=== PATIENT | male | born 1965 | race Caucasian/White ===

== ENCOUNTER 2017-06-28 16:24 | Inpatient (IN) | payer SELFPAY ==
[~2017-06-28] VITALS: Ht 170.2 cm; Wt 63.5 kg
[~2017-06-28 16:24] MED LIST: IOHEXOL 350 MG/ML 50 ML BTL (for Cath Lab) OTHER ONE
[2017-06-28 16:29] VITALS: BP 127/88; PULSE 113; RESP 16; TEMP 97.6; O2SAT 96
[2017-06-28 16:44] VITALS: BP 127/88; PULSE 113; RESP 16; TEMP 97.6; O2SAT 96
--- NOTE | 2017-06-28 16:58 | PD ---
HPI Chief Complaint: Edema Time Seen by Provider: 16:47 Travel History International Travel<30 days: No Contact w/Intl Traveler<30days: No Traveled to known affect area: No History of Present Illness HPI This 52-year-old male says he has had swelling of his feet and scrotum. He has felt short of breath. The symptoms am going on for about 4 weeks. He has not had trouble like this before. He says that 4 weeks ago he thought he got dehydrated his urine was dark for a bit. He has no history of chest pain. He has been having a headache. He does drink occasionally. He smokes but he has not smoked for the past 3 weeks. He is on no medications. PENDING SALE TO [facility] Past Medical History Medical History: Denies Significant Hx Diminished Hearing: No Tetanus Vaccination: Never Vaccinated Past Surgical History Surgical History: No Previous Surgery Social History Alcohol Use: No Tobacco Use: No Substance Use: No Allergies-Medications (Allergen,Severity, Reaction): Coded Allergies: No Known Allergies (Unverified , 06/28/17) Reported Meds & Prescriptions Reported Meds & Active Scripts Active No Active Prescriptions or Reported Medications Review of Systems General / Constitutional: No: Fever, Chills Eyes: No: Diploplia, Blurred Vision HENT: No: Headaches Cardiovascular: Positive: Edema, No: Chest Pain or Discomfort, Palpitations Respiratory: Positive: Shortness of Breath, No: Cough Gastrointestinal: No: Vomiting, Diarrhea Genitourinary: No: Frequency Musculoskeletal: No: Myalgias Skin: No Rash Neurologic: No: Weakness Psychiatric: No: Anxiety, Depression Hematologic/Lymphatic: No: Easy Bruising Physical Exam Narrative GENERAL: Well-developed male SKIN: Focused skin assessment warm/dry. HEAD: Atraumatic. Normocephalic. EYES: Pupils equal and round. No scleral icterus. No injection or drainage. ENT: No nasal bleeding or discharge. Mucous membranes pink and moist. NECK: Trachea midline. No JVD. CARDIOVASCULAR: Regular rate and rhythm. No murmur appreciated. RESPIRATORY: No accessory muscle use. Bibasilar rales Breath sounds equal bilaterally. GASTROINTESTINAL: Abdomen soft, non-tender, nondistended. Hepatic and splenic margins not palpable. MUSCULOSKELETAL: No obvious deformities. No clubbing. No cyanosis. Bilateral pedal edema. NEUROLOGICAL: Awake and alert. No obvious cranial nerve deficits. Motor grossly within normal limits. Normal speech. PSYCHIATRIC: Appropriate mood and affect; insight and judgment normal. Data Data Last Documented VS Vital Signs Date Time Temp Pulse Resp B/P (MAP) Pulse Ox O2 Delivery O2 Flow Rate FiO2 06/28/17 16:46 16 96 Room Air 06/28/17 16:44 97.6 113 127/88 (101) Orders Orders Electrocardiogram (06/28/17 16:55) Complete Blood Count With Diff (06/28/17 16:55) Comprehensive Metabolic Panel (06/28/17 16:55) Troponin I (06/28/17 16:55) B-Type Natriuretic Peptide (06/28/17 16:55) Prothrombin Time / Inr (Pt) (06/28/17 16:55) Act Partial Throm Time (Ptt) (06/28/17 16:55) Urinalysis - C+S If Indicated (06/28/17 16:55) Magnesium (Mg) (06/28/17 16:55) Thyroid Stimulating Hormone (06/28/17 16:55) Chest, Single Ap (06/28/17 16:55) Furosemide Inj (Lasix Inj) (06/28/17 18:15) Labs Laboratory Tests Test 06/28/17 17:13 Prothrombin Time 16.8 SEC Prothromb Time International Ratio 1.5 RATIO Activated Partial Thromboplast Time 30.6 SEC Blood Urea Nitrogen 20 MG/DL Creatinine 1.20 MG/DL Random Glucose 103 MG/DL Total Protein 6.0 GM/DL Albumin 3.4 GM/DL Calcium Level 8.8 MG/DL Magnesium Level 1.9 MG/DL Alkaline Phosphatase 82 U/L Aspartate Amino Transf (AST/SGOT) 85 U/L Alanine Aminotransferase (ALT/SGPT) 75 U/L Total Bilirubin 1.8 MG/DL Sodium Level 133 MEQ/L Potassium Level 5.0 MEQ/L Chloride Level 100 MEQ/L Carbon Dioxide Level 21.2 MEQ/L Anion Gap 12 MEQ/L Estimat Glomerular Filtration Rate 63 ML/MIN Troponin I 0.06 NG/ML B-Type Natriuretic Peptide 3113 PG/ML Thyroid Stimulating Hormone 3rd Gen 2.860 uIU/ML MDM Medical Decision Making Medical Screen Exam Complete: Yes Emergency Medical Condition: Yes Medical Record Reviewed: Yes Differential Diagnosis Differential includes ascites, cirrhosis, CHF Narrative Course EKG shows sinus tachycardia at a rate of 1:15. There is a QS complex in V1 through V4. Anterior fascicular block. BNP is 3000. His troponin is 0.06. Patient denies any chest pain. Impression is new onset congestive heart failure Diagnosis Primary Impression: Congestive heart failure (CHF) Qualified Codes: I50.9 - Heart failure, unspecified Admitting Information Admitting Physician Requests: Admit Scripts No Active Prescriptions or Reported Meds Bright Pressley MD Jun 28, 2017 16:58
[2017-06-28 17:31] LABS: CHLORIDE 100 MEQ/L (98-107); SODIUM (NA) 133 MEQ/L (136-145)
[2017-06-28 17:32] LABS: AUTOMATED NEUTROPHIL # 9.2 TH/MM3 (1.8-7.7); BASOPHIL # 0.1 TH/MM3 (0-0.2); BASOPHIL % 1.1 % (0.0-2.0); EOSINOPHIL # 0.2 TH/MM3 (0-0.4); EOSINOPHIL % 1.8 % (0.0-4.0); HEMATOCRIT 50.2 % (39.0-51.0); LYMPH % 15.9 % (9.0-44.0); LYMPHOCYTE # 1.9 TH/MM3 (1.0-4.8); MEAN CELL VOLUME 95.5 FL (80.0-100.0); MEAN CORPUSCULAR HEMOGLOBIN 31.1 PG (27.0-34.0); MEAN CORPUSCULAR HGB CONC 32.5 % (32.0-36.0); MONO % 5.4 % (0.0-8.0); NEUT % 75.8 % (16.0-70.0); PLATELET COUNT 291 TH/MM3 (150-450); RED BLOOD COUNT 5.25 MIL/MM3 (4.50-5.90); RED CELL DISTRIBUTION WIDTH 14.1 % (11.6-17.2)
[2017-06-28 17:35] LABS: ANION GAP 12 MEQ/L (5-15); APTT (PATIENT) 30.6 SEC (24.3-30.1); BICARBONATE 21.2 MEQ/L (21.0-32.0); BLOOD UREA NITROGEN 20 MG/DL (7-18); INTERNATIONAL NORMALIZED RATIO 1.5 RATIO; MAGNESIUM 1.9 MG/DL (1.5-2.5); PROTHROMBIN TIME - PATIENT 16.8 SEC (9.8-11.6)
--- NOTE | 2017-06-28 17:37 | RADRPT ---
EXAM DATE/TIME: 06/28/2017 17:02 [facility] COMPARISON: No previous studies available for comparison. INDICATIONS : Shortness of breath. MEDICAL HISTORY : None. SURGICAL HISTORY : None. ENCOUNTER: Initial ACUITY: 1 month PAIN SCORE: 0/10 LOCATION: Bilateral chest FINDINGS: Cardiac silhouette is mildly enlarged. There is mild vascular congestion and central and basilar pare nchymal opacities suggestive of edema. CONCLUSION: Probable CHF Zheng Damian MD on June 28, 2017 at 17:35 Board Certified Radiologist. This report was verified electronically.
[2017-06-28 17:38] LABS: ALT (GPT) 75 U/L (12-78); AST (GOT) 85 U/L (15-37); GLOMERULAR FILTRATION RATE 63 ML/MIN (>89)
[2017-06-28 17:40] LABS: TOTAL BILIRUBIN ADULT 1.8 MG/DL (0.2-1.0)
[2017-06-28 17:41] LABS: ALKALINE PHOSPHATASE 82 U/L (45-117)
[2017-06-28] MEDS ORDERED: FUROSEMIDE 40 MG/4 ML VIAL IV PUSH ONE (18:15)
[2017-06-28 18:20] LABS: HEMO FLAGS AUTO DIFF
[2017-06-28] MEDS ORDERED: SODIUM CHLORIDE 0.9% FLUSH 10 ML FLUSH IV FLUSH PRN (18:30)
[2017-06-28 18:47] LABS: PLATELET ESTIMATE SMEAR NORMAL (NORMAL); PLATELET MORPHOLOGY GIANT (NORMAL); SCAN/DIFF AUTO DIFF CONFIRMED
[2017-06-28 18:55] LABS: BLOOD, URINE SMALL (NEG); GLUCOSE,URINE NEG (NEG); KETONE, URINE NEG (NEG); NITRITE,URINE NEG (NEG)
[2017-06-28 19:02] LABS: URINE COLOR YELLOW (YELLW/STRAW)
[2017-06-28 19:03] LABS: MUCUS URINE FEW /lpf (OCC); WBC, URINE 100-200 /hpf (0-5)
[2017-06-28 19:04] LABS: BACTERIA, URINE MOD /hpf; COMMENT (UR) CULTURE INDICATED; CULTURE IF INDICATED CULTURE INDICATED; SQUAMOUS EPITHELIAL CELL URINE 0-5 /hpf (0-5)
[2017-06-28] MEDS ORDERED: IOHEXOL 350 MG/ML 10 ML VIAL (for RAD DIAG) IVCONTRAST ONE (19:26)
--- NOTE | 2017-06-28 20:08 | RADRPT ---
EXAM DATE/TIME: 06/28/2017 19:14 [facility] COMPARISON: No previous studies available for comparison. INDICATIONS : Abdominal distention with lower extremity swelling. IV CONTRAST: 85 cc Omnipaque 350 (iohexol) IV ORAL CONTRAST: No oral contrast ingested. RADIATION DOSE: 8.67 CTDIvol (mGy) MEDICAL HISTORY : None SURGICAL HISTORY : None. ENCOUNTER: Initial ACUITY: 3 weeks PAIN SCALE: 0/10 LOCATION: Abdomen TECHNIQUE: Volumetric scanning of the abdomen and pelvis was performed. Using automated exposure control and adjustment of the mA and/or kV according to patient size, radiation dose was kept as low as reasonably achievable to obtain optimal diagnostic quality images. DICOM format image data is av ailable electronically for review and comparison. FINDINGS: There is a large cystic area seen in the lower abdomen and pelvis thought to be related to a very distended bladder. There is a 0.8 cm calcification seen in the dependent portion of the b ladder thought to be a bladder stone. Renal stones are not seen. There is some mild fullness of the renal collecting system on the left. The right renal collecting system is within normal limits. The heart size appears enlarged. There is dilatation of the ventricles especially at the left. Ther e are mild bilateral pleural effusions being worse on the right. There are accompanying areas of ate lectasis or consolidation at the posterior lung bases. There is a mild amount of ascites seen around the liver and spleen. There is hazy density seen throughout the subcutaneous tissues concerning for anasarca. The liver, spleen, pancreas and adrenal glands are unremarkable. Atherosclerotic calcifications are seen throughout the arterial system. An aneurysm is not present. There are some scattered colonic d iverticula in the sigmoid region. Significant inflammatory change is not seen. There is some degener ative change in the lower lumbar spine. CONCLUSION: 1. Very distended urinary bladder. There is an 8 mm stone seen in the dependent portion of the urina ry bladder. 2. Cardiomegaly with dilatation of the ventricles especially on the left. 3. Bilateral mild pleural effusions being worse on the right. 4. Mild ascites and suspected anasarca seen in the subcutaneous tissues. Zheng George MD on June 28, 2017 at 19:54 Board Certified Radiologist. This report was verified electronically.
[2017-06-28 20:27] VITALS: BP 104/83; PULSE 109; RESP 18; O2SAT 94
[2017-06-28] MEDS: ENOXAPARIN SODIUM 40 MG/0.4 ML SYRINGE SQ SCH (20:41)
[2017-06-28 21:29] VITALS: BP 112/71; PULSE 119; RESP 18; O2SAT 98
[2017-06-28] MEDS: SODIUM CHLORIDE 0.9% FLUSH 10 ML FLUSH IV FLUSH SCH (21:29)
[2017-06-28 22:32] VITALS: O2SAT 96
[2017-06-29] VITALS (9 sets, daily range): BP systolic 86–111; BP diastolic 72–95; PULSE 88–120; RESP 16–24; TEMP 96.3–98.3; O2SAT 91–98
[2017-06-29] MEDS ORDERED: FUROSEMIDE 40 MG/4 ML VIAL IV PUSH ONE (04:00)
[2017-06-29 04:12] LABS: POTASSIUM 4.3 MEQ/L (3.5-5.1)
[2017-06-29 04:15] LABS: BICARBONATE 19.4 MEQ/L (21.0-32.0); MAGNESIUM 1.8 MG/DL (1.5-2.5)
[2017-06-29] MEDS: BUMETANIDE INJ 1 MG/4 ML VIAL IVP SCH ×2 (09:00→18:12)
[2017-06-29] MEDS: SODIUM CHLORIDE 0.9% FLUSH 10 ML FLUSH IV FLUSH SCH ×2 (09:17→21:33)
--- NOTE | 2017-06-29 11:15 | HHI.HP ---
[facility] No Primary Care Physician Admission Diagnosis NEW ONSET CHF Diagnoses: Chief Complaint: Shortness of breath and edema Travel History International Travel<30 Days: No Contact w/Intl Traveler <30 Da: No Traveled to Known Affected Are: No History of Present Illness Patient is a pleasant 52-year-old gentleman with minimal past medical history who comes in because of 4 weeks of increased dyspnea on exertion, orthopnea and lower show any edema. He felt dehydrated so he drank lots and lots of fluid and with edema got worse. There was initially some improvement with elevation but even that did not work after a while so he came to the emergency room for further evaluation. Patient was found to be quite edematous with elevated BNP and an x-ray which showed basilar congestion pattern. Patient was admitted to the hospital for further evaluation of likely new onset congestive heart failure. He denies any chest pain or tightness, no syncopal changes or symptoms. Patient has felt better after aggressive diuresis Review of Systems Constitutional: COMPLAINS OF: Fatigue, DENIES: Diaphoretic episodes, Fever, Weight gain, Weight loss, Chills, Dizziness, Change in appetite, Night Sweats Endocrine: DENIES: Heat/cold intolerance, Polydipsia, Polyuria, Polyphagia Eyes: DENIES: Blurred vision, Diplopia, Eye inflammation, Eye pain, Vision loss , Photosensitivity, Double Vision Ears, nose, mouth, throat: DENIES: Tinnitus, Hearing loss, Vertigo, Nasal discharge, Oral lesions, Throat pain, Hoarseness, Ear Pain, Running Nose, Epistaxis, Sinus Pain, Toothache, Odynophagia Respiratory: DENIES: Apneas, Cough, Snoring, Wheezing, Hemoptysis, Sputum production, Shortness of breath Cardiovascular: COMPLAINS OF: Dyspnea on Exertion, Lower Extremity Edema, Orthopnea, DENIES: Chest pain, Palpitations, Syncope, PND, Claudication Gastrointestinal: DENIES: Abdominal pain, Black stools, Bloody stools, Constipation, Diarrhea, Nausea, Vomiting, Difficulty Swallowing, Anorexia Genitourinary: DENIES: Sexual dysfunction, Urinary frequency, Urinary incontinence, Urgency, Hematuria, Dysuria, Nocturia, Penile Discharge, Testicular Pain, Testicular Swelling Musculoskeletal: DENIES: Joint pain, Muscle aches, Stiffness, Joint Swelling, Back pain, Neck pain Integumentary: DENIES: Abnormal pigmentation, Nail changes, Pruritus, Rash Hematologic/lymphatic: DENIES: Bruising, Lymphadenopathy Immunologic/allergic: DENIES: Eczema, Urticaria Neurologic: DENIES: Abnormal gait, Headache, Localized weakness, Paresthesias, Seizures, Speech Problems, Tremor, Poor Balance Psychiatric: DENIES: Anxiety, Confusion, Mood changes, Depression, Hallucinations, Agitation, Suicidal Ideation, Homicidal Ideation, Delusions Except as stated in HPI: all other systems reviewed are Neg Past Family Social History Past Medical History None Past Surgical History None Reported Medications None Allergies: Coded Allergies: No Known Allergies (Unverified , 06/28/17) Active Ordered Medications Reviewed in the EMR Family History father from a AAA rupture at 45, mother in her 80s after motor vehicle accident Social History Tobacco pack per day for 30 years, 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, 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, 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 Vital Signs Vital Signs Date Time Temp Pulse Resp B/P (MAP) Pulse Ox O2 Delivery O2 Flow Rate FiO2 06/29/17 08:00 97.4 106 20 100/86 (91) 91 06/29/17 04:00 96.6 105 24 86/72 (77) 95 06/29/17 01:40 96.3 112 20 108/90 (96) 98 06/29/17 00:26 107 18 105/84 (91) 95 Room Air 06/29/17 00:26 109 18 105/84 (91) 95 06/28/17 22:32 96 21 06/28/17 21:29 119 18 112/71 (85) 98 Room Air 06/28/17 20:27 109 18 104/83 (90) 94 Room Air 06/28/17 19:00 114 18 96 Room Air 06/28/17 16:46 16 96 Room Air 06/28/17 16:44 97.6 113 16 127/88 (101) 96 06/28/17 16:29 97.6 113 16 127/88 (101) 96 Room Air Physical Exam GENERAL: This is a well-nourished, well-developed patient, mildly dyspneic with conversation SKIN: No rashes, ecchymoses or lesions. Cool and dry. HEAD: Atraumatic. Normocephalic. No temporal or scalp tenderness. EYES: Pupils equal round and reactive. Extraocular motions intact. No scleral icterus. No injection or drainage. ENT: Nose without bleeding, purulent drainage or septal hematoma. Throat without erythema, tonsillar hypertrophy or exudate. Uvula midline. Airway patent. NECK: Trachea midline. No JVD or lymphadenopathy. Supple, nontender, no meningeal signs. CARDIOVASCULAR: Regular rate and rhythm without murmurs, gallops, or rubs. RESPIRATORY: Clear to auscultation. Breath sounds equal bilaterally. No wheezes , rales, or rhonchi. GASTROINTESTINAL: Abdomen soft, non-tender, nondistended. No hepato-splenomegaly , or palpable masses. No guarding. MUSCULOSKELETAL: Extremities without clubbing, cyanosis, but there is +3 bilateral edema. No joint tenderness, effusion, or edema noted. No calf tenderness. Negative Homans sign bilaterally. NEUROLOGICAL: Awake and alert. Cranial nerves II through XII intact. Motor and sensory grossly within normal limits. Five out of 5 muscle strength in all muscle groups. Normal speech. Laboratory Laboratory Tests Test 06/28/17 17:13 06/28/17 18:43 06/29/17 03:55 White Blood Count 12.0 Red Blood Count 5.25 Hemoglobin 16.3 Hematocrit 50.2 Mean Corpuscular Volume 95.5 Mean Corpuscular Hemoglobin 31.1 Mean Corpuscular Hemoglobin Concent 32.5 Red Cell Distribution Width 14.1 Platelet Count 291 Mean Platelet Volume 9.9 Neutrophils (%) (Auto) 75.8 Lymphocytes (%) (Auto) 15.9 Monocytes (%) (Auto) 5.4 Eosinophils (%) (Auto) 1.8 Basophils (%) (Auto) 1.1 Neutrophils # (Auto) 9.2 Lymphocytes # (Auto) 1.9 Monocytes # (Auto) 0.6 Eosinophils # (Auto) 0.2 Basophils # (Auto) 0.1 CBC Comment AUTO DIFF Differential Comment AUTO DIFF CONFIRMED Platelet Estimate NORMAL Platelet Morphology Comment GIANT Prothrombin Time 16.8 Prothromb Time International Ratio 1.5 Activated Partial Thromboplast Time 30.6 Blood Urea Nitrogen 20 21 Creatinine 1.20 1.10 Random Glucose 103 72 Total Protein 6.0 Albumin 3.4 Calcium Level 8.8 8.8 Magnesium Level 1.9 1.8 Alkaline Phosphatase 82 Aspartate Amino Transf (AST/SGOT) 85 Alanine Aminotransferase (ALT/SGPT) 75 Total Bilirubin 1.8 Sodium Level 133 134 Potassium Level 5.0 4.3 Chloride Level 100 100 Carbon Dioxide Level 21.2 19.4 Anion Gap 12 15 Estimat Glomerular Filtration Rate 63 70 Troponin I 0.06 B-Type Natriuretic Peptide 3113 Thyroid Stimulating Hormone 3rd Gen 2.860 Urine Color YELLOW Urine Turbidity CLOUDY Urine pH 6.0 Urine Specific [place] 1.018 Urine Protein 100 Urine Glucose (UA) NEG Urine Ketones NEG Urine Occult Blood SMALL Urine Nitrite NEG Urine Bilirubin NEG Urine Leukocyte Esterase LARGE Urine RBC 4-9 Urine WBC 100-200 Urine Squamous Epithelial Cells 0-5 Urine Bacteria MOD Urine Mucus FEW Microscopic Urinalysis Comment CULTURE INDICATED Date/Time Source Procedure Growth Status 06/28/17 18:43 Urine Clean Catch Urine Culture Pending Received Result Diagram: 06/28/17 1713 06/29/17 0355 Imaging Last Impressions Abdomen/Pelvis CT 06/28/17 1818 Signed Impressions: Service Date/Time: Wednesday, June 28, 2017 19:14 - CONCLUSION: 1. Very distended urinary bladder. There is an 8 mm stone seen in the dependent portion of the urinary bladder. 2. Cardiomegaly with dilatation of the ventricles especially on the left. 3. Bilateral mild pleural effusions being worse on the right. 4. Mild ascites and suspected anasarca seen in the subcutaneous tissues. Zheng George MD Chest X-Ray 06/28/17 1655 Signed Impressions: Service Date/Time: Wednesday, June 28, 2017 17:02 - CONCLUSION: Probable CHF MD Augustina Gormani VTE Risk Assessment [place] VTE Risk Assessment: Mod/High Risk (score >= 2) VTE [facility] Contraindication: Severe LE edema Caprini Risk Assessment Model Point Value = 1 Point Value = 2 Point Value = 3 Point Value = 5 Age 41-60 Minor surgery BMI > 25 kg/m2 Swollen legs Varicose veins or History of unexplained or recurrent spontaneous Oral contraceptives or hormone replacement Sepsis (< 1 month) Serious lung disease, including pneumonia (< 1 month) Abnormal pulmonary function Acute myocardial infarction Congestive heart failure (< 1 month) History of inflammatory bowel disease Medical patient at bed rest Age 61-74 Arthroscopic surgery Major open surgery (> 45 min) Laparoscopic surgery (> 45 min) Malignancy Confined to bed (> 72 hours) Immobilizing plaster cast Central venous access Age >= 75 History of VTE Family history of VTE Factor V Leiden Prothrombin 30040S Lupus anticoagulant Anticardiolipin antibodies Elevated serum homocysteine Heparin-induced thrombocytopenia Other congenital or acquired thrombophilia Stroke (< 1 month) Elective arthroplasty Hip, pelvis, or leg fracture Acute spinal cord injury (< 1 month) Prophylaxis Regimen Total Risk Factor Score Risk Level Prophylaxis Regimen 0-1 Low Early ambulation 2 Moderate Order ONE of the following: *Sequential Compression Device (SCD) *Heparin 5000 units SQ BID 3-4 Higher Order ONE of the following medications: *Heparin 5000 units SQ TID *Enoxaparin/Lovenox 40 mg SQ daily (WT < 150 kg, CrCl > 30 mL/min) *Enoxaparin/Lovenox 30 mg SQ daily (WT < 150 kg, CrCl > 10-29 mL/min) *Enoxaparin/Lovenox 30 mg SQ BID (WT < 150 kg, CrCl > 30 mL/min) AND/OR *Sequential Compression Device (SCD) 5 or more Highest Order ONE of the following medications: *Heparin 5000 units SQ TID (Preferred with Epidurals) *Enoxaparin/Lovenox 40 mg SQ daily (WT < 150 kg, CrCl > 30 mL/min) *Enoxaparin/Lovenox 30 mg SQ daily (WT < 150 kg, CrCl > 10-29 mL/min) *Enoxaparin/Lovenox 30 mg SQ BID (WT < 150 kg, CrCl > 30 mL/min) AND *Sequential Compression Device (SCD) Assessment and Plan Problem List: (1) Congestive heart failure (CHF) ICD Code: I50.9 - Heart failure, unspecified Status: Acute Plan: Workup in progress, echo pending Improved after diuresis Blood pressure and heart rate stable. No events on telemetry Follow-up troponin Problem Qualifiers (1) Congestive heart failure (CHF): Qualified Codes: I50.9 - Heart failure, unspecified Elenita Renee MD Jun 29, 2017 11:14
--- NOTE | 2017-06-29 16:20 | ECHRPT ---
Indication: Heart failure, unspecified CONCLUSIONS The left ventricular systolic function is severely reduced with an estimated ejection fraction less than 20%. Wall thickness is normal. Severely dilated left ventricle. The right ventricle is mildly dilated. The right ventricular systoilc function is mildly decreased. The left atrial size is mildly dilated. The right atrial size is mildly dilated. Mild mitral valve regurgitation. No aortic valve regurgitation. No aortic valve stenosis. There is mild tricuspid valve regurgitation. There is estimated mild pulmonary hypertension present (range 40-50 mmHg). There is a small pericardial effusion present. BP: / HR: Rhythm: MEASUREMENTS (Male / Female) Normal Values Technical Quality:Good 2D ECHO LV Diastolic Diameter PLAX 6.8 cm 4.2 - 5.9 / 3.9 - 5.3 cm LV Systolic Diameter PLAX 6.3 cm IVS Diastolic Thickness 1.2 cm 0.6 - 1.0 / 0.6 - 0.9 cm LVPW Diastolic Thickness 1.4 cm 0.6 - 1.0 / 0.6 - 0.9 cm LV Relative Wall Thickness 0.4 RV Internal Dim ED PLAX 3.3 cm M-MODE Aortic Root Diameter MM 3.7 cm LA Systolic Diameter MM 5.3 cm LA Ao Ratio MM 1.4 AV Cusp Separation MM 1.6 cm DOPPLER LV E' Lateral Velocity 9.0 cm/s LV E' Septal Velocity 4.7 cm/s TR Peak Velocity 286.0 cm/s TR Peak Gradient 32.7 mmHg FINDINGS LEFT VENTRICLE The left ventricular systolic function is severely reduced with an estimated ejection fraction less than 20%. Wall thickness is normal. Severely dilated left ventricle. RIGHT VENTRICLE The right ventricle is mildly dilated. The right ventricular systoilc function is mildly decreased. LEFT ATRIUM The left atrial size is mildly dilated. RIGHT ATRIUM The right atrial size is mildly dilated. AORTA The aortic root and proximal ascending aorta are normal in size on limited imaging. MITRAL VALVE Structurally normal mitral valve. Mild mitral valve regurgitation. AORTIC VALVE Trileaflet aortic valve. No aortic valve regurgitation. No aortic valve stenosis. TRICUSPID VALVE Structurally normal tricuspid valve. There is mild tricuspid valve regurgitation. There is estimated mild pulmonary hypertension present (range 40-50 mmHg). PULMONARY VALVE No pulmonary valve regurgitation or stenosis. VESSELS The inferior vena cava is normal in size. PERICARDIUM There is a small pericardial effusion present. Pedro Sims MD, FACC (Electronically Signed) Final Date:29 June 2017 16:18
[2017-06-29] MEDS ORDERED: PILL SPLITTER OTHER PRN (17:00)
--- NOTE | 2017-06-29 17:37 | EKG ---
Date Performed: 06/28/2017 Time Performed: 17:06:06 PTAGE: 52 years EKG: SINUS TACHYCARDIA LEFT ATRIAL ENLARGEMENT LEFT ANTERIOR FASCICULAR BLOCK ANTEROSEPTAL MYOCA RDIAL INFARCTION ABNORMAL ECG NO PREVIOUS TRACING DOCTOR: Cole Morillo Interpretating Date/Time 06/29/2017 17:35:06
[2017-06-29] MEDS: ENOXAPARIN SODIUM 40 MG/0.4 ML SYRINGE SQ SCH (21:33)
[2017-06-30] VITALS (25 sets, daily range): BP systolic 92–108; BP diastolic 65–85; PULSE 90–118; RESP 16–20; TEMP 97.5–97.9; O2SAT 92–95
[2017-06-30] MEDS: SODIUM CHLORIDE 0.9% FLUSH 10 ML FLUSH IV FLUSH SCH ×2 (07:33→21:27)
[2017-06-30] MEDS: BUMETANIDE INJ 1 MG/4 ML VIAL IVP SCH (07:33)
[2017-06-30] MEDS: LISINOPRIL 5 MG TAB PO SCH (07:33)
--- NOTE | 2017-06-30 10:52 | HHI.PR ---
Subjective Remarks Follow up CHF, edema. Patient states that his edema is improving. Denies chest pain, dyspnea. Objective Vitals Vital Signs Date Time Temp Pulse Resp B/P (MAP) Pulse Ox O2 Delivery O2 Flow Rate FiO2 06/30/17 10:00 101 06/30/17 09:00 92 06/30/17 08:00 96 06/30/17 07:00 97.5 95 20 107/83 (91) 95 06/30/17 07:00 99 06/30/17 06:00 110 06/30/17 05:00 96 06/30/17 04:00 90 06/30/17 03:00 92 06/30/17 03:00 97.5 94 18 103/79 (87) 95 06/30/17 02:00 96 06/30/17 01:00 102 06/30/17 00:00 104 06/29/17 23:00 98.3 105 16 104/81 (89) 95 06/29/17 23:00 108 06/29/17 22:00 120 06/29/17 20:00 97.0 88 20 111/95 (100) 96 06/29/17 16:00 97.6 96 18 110/87 (95) 92 06/29/17 12:00 97.5 98 20 110/86 (94) 93 I/O 06/29/17 06/29/17 06/29/17 06/30/17 06/30/17 06/30/17 06:59 14:59 22:59 06:59 14:59 22:59 Intake Total 240 ml 575 ml 360 ml Output Total 1000 ml 550 ml Balance -760 ml 575 ml -190 ml Intake Oral 240 ml 575 ml 360 ml Output Urine Total 1000 ml 550 ml # Voids 0 3 # Bowel Movements 0 Result Diagram: 06/28/17 1713 06/29/17 0355 Imaging Last Impressions Abdomen/Pelvis CT 06/28/178 Signed Impressions: Service Date/Time: Wednesday, June 28, 2017 19:14 - CONCLUSION: 1. Very distended urinary bladder. There is an 8 mm stone seen in the dependent portion of the urinary bladder. 2. Cardiomegaly with dilatation of the ventricles especially on the left. 3. Bilateral mild pleural effusions being worse on the right. 4. Mild ascites and suspected anasarca seen in the subcutaneous tissues. Zheng George MD Chest X-Ray 06/28/17 5957 Signed Impressions: Service Date/Time: Wednesday, June 28, 2017 17:02 - CONCLUSION: Probable CHF Zheng Damian MD Objective Remarks General: No acute distress. Heart: Regular rate and rhythm. No murmur. Lungs: Clear to auscultation bilaterally. No wheezes, rales, or rhonchi. Breathing is nonlabored. Abdomen: Soft, nontender, nondistended. Extremities: 1+ bilateral lower extremity edema. Psych: Alert and oriented. : Mild scrotal and penile edema. Procedures None Urinary Catheter: No Vascular Central Line Catheter: No A/P Problem List: (1) Congestive heart failure (CHF) ICD Code: I50.9 - Heart failure, unspecified Status: Acute (2) Cardiomyopathy ICD Code: I42.9 - Cardiomyopathy, unspecified Assessment and Plan 1. Acute systolic congestive heart failure, cardiomyopathy: Echocardiogram shows EF 20%. Edema is improving. Continue diuresis. Appreciate cardiology recommendations. Scheduled for catheterization today. 2. DVT prophylaxis: Lovenox. Discharge Planning When cleared by cardiology. Problem Qualifiers (1) Congestive heart failure (CHF): Qualified Codes: I50.21 - Acute systolic (congestive) heart failure Chandler Miner MD Jun 30, 2017 10:52
[2017-06-30] MEDS ORDERED: HEPARIN-NS/PF INJ 1,000 ML ONE (11:25)
[2017-06-30] MEDS ORDERED: MIDAZOLAM HCL 2 MG/2 ML VIAL ONE (11:33)
--- NOTE | 2017-06-30 12:25 | CATHPROC ---
GLOG HIS Report Study Information Study Number Admission Scheduled Start Study Start [id number] Jun 28 2017 6:19PM 06/30/2017 Jun 30 2017 11:17AM [place] Service Cardiac Catheterization Admit Source Facility Department Other [facility] - Regional Project Manager Physician and Clinical Staff Initial Pedro Wren Lacquer Pin Press Operator Shadi Wyatt,TRACY Recorder Kapil Silver RCIS(BS) Scrub Curly Cook RCIS(BS) Procedures Performed Procedure Location (Site) Vessel Name Coronary Angiograms LCA Left Coronary Coronary Angiograms RCA Right Coronary LV Gram-hand inj. 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 WEDGE PRESSURE *[id number] TRANSDUCER, TRNautilus NeurosciencesAVE [id number] 11:32 BURGOS ALICEA * Used W/STOCKCOCK *[id number] 12:06 CARDIVA MEDICAL VASCADE, FR6 CLOSURE SYSTEM FR 6\7 Used *[id number] [id number] *[id number] [id number] *[id number] *[id number] 11:32 Exerscrip INDUSTRIES PACK, CCL CUSTOM * Used *[id number] 11:32 Exerscrip PACER PEN, SKIN DUAL W/ RULER * Used *[id number] 11:32 Xoft WIRE, 3MMJ .035 180CM 180CM Used *[id number] 11:32 NAMIC MANIFOLD, 2 PORT * Used *[id number] 11:32 NAMIC MANIFOLD, 4 PORT * Used *[id number] 11:32 NYCOMED OMNIPAQUE, 350 MG, 150ML 150ML [id number] Used [id number] 11:32 BANG MEDICAL BLANKET,WARM AIR CCL * Used *[id number] 11:33 TERUMO MEDICAL SHEATH, FR4 TERUMO (10CM) FR 4 Used *[id number] 11:32 TERUMO MEDICAL SHEATH, FR7 TERUMO (10CM) FR 7 Used *[id number] History: Allergies Allergy Reaction No Known Allergies History: Risk Factors Family History of Hypertension Dyslipidemia Previous DC Previous Heart Failure Premature CAD Yes No Yes No Yes Prior Valve Prior PCI Prior CABG Surgery No No No Cerebrovascular Peripheral Artery Chronic Lung On Dialysis Diabetes Disease Disease Disease No No No No No History: Symptoms/Diagnosis Selection Items SOB History: Stress Tests Stress or Imaging Studies Performed No History: Other Current Smoker Method Packs a Day Years Used Pack Years Yes Cigarettes 1 30 30 Labs Hgb (g/dl) Hct (%) WBC (l/cumm) Platelets (thousands) 11.60-17.00 35.00-51.00 4.00-11.00 150.00-450.00 16.3 50.2 12 291 Glucose (mg/dl) BUN (mg/dl) Creatinine (mg/dl) BUN:Creatinine (1:x) 74.00-106.00 7.00-18.00 0.50-1.30 10.00-20.00 72 21 1.1 19.1 Na (meq/l) K (meq/l) 136.00-145.00 3.50-5.10 134 4.3 INR (PTT:PT) 0.90-1.10 1.5 Troponin I (ng/ml) CPK-MB (ng/ML) 0.02-0.05 0.50-3.60 0.05 Not Drawn Medication Medication Total Dose (Bolus/Oral) Medication Total Dosage/Unit 1% XYLOCAINE 20 mL FENTANYL 25 mcg VERSED 1 mg Medications (Bolus/Oral) Medication Time Given Dosage/Unit Administered By Reason VERSED 06/30/2017 11:42:03 AM 1 mg Patient arrived on 1 mg VERSED via Peripheral IV. Ordered by Pedro Sims. FENTANYL 06/30/2017 11:42:05 AM 25 mcg Pedro Sims Patient arrived on 25 mcg FENTANYL given by Pedro Sims in Right Antecubital via Peripheral IV. Or dered by Pedro Sims. 1% XYLOCAINE 06/30/2017 11:43:15 AM 20 mL Pedro Sims 20 mL 1% XYLOCAINE given in lab by Pedro Sims in Right Groin via Subcutaneous. Ordered by Pedro Sims. Medication (Drip) Medication Time Given Dosage/Unit Concentration/Unit Diluent (ml) Solution IV Solutions 06/30/2017 11:18:20 AM 0 mL (IV) 500 NaCl .9 Patient arrived on IV Solutions in Right Antecubital via Peripheral IV. Pump/Drip Flow = 20 ml/hr usi ng NaCl .9. Ordered by Pedro Sims. Initial Case Assessment Cardiovascular HR Rhythm NIBP Chest Pain 93 SR 108/82 0 Edema Present Skin color Skin Moderate Normal Warm Dry Circulatory - Right Pulses Dorsalis Pedis Femoral 2 2 Scale (0,1,2,3,4,d) Circulatory - Left Pulses Dorsalis Pedis Femoral 2 2 Scale (0,1,2,3,4,d) Circulatory - Lower Extremities Color Lower Right Color Lower Left Normal Normal Neurological State Oriented to time-place- Alert Moves all extremities person Respiration - General Respiration Rate SpO2 (%) (B/min) 15 89 Final Case Assessment Cardiovascular HR Rhythm NIBP Chest Pain 93 SR 108/82 0 Edema Present Skin color Skin Moderate Normal Warm Dry Circulatory - Right Pulses Dorsalis Pedis Femoral 2 2 Scale (0,1,2,3,4,d) Circulatory - Left Pulses Dorsalis Pedis Femoral 2 2 Scale (0,1,2,3,4,d) Circulatory - Lower Extremities Color Lower Right Color Lower Left Normal Normal Neurological State Oriented to time-place- Alert Moves all extremities person Respiration - General Respiration Rate SpO2 (%) (B/min) 15 89 Chronological Log Time Study Chronological Log 11:17:12 Patient arrived via Bed. 11:17:13 Patient Name, D.O.B, / Armband Verified By R.N. 11:17:14 Consent signed by the physician and the patient and verified by the Regional Project Manager staff. 11:17:14 Pre-op and post- op instructions given; patient acknowledges understanding of instructions. 11:17:15 Verbal Stimulation=2 Physical Stimulation=2 Airway=2 Respiration=2 TOTAL=8. (0=absent, 1=li mited, 2=present) 11:17:17 Allens test performed on the right radial and ulnar artery. 11:17:22 Patient has been NPO for More than 6Hrs. 11:18:04 Skin Breakdown- 11:18:05 Patient Warmer Placed on the Table. 11:18:19 A # 20 IV was noted in the Antecubital (right). Grade = 0 Patient arrived on IV Solutions in Right Antecubital via Peripheral IV. Pump/Drip Flow = 20 ml/ hr using NaCl .9. Ordered 11:18:20 by Pedro Sims. 11:18:20 History and physical on the chart or being dictated. Assessment: Initial Case, HR=93 BPM, Rhythm=SR, EKXQ=159/82 mmhg, Chest Pain=0, Edema=Mod, [place] r=Normal, Skin = Warm, Dry Right Pulses: Arnoldo Ped=2, Femoral=2 Left Pulses: Arnoldo Ped=2, Femoral=2 11:18:21 Lower Right Extremities: Color=Normal Lower Left Extremities: Color=Normal Neurological: State=Alert, Ox3, BAJWA Respiration: Resp=15 B/min, SpO2=89 % Vitals capture started with the following parameters, Patient=Adult, Interval=5 min, Initial Pr pooadt=094 mmHg, 11:26:33 Deflation Rate=5 mmHg, Cuff placed on Right Arm 11:27:09 HR=91 bpm, PTZE=330/84 mmhg, SpO2=92.0 %, Resp=10 B/min, Pain=0, Wolf=10, Pozo=2 11:32:02 HR=94 bpm, FLXI=840/82 mmhg, SpO2=90.0 %, Resp=15 B/min, Pain=0, Wolf=10, Pozo=2 11:36:00 MD paged 11:37:00 MD arrived. 11:37:05 HR=92 bpm, LEPL=276/75 mmhg, SpO2=88.0 %, Resp=15 B/min, Pain=0, Wolf=10, Pozo=2 11:37:19 Reference ECG taken 11:38:07 Pressure channel 1 zeroed. 11:38:23 Right groin prepped with 2% chlorhexidine, and with a 3 min. waiting time. 11:42:03 Patient arrived on 1 mg VERSED via Peripheral IV. Ordered by Pedro Sims. 11:42:04 HR=90 bpm, WCPI=092/78 mmhg, SpO2=90.0 %, Resp=16 B/min, Pain=0, Wolf=10, Pozo=2 Patient arrived on 25 mcg FENTANYL given by Pedro Sims in Right Antecubital via Peripheral IV. Ordered by Levi, 11:42:05 Pedro. Time Out. Correct patient, correct procedure,correct physician, ,power injector loaded or not l oaded with contrast with 11:43:06 surgical team present. Time Out Concurred by MD, individual staff and STATOR WINDER in procedure 11:43:10 Case Start 11:43:15 20 mL 1% XYLOCAINE given in lab by Pedro Sims in Right Groin via Subcutaneous. Ordered by Pedro Sims. 11:45:08 Access site was Right Femoral Artery. 11:47:03 HR=89 bpm, TXMI=929/81 mmhg, SpO2=86.0 %, Resp=17 B/min, Pain=0, Wolf=10, Pozo=2 11:48:32 A SHEATH, FR4 TERUMO (10CM) FR 4 was advanced into the Fem Art (right) using the Percutaneo us technique. 11:48:50 Access site was Right Femoral Vein. 11:48:57 A SHEATH, FR7 TERUMO (10CM) FR 7 was advanced into the Fem Vein (right) using the Percutane ous technique. 11:49:04 A CATHETER, FR.7 BALLOON WEDGE PRESSURE FR 7 was inserted via Fem Vein (right) Recorded Pressure: RA, HR=90, Condition=Condition 1 11:51:50 (Right Atrium) RA 8/6/5 11:52:06 HR=85 bpm, NIBP=98/73 mmhg, SpO2=92.0 %, Resp=13 B/min, Pain=0, Wolf=10, Pozo=2 Recorded Pressure: RV, HR=86, Condition=Condition 1 11:52:16 (Right Ventricle) RV 38/2/5 Recorded Pressure: MPA, HR=87, Condition=Condition 1 11:53:27 (Main Pulmonary Artery) MPA 40/20/29 Recorded Pressure: PCW, HR=90, Condition=Condition 1 11:54:43 (Pulmonary Capillary Wedge) PCW 22/21/19 11:55:08 Saturation: Site=Ao (Aorta) , O2=91 %, Hgb=16.3 gm/dl, Condition=Condition 1. Used in calcu lation. 11:55:52 Saturation: Site=PA (Pulmonary Artery) , O2=73.5 %, Hgb=16.3 gm/dl, Condition=Condition 1. Used in calculation. A PIGTAIL ANG. INFINITI CATHETER FR 4 was advanced over a wire. OMNIPAQUE, 350 MG, 150ML 150ML was used 11:57:00 for injections. 11:57:03 HR=90 bpm, FYXH=745/79 mmhg, SpO2=89.0 %, Resp=72 B/min, Pain=0, Wolf=10, Pozo=2 Recorded Pressure: LV, HR=93, Condition=Condition 1 11:57:29 (Left Ventricle) LV 90/15/22 11:57:30 The LV was manually injected with 8 cc's and visualized. OMNIPAQUE, 350 MG, 150ML 150ML use d. 11:58:03 [place] Catheter Removed Recorded Pressure: LV, Ao, HR=92, Condition=Condition 1 12:00:14 (Left Ventricle) LV 88/18/17, (Aorta) Ao 90/70/80 12:01:12 Catheter was removed 12:02:06 HR=93 bpm, XJMP=261/77 mmhg, SpO2=89.0 %, Resp=16 B/min, Pain=0, Wolf=10, Pozo=2 A JL 4.0 INFINITI CATHETER FR 4 was advanced over a wire. OMNIPAQUE, 350 MG, 150ML 150ML was us ed for 12:02:23 injections. 12:03:09 The LCA was injected and visualized at various angles. OMNIPAQUE, 350 MG, 150ML 150ML used . 12:04:32 Catheter was removed A JR 4.0 INFINITI CATHETER FR 4 was advanced over a wire. OMNIPAQUE, 350 MG, 150ML 150ML was us ed for 12:04:33 injections. 12:04:41 The RCA was injected and visualized at various angles. OMNIPAQUE, 350 MG, 150ML 150ML used . 12:05:57 Catheter was removed 12:07:05 HR=88 bpm, KKJH=553/82 mmhg, SpO2=93.0 %, Resp=18 B/min, Pain=0, Wolf=10, Pozo=2 12:07:52 Case End Assessment: Final Case, HR=93 BPM, Rhythm=SR, LECS=204/82 mmhg, Chest Pain=0, Edema=Mod, Color= Normal, Skin = Warm, Dry Right Pulses: Arnoldo Ped=2, Femoral=2 Left Pulses: Arnoldo Ped=2, Femoral=2 12:08:08 Lower Right Extremities: Color=Normal Lower Left Extremities: Color=Normal Neurological: State=Alert, Ox3, BAJWA Respiration: Resp=15 B/min, SpO2=89 % 12:09:16 VASCADE, FR6 CLOSURE SYSTEM FR 6\7 placement in the Fem Vein (right) 12:09:37 Sheath removed; pressure applied to access site. 12:12:08 HR=89 bpm, LHOC=530/80 mmhg, SpO2=94.0 %, Resp=14 B/min, Pain=0, Wolf=10, Pozo=2 12:17:05 HR=90 bpm, GLDK=368/83 mmhg, SpO2=93.0 %, Resp=18 B/min, Pain=0, Wolf=10, Pozo=2 12:18:33 Sterile dressing applied to site 12:18:34 No case complications noted. 12:18:35 Cine recording checked. 12:18:40 Bedside Report will be given. 12:18:42 Contrast Scanned 12:18:46 A Left and Right Heart Cath was performed. 12:18:49 Patient moved to stretcher 12:22:06 HR=92 bpm, BFHB=136/76 mmhg, SpO2=94.0 %, Resp=15 B/min End Study - Contrast Media Used In Study Contrast Total Opened (mL) Total Used (mL) Total Wasted (mL) Omnipaque 50 50 0 End Study - Maximum Contrast Load Max Contrast Load (mL) 314.5 End Study - Radiation Exposure Fluoro Time (minutes) 4.4 End Study - Patient Disposition Complications Transferred To No Telemetry Bed
[2017-06-30] MEDS ORDERED: METOCLOPRAMIDE HCL 10 MG/2 ML VIAL IV PRN (12:30)
[2017-06-30] MEDS ORDERED: ONDANSETRON HCL 4 MG/2 ML VIAL IV PRN (12:30)
[2017-06-30] MEDS ORDERED: ATROPINE SULFATE 1 MG/ML VIAL IV PRN (12:30)
[2017-06-30] MEDS ORDERED: BACITRACIN OINT 0.9 GM PKT TOP ONE (12:30)
[2017-06-30] MEDS ORDERED: LORazepam 2 MG/ML VIAL IV PRN (12:30)
[2017-06-30] MEDS ORDERED: LIDOCAINE HCL 1% 50 ML VIAL INFIL PRN (12:30)
[2017-06-30] MEDS ORDERED: SODIUM CHLOR 0.9% 250 ML INJ 250 ML IV PRN (12:30)
--- NOTE | 2017-06-30 13:06 | PD.CARD.PN ---
Objective Vital Signs / I&O Vital Signs Date Time Temp Pulse Resp B/P (MAP) Pulse Ox O2 Delivery O2 Flow Rate FiO2 06/30/17 11:09 94 06/30/17 11:00 97.9 90 20 94/74 (81) 94 06/30/17 11:00 93 06/30/17 10:00 101 06/30/17 09:00 92 06/30/17 08:00 96 06/30/17 07:00 97.5 95 20 107/83 (91) 95 06/30/17 07:00 99 06/30/17 06:00 110 06/30/17 05:00 96 06/30/17 04:00 90 06/30/17 03:00 92 06/30/17 03:00 97.5 94 18 103/79 (87) 95 06/30/17 02:00 96 06/30/17 01:00 102 06/30/17 00:00 104 06/29/17 23:00 98.3 105 16 104/81 (89) 95 06/29/17 23:00 108 06/29/17 22:00 120 06/29/17 20:00 97.0 88 20 111/95 (100) 96 06/29/17 16:00 97.6 96 18 110/87 (95) 92 I/O 06/29/17 06/29/17 06/29/17 06/30/17 06/30/17 06/30/17 07:00 15:00 23:00 07:00 15:00 23:00 Intake Total 240 ml 575 ml 360 ml Output Total 1000 ml 550 ml Balance -760 ml 575 ml -190 ml Intake Oral 240 ml 575 ml 360 ml Output Urine Total 1000 ml 550 ml # Voids 0 3 # Bowel Movements 0 Assessment and Plan Assessment and Plan prelim cath dictation pending mild nonobstructive CAD EF 10% LVEDP 17 mmHg convert to PO diuretic LifeVest ACEi DC planning. possible tomorrow. Pedro Sims MD Jun 30, 2017 13:06
--- NOTE | 2017-06-30 13:54 | MB ---
cc: TOSHIA BROWNE DATE OF CONSULTATION: 06/30/2017 REASON FOR CONSULTATION: Cardiomyopathy. HISTORY OF PRESENT ILLNESS This is a 52-year-old gentleman who has not seen a doctor in about 20 years. He does not have any major medical problems and takes no medications. He has noted over the course of the past 40 weeks he has had progressive dyspnea. He is fairly active cruz, plays baseball and up until recently. He has now range increased dyspnea exertion, orthopnea, lower extremity edema. He finally came into the emergency department. There is elevated BNP and chest x-ray showed the vascular congestion pattern. Echocardiogram shows be severely reduced left ventricular systolic function. Intervention early as no history of chest pain, coronary disease or prior cardiac evaluation. PAST MEDICAL HISTORY None PAST SURGICAL HISTORY None MEDICATIONS None ALLERGIES None. FAMILY HISTORY Denies any family history of coronary disease, or sudden cardiac . SOCIAL HISTORY: Social histories smokes a pack a day for 30 years, 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. Denies drug use. REVIEW OF SYSTEMS 12-point review of some was performed a unless otherwise noted is present illness. PHYSICAL EXAMINATION VITAL SIGNS: Temperature 97, pulse 94, blood pressure 103/79 mmHg. IN GENERAL: Alert x3. No acute distress. HEAD, EYES, EARS, NOSE, AND THROAT: Exam shows Pupils equal, round, reactive to light and accommodation, his extraocular muscles intact. NECK: No jugular venous distention, the jugular veins were mildly distended to the level of about 10 cm. LUNGS: Clear auscultation bilaterally. Bibasilar crackles. CARDIOVASCULAR SYSTEM: Examination is regular rhythm without murmurs, rubs, gallops. ABDOMEN: Examination is nontender, nondistended, good bowel sounds, no hepatosplenomegaly. EXTREMITIES: Show no clubbing, cyanosis or edema. Good peripheral pulses. Cranial nerves intact. Motor sensory grossly intact. LABORATORY DATA The EKG sinus tachycardia left atrial enlargement, poor R-wave progression, nonspecific ST-T wave changes. LABORATORY DATA WBC 12th hemoglobin 16.3, platelet count 291, INR is 1.5, sodium 134, potassium 4.3, BUN is 21, creatinine is 1.1, BNP is 3113. ASSESSMENT 1. Cardiomyopathy 2. Acute systolic congestive heart failure. PLAN The appearance of the echocardiogram is more consistent with a nonischemic etiology, possible viral versus alcoholic cardiomyopathy. He is now fairly well-compensated after Bumex. He is currently on lisinopril and Bumex, he is an inpatient. His blood pressure will not tolerate beta gabby right now. We will get a plan for cardiac catheterization to rule out ischemic etiology. Then we will optimize medical management. If there is no obstructive coronary disease he will need a life vest and close outpatient followup with repeat echocardiogram for improvement in ejection fraction in the next 2-3 months. MD ROSEANN Carroll/barry /7:17 AM /1:42 PM
--- NOTE | 2017-06-30 17:42 | MA ---
cc: TOSHIA BRWONE MD DATE 06/30/2017 INDICATION Cardiomyopathy. PROCEDURE PERFORMED 1. Fluoroscopy with interpretation. 2. Left heart catheterization. 3. Left ventriculography. 4. Coronary angiography. 5. Right heart catheterization. METHOD The risks, benefits, alternatives discussed with the patient. The patient understood, consented to the procedure. The patient brought to the catheterization lab and placed on the catheterization table. Right groin prepped and draped in sterile fashion. Right groin was anesthetized with 2% lidocaine. Right common femoral is cannulated. 4-Maltese 11 cm sheath was placed in the right femoral artery. 7-Maltese sheath placed in the right femoral vein. RIGHT HEART CATHETERIZATION 7-M[place]ese [place]Jessica pulmonary II catheter was advanced to the right atrium under fluoroscopic guidance. Hemodynamics were performed in all chambers while advancing to the pulmonary capillary wedge position. HEMODYNAMICS ARE FOLLOWS 1. Right atrial pressure measured at 8 mmHg. 2. Right ventricular pressure measured at 38/5 mmHg. 3. Pulmonary arterial pressure measured at 40/20 mmHg. 4. Pulmonary capillary wedge pressure measured at 19 mmHg. 5. Cardiac output measured at 5.8 liters per minute. 6. Cardiac index measured at 3.2 liters per minute per meter squared. LEFT HEART CATHETERIZATION Intraventricular hemodynamics measured at 80/10 mmHg. LEFT VENTRICULOGRAPHY Left ventriculography was performed right anterior oblique using a 4-Maltese angled pigtail catheter, 30 cc contrast injection good opacification. Left ventricular ejection fraction visually estimated at 10% with a global hypokinesis, 2+ mitral regurgitation. CORONARY ANGIOGRAPHY 1. Left main coronary is angiographically normal. 2. Left anterior descending coronary has minor luminal irregularities, gives rise to a diagonal branch minor luminal irregularities. 3. Left circumflex gives rise to an obtuse marginal branch with minor luminal irregularities. 4. Right coronary is a dominant vessel, giving rise to a posterior descending coronary with minor luminal irregularities. CONCLUSION 1. Nonischemic cardiomyopathy with severely reduced global left ventricular systolic function. Ejection fraction 10%. 2. Mildly elevated left-sided filling pressures. 3. Normal right-sided filling pressures, normal cardiac output and index. Mild pulmonary hypertension. 4. Minimal nonobstructive coronary disease. PLAN The patient's cardiomyopathy is clearly nonischemic. It is either viral etiology versus alcohol-induced. The patient states he only drinks three to four beers a night which is not enough for his severity of cardiomyopathy. He will be optimized on guideline directed medical therapy. Would strongly consider LifeVest. Would have to coordinate that with case management. He will need a follow-up echocardiogram in 3 months to determine if there is any improvement. If no improvement then he would qualify for defibrillator. MD ROSEANN Carroll/JETHRO /12:23 PM /5:19 PM MTDD
[2017-06-30] MEDS: ENOXAPARIN SODIUM 40 MG/0.4 ML SYRINGE SQ SCH (21:27)
[2017-07-01] VITALS (25 sets, daily range): BP systolic 93–106; BP diastolic 70–80; PULSE 90–110; RESP 16–18; TEMP 97.5–98.3; O2SAT 92–95
[2017-07-01] MEDS: LISINOPRIL 5 MG TAB PO SCH (09:51)
[2017-07-01] MEDS: FUROSEMIDE 40 MG TAB PO SCH (09:52)
[2017-07-01] MEDS: SODIUM CHLORIDE 0.9% FLUSH 10 ML FLUSH IV FLUSH SCH ×2 (09:52→20:40)
--- NOTE | 2017-07-01 12:43 | HHI.PR ---
Subjective Remarks Follow up CHF, UTI. Patient feels better today. No chest pain or dyspnea. Swelling is improving. Ankles do swell more when he is ambulating. Objective Vitals Vital Signs Date Time Temp Pulse Resp B/P (MAP) Pulse Ox O2 Delivery O2 Flow Rate FiO2 07/01/17 10:00 92 07/01/17 09:00 104 07/01/17 08:00 96 07/01/17 07:31 97.6 90 16 94/80 (85) 94 07/01/17 07:31 92 07/01/17 06:00 104 07/01/17 05:00 102 07/01/17 04:00 102 07/01/17 03:00 92 07/01/17 03:00 97.8 97 18 93/70 (78) 95 07/01/17 02:00 100 07/01/17 01:00 90 07/01/17 00:00 94 06/30/17 23:00 97.9 93 16 92/65 (74) 93 06/30/17 23:00 90 06/30/17 22:00 98 06/30/17 21:00 104 06/30/17 20:10 95 21 06/30/17 20:00 104 06/30/17 19:00 118 06/30/17 19:00 97.7 100 16 100/80 (87) 94 06/30/17 18:00 99 06/30/17 17:00 105 06/30/17 16:00 98 06/30/17 15:00 97.6 92 17 108/85 (93) 92 06/30/17 15:00 110 06/30/17 14:00 96 06/30/17 13:00 91 I/O 06/30/17 06/30/17 06/30/17 07/01/17 07/01/17 07/01/17 07:00 15:00 23:00 07:00 15:00 23:00 Intake Total 360 ml 960 ml 240 ml Output Total 550 ml 1575 ml 650 ml Balance -190 ml -615 ml -410 ml Intake Oral 360 ml 960 ml 240 ml Output Urine Total 550 ml 1575 ml 650 ml # Bowel Movements 1 Result Diagram: 06/28/17 1713 06/29/17 0355 Imaging Last Impressions Abdomen/Pelvis CT 06/28/17 1818 Signed Impressions: Service Date/Time: Wednesday, June 28, 2017 19:14 - CONCLUSION: 1. Very distended urinary bladder. There is an 8 mm stone seen in the dependent portion of the urinary bladder. 2. Cardiomegaly with dilatation of the ventricles especially on the left. 3. Bilateral mild pleural effusions being worse on the right. 4. Mild ascites and suspected anasarca seen in the subcutaneous tissues. Zheng George MD Chest X-Ray 06/28/17 1655 Signed Impressions: Service Date/Time: Wednesday, June 28, 2017 17:02 - CONCLUSION: Probable CHF Zheng Damian MD Objective Remarks General: No acute distress. Heart: Regular rate and rhythm. No murmur. Lungs: Clear to auscultation bilaterally. No wheezes, rales, or rhonchi. Breathing is nonlabored. Abdomen: Soft, nontender, nondistended. Extremities: 1+ bilateral lower extremity edema. Psych: Alert and oriented. Procedures None Urinary Catheter: No Vascular Central Line Catheter: No A/P Problem List: (1) Congestive heart failure (CHF) ICD Code: I50.9 - Heart failure, unspecified Status: Acute (2) Cardiomyopathy ICD Code: I42.9 - Cardiomyopathy, unspecified Assessment and Plan 1. Acute systolic congestive heart failure, cardiomyopathy: Echocardiogram shows EF 20%. Edema is improving. Continue diuresis. Appreciate cardiology recommendations. Status post cardiac catheterization, which showed ejection fraction 10%. Case management consulted for assistance with obtaining life vest. 2. UTI: Urine culture growing enterococcus. Add ciprofloxacin. Discussed risks and potential side effects of the medication with the patient. 3. DVT prophylaxis: Lovenox. Discharge Planning When cleared by cardiology. Problem Qualifiers (1) Congestive heart failure (CHF): Qualified Codes: I50.21 - Acute systolic (congestive) heart failure Chandler Miner MD Jul 01, 2017 12:43
[2017-07-01] MEDS: CIPROFLOXACIN 500 MG TAB PO SCH ×2 (13:19→20:39)
[2017-07-01] MEDS: ENOXAPARIN SODIUM 40 MG/0.4 ML SYRINGE SQ SCH (20:39)
[2017-07-02] VITALS (27 sets, daily range): BP systolic 96–111; BP diastolic 76–90; PULSE 92–114; RESP 16–19; TEMP 97.7–97.8; O2SAT 94–97
[2017-07-02] MEDS: CIPROFLOXACIN 500 MG TAB PO SCH ×2 (09:01→20:44)
[2017-07-02] MEDS: FUROSEMIDE 40 MG TAB PO SCH (09:01)
[2017-07-02] MEDS: LISINOPRIL 5 MG TAB PO SCH (09:01)
[2017-07-02] MEDS: SODIUM CHLORIDE 0.9% FLUSH 10 ML FLUSH IV FLUSH SCH ×2 (09:01→20:44)
--- NOTE | 2017-07-02 11:02 | HHI.PR ---
Subjective Remarks Follow-up CHF. Patient still with lower extremity edema. Denies chest pain or dyspnea. Objective Vitals Vital Signs Date Time Temp Pulse Resp B/P (MAP) Pulse Ox O2 Delivery O2 Flow Rate FiO2 07/02/17 07:00 100 07/02/17 07:00 97.7 99 19 111/90 (97) 94 07/02/17 06:00 102 07/02/17 05:00 104 07/02/17 04:15 104 18 102/84 (90) 97 07/02/17 04:00 104 07/02/17 03:00 106 07/02/17 02:00 94 07/02/17 01:00 92 07/02/17 00:23 100 16 105/76 (86) 97 07/02/17 00:00 100 07/01/17 23:00 100 07/01/17 22:00 104 07/01/17 21:00 102 07/01/17 20:00 106 07/01/17 19:30 98.3 102 18 106/80 (89) 95 07/01/17 19:00 110 07/01/17 18:00 104 07/01/17 17:00 104 07/01/17 16:00 104 07/01/17 16:00 98.1 96 16 99/77 (84) 95 07/01/17 15:00 99 07/01/17 14:00 102 07/01/17 13:00 98 07/01/17 12:00 96 07/01/17 11:00 92 07/01/17 11:00 97.5 90 16 94/77 (83) 92 I/O 07/01/17 07/01/17 07/01/17 07/02/17 07/02/17 07/02/17 07:00 15:00 23:00 07:00 15:00 23:00 Intake Total 240 ml 420 ml 400 ml Output Total 650 ml 1250 ml 1025 ml Balance -410 ml -830 ml -625 ml Intake Oral 240 ml 420 ml 400 ml Output Urine Total 650 ml 1250 ml 1025 ml # Bowel Movements 2 1 Result Diagram: 06/28/17 1713 06/29/17 0355 Imaging Last Impressions Abdomen/Pelvis CT 06/28/17 1818 Signed Impressions: Service Date/Time: Wednesday, June 28, 2017 19:14 - CONCLUSION: 1. Very distended urinary bladder. There is an 8 mm stone seen in the dependent portion of the urinary bladder. 2. Cardiomegaly with dilatation of the ventricles especially on the left. 3. Bilateral mild pleural effusions being worse on the right. 4. Mild ascites and suspected anasarca seen in the subcutaneous tissues. Zheng George MD Chest X-Ray 06/28/17 9748 Signed Impressions: Service Date/Time: Wednesday, June 28, 2017 17:02 - CONCLUSION: Probable CHF Zheng Damian MD Objective Remarks General: No acute distress. Heart: Regular rate and rhythm. No murmur. Lungs: Clear to auscultation bilaterally. No wheezes, rales, or rhonchi. Breathing is nonlabored. Abdomen: Soft, nontender, nondistended. Extremities: 2+ bilateral lower extremity edema. Psych: Alert and oriented. Procedures None Urinary Catheter: No Vascular Central Line Catheter: No A/P Problem List: (1) Congestive heart failure (CHF) ICD Code: I50.9 - Heart failure, unspecified Status: Acute (2) Cardiomyopathy ICD Code: I42.9 - Cardiomyopathy, unspecified Assessment and Plan 1. Acute systolic congestive heart failure, cardiomyopathy: Echocardiogram shows EF 20%. Edema is improving. Continue Lasix. Appreciate cardiology recommendations. Status post cardiac catheterization, which showed ejection fraction 10%. Case management consulted for assistance with obtaining life vest. 2. UTI: Urine culture growing enterococcus. Continue ciprofloxacin. Discussed risks and potential side effects of the medication with the patient (tendon injury, etc). 3. DVT prophylaxis: Lovenox. Discharge Planning When cleared by cardiology. Problem Qualifiers (1) Congestive heart failure (CHF): Qualified Codes: I50.21 - Acute systolic (congestive) heart failure Chandler Miner MD Jul 02, 2017 11:02
[2017-07-02 14:46] LABS: BICARBONATE 32.4 MEQ/L (21.0-32.0); POTASSIUM 3.5 MEQ/L (3.5-5.1)
[2017-07-02] MEDS: ENOXAPARIN SODIUM 40 MG/0.4 ML SYRINGE SQ SCH (20:44)
[2017-07-03] VITALS (26 sets, daily range): BP systolic 104–114; BP diastolic 77–92; PULSE 89–114; RESP 14–20; TEMP 97–98.6; O2SAT 95–100
[2017-07-03] MEDS: SODIUM CHLORIDE 0.9% FLUSH 10 ML FLUSH IV FLUSH SCH ×2 (09:01→20:22)
[2017-07-03] MEDS: LISINOPRIL 5 MG TAB PO SCH (09:02)
[2017-07-03] MEDS: CIPROFLOXACIN 500 MG TAB PO SCH ×2 (09:02→20:21)
[2017-07-03] MEDS: FUROSEMIDE 40 MG TAB PO SCH ×2 (09:02→20:22)
[2017-07-03 09:36] LABS: BICARBONATE 29.4 MEQ/L (21.0-32.0); POTASSIUM 3.6 MEQ/L (3.5-5.1)
--- NOTE | 2017-07-03 11:15 | HHI.PR ---
Subjective Remarks Follow-up CHF. Patient reports ongoing lower extremity edema. He had an episode of shortness of breath overnight. Denies chest pain. Objective Vitals Vital Signs Date Time Temp Pulse Resp B/P (MAP) Pulse Ox O2 Delivery O2 Flow Rate FiO2 07/03/17 10:00 90 07/03/17 09:00 98 07/03/17 08:00 109 07/03/17 07:00 98.6 90 20 107/84 (92) 95 07/03/17 07:00 105 07/03/17 06:00 105 07/03/17 05:00 110 07/03/17 04:37 109 16 111/81 (91) 97 07/03/17 04:00 108 07/03/17 03:00 108 07/03/17 02:00 108 07/03/17 01:00 110 07/03/17 00:08 103 16 114/85 (95) 95 07/03/17 00:00 108 07/02/17 23:00 112 07/02/17 22:00 108 07/02/17 21:00 114 07/02/17 20:00 114 07/02/17 19:20 97.8 108 16 99/81 (87) 95 07/02/17 19:00 106 07/02/17 18:00 100 07/02/17 17:02 103 07/02/17 16:00 104 07/02/17 15:00 96 19 102/87 (92) 96 07/02/17 15:00 93 07/02/17 14:05 94 07/02/17 13:01 101 07/02/17 12:00 93 I/O 07/02/17 07/02/17 07/02/17 07/03/17 07/03/17 07/03/17 07:00 15:00 23:00 07:00 15:00 23:00 Intake Total 400 ml 480 ml 240 ml Output Total 1025 ml 1300 ml 150 ml Balance -625 ml -820 ml 90 ml Intake Oral 400 ml 480 ml 240 ml Output Urine Total 1025 ml 1300 ml 150 ml # Voids 2 # Bowel Movements 1 1 1 Result Diagram: 07/03/17 0818 Imaging Last Impressions Abdomen/Pelvis CT 06/28/171817 Signed Impressions: Service Date/Time: Wednesday, June 28, 2017 19:14 - CONCLUSION: 1. Very distended urinary bladder. There is an 8 mm stone seen in the dependent portion of the urinary bladder. 2. Cardiomegaly with dilatation of the ventricles especially on the left. 3. Bilateral mild pleural effusions being worse on the right. 4. Mild ascites and suspected anasarca seen in the subcutaneous tissues. Zheng George MD Chest X-Ray 06/28/17 3211 Signed Impressions: Service Date/Time: Wednesday, June 28, 2017 17:02 - CONCLUSION: Probable CHF Zheng Damian MD Objective Remarks General: No acute distress. Heart: Regular rate and rhythm. No murmur. Lungs: Clear to auscultation bilaterally. No wheezes, rales, or rhonchi. Breathing is nonlabored. Abdomen: Soft, nontender, nondistended. Extremities: 2+ bilateral lower extremity edema. There is a blister on the left ankle. Psych: Alert and oriented. Procedures None Urinary Catheter: No Vascular Central Line Catheter: No A/P Problem List: (1) Congestive heart failure (CHF) ICD Code: I50.9 - Heart failure, unspecified Status: Acute (2) Cardiomyopathy ICD Code: I42.9 - Cardiomyopathy, unspecified Assessment and Plan 1. Acute systolic congestive heart failure, cardiomyopathy: Echocardiogram shows EF 20%. Patient continues to have lower extremity edema. Increase Lasix to twice daily. Keep legs elevated. Appreciate cardiology recommendations. Status post cardiac catheterization, which showed ejection fraction 10%. Case management consulted for assistance with obtaining life vest. 2. UTI: Urine culture growing enterococcus. Continue ciprofloxacin. Discussed risks and potential side effects of the medication with the patient (tendon injury, etc). 3. DVT prophylaxis: Lovenox. Discharge Planning When cleared by cardiology. Problem Qualifiers (1) Congestive heart failure (CHF): Qualified Codes: I50.21 - Acute systolic (congestive) heart failure Chandler Miner MD Jul 03, 2017 11:15
[2017-07-03] MEDS: ENOXAPARIN SODIUM 40 MG/0.4 ML SYRINGE SQ SCH (20:22)
[2017-07-04] VITALS (25 sets, daily range): BP systolic 97–115; BP diastolic 79–89; PULSE 92–116; RESP 14–18; TEMP 97.2–98.3; O2SAT 95–97
[2017-07-04 07:00] LABS: AUTOMATED NEUTROPHIL # 8.6 TH/MM3 (1.8-7.7); BASOPHIL # 0.1 TH/MM3 (0-0.2); BASOPHIL % 1.1 % (0.0-2.0); EOSINOPHIL # 0.9 TH/MM3 (0-0.4); EOSINOPHIL % 7.3 % (0.0-4.0); HEMATOCRIT 47.4 % (39.0-51.0); HEMO FLAGS DIFF FINAL; LYMPHOCYTE # 1.8 TH/MM3 (1.0-4.8); MEAN CELL VOLUME 96.3 FL (80.0-100.0); MEAN CORPUSCULAR HEMOGLOBIN 32.3 PG (27.0-34.0); MEAN CORPUSCULAR HGB CONC 33.6 % (32.0-36.0); MONO % 9.3 % (0.0-8.0); NEUT % 68.3 % (16.0-70.0); PLATELET COUNT 244 TH/MM3 (150-450); RED BLOOD COUNT 4.93 MIL/MM3 (4.50-5.90); RED CELL DISTRIBUTION WIDTH 14.8 % (11.6-17.2); WHITE BLOOD COUNT 12.6 TH/MM3 (4.0-11.0)
[2017-07-04 07:14] LABS: BICARBONATE 28.6 MEQ/L (21.0-32.0); POTASSIUM 3.4 MEQ/L (3.5-5.1)
[2017-07-04] MEDS: SODIUM CHLORIDE 0.9% FLUSH 10 ML FLUSH IV FLUSH SCH ×2 (09:00→22:10)
[2017-07-04] MEDS: CIPROFLOXACIN 500 MG TAB PO SCH ×2 (09:00→22:10)
[2017-07-04] MEDS: LISINOPRIL 5 MG TAB PO SCH (09:00)
[2017-07-04] MEDS: FUROSEMIDE 40 MG TAB PO SCH (09:00)
--- NOTE | 2017-07-04 11:55 | HHI.PR ---
Subjective Remarks Patient reports bilateral lower extremity swelling returned again. States he did better with the IV diuretics. No chest pain. Still get short of breath with activities. LifeVest has been applied. Objective Vitals Vital Signs Date Time Temp Pulse Resp B/P (MAP) Pulse Ox O2 Delivery O2 Flow Rate FiO2 07/04/17 08:00 98.1 99 18 115/87 (96) 96 07/04/17 06:00 108 07/04/17 05:00 102 07/04/17 04:00 97.2 106 14 105/89 (94) 97 07/04/17 04:00 104 07/04/17 03:00 110 07/04/17 02:00 102 07/04/17 01:00 108 07/04/17 00:00 111 07/04/17 00:00 97.5 105 14 106/82 (90) 96 07/03/17 23:00 108 07/03/17 22:00 114 07/03/17 21:00 108 07/03/17 20:00 97.0 106 14 104/82 (89) 97 07/03/17 20:00 106 07/03/17 18:00 107 07/03/17 17:00 105 07/03/17 16:00 104 07/03/17 15:00 98.4 90 20 106/92 (97) 100 07/03/17 15:00 109 07/03/17 14:00 104 07/03/17 13:00 101 07/03/17 12:00 89 I/O 07/03/17 07/03/17 07/03/17 07/04/17 07/04/17 07/04/17 06:59 14:59 22:59 06:59 14:59 22:59 Intake Total 240 ml 1320 ml 480 ml Output Total 150 ml 750 ml 1525 ml Balance 90 ml 570 ml -1045 ml Intake Oral 240 ml 1320 ml 480 ml Output Urine Total 150 ml 750 ml 1525 ml # Voids 2 # Bowel Movements 1 2 2 Result Diagram: 07/04/17 0542 07/04/17 0542 Imaging Last Impressions Abdomen/Pelvis CT 06/28/17 5518 Signed Impressions: Service Date/Time: Wednesday, June 28, 2017 19:14 - CONCLUSION: 1. Very distended urinary bladder. There is an 8 mm stone seen in the dependent portion of the urinary bladder. 2. Cardiomegaly with dilatation of the ventricles especially on the left. 3. Bilateral mild pleural effusions being worse on the right. 4. Mild ascites and suspected anasarca seen in the subcutaneous tissues. Zheng George MD Chest X-Ray 06/28/17 [id number] Signed Impressions: Service Date/Time: Wednesday, June 28, 2017 17:02 - CONCLUSION: Probable CHF Zheng Damian MD Objective Remarks GENERAL: This is a well-nourished, well-developed patient, in no apparent distress. CARDIOVASCULAR: Normal rate and regular rhythm without murmurs, gallops, or rubs. RESPIRATORY: Good respiratory efforts. Breath sounds equal and clear to auscultation bilaterally. GASTROINTESTINAL: Abdomen soft, non-tender, non-distended. Normal active bowel sounds MUSCULOSKELETAL: Bilateral lower extremity with 2+ edema. NEURO: Alert & Oriented x4 to person, place, time, situation. Moves all ext x4 PSYCH: Appropriate mood and affect. Procedures None A/P Problem List: (1) Congestive heart failure (CHF) ICD Code: I50.9 - Heart failure, unspecified Status: Acute (2) Cardiomyopathy ICD Code: I42.9 - Cardiomyopathy, unspecified Assessment and Plan 52-year-old male with: 1. Acute systolic congestive heart failure, cardiomyopathy: Echocardiogram shows EF 20%. Appreciate cardiology recommendations. Status post cardiac catheterization, which showed nonischemic cardiomyopathy with ejection fraction 10%. 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 LifeVest applied. - Still with significant swelling. Will give him IV diuretics over the next 24 hours with plan to transition him back to by mouth and discharged home. - Continue lisinopril. BP cannot tolerate beta gabby at this time. 2. UTI: Urine culture growing enterococcus. Continue ciprofloxacin. 3. Hypokalemia: Replace and monitor. 4. DVT prophylaxis: Lovenox. Discharge Planning Probable discharge tomorrow. Problem Qualifiers (1) Congestive heart failure (CHF): Qualified Codes: I50.21 - Acute systolic (congestive) heart failure Lydia Israel MD Jul 04, 2017 11:54
[2017-07-04] MEDS ORDERED: POTASSIUM CHLORIDE 10 MEQ CONTROLLED RELEASE TAB PO ONE (12:00)
[2017-07-04] MEDS: FUROSEMIDE 40 MG/4 ML VIAL IV PUSH SCH (17:56)
[2017-07-04] MEDS: ENOXAPARIN SODIUM 40 MG/0.4 ML SYRINGE SQ SCH (22:10)
[2017-07-05] VITALS (28 sets, daily range): BP systolic 97–106; BP diastolic 78–85; PULSE 94–118; RESP 18; TEMP 97.2–98.4; O2SAT 95–96
[2017-07-05] MEDS: LISINOPRIL 5 MG TAB PO SCH (08:33)
[2017-07-05] MEDS: SODIUM CHLORIDE 0.9% FLUSH 10 ML FLUSH IV FLUSH SCH ×2 (08:34→20:21)
[2017-07-05] MEDS: FUROSEMIDE 40 MG/4 ML VIAL IV PUSH SCH ×2 (08:34→17:46)
[2017-07-05] MEDS: POTASSIUM CHLORIDE 20 MEQ CONTROLLED RELEASE TAB PO SCH (08:34)
[2017-07-05] MEDS: CIPROFLOXACIN 500 MG TAB PO SCH ×2 (09:00→20:21)
--- NOTE | 2017-07-05 11:28 | HHI.PR ---
Subjective Remarks Patient reports he is feeling a little better today. Still having persistent bilateral lower extremity swelling but reports it slightly improved compared to yesterday. Shortness of breath is improved. Objective Vitals Vital Signs Date Time Temp Pulse Resp B/P (MAP) Pulse Ox O2 Delivery O2 Flow Rate FiO2 07/05/17 08:01 97.2 109 18 106/85 (92) 96 07/05/17 07:01 105 07/05/17 06:00 112 07/05/17 05:00 102 07/05/17 04:00 96 07/05/17 03:40 98.0 102 18 98/78 (85) 95 07/05/17 03:30 112 07/05/17 02:00 102 07/05/17 01:15 100 07/05/17 00:30 107 07/04/17 23:40 97.8 107 17 97/79 (85) 95 07/04/17 23:00 110 07/04/17 22:00 108 07/04/17 21:00 112 07/04/17 20:00 116 07/04/17 19:00 97.6 107 18 107/85 (92) 97 07/04/17 19:00 104 07/04/17 18:17 96 21 07/04/17 17:00 108 07/04/17 16:00 98.3 101 18 108/81 (90) 97 07/04/17 16:00 100 07/04/17 15:00 110 07/04/17 14:00 92 07/04/17 13:00 100 07/04/17 12:00 97.8 101 18 106/82 (90) 96 07/04/17 12:00 96 I/O 07/04/17 07/04/17 07/04/17 07/05/17 07/05/17 07/05/17 07:00 15:00 23:00 07:00 15:00 23:00 Intake Total 480 ml 720 ml 480 ml Output Total 1525 ml 1000 ml 1325 ml Balance -1045 ml -280 ml -845 ml Intake Oral 480 ml 720 ml 480 ml Output Urine Total 1525 ml 1000 ml 1325 ml # Bowel Movements 2 1 1 Result Diagram: 07/04/17 0542 07/04/17 0542 Objective Remarks GENERAL: This is a well-nourished, well-developed patient, in no apparent distress. CARDIOVASCULAR: Normal rate and regular rhythm without murmurs, gallops, or rubs. RESPIRATORY: Good respiratory efforts. Breath sounds equal and clear to auscultation bilaterally. GASTROINTESTINAL: Abdomen soft, non-tender, non-distended. Normal active bowel sounds MUSCULOSKELETAL: Bilateral lower extremity with 2+ edema. Slightly less tight compared to yesterday. NEURO: Alert & Oriented x4 to person, place, time, situation. Moves all ext x4 PSYCH: Appropriate mood and affect. Procedures None A/P Problem List: (1) Congestive heart failure (CHF) ICD Code: I50.9 - Heart failure, unspecified Status: Acute (2) Cardiomyopathy ICD Code: I42.9 - Cardiomyopathy, unspecified Assessment and Plan 52-year-old male with: 1. Acute systolic congestive heart failure, cardiomyopathy: Echocardiogram shows EF 20%. Appreciate cardiology recommendations. Status post cardiac catheterization, which showed nonischemic cardiomyopathy with ejection fraction 10%. 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 LifeVest applied. - Still with significant swelling. Continue IV diuretics for another day. - Continue lisinopril. BP cannot tolerate beta gabby at this time. 2. UTI: Urine culture growing enterococcus. Continue ciprofloxacin. 3. Hypokalemia: Replace and monitor. 4. DVT prophylaxis: Lovenox. Discharge Planning Probable discharge tomorrow. Problem Qualifiers (1) Congestive heart failure (CHF): Qualified Codes: I50.21 - Acute systolic (congestive) heart failure Lydia Israel MD Jul 05, 2017 11:28
[2017-07-05 19:48] LABS: POTASSIUM 3.3 MEQ/L (3.5-5.1)
[2017-07-05] MEDS: ENOXAPARIN SODIUM 40 MG/0.4 ML SYRINGE SQ SCH (20:21)
[2017-07-06] VITALS (17 sets, daily range): BP systolic 90–117; BP diastolic 72–81; PULSE 95–118; RESP 18–19; TEMP 97.9–98.7; O2SAT 93–98
[2017-07-06] MEDS: SODIUM CHLORIDE 0.9% FLUSH 10 ML FLUSH IV FLUSH SCH (08:54)
[2017-07-06] MEDS: LISINOPRIL 5 MG TAB PO SCH (08:54)
[2017-07-06] MEDS: CIPROFLOXACIN 500 MG TAB PO SCH (08:55)
[2017-07-06] MEDS: FUROSEMIDE 40 MG/4 ML VIAL IV PUSH SCH (08:55)
[2017-07-06] MEDS: POTASSIUM CHLORIDE 20 MEQ CONTROLLED RELEASE TAB PO SCH (08:55)
[2017-07-06] MEDS ORDERED: FURO1TAB60 PO ×2 (12:25→13:06)
[2017-07-06] MEDS ORDERED: LISI-519 PO ×2 (12:25→13:06)
[2017-07-06] MEDS ORDERED: POTA20TA5 PO ×2 (12:25→13:06)
--- NOTE | 2017-07-06 12:25 | HHI.DCPOC ---
Discharge Care Plan Diagnosis: (1) Cardiomyopathy (2) Congestive heart failure (CHF) Goals to Promote Your Health * To prevent worsening of your condition and complications * To maintain your health at the optimal level Directions to Meet Your Goals Take your medications as prescribed Follow your dietary instruction Follow activity as directed Keep your appointments as scheduled Take your immunizations and boosters as scheduled If your symptoms worsen call your PCP, if no PCP go to Urgent Care Center or Emergency Room Smoking is Dangerous to Your Health. Avoid second hand smoke Call the 24-hour hour crisis hotline for domestic abuse at Lydia Israel MD Jul 06, 2017 12:25
--- NOTE | 2017-07-06 12:26 | HHI.DS ---
Discharge Summary Admission Date Jun 28, 2017 at 18:19 Discharge Date: Jul 06, 2017 Admitting Diagnosis NEW [place] CHF (1) Congestive heart failure (CHF) ICD Code: I50.9 - Heart failure, unspecified Status: Acute (2) Cardiomyopathy ICD Code: I42.9 - Cardiomyopathy, unspecified Procedures Heart catheterization. LifeVest application. Brief History - From Admission History of present illness from the admitting physician Patient is a pleasant 52-year-old gentleman with minimal past medical history who comes in because of 4 weeks of increased dyspnea on exertion, orthopnea and lower show any edema. He felt dehydrated so he drank lots and lots of fluid and with edema got worse. There was initially some improvement with elevation but even that did not work after a while so he came to the emergency room for further evaluation. Patient was found to be quite edematous with elevated BNP and an x-ray which showed basilar congestion pattern. Patient was admitted to the hospital for further evaluation of likely new onset congestive heart failure. He denies any chest pain or tightness, no syncopal changes or symptoms. Patient has felt better after aggressive diuresis CBC/BMP: 07/04/17 0542 07/05/17 1810 Significant Findings Laboratory Tests Test 07/04/17 05:42 07/05/17 18:10 White Blood Count 12.6 TH/MM3 (4.0-11.0) Monocytes (%) (Auto) 9.3 % (0.0-8.0) Eosinophils (%) (Auto) 7.3 % (0.0-4.0) Neutrophils # (Auto) 8.6 TH/MM3 (1.8-7.7) Monocytes # (Auto) 1.2 TH/MM3 (0-0.9) Eosinophils # (Auto) 0.9 TH/MM3 (0-0.4) Potassium Level 3.4 MEQ/L (3.5-5.1) 3.3 MEQ/L (3.5-5.1) Estimat Glomerular Filtration Rate 79 ML/MIN (>89) 79 ML/MIN (>89) Carbon Dioxide Level 34.0 MEQ/L (21.0-32.0) Imaging Last Impressions Abdomen/Pelvis CT 06/28/178 Signed Impressions: Service Date/Time: Wednesday, June 28, 2017 19:14 - CONCLUSION: 1. Very distended urinary bladder. There is an 8 mm stone seen in the dependent portion of the urinary bladder. 2. Cardiomegaly with dilatation of the ventricles especially on the left. 3. Bilateral mild pleural effusions being worse on the right. 4. Mild ascites and suspected anasarca seen in the subcutaneous tissues. Zheng George MD Chest X-Ray 06/28/17 1655 Signed Impressions: Service Date/Time: Wednesday, June 28, 2017 17:02 - CONCLUSION: Probable CHF Zheng Damian MD PE at Discharge GENERAL: This is a well-nourished, well-developed patient, in no apparent distress. CARDIOVASCULAR: Normal rate and regular rhythm without murmurs, gallops, or rubs. RESPIRATORY: Good respiratory efforts. Breath sounds equal and clear to auscultation bilaterally. GASTROINTESTINAL: Abdomen soft, non-tender, non-distended. Normal active bowel sounds MUSCULOSKELETAL: Bilateral lower extremity with 2+ edema. Slightly less tight compared to yesterday. NEURO: Alert & Oriented x4 to person, place, time, situation. Moves all ext x4 PSYCH: Appropriate mood and affect. Pt update on day of discharge Patient reports is feeling much better. Breathing much more comfortable and tolerating increased activity level. Bilateral lower extremity swelling is improving. Hospital Course 52-year-old male admitted with acute systolic congestive heart failure. LVEF 20 %. Patient was followed by cardiology. He underwent heart catheterization which showed nonischemic cardiomyopathy with ejection fraction of 10%. The assessment per cardiology is that this is either viral versus alcohol-induced cardiomyopathy. Patient underwent LifeVest application. He was treated with IV diuretics. He is to continue treatment for heart failure with diuretics and lisinopril. He will follow up outpatient with cardiology. His blood pressure could not tolerate the addition of a beta gabby. This can be considered outpatient. Other conditions treated include UTI. He completed treatment with ciprofloxacin. He had some electrolyte abnormalities including hypokalemia which was corrected with replacement. Patient is discharged in stable condition to follow up outpatient with his PCP and cardiology. Pt Condition on Discharge: Good Discharge Disposition: Discharge Home Discharge Time: > 30 minutes Discharge Instructions DIET: Follow Instructions for: Heart Healthy Diet Activities you can perform: Regular-No Restrictions Follow up Referrals: Cardiology - 2 Weeks with Minor,Pedro Rawls MD New Medications: Furosemide (Lasix) 40 Mg Tab 40 MG PO DAILY, #30 TAB 0 Refills Lisinopril (Lisinopril) 5 Mg Tab 2.5 MG PO DAILY, #30 TAB Potassium Chloride Microencaps (Potassium Chloride Microencaps) 20 Meq Tab 20 MEQ PO DAILY, #30 TAB Lydia Israel MD Jul 06, 2017 12:26
== END 2017-07-06 16:48 | disposition home or self-care (01) | DRG 287 ==
LOC: PHED 16:24 → PHEDA 18:19 → OBSVTOIN 18:19 → INTOOBSV 18:19 → PHEDH 22:19 → PH3A 06-29 00:40 → HCIS 06-29 20:32
PROVIDERS: ADMIT Family Medicine; ATTEND Family Medicine
PROC: B2151ZZ Fluoroscopy of Left Heart using Low Osmolar Contrast (ICD-10-PCS; 2017-06-30)
PROC: B2111ZZ Fluoroscopy of Multiple Coronary Arteries using Low Osmolar Contrast (ICD-10-PCS; 2017-06-30)
PROC: 4A023N8 Measurement of Cardiac Sampling and Pressure, Bilateral, Percutaneous Approach (ICD-10-PCS; principal; 2017-06-30 11:30)
DX: I50.21 Acute systolic (congestive) heart failure (principal); I42.9 Cardiomyopathy, unspecified; I27.2 Other secondary pulmonary hypertension; N39.0 Urinary tract infection, site not specified; I44.4 Left anterior fascicular block; R00.0 Tachycardia, unspecified; I34.0 Nonrheumatic mitral (valve) insufficiency; I25.10 Atherosclerotic heart disease of native coronary artery without angina pectoris; B95.2 Enterococcus as the cause of diseases classified elsewhere; E87.6 Hypokalemia; F17.200 Nicotine dependence, unspecified, uncomplicated; F10.10 Alcohol abuse, uncomplicated; Y90.9 Presence of alcohol in blood, level not specified
CPT/HCPCS: 71010; 74177; 80048; 80053; 81001; 82810; 83735; 83880; 84443; 84484; 85025; 85610; 85730; 87077; 87086; 87186; 93005; 93306; 93460; 96365; 96366; 96372; 96374; 96375; C1760; C1769; C1893; G0269; G0378; J1644; J1650; J1940; J2250; J3010; Q9967

== ENCOUNTER 2018-05-21 08:19 | Inpatient (IN) ==
[2018-05-21 09:01] LABS: Baso # (Auto) 0.1 th/mm3 (0.0-0.2); Baso % (Auto) 0.9 % (0.0-2.0); Eos # (Auto) 0.1 th/mm3 (0.0-0.4); Eos % (Auto) 0.8 % (0.0-4.0); Hematocrit 50.5 % (39.0-51.0); Hemoglobin 16.2 gm/dL (13.0-17.0); Lymph % (Auto) 8.8 % (9.0-44.0); Mean Corpuscular HGB Conc 32.1 % (32.0-36.0); Mean Corpuscular Hemoglobin 29.8 pg (27.0-34.0); Mean Corpuscular Volume 92.8 fL (80.0-100.0); Mean Platelet Volume 9.7 fL (7.0-11.0); Mono # (Auto) 0.5 th/mm3 (0.0-0.9); Mono % (Auto) 4.1 % (0.0-8.0); Neut # (Auto) 9.6 th/mm3 (1.8-7.7); Neut % (Auto) 85.4 % (16.0-70.0); Platelet Count 326 th/mm3 (150-450); Red Blood Count 5.45 mil/mm3 (4.50-5.90); Red Cell Distribution Width 16.8 % (11.6-17.2); White Blood Count 11.3 th/mm3 (4.0-11.0)
--- NOTE | 2018-05-21 09:01 | ED ---
HPI General Chief complaint: Extremity Problem,Nontraumatic Stated complaint: Bilat Leg swelling Time Seen by Provider: 05/21/18 08:29 Source: patient Mode of arrival: ambulatory Limitations: no limitations History of Present Illness HPI Narrative: 52-year-old male complains of bilateral extremity swelling. Patient states that the symptoms started about a week ago. Patient has history of cardiomyopathy, CHF with ejection fraction of 10%. Patient was admitted to [facility] in June 2017. Patient had cardiac cath and echocardiogram done which shows nonischemic cardiomyopathy with severely reduced global left ventricular systolic function. Ejection fraction of 10%. Mild elevated left sided filling pressure. Normal right-sided filling pressure. Mild pulmonary hypertension. Patient was advised to be on LifeVest, follow-up echocardiogram, Lasix, CHELI inhibitor. Patient has been taking Lasix 20 mg daily, lisinopril 2.5 mg daily, potassium 10 mEq twice a day. Patient states that he started increase in alcohol drinking for the past week and had increasing lower extremity swelling. Patient denies any headache. Patient denies any chest pain or shortness of breath. Patient denies abdominal pain. Patient denies any nausea vomiting diarrhea. Complaint: extremity swelling Onset (ago): day(s) Pain Consistency: constant Location: lower extremity Severity scale (1-10): 7 Quality: other Radiation: none Relieving factors: nothing Exacerbating factors: other Associated symptoms: denies other symptoms Related Data Home Medications Medication Instructions Recorded Confirmed furosemide [Lasix] 20 mg PO DAILY 05/21/18 05/21/18 lisinopril 2.5 mg PO DAILY 05/21/18 05/21/18 potassium chloride [Klor-Con 10] 10 meq PO DAILY 05/21/18 05/21/18 Allergies Allergy/AdvReac Type Severity Reaction Status Date / Time No Known Allergies Allergy Unverified 05/21/18 08:20 Review of Systems Except as stated in HPI: all other systems reviewed are negative [facility] Medical History Medical History CHF (congestive heart failure) (Acute) Hypertension (Acute) Surgical History Surgical History Hx of cardiac catheterization (Acute) Social History Social History Substance History: No History of Abuse Smoking Status: Current every day smoker Tobacco Type: Cigarettes How Often Do You Have a Drink Containing Alcohol: 4 or more times a week Recent Travel in [facility] within the Last 8 Weeks: No Recent Out of Country Travel within the Last 8 Weeks: No Immunization History Tetanus Immunization: Unsure Hx Influenza Vaccine This Season: No Exam Narrative Exam Narrative: GENERAL: Well-nourished, well-developed patient. SKIN: Focused skin assessment warm/dry. HEAD: Normocephalic. EYES: No scleral icterus. No injection or drainage. NECK: Supple, trachea midline. No JVD or lymphadenopathy. CARDIOVASCULAR: Regular rate and rhythm without murmurs, gallops, or rubs. RESPIRATORY: Breath sounds equal bilaterally. No accessory muscle use. GASTROINTESTINAL: Abdomen soft, non-tender, nondistended. MUSCULOSKELETAL: +2-+3 pitting edema bilaterally lower extremity. BACK: Nontender without obvious deformity. No CVA tenderness. Neurologic exam normal. Course Initial Documented Vital Signs Temperature 97.4 F L 05/21/18 08:21 Pulse Rate 121 H 05/21/18 08:21 Respiratory Rate 18 05/21/18 08:21 Blood Pressure 92/61 L 05/21/18 08:21 Pulse Oximetry 95 05/21/18 08:21 Last Documented Vital Signs Temperature 97.4 F L 05/21/18 08:21 Pulse Rate 108 H 05/21/18 11:44 Respiratory Rate 18 05/21/18 11:44 Blood Pressure 100/72 05/21/18 11:44 Pulse Oximetry 97 05/21/18 11:44 Medical Decision Making MDM Narrative Medical decision making narrative: 52-year-old male with increasing bilateral extremity. Patient has history of cardiomyopathy, CHF with ejection fraction of 10%. Patient has been drinking alcohol more than usual for the past week. Patient states that he has increasing swelling since he started drinking alcohol. Patient is tachycardic and mild hypotensive. Differential Diagnosis Differential Diagnosis: Differential diagnoses include acute exacerbation CHF, acute renal failure, dependent edema, DVT, cellulitis. Lab Data Lab results reviewed: Yes I reviewed the patient's lab results. Result diagrams: 05/21/18 08:45 05/21/18 08:45 Lab Results 05/21/18 05/21/18 05/21/18 Range/Units 08:45 08:45 08:45 CBC w Diff WBC (4.0-11.0) th/mm3 RBC (4.50-5.90) mil/mm3 Hgb (13.0-17.0) gm/dL Hct (39.0-51.0) % MCV (80.0-100.0) fL MCH (27.0-34.0) pg MCHC (32.0-36.0) % RDW (11.6-17.2) % Plt Count (150-450) th/mm3 MPV (7.0-11.0) fL Neut % (Auto) (16.0-70.0) % Lymph % (Auto) (9.0-44.0) % [place] % (Auto) (0.0-8.0) % Eos % (Auto) (0.0-4.0) % Baso % (Auto) (0.0-2.0) % Neut # (Auto) (1.8-7.7) th/mm3 Lymph # (Auto) (1.0-4.8) th/mm3 [place] # (Auto) (0.0-0.9) th/mm3 Eos # (Auto) (0.0-0.4) th/mm3 Baso # (Auto) (0.0-0.2) th/mm3 WBC Differential Diff Scan Differential Comment PT (9.8-11.6) sec INR Ratio APTT (24.3-30.1) sec D-Dimer Quant (PE/DVT) Cancelled Sodium (136-145) meq/L Potassium (3.5-5.1) meq/L Chloride (98-107) meq/L Carbon Dioxide (21.0-32.0) meq/L Anion Gap (5-15) meq/L BUN (7-18) mg/dL Creatinine (0.60-1.30) mg/dL Estimated GFR (>89) mL/min Random Glucose (74-106) mg/dL Calcium (8.5-10.1) mg/dL Total Bilirubin (0.2-1.0) mg/dL AST (15-37) U/L ALT (12-78) U/L Alkaline Phosphatase (45-117) U/L Total Creatine Kinase (39-308) U/L CK-MB (CK-2) (0.5-3.6) ng/mL CK-MB (CK-2) % (0.0-4.0) % Troponin I (0.02-0.05) ng/mL B-Natriuretic Peptide 2548 H (0-100) pg/mL Total Protein (6.4-8.2) g/dL Albumin (3.4-5.0) g/dL Lipase 73 (73-393) U/L Serum Alcohol Less than 3 (0-5) mg/dL 05/21/18 05/21/18 05/21/18 Range/Units 08:45 08:45 08:45 CBC w Diff Slide review pending WBC 11.3 H (4.0-11.0) th/mm3 RBC 5.45 (4.50-5.90) mil/mm3 Hgb 16.2 (13.0-17.0) gm/dL Hct 50.5 (39.0-51.0) % MCV 92.8 (80.0-100.0) fL MCH 29.8 (27.0-34.0) pg MCHC 32.1 (32.0-36.0) % RDW 16.8 (11.6-17.2) % Plt Count 326 (150-450) th/mm3 MPV 9.7 (7.0-11.0) fL Neut % (Auto) 85.4 H (16.0-70.0) % Lymph % (Auto) 8.8 L (9.0-44.0) % [place] % (Auto) 4.1 (0.0-8.0) % Eos % (Auto) 0.8 (0.0-4.0) % Baso % (Auto) 0.9 (0.0-2.0) % Neut # (Auto) 9.6 H (1.8-7.7) th/mm3 Lymph # (Auto) 1.0 (1.0-4.8) th/mm3 [place] # (Auto) 0.5 (0.0-0.9) th/mm3 Eos # (Auto) 0.1 (0.0-0.4) th/mm3 Baso # (Auto) 0.1 (0.0-0.2) th/mm3 WBC Differential . Diff Scan Auto diff confirmed Differential Comment . PT 14.7 H (9.8-11.6) sec INR 1.5 Ratio APTT 30.8 H (24.3-30.1) sec D-Dimer Quant (PE/DVT) 0.98 H Sodium 130 L (136-145) meq/L Potassium 5.6 H (3.5-5.1) meq/L Chloride 96 L (98-107) meq/L Carbon Dioxide 19.8 L (21.0-32.0) meq/L Anion Gap 14 (5-15) meq/L BUN 25 H (7-18) mg/dL Creatinine 1.40 H (0.60-1.30) mg/dL Estimated GFR 53 L (>89) mL/min Random Glucose 115 H (74-106) mg/dL Calcium 9.1 (8.5-10.1) mg/dL Total Bilirubin 2.5 H (0.2-1.0) mg/dL AST 50 H (15-37) U/L ALT 48 (12-78) U/L Alkaline Phosphatase 106 (45-117) U/L Total Creatine Kinase 315 H (39-308) U/L CK-MB (CK-2) 16.1 H (0.5-3.6) ng/mL CK-MB (CK-2) % 5.1 H* (0.0-4.0) % Troponin I 0.06 H (0.02-0.05) ng/mL B-Natriuretic Peptide (0-100) pg/mL Total Protein 6.8 (6.4-8.2) g/dL Albumin 3.5 (3.4-5.0) g/dL Lipase (73-393) U/L Serum Alcohol (0-5) mg/dL Imaging Data Attestation: I personally reviewed and interpreted this imaging study as follows : Radiologist's impression: Chest X-Ray 05/21/18 08:51 CONCLUSION: 1. Blunting of both costophrenic angles which could indicate small effusions. 2. Cardiomegaly with no evidence of pulmonary edema. 3. Coarse opacity of both lung bases which may represent scarring. Discharge Plan Discharge Disposition Patient Disposition: 30 Still Patient Discharge Details Diagnosis: Acute exacerbation of CHF (congestive heart failure), Acute hyperkalemia Physicians Team ED Provider: Chon Allen Primary Care Provider: Jeronimo Nelson Rxs /Orders / Referrals /Forms Prescriptions: No Action potassium chloride [Klor-Con 10] 10 mEq Tablet Extended Release 10 meq PO DAILY RF: 0 furosemide [Lasix] 20 mg Tablet 20 mg PO DAILY RF: 0 lisinopril 2.5 mg Tablet 2.5 mg PO DAILY RF: 0 Status ED Status: With Doctor
[2018-05-21 09:09] LABS: Chloride 96 meq/L (98-107); Potassium 5.6 meq/L (3.5-5.1); Sodium 130 meq/L (136-145)
--- NOTE | 2018-05-21 09:11 | XR ---
EXAM DATE: 05/21/2018 9:05 AM EDT AGE/SEX: 52 years / Male INDICATIONS: Bilateral lower extremity swelling with some shortness of breath. CLINICAL DATA: This is the patient's initial encounter. Patient reports that signs and symptoms have been present for 1 week and indicates a pain score of 0/10. MEDICAL/SURGICAL HISTORY: Congestive heart failure. Hypertension. Cardiomyopathy. Smoker. . C ardiac cath. COMPARISON: [facility], CHEST SINGLE AP, 06/28/2017. . FINDINGS: A single AP erect portable view the chest was obtained. This demonstrates mild blunting of both costo phrenic angles. The heart size is mildly enlarged with no perihilar edema. There is streaky opacity a t both lung bases. The bony thorax is intact. There are multiple overlying electrocardiogram leads. CONCLUSION: 1. Blunting of both costophrenic angles which could indicate small effusions. 2. Cardiomegaly with no evidence of pulmonary edema. 3. Coarse opacity of both lung bases which may represent scarring. Electronically signed by: Hao Shea MD 05/21/2018 9:09 AM EDT
[2018-05-21 09:12] LABS: Calcium 9.1 mg/dL (8.5-10.1)
[2018-05-21 09:13] LABS: Albumin 3.5 g/dL (3.4-5.0); Anion Gap 14 meq/L (5-15); Blood Urea Nitrogen 25 mg/dL (7-18); Carbon Dioxide 19.8 meq/L (21.0-32.0); Glucose,Random 115 mg/dL (74-106)
[2018-05-21 09:14] LABS: Lipase 73 U/L (73-393)
[2018-05-21 09:16] LABS: Alanine Aminotransferase 48 U/L (12-78); Aspartate Aminotransferase 50 U/L (15-37); Glomerular Filtration Rate 53 mL/min (>89)
[2018-05-21 09:18] LABS: Total Protein 6.8 g/dL (6.4-8.2)
[2018-05-21 09:19] LABS: Alkaline Phosphatase 106 U/L (45-117); Creatine Kinase 315 U/L (39-308)
[2018-05-21 09:21] LABS: Troponin I 0.06 ng/mL (0.02-0.05)
[2018-05-21 09:22] LABS: Activated Partial Thrombo Time 30.8 sec (24.3-30.1); INR 1.5 Ratio; Prothrombin Time 14.7 sec (9.8-11.6)
[2018-05-21 09:23] LABS: D-Dimer 0.98 mg/L FEU (0.00-0.50)
[2018-05-21 10:12] LABS: Creatine Kinase MB 16.1 ng/mL (0.5-3.6)
[2018-05-21 10:22] LABS: CKMB Percent 5.1 % (0.0-4.0)
[2018-05-21] MEDS ORDERED: Bisacodyl 10 MG Supp RECTAL PRN (13:29)
[2018-05-21] MEDS ORDERED: Temazepam 15 MG Capsule PO PRN (13:29)
[2018-05-21 14:02] LABS: Bilirubin,Urine Negative (Negative); Clarity,Urine Cloudy (Clear); Color,Urine Yellow (Yellw/Straw); Glucose,Urine (UA) Negative (Negative); Leukocyte Esterase,Urine Large (Negative); Nitrite,Urine Negative (Negative); PH,Urine 6.5 (5.0-8.5); Urobilinogen,Urine 0.2 mg/dL (Less than 2)
[2018-05-21 14:06] LABS: Collection Time,Urine 1340 hours; WBC,Urine Innumerable /hpf (0-5)
[2018-05-21 14:07] LABS: Amorphous Sediment,Urine Moderate /hpf; Bacteria,Urine Few /hpf; Squamous Epithelial Cell,Urine 0-5 /hpf (0-5)
--- NOTE | 2018-05-21 16:55 | P.HP ---
History of Present Illness Primary Care Physician: Jeronimo Nelson MD History of Present Illness: 52-year-old male with history of CHF and alcoholism presents to the ER after experiencing increased and uncontrolled fluid in his lower extremities over the past 3 days. He was first diagnosed with CHF 1 year ago following what seems to be an acute viral infection that left him with an ejection fraction of 10%. Following his hospitalization he wore a LifeVest for 3 months, then managed his fluid balance with Lasix. He has been well managed for the last 6 months without any significant edema per his history. He states he suffered from alcoholism prior to 1 year ago but has remained off of alcohol since then. He used to drink a 6 pack per day. Starting 2 weeks ago he developed into his alcoholic habits again drinking regular margaritas and adding salt to his drinks. It is questionable whether the alcohol or the salt have more impact on his CHF exacerbation. Inpatient Certification: I certify that the inpatient services were ordered in accordance with Medicare regulations governing the order. This includes certification that hospital inpatient services are reasonable and necessary and in the case of services not specified as inpatient-only under 42 CFR 419.22(n), that they are appropriately provided as inpatient services in accordance to with the 2-midnight benchmark under 43 CFR 412.3(e) Estimated Total Length of Stay (Days): 3 Plans for Post Hospital Care: Home Review of Systems Constitutional: Reports lack of energy, Reports weakness, Reports weight gain, Denies body ache(s), Denies chills, Denies night sweats Eyes: Denies blind spots, Denies blurry vision, Denies bulging eyes, Denies change in vision, Denies double vision, Denies discharge, Denies dry eyes, Denies floaters, Denies irritation, Denies itchy eyes, Denies loss of vision, Denies pain, Denies requires corrective lenses, Denies sensitivity to light, Denies other Ears, Nose, Mouth, and Throat: Denies abnormal hearing, Denies bleeding gums, Denies bad breath, Denies change in voice, Denies dental pain, Denies difficulty swallowing, Denies dizziness, Denies dry mouth, Denies ear discharge , Denies ear pain, Denies facial pain, Denies headache(s), Denies hearing loss, Denies hoarseness, Denies lip swelling, Denies nosebleed, Denies mouth lesions, Denies mouth pain, Denies nasal congestion, Denies nasal discharge, Denies nasal obstruction, Denies nasal trauma, Denies neck lump, Denies neck pain, Denies nose pain, Denies pain with swallowing, Denies poor balance, Denies post nasal drip, Denies ringing in the ears, Denies sinus pain, Denies sinus pressure , Denies sore throat, Denies throat swelling, Denies tongue swelling, Denies other Cardiovascular: Reports foot swelling, Reports generalized swelling, Reports leg swelling, Reports shortness of breath, Reports shortness of breath with activity, Reports shortness of breath when lying down, Denies chest pain, Denies chest pain at rest, Denies chest pain with activity, Denies irregular heart rhythm, Denies leg sores, Denies radiating jaw, neck or arm pain, Denies rapid, pounding, or irregular heartbeat Respiratory: Reports shortness of breath Gastrointestinal: Denies abdominal pain, Denies belching, Denies black, tarry stools, Denies bloating, Denies bright, red blood in stools, Denies change in bowel habits, Denies constant urge to pass stool, Denies change in stools, Denies coffee ground vomit, Denies constipation, Denies cramping, Denies difficulty swallowing, Denies excessive passing of gas, Denies feeling full early, Denies heartburn, Denies incontinent of stools, Denies loose stools, Denies nausea, Denies pain with swallowing, Denies vomiting, Denies vomiting blood, Denies other Genitourinary: Denies blood in semen, Denies blood in urine, Denies decreased urination, Denies difficulty urinating, Denies difficulty with ejaculations, Denies erectile dysfunction, Denies genital lesions, Denies genital pain, Denies painful urination, Denies side pain, Denies frequent nighttime urination , Denies painful ejaculations, Denies penile discharge, Denies scrotal swelling , Denies testicle lump, Denies testicle pain, Denies urinary frequency, Denies urinary hesitancy, Denies urinary incontinence, Denies urinary urgency, Denies other Musculoskeletal: Denies abnormal walking, Denies back pain, Denies body aches, Denies decreased muscle mass, Denies deformity, Denies joint pain, Denies joint swelling, Denies limited joint movement, Denies loss of height, Denies muscle cramps, Denies muscle weakness, Denies neck pain, Denies numbness, Denies radiating pain into limb, Denies stiffness, Denies tingling, Denies other Neurologic: Denies abnormal hearing, Denies abnormal movements, Denies abnormal speech, Denies abnormal walking, Denies behavioral changes, Denies burning sensations, Denies confusion, Denies dizziness, Denies fainting, Denies frequent falls, Denies headache(s), Denies lack of coordination, Denies localized weakness, Denies loss of vision, Denies memory loss, Denies numbness, Denies other visual disturbances, Denies radiating pain, Denies restless legs, Denies convulsions, Denies seizure-like activity, Denies sensory deficit, Denies tingling, Denies tingling/numbness/burning sensations, Denies tremor(s), Denies unsteadiness, Denies weakness, Denies other Psychiatric: Denies abnormal sleep pattern, Denies anxiety, Denies behavioral changes, Denies change in appetite, Denies change in sex drive, Denies confusion , Denies depression, Denies difficulty concentrating, Denies hearing things others do not hear, Denies hopelessness, Denies irritability, Denies lack of enjoyment, Denies memory loss, Denies mood swings, Denies panic attacks, Denies paranoia, Denies seeing things others do not see, Denies sensing things others do not sense, Denies tactile hallucinations, Denies thoughts of hurting/killing others, Denies thoughts of hurting/killing yourself, Denies other Endocrine: Denies cold intolerance, Denies excessive sweating, Denies flushing, Denies heat intolerance, Denies increased hunger, Denies increased thirst, Denies increased urination, Denies rapid, pounding, or irregular heartbeat, Denies other PMFSH - History History Provided By: Patient - Medical History Medical History: Medical History (Last Updated 05/21/18 @ 08:37 by Rafaela Hardy RN) CHF (congestive heart failure) Hypertension - Surgical History Surgical History: Surgical History (Last Updated 05/21/18 @ 08:37 by Rafaela Hardy RN) Hx of cardiac catheterization - Tobacco History Second Hand Smoke Exposure: No Tobacco Use In Past 30 Days: Yes Smoking Status: Current every day smoker Tobacco Type: Cigarettes - Alcohol History How Often Do You Have a Drink Containing Alcohol: 2 to 3 times a week - Substance Use History Substance History: No History of Abuse - Substance Use Type Alcohol Status: Early Remission Route Used: By Mouth Frequency: 2-3 drinks three times a week - Travel History Recent Travel in the [place] Within the Last 8 Weeks: No Recent Travel Out of the Country Within the Last 8 Weeks: No - Immunization History Tetanus Immunization: Unsure Hx Influenza Vaccine This Season: No Medications and Allergies Active Medications: Active Medications Al Hydroxide/Mg Hydroxide (Milk Of Magnesia Liq) 30 ml PO Q12H PRN PRN Reason: Mild Constipation Bisacodyl (Dulcolax Supp) 10 mg RECTAL DAILY PRN PRN Reason: SEVERE CONSITIPATION Enoxaparin Sodium (Lovenox Inj) 40 mg SQ Q24H MORENITA Furosemide (Lasix Inj) 40 mg IV.PUSH BID@0900,1800 MORENITA Lactulose (Lactulose Liq) 30 ml PO DAILY PRN PRN Reason: SEVERE CONSITIPATION Senna/Docusate Sodium (Josette-Colace) 1 tab PO BID MORENITA Sennosides (Senokot) 17.2 mg PO Q12H PRN PRN Reason: Moderate Constipation Sodium Chloride (Ns Flush) 2 ml IV.FLUSH UNSCH PRN PRN Reason: FLUSH AFTER USING IV ACCESS Temazepam (Restoril) 15 mg PO HS PRN PRN Reason: INSOMNIA Allergies Allergy/AdvReac Type Severity Reaction Status Date / Time No Known Allergies Allergy Unverified 05/21/18 08:20 Home Medications Medication Instructions Recorded Confirmed Type furosemide [Lasix] 20 mg PO DAILY 05/21/18 05/21/18 History lisinopril 2.5 mg PO DAILY 05/21/18 05/21/18 History potassium chloride [Klor-Con 10] 10 meq PO DAILY 05/21/18 05/21/18 History Exam Vital signs: Vital Signs 05/21/18 08:21 05/21/18 08:48 05/21/18 08:49 Temperature 97.4 F L Pulse Rate 121 H 114 H Respiratory Rate 18 18 Blood Pressure 92/61 L 104/69 93/59 L Pulse Oximetry 95 100 05/21/18 08:57 05/21/18 09:24 05/21/18 11:06 Temperature Pulse Rate 109 H Respiratory Rate 18 Blood Pressure 104/69 97/65 L Pulse Oximetry 97 98 98 05/21/18 11:44 05/21/18 13:26 05/21/18 14:24 Temperature 97.7 F Pulse Rate 108 H 112 H 112 H Respiratory Rate 18 18 30 H Blood Pressure 100/72 99/55 L 96/71 L Pulse Oximetry 97 98 95 05/21/18 14:29 05/21/18 15:02 Temperature Pulse Rate 126 H Respiratory Rate 50 H Blood Pressure 83/68 L Pulse Oximetry 100 95 Intake & Output 05/20/18 05/21/18 05/21/18 18:59 06:59 18:59 Output Total 100 / 100 Balance -100 / -100 Weight 67.8 kg Output: Urine 100 / 100 Other: Date of Last Bowel Movement 05/21/18 Weight On Admission 68 kg Narrative: GENERAL: Alert and oriented 3, pleasant, no acute distress SKIN: Warm and dry. HEAD: Atraumatic. Normocephalic. EYES: Pupils equal and round. No scleral icterus. No injection or drainage. ENT: No nasal bleeding or discharge. Mucous membranes pink and moist. NECK: Trachea midline. Prominent JVD CARDIOVASCULAR: Sinus tachycardia, 1/6 systolic ejection murmur RESPIRATORY: Mostly clear with scattered congestive sounds, bases atelectatic. GASTROINTESTINAL: Abdomen soft, non-tender, nondistended. Hepatic and splenic margins not palpable. MUSCULOSKELETAL: Extremities without clubbing, cyanosis, or edema. No obvious deformities. NEUROLOGICAL: Awake and alert. No obvious cranial nerve deficits. Motor grossly within normal limits. Five out of 5 muscle strength in the arms and legs. Normal speech. Extremities: 2+ pitting edema to mid mota and 1+ pitting edema to mid thigh then trace edema to pelvic rim, abdomen fluid-filled but not tight Results - Labs CBC & Chem 7: 05/21/18 08:45 05/21/18 08:45 Labs: Laboratory Results - last 24 hr 05/21/18 05/21/18 05/21/18 08:45 08:45 08:45 CBC w Diff WBC RBC Hgb Hct MCV MCH MCHC RDW Plt Count MPV Neut % (Auto) Lymph % (Auto) [place] % (Auto) Eos % (Auto) Baso % (Auto) Neut # (Auto) Lymph # (Auto) [place] # (Auto) Eos # (Auto) Baso # (Auto) WBC Differential Diff Scan Differential Comment PT INR APTT D-Dimer Quant (PE/DVT) Cancelled Sodium Potassium Chloride Carbon Dioxide Anion Gap BUN Creatinine Estimated GFR Random Glucose Calcium Total Bilirubin AST ALT Alkaline Phosphatase Total Creatine Kinase CK-MB (CK-2) CK-MB (CK-2) % Troponin I B-Natriuretic Peptide 2548 H Total Protein Albumin Lipase 73 Ur Collection Type Urine Color Urine Clarity Urine pH Ur Specific [place] Urine Protein Urine Glucose (UA) Urine Ketones Urine Occult Blood Urine Nitrate Urine Bilirubin Urine Urobilinogen Ur Leukocyte Esterase Urine RBC Urine WBC Urine WBC Clumps Ur Squamous Epith Cells Amorphous Sediment Urine Bacteria Micro UA Comment Urine Culture Comments Urine Collection Time Serum Alcohol Less than 3 05/21/18 05/21/18 05/21/18 08:45 08:45 08:45 CBC w Diff Slide review pending WBC 11.3 H RBC 5.45 Hgb 16.2 Hct 50.5 MCV 92.8 MCH 29.8 MCHC 32.1 RDW 16.8 Plt Count 326 MPV 9.7 Neut % (Auto) 85.4 H Lymph % (Auto) 8.8 L [place] % (Auto) 4.1 Eos % (Auto) 0.8 Baso % (Auto) 0.9 Neut # (Auto) 9.6 H Lymph # (Auto) 1.0 [place] # (Auto) 0.5 Eos # (Auto) 0.1 Baso # (Auto) 0.1 WBC Differential . Diff Scan Auto diff confirmed Differential Comment . PT 14.7 H INR 1.5 APTT 30.8 H D-Dimer Quant (PE/DVT) 0.98 H Sodium 130 L Potassium 5.6 H Chloride 96 L Carbon Dioxide 19.8 L Anion Gap 14 BUN 25 H Creatinine 1.40 H Estimated GFR 53 L Random Glucose 115 H Calcium 9.1 Total Bilirubin 2.5 H AST 50 H ALT 48 Alkaline Phosphatase 106 Total Creatine Kinase 315 H CK-MB (CK-2) 16.1 H CK-MB (CK-2) % 5.1 H* Troponin I 0.06 H B-Natriuretic Peptide Total Protein 6.8 Albumin 3.5 Lipase Ur Collection Type Urine Color Urine Clarity Urine pH Ur Specific [place] Urine Protein Urine Glucose (UA) Urine Ketones Urine Occult Blood Urine Nitrate Urine Bilirubin Urine Urobilinogen Ur Leukocyte Esterase Urine RBC Urine WBC Urine WBC Clumps Ur Squamous Epith Cells Amorphous Sediment Urine Bacteria Micro UA Comment Urine Culture Comments Urine Collection Time Serum Alcohol 05/21/18 13:40 CBC w Diff WBC RBC Hgb Hct MCV MCH MCHC RDW Plt Count MPV Neut % (Auto) Lymph % (Auto) [place] % (Auto) Eos % (Auto) Baso % (Auto) Neut # (Auto) Lymph # (Auto) [place] # (Auto) Eos # (Auto) Baso # (Auto) WBC Differential Diff Scan Differential Comment PT INR APTT D-Dimer Quant (PE/DVT) Sodium Potassium Chloride Carbon Dioxide Anion Gap BUN Creatinine Estimated GFR Random Glucose Calcium Total Bilirubin AST ALT Alkaline Phosphatase Total Creatine Kinase CK-MB (CK-2) CK-MB (CK-2) % Troponin I B-Natriuretic Peptide Total Protein Albumin Lipase Ur Collection Type Clean catch Urine Color Yellow Urine Clarity Cloudy H Urine pH 6.5 Ur Specific [place] 1.010 Urine Protein Trace Urine Glucose (UA) Negative Urine Ketones Negative Urine Occult Blood Trace Urine Nitrate Negative Urine Bilirubin Negative Urine Urobilinogen 0.2 Ur Leukocyte Esterase Large H Urine RBC 4-15 H Urine WBC Innumerable H Urine WBC Clumps Moderate H Ur Squamous Epith Cells 0-5 Amorphous Sediment Moderate H Urine Bacteria Few H Micro UA Comment Culture indicated Urine Culture Comments Culture indicated Urine Collection Time 1340 Serum Alcohol - Imaging Impressions Chest X-Ray 05/21/18 08:51 CONCLUSION: 1. Blunting of both costophrenic angles which could indicate small effusions. 2. Cardiomegaly with no evidence of pulmonary edema. 3. Coarse opacity of both lung bases which may represent scarring. Caprini VTE Risk Assessment Caprini VTE Risk Assessment: Moderate/High Risk (score >= 2) Caprini Risk Assessment Model: Point Value = 1 Point Value = 2 Point Value = 3 Point Value = 5 Age 41-60 Minor surgery BMI > 25 kg/m2 Swollen legs Varicose veins or History of unexplained or recurrent spontaneous Oral contraceptives or hormone replacement Sepsis (< 1 month) Serious lung disease, including pneumonia (< 1 month) Abnormal pulmonary function Acute myocardial infarction Congestive heart failure (< 1 month) History of inflammatory bowel disease Medical patient at bed rest Age 61-74 Arthroscopic surgery Major open surgery (> 45 min) Laparoscopic surgery (> 45 min) Malignancy Confined to bed (> 72 hours) Immobilizing plaster cast Central venous access Age >= 75 History of VTE Family history of VTE Factor V Leiden Prothrombin [id number] Lupus anticoagulant Anticardiolipin antibodies Elevated serum homocysteine Heparin-induced thrombocytopenia Other congenital or acquired thrombophilia Stroke (< 1 month) Elective arthroplasty Hip, pelvis, or leg fracture Acute spinal cord injury (< 1 month) Prophylaxis Regimen: Total Risk Factor Score Risk Level Prophylaxis Regimen 0-1 Low Early ambulation 2 Moderate Order ONE of the following: *Sequential Compression Device (SCD) *Heparin 5000 units SQ BID 3-4 Higher Order ONE of the following medications: *Heparin 5000 units SQ TID *Enoxaparin/Lovenox 40 mg SQ daily (WT < 150 kg, CrCl > 30 mL/min) *Enoxaparin/Lovenox 30 mg SQ daily (WT < 150 kg, CrCl > 10-29 mL/min) *Enoxaparin/Lovenox 30 mg SQ BID (WT < 150 kg, CrCl > 30 mL/min) AND/OR *Sequential Compression Device (SCD) 5 or more Highest Order ONE of the following medications: *Heparin 5000 units SQ TID (Preferred with Epidurals) *Enoxaparin/Lovenox 40 mg SQ daily (WT < 150 kg, CrCl > 30 mL/min) *Enoxaparin/Lovenox 30 mg SQ daily (WT < 150 kg, CrCl > 10-29 mL/min) *Enoxaparin/Lovenox 30 mg SQ BID (WT < 150 kg, CrCl > 30 mL/min) AND *Sequential Compression Device (SCD) Assessment and Plan - Plan Acute on chronic CHF exacerbation Onset of CHF was 1 year ago following likely viral episode Patient has been well managed by his history over the last 6 months Onset of this particular episode was following recurrence of alcoholism and salt use Patient is at risk for flash pulmonary edema Begin moderately aggressive diuresis and follow on stepdown unit Follow on telemetry Consult cardiology Hypertension Baseline BP is systolic of 90, as high as 102 today Follow blood pressures q. 30 minutes during diuresis Hold diuretics if blood pressure is below 90 systolic DVT prophylaxis Lovenox
[2018-05-21] MEDS: Enoxaparin Inj 40 MG/0.4 ML Syringe SQ SCH (20:34)
[2018-05-21] MEDS: Senna/Docusate Sodium 8.6/50 MG Tablet PO SCH (20:35)
--- NOTE | 2018-05-21 23:33 | ECG ---
Date Performed: 05/21/2018 Time Performed: 09:04:33 PTAGE: 52 years EKG: SINUS TACHYCARDIA LEFT ATRIAL ENLARGEMENT POSSIBLE RIGHT VENTRICULAR CONDUCTION DELAY INFER IOR MYOCARDIAL INFARCTION ANTEROSEPTAL MYOCARDIAL INFARCTION ABNORMAL ECG PREVIOUS TRACING : 06/28/2017 17.06 Compared to previous tracing, now with RBBB DOCTOR: Salvador Lee Interpretating Date/Time 05/21/2018 23:33:39
[2018-05-22 04:42] LABS: Hematocrit 49.3 % (39.0-51.0); Hemoglobin 16.1 gm/dL (13.0-17.0); Mean Corpuscular HGB Conc 32.7 % (32.0-36.0); Mean Corpuscular Hemoglobin 30.3 pg (27.0-34.0); Mean Corpuscular Volume 92.6 fL (80.0-100.0); Mean Platelet Volume 9.1 fL (7.0-11.0); Platelet Count 314 th/mm3 (150-450); Red Blood Count 5.32 mil/mm3 (4.50-5.90); Red Cell Distribution Width 16.4 % (11.6-17.2); White Blood Count 12.9 th/mm3 (4.0-11.0)
[2018-05-22 04:47] LABS: Potassium 5.1 meq/L (3.5-5.1)
[2018-05-22 04:50] LABS: Calcium 9.4 mg/dL (8.5-10.1); Carbon Dioxide 22.8 meq/L (21.0-32.0)
--- NOTE | 2018-05-22 07:44 | MB ---
cc: Aguila Bates MD,Jeronimo Salas MD, MD DATE: 05/22/2018 HISTORY OF PRESENT ILLNESS: I reviewed present and prior hospital records. The patient is a 52-year-old white male who I am seeing for congestive heart failure. The patient was a moderate to heavy drinker in the past. He was diagnosed with congestive heart failure approximately a year ago. Catheterization 07/16 showed about a 10% ejection fraction with mild coronary artery disease. He had a LifeVest for a few months, but none since then. He had stopped drinking and cut back on smoking and had no symptoms until approximately a week ago when he has had [id number] dyspnea on exertion and increased pedal edema, but no other cardiac symptomatology. He has gone back to drinking some, although it is not as heavy as previously. He smokes 1 pack per day. PAST MEDICAL HISTORY: Cardiac as above. ALLERGIES: NONE. SOCIAL HISTORY: He is single and smokes a pack per day and is drinking again. REVIEW OF SYSTEMS: Only remarkable for the above. DIAGNOSTIC STUDIES: EKG shows sinus tachycardia with right bundle branch block and inferior and anteroseptal NC. He is in sinus tachycardia with occasional PVCs. LABORATORY DATA: White count mildly elevated initially at 12.9 with normal hematocrit and platelet count. INR 1.5. Potassium was 5.6 and is 5.1. Sodium 130 and 128. Creatinine 1.4 and 1.3. Troponin 0.06 and minimally elevated, most likely from CHF. BNP elevated at 2548. Urinalysis positive with culture indicated. Alcohol negative. PHYSICAL EXAMINATION: GENERAL: On exam, he is thin and somewhat cachectic. He is alert and oriented x 3. VITAL SIGNS: Blood pressure borderline to mildly depressed. Afebrile. He is in sinus tachycardia. LUNGS: Chest is clear. NECK: JVD elevated. HEART: S3, S1, S2. No murmurs. ABDOMEN: Benign. EXTREMITIES: Show 1-2 plus edema. Pulses: Carotids without bruits. Radials 1+. Femorals 1+ without bruits. Pedal pulses not felt through the edema. He has not ambulated. IMAGING STUDIES: Chest x-ray shows cardiomegaly with blunting of the costophrenic angles. PROBLEM LIST: 1. Acute on chronic systolic congestive heart failure. 2. Tobacco and alcohol abuse with chronic noncompliance. 3. Probable urinary tract infection. 4. Low blood pressure. RECOMMENDATIONS: 1. Medications prior to admission were reviewed and included potassium, lisinopril and furosemide. 2. We will have to hold beta blockers and lisinopril because of low blood pressure. 3. Continue diuresis following inputs, outputs and electrolytes and renal function closely. 4. Tobacco and alcohol abstinence. 5. Prognosis is guarded. 6. Ideally, the patient probably needs antibiotics. We will have the floor contact the PCP regarding this for his abnormal urinalysis. We will follow in the hospital. Given his noncompliance, we will not follow as an outpatient. I have answered all questions. MD MARLENA Flores/RUIZ , 07:23 AM , 07:42 AM
[2018-05-22] MEDS: Senna/Docusate Sodium 8.6/50 MG Tablet PO SCH ×2 (09:20→20:34)
[2018-05-22] MEDS: Enoxaparin Inj 40 MG/0.4 ML Syringe SQ SCH (15:07)
--- NOTE | 2018-05-22 16:14 | P.PN ---
Subjective Interval history: Patient had an occurrence of dyspnea overnight but overall has done well with diuresis. His output however has been less than anticipated with total output for the last 12 hours approximately 1.5 L. Physical Exam Vital signs: Vital Signs 05/21/18 17:03 05/21/18 18:00 05/21/18 20:00 Temperature 97.2 F L Pulse Rate 114 H 114 H 116 H Respiratory Rate 23 22 Blood Pressure 87/74 L 95/75 L 96/80 L Pulse Oximetry 95 05/21/18 22:00 05/21/18 23:00 05/22/18 00:00 Temperature 97.4 F L Pulse Rate 114 H 120 H 112 H Respiratory Rate 24 24 19 Blood Pressure 84/73 L Pulse Oximetry 05/22/18 04:00 05/22/18 08:00 05/22/18 12:00 Temperature 97.5 F L Pulse Rate 116 H 118 H 110 H Respiratory Rate 23 15 25 H Blood Pressure 87/77 L 91/77 L 95/79 L Pulse Oximetry 98 95 05/22/18 12:01 Temperature Pulse Rate 110 H Respiratory Rate 19 Blood Pressure Pulse Oximetry 97 Intake & Output 05/21/18 05/22/18 05/22/18 18:59 06:59 18:59 Intake Total 720 / 720 320 / 320 Output Total 100 / 100 524 / 524 Balance 620 / 620 -204 / -204 Weight 67.8 kg 69.9 kg Intake: Oral 720 / 720 320 / 320 Output: Urine 100 / 100 524 / 524 Other: Date of Last Bowel Movement 05/21/18 05/21/18 05/22/18 # Bowel Movements 1 Weight On Admission 68 kg Narrative: GENERAL: Alert and oriented 3, no acute distress, sitting up in bed SKIN: Warm and dry. HEAD: Normocephalic. EYES: No scleral icterus. No injection or drainage. NECK: Supple, trachea midline. No JVD or lymphadenopathy. CARDIOVASCULAR: Regular rate and rhythm without murmurs, gallops, or rubs. RESPIRATORY: Breath sounds equal bilaterally. Atelectatic sounds at bases. No accessory muscle use. GASTROINTESTINAL: Abdomen soft, non-tender, nondistended. MUSCULOSKELETAL: No cyanosis. 2+ edema in ankles 1+ to hip, abdominal edema BACK: Nontender without obvious deformity. No CVA tenderness. Results - Labs CBC & Chem 7: 05/22/18 04:25 05/22/18 04:25 Laboratory Results - last 24 hr 05/21/18 05/22/18 05/22/18 13:40 04:25 04:25 WBC 12.9 H RBC 5.32 Hgb 16.1 Hct 49.3 MCV 92.6 MCH 30.3 MCHC 32.7 RDW 16.4 Plt Count 314 MPV 9.1 Sodium 128 L Potassium 5.1 Chloride 92 L Carbon Dioxide 22.8 Anion Gap 13 BUN 31 H Creatinine 1.30 Estimated GFR 58 L Random Glucose 101 Calcium 9.4 Ur Collection Type Clean catch Urine Color Yellow Urine Clarity Cloudy H Urine pH 6.5 Ur Specific [place] 1.010 Urine Protein Trace Urine Glucose (UA) Negative Urine Ketones Negative Urine Occult Blood Trace Urine Nitrate Negative Urine Bilirubin Negative Urine Urobilinogen 0.2 Ur Leukocyte Esterase Large H Urine RBC 4-15 H Urine WBC Innumerable H Urine WBC Clumps Moderate H Ur Squamous Epith Cells 0-5 Amorphous Sediment Moderate H Urine Bacteria Few H Micro UA Comment Culture indicated Urine Culture Comments Culture indicated Urine Collection Time 1340 Microbiology 05/21/18 13:40 Clean Catch Urine Urine Culture - Preliminary Group D Enterococcus Assessment and Plan - Plan Acute on chronic CHF exacerbation Onset of CHF was 1 year ago following likely viral episode Patient has been well managed by his history over the last 6 months Onset of this particular episode was following recurrence of alcoholism and salt use Lasix had unimpressive effect on diuresis, changed to Bumex Continue telemetry Appreciate cardiology consult Urinary tract infection Incidental finding but may have to do with unimpressive urine output Begin Rocephin IV Hypertension Baseline BP is systolic of 90 Hold diuretics if blood pressure is below 90 systolic DVT prophylaxis Lovenox
--- NOTE | 2018-05-22 23:19 | ECHRPT ---
Indication: CARDIOMYOPATHY CONCLUSIONS Severely dilated left ventricle. Wall thickness is normal. The left ventricular systolic function is severely reduced with an estimated ejection fraction less than 20%. There are findings consistent with dilated cardiomyopathy. The right ventricle is moderately dilated. The right ventricular systoilc function is severely decreased. The left atrial size is mildly dilated. The right atrial size is mildly dilated. moderate mitral valve regurgitation. There is mild to moderate tricuspid valve regurgitation. The estimated pulmonary arterial pressure is 44.8 mmHg. A right sided pleural effusion is present. BP: / HR: Rhythm: Sinus MEASUREMENTS (Male / Female) Normal Values Technical Quality:Fair 2D ECHO LV Diastolic Diameter PLAX 8.1 cm 4.2 - 5.9 / 3.9 - 5.3 cm LV Systolic Diameter PLAX 7.7 cm IVS Diastolic Thickness 0.9 cm 0.6 - 1.0 / 0.6 - 0.9 cm LVPW Diastolic Thickness 0.7 cm 0.6 - 1.0 / 0.6 - 0.9 cm LV Relative Wall Thickness 0.2 RV Internal Dim ED PLAX 3.8 cm LVOT Diameter 2.0 cm Aortic Root Diameter 3.5 cm LA Systolic Diameter LX 4.2 cm 3.0 - 4.0 / 2.7 - 3.8 cm M-MODE AV Cusp Separation MM 1.6 cm DOPPLER TR Peak Velocity 295.0 cm/s TR Peak Gradient 34.8 mmHg Right Atrial Pressure 10.0 mmHg Pulmonary Artery Systolic Pressu 44.8 mmHg Right Ventricular Systolic Press 44.8 mmHg PV Peak Velocity 47.4 cm/s PV Peak Gradient 0.9 mmHg FINDINGS LEFT VENTRICLE Severely dilated left ventricle. Wall thickness is normal. The left ventricular systolic function is severely reduced with an estimated ejection fraction less than 20%. There are findings consistent with dilated cardiomyopathy. RIGHT VENTRICLE The right ventricle is moderately dilated. The right ventricular systoilc function is severely decreased. LEFT ATRIUM The left atrial size is mildly dilated. RIGHT ATRIUM The right atrial size is mildly dilated. ATRIAL SEPTUM No atrial level shunt is demonstrated by color flow Doppler interrogation. AORTA The aortic root and proximal ascending aorta are not well visualized. MITRAL VALVE [id number] mitral valve regurgitation. AORTIC VALVE Trileaflet aortic valve. No aortic valve stenosis or regurgitation. TRICUSPID VALVE There is mild to moderate tricuspid valve regurgitation. The estimated pulmonary arterial pressure is 44.8 mmHg. PULMONARY VALVE No pulmonary valve regurgitation or stenosis. VESSELS The inferior vena cava is normal in size. PERICARDIUM No pericardial effusion. A right sided pleural effusion is present. Tony Tyler MD, FACC, FSCAI (Electronically Signed) Final Date:22 May 2018 23:18
[2018-05-23 05:01] LABS: Hematocrit 46.9 % (39.0-51.0); Hemoglobin 15.4 gm/dL (13.0-17.0); Mean Corpuscular HGB Conc 32.8 % (32.0-36.0); Mean Corpuscular Hemoglobin 30.3 pg (27.0-34.0); Mean Corpuscular Volume 92.2 fL (80.0-100.0); Mean Platelet Volume 9.2 fL (7.0-11.0); Platelet Count 318 th/mm3 (150-450); Red Blood Count 5.08 mil/mm3 (4.50-5.90); Red Cell Distribution Width 16.1 % (11.6-17.2); White Blood Count 15.1 th/mm3 (4.0-11.0)
[2018-05-23 05:18] LABS: Calcium 9.2 mg/dL (8.5-10.1); Carbon Dioxide 26.9 meq/L (21.0-32.0); Potassium 4.1 meq/L (3.5-5.1)
--- NOTE | 2018-05-23 11:54 | P.PNCA ---
Subjective Interval history: Pt diuresing well, feels better, no complaints. Physical Exam Vital signs: Vital Signs 05/22/18 12:00 05/22/18 12:01 05/22/18 16:00 Temperature Pulse Rate 110 H 110 H 112 H Respiratory Rate 25 H 19 27 H Blood Pressure 95/79 L 102/76 Pulse Oximetry 95 97 97 05/22/18 17:00 05/22/18 19:00 05/22/18 20:00 Temperature 99 F Pulse Rate 112 H 118 H 117 H Respiratory Rate 25 H 22 14 Blood Pressure 109/81 91/64 L 97/47 L Pulse Oximetry 95 96 95 05/23/18 00:00 05/23/18 04:00 05/23/18 08:00 Temperature 98 F 98.6 F Pulse Rate 114 H 110 H 110 H Respiratory Rate 23 10 L Blood Pressure 90/66 L 93/80 L Pulse Oximetry 95 96 05/23/18 08:06 05/23/18 09:00 05/23/18 09:59 Temperature 97.8 F Pulse Rate 122 H 112 H 110 H Respiratory Rate 26 H 13 17 Blood Pressure 95/87 L 84/73 L Pulse Oximetry 92 L 98 98 Intake & Output 05/22/18 05/23/18 05/23/18 18:59 06:59 18:59 Intake Total 700 / 700 Output Total 250 / 250 1600 / 1600 Balance -250 / -250 -900 / -900 Weight 68.8 kg Intake: IV 100 / 100 Rocephin Inj 1,000 MG In NS Inj 100 / 100 100 ML @ 200 mls/hr IV.SIG Q24H MORENITA Rx#:[id number] Oral 600 / 600 Output: Urine 250 / 250 1600 / 1600 Other: Date of Last Bowel Movement 05/22/18 05/23/18 # Bowel Movements 1 - Constitutional no acute distress - Routine HEENT Exam Head: Present: normocephalic Eye: Present: EOMI ENT: Present: mucous membranes moist - Routine Neck Exam Present: supple - Routine Respiratory Exam Present: rales - Routine Cardiovascular Exam Present: RRR. Absent: murmur - Routine Abdominal Exam Present: soft - Routine Extremities Exam Present: edema Assessment and Plan - Assessment (1) Acute exacerbation of CHF (congestive heart failure) Code(s): I50.9 - Heart failure, unspecified Status: Acute Plan: Improving, continue diuretics. (2) NICM (nonischemic cardiomyopathy) Code(s): I42.8 - Other cardiomyopathies Status: Acute Plan: At this point holding off on bal/bb due to bp; he declines referral for AICD (1) Acute exacerbation of CHF (congestive heart failure) Qualifiers: Heart failure type: unspecified Qualified Code(s): I50.9 - Heart failure, unspecified
[2018-05-23] MEDS: Senna/Docusate Sodium 8.6/50 MG Tablet PO SCH ×2 (12:56→21:36)
--- NOTE | 2018-05-23 14:00 | P.PN ---
Subjective Interval history: Patient reports that the Bumex has been successful. He urinated over 1.5 L in the last 24 hours. 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 Physical Exam Vital signs: Vital Signs 05/22/18 16:00 05/22/18 17:00 05/22/18 19:00 Temperature Pulse Rate 112 H 112 H 118 H Respiratory Rate 27 H 25 H 22 Blood Pressure 102/76 109/81 91/64 L Pulse Oximetry 97 95 96 05/22/18 20:00 05/23/18 00:00 05/23/18 04:00 Temperature 99 F 98 F 98.6 F Pulse Rate 117 H 114 H 110 H Respiratory Rate 14 23 10 L Blood Pressure 97/47 L 90/66 L 93/80 L Pulse Oximetry 95 95 96 05/23/18 08:00 05/23/18 08:06 05/23/18 09:00 Temperature 97.8 F Pulse Rate 110 H 122 H 112 H Respiratory Rate 26 H 13 Blood Pressure 95/87 L Pulse Oximetry 92 L 98 05/23/18 09:59 Temperature Pulse Rate 110 H Respiratory Rate 17 Blood Pressure 84/73 L Pulse Oximetry 98 Intake & Output 05/22/18 05/23/18 05/23/18 18:59 06:59 18:59 Intake Total 700 / 700 Output Total 250 / 250 1600 / 1600 Balance -250 / -250 -900 / -900 Weight 68.8 kg Intake: IV 100 / 100 Rocephin Inj 1,000 MG In NS Inj 100 / 100 100 ML @ 200 mls/hr IV.SIG Q24H MORENITA Rx#:[id number] Oral 600 / 600 Output: Urine 250 / 250 1600 / 1600 Other: Date of Last Bowel Movement 05/22/18 05/23/18 # Bowel Movements 1 Narrative: GENERAL: Alert and oriented 3, no acute distress, sitting up in bed SKIN: Warm and dry. HEAD: Normocephalic. EYES: No scleral icterus. No injection or drainage. NECK: Supple, trachea midline. No JVD or lymphadenopathy. CARDIOVASCULAR: Regular rate and rhythm without murmurs, gallops, or rubs. RESPIRATORY: Breath sounds equal bilaterally. Improving atelectatic sounds at bases. No accessory muscle use. GASTROINTESTINAL: Abdomen soft, non-tender, nondistended. MUSCULOSKELETAL: No cyanosis. 1+ edema in ankles trace edema to hip, abdominal edema greatly softened BACK: Nontender without obvious deformity. No CVA tenderness. Results - Labs CBC & Chem 7: 05/23/18 04:12 05/23/18 04:12 Laboratory Results - last 24 hr 05/22/18 05/23/18 05/23/18 21:00 04:12 04:12 WBC 15.1 H RBC 5.08 Hgb 15.4 Hct 46.9 MCV 92.2 MCH 30.3 MCHC 32.8 RDW 16.1 Plt Count 318 MPV 9.2 Sodium 130 L Potassium 4.1 D Chloride 92 L Carbon Dioxide 26.9 Anion Gap 11 BUN 30 H Creatinine 1.10 Estimated GFR 70 L Random Glucose 97 Calcium 9.2 Magnesium 1.9 B-Natriuretic Peptide 05/23/18 04:12 WBC RBC Hgb Hct MCV MCH MCHC RDW Plt Count MPV Sodium Potassium Chloride Carbon Dioxide Anion Gap BUN Creatinine Estimated GFR Random Glucose Calcium Magnesium B-Natriuretic Peptide Greater than 5000 H Microbiology 05/21/18 13:40 Clean Catch Urine Urine Culture - Final Enterococcus faecalis Assessment and Plan - Plan Acute on chronic CHF exacerbation Onset of CHF was 1 year ago following likely viral episode Patient has been well managed by his history over the last 6 months Onset of this particular episode was following recurrence of alcoholism and salt use Remarkable improvement after patient was given Bumex instead of Lasix IV Continue another day in the ICU to monitor for blood pressure changes related to aggressive diuresis Consider discharging patient home on p.o. Bumex rather than p.o. Lasix Appreciate cardiology consult Urinary tract infection Incidental finding, asymptomatic Continue Rocephin IV Hypertension Baseline BP is systolic of 90 Hold diuretics if blood pressure is below 90 systolic DVT prophylaxis Lovenox
[2018-05-23] MEDS: Enoxaparin Inj 40 MG/0.4 ML Syringe SQ SCH (14:05)
[2018-05-24 05:51] LABS: Hematocrit 45.9 % (39.0-51.0); Mean Corpuscular HGB Conc 32.7 % (32.0-36.0); Mean Corpuscular Hemoglobin 30.1 pg (27.0-34.0); Mean Platelet Volume 9.3 fL (7.0-11.0); Platelet Count 320 th/mm3 (150-450); Red Blood Count 4.99 mil/mm3 (4.50-5.90); Red Cell Distribution Width 15.6 % (11.6-17.2); White Blood Count 13.5 th/mm3 (4.0-11.0)
[2018-05-24 06:08] LABS: Carbon Dioxide 28.1 meq/L (21.0-32.0)
--- NOTE | 2018-05-24 07:58 | P.PNCA ---
Subjective Interval history: Pt had some VT o/n, no symptoms Physical Exam Vital signs: Vital Signs 05/23/18 08:00 05/23/18 08:06 05/23/18 09:00 Temperature 97.8 F Pulse Rate 110 H 122 H 112 H Respiratory Rate 26 H 13 Blood Pressure 94/86 L Pulse Oximetry 92 L 98 05/23/18 09:59 05/23/18 11:22 05/23/18 11:59 Temperature Pulse Rate 110 H 114 H 120 H Respiratory Rate 17 18 28 H Blood Pressure 84/73 L 125/70 93/75 L Pulse Oximetry 98 96 88 L 05/23/18 12:59 05/23/18 13:59 05/23/18 14:59 Temperature 97.8 F Pulse Rate 110 H 106 H 108 H Respiratory Rate 18 16 18 Blood Pressure 95/84 L 85/76 L 86/78 L Pulse Oximetry 95 96 95 05/23/18 15:59 05/23/18 16:59 05/23/18 18:15 Temperature 97.6 F Pulse Rate 108 H 116 H 120 H Respiratory Rate 22 23 22 Blood Pressure 93/84 L 91/81 L Pulse Oximetry 92 L 95 05/23/18 19:00 05/23/18 19:25 05/23/18 20:00 Temperature Pulse Rate 110 H 106 H 108 H Respiratory Rate 19 17 15 Blood Pressure 98/80 L 101/80 Pulse Oximetry 05/23/18 21:00 05/23/18 22:00 05/24/18 00:00 Temperature 98 F Pulse Rate 108 H 118 H 101 H Respiratory Rate 15 18 18 Blood Pressure 94/72 L 97/72 L 94/76 L Pulse Oximetry 05/24/18 00:29 05/24/18 02:00 05/24/18 04:00 Temperature Pulse Rate 102 H 114 H 110 H Respiratory Rate 9 L 21 21 Blood Pressure 94/76 L 99/81 L 94/77 L Pulse Oximetry 05/24/18 06:00 Temperature Pulse Rate 100 H Respiratory Rate 11 L Blood Pressure 96/75 L Pulse Oximetry Intake & Output 05/23/18 05/24/18 05/24/18 18:59 06:59 18:59 Intake Total 300 / 300 440 / 440 Output Total 1075 / 1075 650 / 650 Balance -775 / -775 -210 / -210 Weight 66.2 kg Intake: Oral 300 / 300 440 / 440 Output: Urine 1075 / 1075 650 / 650 Other: Date of Last Bowel Movement 05/23/18 # Bowel Movements 1 1 - Constitutional no acute distress - Routine HEENT Exam Head: Present: normocephalic Eye: Present: EOMI ENT: Present: mucous membranes moist - Routine Neck Exam Present: supple - Routine Respiratory Exam Present: rales - Routine Cardiovascular Exam Present: RRR - Routine Extremities Exam Present: edema (1-2 + bilat LE edema) Assessment and Plan - Assessment (1) Acute exacerbation of CHF (congestive heart failure) Code(s): I50.9 - Heart failure, unspecified Status: Acute Plan: Improving, continue diuretics. (2) NICM (nonischemic cardiomyopathy) Code(s): I42.8 - Other cardiomyopathies Status: Acute Plan: At this point holding off on bal/bb due to bp; he (again) declines referral for AICD (3) NSVT (nonsustained ventricular tachycardia) Code(s): I47.2 - Ventricular tachycardia Status: Acute Plan: will recheck lytes; he declines AICD, ideally would start a BB prior to d/c but currently BP low. 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
--- NOTE | 2018-05-24 10:28 | P.PNIM ---
Subjective Interval history: Patient seen in follow-up for CHF exacerbation. Patient known to have nonischemic cardiomyopathy with EF of 20%, patient with acute exacerbation of systolic heart failure. He is hypotensive. He had episodes of ventricular tachycardia overnight. Cardiology aware and has recommended a implanted defibrillator which the patient has declined. He states he was just diagnosed in June 2017 and had been doing fine the last week. He would like to have a second opinion. I did discuss with this patient regarding his low cardiac function, hypotension and potential fatal arrhythmia. He is agreeable for palliative consult to address his concerns. Care plan also discussed with [employer] SINGER Physical Exam Vital signs: Vital Signs 05/23/18 11:22 05/23/18 11:59 05/23/18 12:59 Temperature 97.8 F Pulse Rate 114 H 120 H 110 H Respiratory Rate 18 28 H 18 Blood Pressure 125/70 93/75 L 95/84 L Pulse Oximetry 96 88 L 95 05/23/18 13:59 05/23/18 14:59 05/23/18 15:59 Temperature Pulse Rate 106 H 108 H 108 H Respiratory Rate 16 18 22 Blood Pressure 85/76 L 86/78 L 93/84 L Pulse Oximetry 96 95 92 L 05/23/18 16:59 05/23/18 18:15 05/23/18 19:00 Temperature 97.6 F Pulse Rate 116 H 120 H 110 H Respiratory Rate 23 22 19 Blood Pressure 91/81 L Pulse Oximetry 95 05/23/18 19:25 05/23/18 20:00 05/23/18 21:00 Temperature Pulse Rate 106 H 108 H 108 H Respiratory Rate 17 15 15 Blood Pressure 98/80 L 101/80 94/72 L Pulse Oximetry 05/23/18 22:00 05/24/18 00:00 05/24/18 00:29 Temperature 98 F Pulse Rate 118 H 101 H 102 H Respiratory Rate 18 18 9 L Blood Pressure 97/72 L 94/76 L 94/76 L Pulse Oximetry 05/24/18 02:00 05/24/18 04:00 05/24/18 06:00 Temperature Pulse Rate 114 H 110 H 100 H Respiratory Rate 21 21 11 L Blood Pressure 99/81 L 94/77 L 96/75 L Pulse Oximetry Intake & Output 05/23/18 05/24/18 05/24/18 18:59 06:59 18:59 Intake Total 300 / 300 440 / 440 Output Total 1075 / 1075 650 / 650 Balance -775 / -775 -210 / -210 Weight 66.2 kg Intake: Oral 300 / 300 440 / 440 Output: Urine 1075 / 1075 650 / 650 Other: Date of Last Bowel Movement 05/23/18 # Bowel Movements 1 1 Narrative: GENERAL: Patient calm resting and without complaints SKIN: Warm and dry. No rashes or ecchymotic injuries EYES: Pupils equal and round. No scleral icterus. No injection or drainage. ENT: External ear exam normal. No acute nasal bleeding or discharge. Mucous membranes pink and moist. CARDIOVASCULAR: Regular rate and rhythm. No murmurs gallops or rubs appreciated RESPIRATORY: Good air flow and effort without accessory muscle use. Clear to auscultation. Breath sounds equal bilaterally. GASTROINTESTINAL: Abdomen soft, non-tender, nondistended. Hepatic and splenic margins not palpable. MUSCULOSKELETAL: Extremities without clubbing, cyanosis, or edema. No obvious deformities. NEUROLOGICAL: Awake and alert. No obvious cranial nerve deficits. Motor grossly within normal limits. Five out of 5 muscle strength in the arms and legs. Normal speech. Results - Labs CBC & Chem 7: 05/24/18 05:07 05/24/18 05:20 Laboratory Results - last 24 hr 05/24/18 05/24/18 05:07 05:20 WBC 13.5 H RBC 4.99 Hgb 15.0 Hct 45.9 MCV 92.0 MCH 30.1 MCHC 32.7 RDW 15.6 Plt Count 320 MPV 9.3 Sodium 132 L Potassium 4.0 Chloride 93 L Carbon Dioxide 28.1 Anion Gap 11 BUN 31 H Creatinine 1.10 Estimated GFR 70 L Random Glucose 101 Calcium 9.0 Microbiology 05/21/18 13:40 Clean Catch Urine Urine Culture - Final Enterococcus faecalis Assessment and Plan - Assessment (1) Acute exacerbation of CHF (congestive heart failure) Code(s): I50.9 - Heart failure, unspecified Status: Acute Plan: Patient with acute exacerbation of systolic heart failure. Patient will continue with Bumex as he appears to have minimal improvement on his home Lasix. Cardiology consult appreciated. Echocardiogram at this time shows EF of 20%. He is unable to tolerate CHELI inhibitor or beta-gabby due to persistent hypotension. Status post aggressive diuresis and we will continue with Bumex p.o. (2) NICM (nonischemic cardiomyopathy) Code(s): I42.8 - Other cardiomyopathies Status: Acute Plan: Patient has use a LifeVest in the past without any incident, a AICD is recommended by cardiology but the patient has declined this. Given this patient 's poor prognosis and overall inability to treat a palliative care consult has been requested. At this time the patient remains full code (3) NSVT (nonsustained ventricular tachycardia) Code(s): I47.2 - Ventricular tachycardia Status: Acute Plan: Potentially fatal arrhythmia Follow-up electrolytes Continue on telemetry (1) Acute exacerbation of CHF (congestive heart failure) Qualifiers: Heart failure type: unspecified Qualified Code(s): I50.9 - Heart failure, unspecified
[2018-05-24] MEDS: Senna/Docusate Sodium 8.6/50 MG Tablet PO SCH ×2 (10:39→21:34)
[2018-05-24] MEDS: Ciprofloxacin 500 MG Tablet PO SCH ×2 (10:41→21:34)
[2018-05-24] MEDS: ALPRAZolam 0.25 MG Tablet PO PRN ×2 (12:38→21:36)
[2018-05-24] MEDS: Enoxaparin Inj 40 MG/0.4 ML Syringe SQ SCH ×2 (12:39→15:24)
--- NOTE | 2018-05-24 12:48 | P.CONPAL ---
Consult Service: Palliative Care Requesting Physician: Elenita Renee Reason for Consult: a. To assist with evaluation and management of symptoms including:anxiety, dyspnea, edema b. To assist medical decision maker(s) with: better understanding of current medical conditions; weighing benefits/burdens of medical treatment options; making medical treatment decisions. Primary Care Provider: Jeronimo Nelson MD History of Present Illness History of Present Illness: 52-year-old male who has a history significant for but not limited to cardiomyopathy, CHF with ejection fraction of less than 20% echocardiogram done in May 2017. Catheterization done on 06/30/2017 shows an estimated EF of 10%. Cardiology at the time feel that cardiomyopathy is likely due to nonischemic causes such as alcohol induced or viral. Cardiology at the time felt that patient if he was really drinking only 3-4 beers a night it would not cause this severe of a cardiomyopathy. Patient was placed on a LifeVest and was instructed to follow up. Cardiology noted if there is no improvement, he would qualify for a defibrillator. Pt went to [place] [facility] on 05/21/2018 with complaints of bilateral extremity swelling. Initially: vitals; temperature 97.4, pulse is 121, respirations 18, blood pressure is 92/61, pulse ox is 95% * WBC is 11.3, hemoglobin 16.2, hematocrit 50.5, platelets 326 * Sodium is 130, potassium 5.6, chloride 96, bicarb 19.8, BUNs 25, creatinine is 1.4 * AST is 50, ALT is 48, alk phos is 106 * Total creatinine kinase 315, CK-MB 16.1, troponin I 0.06, BNP is 2548 * PT is 14.7, INR is 1.5, PTT is 30.8 * Chest x-ray shows blunting of both costophrenic angle which could indicate small effusion. Cardiomegaly with no evidence of pulmonary edema. Coarse opacity of both lung bases which may represent scarring. * Urine culture shows Enterococcus faecalis Patient has CHF exacerbation and care was transferred to hospitalist services. Subsequent workup includes echocardiogram which we confirmed an EF of less than 20%. There is dilated cardiomyopathy. Moderate mitral valve regurgitation. Cardiology was consulted. He had endorsed to the enrollment services vice president's that in the beginning he has stopped drinking and cut back on smoking and no symptoms until approximately week ago when he has started to have dyspnea on exertion and pedal edema. He has gone back to drinking some although not as heavy as before. He continues to smoke a pack per day. Cardiology is also noted that given his noncompliance cardiology will not follow as outpatient, but in the hospital. Patient eva Martinez was diuresed and feels better. He had some VT while in the hospital but otherwise asymptomatic. He has declines referral for AICD placement. BP remains low and limited enrollment services vice president ability to start beta- gabby. Cardiology noted that long-term prognosis is poor due to very low ejection fraction and the lack of AICD. Hospitalists noted that patient had wanted a second opinion. Further discussion regarding his low cardiac function hypotension and arrhythmias prompting patient's agreement to a palliative care consult. I spoke with patient. Pt is alert and oriented. On my initial discussion with patient patient was very frustrated. Patient also seen very distrustful of the medical information that was conveyed to him. I started off by inquiring about patient's place of , family situation, and learn more about patient. Gradually we started talking about his symptoms of edema, he denies anxiety, or pain at this point. Reviewed patient's cardiac condition, echocardiogram results, his last hospitalization, and current hospitalization. Was able to convey to him that his cardiac condition with an EF of 10% prognosis is poor, and despite his age with the EF he would even qualify for hospice. We discussed about goals of care. He is not ready for transition to comfort measures or hospice at this point. However he still needs time and when I talked to assume more of his family, friends before he can make a decision on the AICD. He endorses a full code. He did convey to me he would not want take her trach if he is not able to wean off the ventilator. We completed a healthcare surrogate form designating his brother Charles Hager as primary surrogate. And Harshal Hager other brother as alternate surrogate. Function/Cognitive Trajectory: He state the past few months, he started to drink more. He start to have more edema and swelling. He states he feels better and has had less swelling. Review of Systems Constitutional: Reports fatigue Eyes: Denies blurry vision, Denies bulging eyes, Denies change in vision Ears, Nose, Mouth, and Throat: Denies abnormal hearing, Denies bleeding gums, Denies bad breath, Denies change in voice Cardiovascular: Reports foot swelling, Reports shortness of breath with activity , Denies chest pain at rest Respiratory: Denies chest congestion, Denies cough Gastrointestinal: Denies abdominal pain, Denies belching, Denies black, tarry stools Genitourinary: Denies blood in urine, Denies decreased urination Musculoskeletal: Denies abnormal walking, Denies back pain, Denies body aches Skin/Breast: Denies bleeding lesions, Denies boil, Denies breast swelling Neurologic: Denies abnormal hearing, Denies abnormal movements, Denies abnormal speech Psychiatric: Denies abnormal sleep pattern, Denies anxiety Endocrine: Denies cold intolerance, Denies excessive sweating, Denies flushing Hematologic/Lymphatic: Denies easy bleeding Allergic/Immunologic: Denies GI upset with certain foods, Denies itchy eyes, Denies lip swelling PMFSH - History History Provided By: Patient - Medical History Medical History: Medical History (Last Reviewed 05/24/18 @ 12:47 by Chon Moss MD) CHF (congestive heart failure) Hypertension - Surgical History Surgical History: Surgical History (Last Reviewed 05/24/18 @ 12:47 by Chon Moss MD) Hx of cardiac catheterization - Family History Family History: Family History (Last Updated 05/24/18 @ 16:37 by Chon Moss MD) Other Family history of hypertension - Tobacco History Second Hand Smoke Exposure: No Tobacco Use In Past 30 Days: Yes Smoking Status: Current every day smoker Tobacco Type: Cigarettes - Alcohol History How Often Do You Have a Drink Containing Alcohol: 2 to 3 times a week - Substance Use History Substance History: No History of Abuse - Substance Use Type Alcohol Status: Early Remission Route Used: By Mouth Frequency: 2-3 drinks three times a week - Travel History Recent Travel in the [facility] Within the Last 8 Weeks: No Recent Travel Out of the Country Within the Last 8 Weeks: No - Immunization History Tetanus Immunization: Unsure Hx Influenza Vaccine This Season: No Medications and Allergies Active Medications: Active Medications Al Hydroxide/Mg Hydroxide (Milk Of Magnfab Liq) 30 ml PO Q12H PRN PRN Reason: Mild Constipation Alprazolam (Xanax) 0.25 mg PO Q8H PRN PRN Reason: ANXIETY Bisacodyl (Dulcolax Supp) 10 mg RECTAL DAILY PRN PRN Reason: SEVERE CONSITIPATION Bumetanide (Bumex) 1 mg PO DAILY [facility] Ciprofloxacin HCl (Cipro) 500 mg PO Q12HR [facility] Last Admin: 05/24/18 10:41 Dose: 500 mg Enoxaparin Sodium (Lovenox Inj) 40 mg SQ Q24H [facility] Last Admin: 05/23/18 14:05 Dose: 40 mg Lactulose (Lactulose Liq) 30 ml PO DAILY PRN PRN Reason: SEVERE CONSITIPATION Lisinopril (Prinivil) 2.5 mg PO DAILY [facility] Miscellaneous (Pill Splitter) 1 each OTHER UNSCH PRN PRN Reason: SEE LABEL COMMENTS Potassium Chloride (Klor-Con 10) 10 meq PO DAILY [facility] Senna/Docusate Sodium (Josette-Colace) 1 tab PO BID [facility] Last Admin: 05/24/18 10:39 Dose: Not Given Sennosides (Senokot) 17.2 mg PO Q12H PRN PRN Reason: Moderate Constipation Sodium Chloride (Ns Flush) 2 ml IV.FLUSH UNSCH PRN PRN Reason: FLUSH AFTER USING IV ACCESS Temazepam (Restoril) 15 mg PO HS PRN PRN Reason: INSOMNIA Allergies Allergy/AdvReac Type Severity Reaction Status Date / Time No Known Allergies Allergy Unverified 05/21/18 08:20 Home Medications Medication Instructions Recorded Confirmed Type furosemide [Lasix] 20 mg PO DAILY 05/21/18 05/21/18 History lisinopril 2.5 mg PO DAILY 05/21/18 05/21/18 History potassium chloride [Klor-Con 10] 10 meq PO DAILY 05/21/18 05/21/18 History Advance Directives Healthcare Surrogate: Yes Physical Exam Vital Signs: Vital Signs - 24 hr 05/23/18 12:59 05/23/18 13:59 05/23/18 14:59 Temperature 97.8 F Pulse Rate 110 H 106 H 108 H Respiratory Rate 18 16 18 Blood Pressure 95/84 L 85/76 L 86/78 L Pulse Oximetry 95 96 95 05/23/18 15:59 05/23/18 16:59 05/23/18 18:15 Temperature 97.6 F Pulse Rate 108 H 116 H 120 H Respiratory Rate 22 23 22 Blood Pressure 93/84 L 91/81 L Pulse Oximetry 92 L 95 05/23/18 19:00 05/23/18 19:25 05/23/18 20:00 Temperature Pulse Rate 110 H 106 H 108 H Respiratory Rate 19 17 15 Blood Pressure 98/80 L 101/80 Pulse Oximetry 05/23/18 21:00 05/23/18 22:00 05/24/18 00:00 Temperature 98 F Pulse Rate 108 H 118 H 101 H Respiratory Rate 15 18 18 Blood Pressure 94/72 L 97/72 L 94/76 L Pulse Oximetry 05/24/18 00:29 05/24/18 02:00 05/24/18 04:00 Temperature Pulse Rate 102 H 114 H 110 H Respiratory Rate 9 L 21 21 Blood Pressure 94/76 L 99/81 L 94/77 L Pulse Oximetry 05/24/18 06:00 Temperature Pulse Rate 100 H Respiratory Rate 11 L Blood Pressure 96/75 L Pulse Oximetry I&O: Intake & Output 05/22/18 05/23/18 05/24/18 05/25/18 06:59 06:59 06:59 06:59 Intake Total 1040 / 1040 700 / 700 740 / 740 100 / 100 Output Total 624 / 624 1850 / 1850 1725 / 1725 Balance 416 / 416 -1150 / -1150 -985 / -985 100 / 100 Weight 69.9 kg 68.8 kg 66.2 kg Physical Exam: CONSTITUTIONAL/GENERAL: This is an adequately nourished patient, in no apparent distress. TUBES/LINES/DRAINS: piv. He is able to use comode SKIN: No jaundice, rashes, or lesions. Ecchymoses on upper extremities. No wounds seen anteriorly. Skin temperature appropriate. Not diaphoretic. HEAD: Atraumatic. Normocephalic. EYES: Pupils equal and round and reactive. Extraocular motions intact. No scleral icterus. No injection or drainage. Fundi not examined. ENT: Hearing grossly normal. Nose without bleeding or purulent drainage. Throat without visible erythema, exudates, masses, or lesions. NECK: Trachea midline. Supple, nontender. No palpable thyroid enlargement or nodularity. CARDIOVASCULAR: Regular rate and rhythm without murmurs, gallops, or rubs. No JVD. Peripheral pulses symmetric. RESPIRATORY/CHEST: Symmetric, unlabored respirations. Clear to auscultation. Breath sounds equal bilaterally. No wheezes, rales, or rhonchi. GASTROINTESTINAL: Abdomen soft, non-tender, nondistended. No hepato-splenomegaly , or palpable masses. No guarding. Bowel sounds present. GENITOURINARY: Without palpable bladder distension. Tavarez catheter in place. MUSCULOSKELETAL: Extremities without clubbing, cyanosis, or edema. No joint tenderness or effusion noted. No calf tenderness. No mottling or clubbing. LYMPHATICS: No palpable cervical or supraclavicular adenopathy. NEUROLOGICAL: Awake and alert. Motor and sensory grossly within normal limits. Follows commands. Cognitively sharp. Moves all extremities. PSYCHIATRIC: No obvious anxiety/depression. no apparent hallucinations or other psychotic thought process. Diagnostic Tests Laboratory: Laboratory Results - last 72 hr 05/21/18 05/22/18 05/22/18 13:40 04:25 04:25 WBC 12.9 H RBC 5.32 Hgb 16.1 Hct 49.3 MCV 92.6 MCH 30.3 MCHC 32.7 RDW 16.4 Plt Count 314 MPV 9.1 Sodium 128 L Potassium 5.1 Chloride 92 L Carbon Dioxide 22.8 Anion Gap 13 BUN 31 H Creatinine 1.30 Estimated GFR 58 L Random Glucose 101 Calcium 9.4 Magnesium B-Natriuretic Peptide Ur Collection Type Clean catch Urine Color Yellow Urine Clarity Cloudy H Urine pH 6.5 Ur Specific [place] 1.010 Urine Protein Trace Urine Glucose (UA) Negative Urine Ketones Negative Urine Occult Blood Trace Urine Nitrate Negative Urine Bilirubin Negative Urine Urobilinogen 0.2 Ur Leukocyte Esterase Large H Urine RBC 4-15 H Urine WBC Innumerable H Urine WBC Clumps Moderate H Ur Squamous Epith Cells 0-5 Amorphous Sediment Moderate H Urine Bacteria Few H Micro UA Comment Culture indicated Urine Culture Comments Culture indicated Urine Collection Time 1340 05/22/18 05/23/18 05/23/18 21:00 04:12 04:12 WBC 15.1 H RBC 5.08 Hgb 15.4 Hct 46.9 MCV 92.2 MCH 30.3 MCHC 32.8 RDW 16.1 Plt Count 318 MPV 9.2 Sodium 130 L Potassium 4.1 D Chloride 92 L Carbon Dioxide 26.9 Anion Gap 11 BUN 30 H Creatinine 1.10 Estimated GFR 70 L Random Glucose 97 Calcium 9.2 Magnesium 1.9 B-Natriuretic Peptide Ur Collection Type Urine Color Urine Clarity Urine pH Ur Specific [place] Urine Protein Urine Glucose (UA) Urine Ketones Urine Occult Blood Urine Nitrate Urine Bilirubin Urine Urobilinogen Ur Leukocyte Esterase Urine RBC Urine WBC Urine WBC Clumps Ur Squamous Epith Cells Amorphous Sediment Urine Bacteria Micro UA Comment Urine Culture Comments Urine Collection Time 05/23/18 05/24/18 05/24/18 04:12 05:07 05:20 WBC 13.5 H RBC 4.99 Hgb 15.0 Hct 45.9 MCV 92.0 MCH 30.1 MCHC 32.7 RDW 15.6 Plt Count 320 MPV 9.3 Sodium 132 L Potassium 4.0 Chloride 93 L Carbon Dioxide 28.1 Anion Gap 11 BUN 31 H Creatinine 1.10 Estimated GFR 70 L Random Glucose 101 Calcium 9.0 Magnesium B-Natriuretic Peptide Greater than 5000 H Ur Collection Type Urine Color Urine Clarity Urine pH Ur Specific [place] Urine Protein Urine Glucose (UA) Urine Ketones Urine Occult Blood Urine Nitrate Urine Bilirubin Urine Urobilinogen Ur Leukocyte Esterase Urine RBC Urine WBC Urine WBC Clumps Ur Squamous Epith Cells Amorphous Sediment Urine Bacteria Micro UA Comment Urine Culture Comments Urine Collection Time 05/24/18 05:20 WBC RBC Hgb Hct MCV MCH MCHC RDW Plt Count MPV Sodium Potassium Chloride Carbon Dioxide Anion Gap BUN Creatinine Estimated GFR Random Glucose Calcium Magnesium 2.1 B-Natriuretic Peptide Ur Collection Type Urine Color Urine Clarity Urine pH Ur Specific [place] Urine Protein Urine Glucose (UA) Urine Ketones Urine Occult Blood Urine Nitrate Urine Bilirubin Urine Urobilinogen Ur Leukocyte Esterase Urine RBC Urine WBC Urine WBC Clumps Ur Squamous Epith Cells Amorphous Sediment Urine Bacteria Micro UA Comment Urine Culture Comments Urine Collection Time Result Diagrams: 05/24/18 05:07 05/24/18 05:20 Microbiology: Microbiology 05/21/18 13:40 Urine Culture - Final Clean Catch Urine Enterococcus faecalis Imaging: Chest X-Ray 05/21/18 08:51 CONCLUSION: 1. Blunting of both costophrenic angles which could indicate small effusions. 2. Cardiomegaly with no evidence of pulmonary edema. 3. Coarse opacity of both lung bases which may represent scarring. Patient/Family Conference Issues Discussed: * Palliative care role, purpose, approach * Additional medical, psychosocial, and spiritual history * Patients general health, functional status, and cognitive changes in the months leading up to the current hospitalization * Patient/family understanding of the current medical problems * Patient/family understanding of prognosis * Patients goals of care as best understood from advance directives and/or conversations and/or values * Current medical treatment options and benefits/burdens of those options * Likely scenarios comparing ongoing aggressive care with a transition to comfort measures only * Questions answered to the best of my ability * Palliative care contact information provided Assessment and Plan - Disease Oriented Problem List (1) NICM (nonischemic cardiomyopathy) Comment: EF 10% (2) Acute exacerbation of CHF (congestive heart failure) (3) NSVT (nonsustained ventricular tachycardia) - Symptom Scale (1) Dyspnea 0-10 Scale: 1 (2) Anxiety 0-10 Scale: 1 (3) Edema 0-10 Scale: 1 Pertinent Non-Medical Issues: Psychosocial:Originally from [place]. never . No children. Only family are 2 brothers. Charles Hager in [facility], and Harshal Hager [place] Spiritual:none Legal:health care surrogate completed today Ethical issues impacting care:no Important Contacts: [facility] (no phone number as of yet). Bright Hager: borhter in [place], althernate surrogate( no phone number avialable today). Prognosis: Advance cardiomyopathy. EF is 10% Prognosis is poor. Code Status: Full Code Plan: == capacity- he has capacity to make medical decisons. == health care surrogate= form was filled out. == Code: Full == goals of care: On my initial discussion with patient patient was very frustrated. Patient also seen very distrustful of the medical information that was conveyed to him. I started off by inquiring about patient's place of , family situation, and learn more about patient. Gradually we started talking about his symptoms of edema, he denies anxiety, or pain at this point. Reviewed patient's cardiac condition, echocardiogram results, his last hospitalization, and current hospitalization. Was able to convey to him that his cardiac condition with an EF of 10% prognosis is poor, and despite his age with the EF he would even qualify for hospice. We discussed about goals of care. He is not ready for transition to comfort measures or hospice at this point. However he still needs time and when I talked to assume more of his family, friends before he can make a decision on the AICD. He endorses a full code. He did convey to me he would not want take her trach if he is not able to wean off the ventilator. We completed a healthcare surrogate form designating his brother Charles Hager as primary surrogate. And Harshal Hager other brother as alternate surrogate. == symptom: dyspnea- per pt it has improved. anxieyt- denies anxiety. edema- that also has improved. == palliative care will follow up tomorrow on pt's decision on AICD. and review goals of care as clinical condition evolves. Appreciation Thank you for the opportunity to participate in the care of Bruce Hager. Attestation Attestation: To help prompt me to consider important information that might be impacting today's encounter and assessment, information from prior notes written by myself or my colleagues may have been "brought forward" into today's note. My signature on this note, however, is an attestation that I personally performed the exam, history, and/or decision-making noted today, and, unless otherwise indicated, the interactions with patient, family, and staff as well as the review of records all occurred today. I also attest that the listed assessment and stated plan reflect my best clinical judgment today based on the combination of historical information, prior notes, and today's exam/ interactions. When time spent is documented, it refers only to time spent today by the signer, or if indicated, combined time spent today by collaborating physician/nurse practitioner.
[2018-05-25] MEDS: ALPRAZolam 0.25 MG Tablet PO PRN ×3 (03:42→22:49)
--- NOTE | 2018-05-25 06:18 | P.PNCA ---
Subjective Interval history: The patient denies shortness of breath, chest pain, palpitations, GI symptoms or bleeding. Telemetry shows sinus tachycardia with occasional PVCs chart reviewed. Physical Exam Vital signs: Vital Signs 05/24/18 08:00 05/24/18 12:38 05/24/18 14:00 Temperature 97.8 F Pulse Rate 118 H 114 H 102 H Respiratory Rate 21 17 20 Blood Pressure 90/77 L 106/62 86/77 L Pulse Oximetry 05/24/18 15:00 05/24/18 16:00 05/24/18 20:00 Temperature 97.5 F L 98.3 F Pulse Rate 110 H 104 H 110 H Respiratory Rate 16 24 19 Blood Pressure 91/74 L Pulse Oximetry 95 05/24/18 21:00 05/24/18 22:00 05/25/18 00:00 Temperature 98.2 F Pulse Rate 104 H 116 H 112 H Respiratory Rate 19 17 Blood Pressure 98/76 L 105/65 105/75 Pulse Oximetry 95 95 95 05/25/18 04:00 Temperature 98.1 F Pulse Rate 98 H Respiratory Rate 20 Blood Pressure 97/63 L Pulse Oximetry 95 Intake & Output 05/24/18 05/24/18 05/25/18 06:59 18:59 06:59 Intake Total 440 / 440 580 / 580 Output Total 650 / 650 570 / 570 Balance -210 / -210 10 / 10 Weight 66.2 kg Intake: IV 100 / 100 Rocephin Inj 1,000 MG In NS Inj 100 / 100 100 ML @ 200 mls/hr IV.SIG Q24H MORENITA Rx#:[id number] Oral 440 / 440 480 / 480 Output: Urine 650 / 650 570 / 570 Other: Date of Last Bowel Movement 05/23/18 05/23/18 # Bowel Movements 1 1 Narrative: GENERAL: Frail, well-nourished, well-developed patient in no apparent distress. SKIN: Warm and dry. NECK: JVD normal - less than or equal to 5 cm H20. CARDIOVASCULAR: Regular rate and rhythm without murmurs, or rubs. S3 present. RESPIRATORY: Normal breath sounds - equal bilaterally. No accessory muscle use. No wheezes, rales or rubs. PERIPHERY: No cyanosis. 1+ edema. Assessment and Plan - Assessment (1) Acute exacerbation of CHF (congestive heart failure) Code(s): I50.9 - Heart failure, unspecified Status: Acute Plan: Improving, continue diuretics. (2) NICM (nonischemic cardiomyopathy) Code(s): I42.8 - Other cardiomyopathies Status: Acute Plan: At this point holding off on bal/bb due to bp; he (again) declines referral for AICD (3) NSVT (nonsustained ventricular tachycardia) Code(s): I47.2 - Ventricular tachycardia Status: Acute Plan: will recheck lytes; he declines AICD, ideally would start a BB prior to d/c but currently BP low. - Plan Problems: Acute on chronic systolic congestive heart failure with dilated cardiomyopathy. Alcohol abuse Nonsustained ventricular tachycardia Noncompliance Recommendations: Continue present medical regimen. The patient is intermittently hypotensive and there is no way to go on medication. He has specifically not followed up in the past and refused referral to Medicaid for appropriate physician follow-up. He also has refused defibrillator. His prognosis is guarded. I have nothing more to add. I would strongly consider hospice for this gentleman. We will be available this hospital stay if needed. (1) Acute exacerbation of CHF (congestive heart failure) Qualifiers: Heart failure type: unspecified Qualified Code(s): I50.9 - Heart failure, unspecified
[2018-05-25] MEDS: Ciprofloxacin 500 MG Tablet PO SCH ×2 (09:40→22:48)
--- NOTE | 2018-05-25 10:08 | P.PNIM ---
Subjective Interval history: Patient seen and evaluated today in follow-up for congestive heart failure evaluation. Urine output has decreased with oral Bumex Patient still undecided regarding defibrillator. Palliative care consult appreciated. Physical Exam Vital signs: Vital Signs 05/24/18 12:38 05/24/18 14:00 05/24/18 15:00 Temperature Pulse Rate 114 H 102 H 110 H Respiratory Rate 17 20 16 Blood Pressure 106/62 86/77 L Pulse Oximetry 05/24/18 16:00 05/24/18 20:00 05/24/18 21:00 Temperature 97.5 F L 98.3 F Pulse Rate 104 H 110 H 104 H Respiratory Rate 24 19 19 Blood Pressure 91/74 L 98/76 L Pulse Oximetry 95 95 05/24/18 22:00 05/25/18 00:00 05/25/18 04:00 Temperature 98.2 F 98.1 F Pulse Rate 116 H 112 H 98 H Respiratory Rate 17 20 Blood Pressure 105/65 105/75 97/63 L Pulse Oximetry 95 95 95 05/25/18 07:15 Temperature 97.3 F L Pulse Rate Respiratory Rate Blood Pressure Pulse Oximetry Intake & Output 05/24/18 05/25/18 05/25/18 18:59 06:59 18:59 Intake Total 580 / 580 Output Total 570 / 570 800 / 800 Balance -800 / -800 Weight 69.4 kg Intake: IV 100 / 100 Rocephin Inj 1,000 MG In NS Inj 100 / 100 100 ML @ 200 mls/hr IV.SIG Q24H MORENITA Rx#:[id number] Oral 480 / 480 Output: Urine 570 / 570 800 / 800 Other: # Voids 4 Date of Last Bowel Movement 05/23/18 05/23/18 05/23/18 # Bowel Movements 1 Narrative: GENERAL: Patient ambulatory SKIN: Warm and dry. No rashes or ecchymotic injuries EYES: Pupils equal and round. No scleral icterus. No injection or drainage. ENT: External ear exam normal. No acute nasal bleeding or discharge. Mucous membranes pink and moist. CARDIOVASCULAR: Regular rate and rhythm. S1, 2 and 3 RESPIRATORY: Good air flow and effort without accessory muscle use. Clear to auscultation. Breath sounds equal bilaterally. GASTROINTESTINAL: Abdomen soft, non-tender, nondistended. Hepatic and splenic margins not palpable. MUSCULOSKELETAL: Extremities without clubbing, cyanosis, but there is +2-3 bilateral lower extremity edema. No obvious deformities. NEUROLOGICAL: Awake and alert. No obvious cranial nerve deficits. Motor grossly within normal limits. Five out of 5 muscle strength in the arms and legs. Normal speech. Results - Labs CBC & Chem 7: 05/24/18 05:07 05/24/18 05:20 Laboratory Results - last 24 hr 05/24/18 05:20 Magnesium 2.1 Assessment and Plan - Assessment (1) Acute exacerbation of CHF (congestive heart failure) Code(s): I50.9 - Heart failure, unspecified Status: Acute Plan: Patient with acute exacerbation of systolic heart failure. Patient will continue with Bumex as he appears to have minimal improvement on his home Lasix. Cardiology consult appreciated. Echocardiogram at this time shows EF of 20%. He is unable to tolerate CHELI inhibitor or beta-gabby due to persistent hypotension. Status post aggressive diuresis and we will continue with Bumex p.o. (2) NICM (nonischemic cardiomyopathy) Code(s): I42.8 - Other cardiomyopathies Status: Acute Plan: Patient has use a LifeVest in the past without any incident, a AICD is recommended by cardiology but the patient has declined this. Given this patient 's poor prognosis and overall inability to treat a palliative care consult has been requested and completed. At this time the patient remains full code (3) NSVT (nonsustained ventricular tachycardia) Code(s): I47.2 - Ventricular tachycardia Status: Acute Plan: Potentially fatal arrhythmia Follow-up electrolytes Continue on telemetry (4) UTI (urinary tract infection) Code(s): N39.0 - Urinary tract infection, site not specified Status: Acute Plan: Ciprofloxacin twice daily 3 days Due to Enterococcus faecalis (5) Hypotension Code(s): I95.9 - Hypotension, unspecified Status: Acute Plan: Patient on lisinopril 2.5 mg however his blood pressure remains marginal at systolic blood pressure of 90s. Patient says this has been normal over the last several months. He is not dizzy and is asymptomatic. (1) Acute exacerbation of CHF (congestive heart failure) Qualifiers: Heart failure type: unspecified Qualified Code(s): I50.9 - Heart failure, unspecified
--- NOTE | 2018-05-25 10:19 | P.PNPAL ---
Reason for Visit Reason for visit: a. To assist with evaluation and management of symptoms including:anxiety, dyspnea, edema b. To assist medical decision maker(s) with: better understanding of current medical conditions; weighing benefits/burdens of medical treatment options; making medical treatment decisions. Subjective Subjective/Interval History: Spoke with patient this morning. He is alert and oriented. He endorse he has more edema this morning. Cardiology came by, but he did not recall, he stated he likely was sleeping. I again spoke with him about his ES cardiac disease and convey to him that cardiology recommends hospice. Reviewed that current management is only a temporary "bandage" and that he will/ likely decompensate. Reviewed life support/ intubation..etc. Patient appears to be overwhelmed, he decline hospice "I am too young for it." He remains a full code. He still has not decided on AICD. He state he had follow up with cardiology but had insurance issue. He maintain he is working on his insurance. Overall pt is frustrated, anxious. He has declined hospice. Declined to complete living will. He has not been able to reach brother yet for which he made health care surrogate. Patient needs time. Family/Friend Interactions: He has not been able to reach brother in [place] yet. He wants to try via [employer]. Advance Directives Health Care Surrogate: Copy in medical record Objective Vital Signs: Vital Signs 05/24/18 12:38 05/24/18 14:00 05/24/18 15:00 Temperature Pulse Rate 114 H 102 H 110 H Respiratory Rate 17 20 16 Blood Pressure 106/62 86/77 L Pulse Oximetry 05/24/18 16:00 05/24/18 20:00 05/24/18 21:00 Temperature 97.5 F L 98.3 F Pulse Rate 104 H 110 H 104 H Respiratory Rate 24 19 19 Blood Pressure 91/74 L 98/76 L Pulse Oximetry 95 95 05/24/18 22:00 05/25/18 00:00 05/25/18 04:00 Temperature 98.2 F 98.1 F Pulse Rate 116 H 112 H 98 H Respiratory Rate 17 20 Blood Pressure 105/65 105/75 97/63 L Pulse Oximetry 95 95 95 05/25/18 07:15 Temperature 97.3 F L Pulse Rate Respiratory Rate Blood Pressure Pulse Oximetry Intake & Output 05/24/18 05/25/18 05/25/18 18:59 06:59 18:59 Intake Total 580 / 580 Output Total 570 / 570 800 / 800 Balance -800 / -800 Weight 69.4 kg Intake: IV 100 / 100 Rocephin Inj 1,000 MG In NS Inj 100 / 100 100 ML @ 200 mls/hr IV.SIG Q24H MORENITA Rx#:[id number] Oral 480 / 480 Output: Urine 570 / 570 800 / 800 Other: # Voids 4 Date of Last Bowel Movement 05/23/18 05/23/18 05/23/18 # Bowel Movements 1 Physical Exam: CONSTITUTIONAL/GENERAL: This is an adequately nourished patient, in no apparent distress. TUBES/LINES/DRAINS: piv. He is able to use comode SKIN: No jaundice, rashes, or lesions. Ecchymoses on upper extremities. No wounds seen anteriorly. Skin temperature appropriate. Not diaphoretic. HEAD: Atraumatic. Normocephalic. EYES: Pupils equal and round and reactive. Extraocular motions intact. No scleral icterus. No injection or drainage. Fundi not examined. ENT: Hearing grossly normal. Nose without bleeding or purulent drainage. Throat without visible erythema, exudates, masses, or lesions. NECK: Trachea midline. Supple, nontender. No palpable thyroid enlargement or nodularity. CARDIOVASCULAR: Regular rate and rhythm without murmurs, gallops, or rubs. No JVD. Peripheral pulses symmetric. RESPIRATORY/CHEST: Symmetric, unlabored respirations. Clear to auscultation. Breath sounds equal bilaterally. No wheezes, rales, or rhonchi. GASTROINTESTINAL: Abdomen soft, non-tender, nondistended. No hepato-splenomegaly , or palpable masses. No guarding. Bowel sounds present. GENITOURINARY: Without palpable bladder distension. Tavarez catheter in place. MUSCULOSKELETAL: Extremities without clubbing, cyanosis. 2+ edema of the lower ext. LYMPHATICS: No palpable cervical or supraclavicular adenopathy. NEUROLOGICAL: Awake and alert. Motor and sensory grossly within normal limits. Follows commands. Cognitively sharp. Moves all extremities. PSYCHIATRIC: No obvious anxiety/depression. no apparent hallucinations or other psychotic thought process. Diagnostic Tests Laboratory: Laboratory Results - last 72 hr 05/21/18 05/22/18 05/23/18 13:40 21:00 04:12 WBC 15.1 H RBC 5.08 Hgb 15.4 Hct 46.9 MCV 92.2 MCH 30.3 MCHC 32.8 RDW 16.1 Plt Count 318 MPV 9.2 Sodium Potassium Chloride Carbon Dioxide Anion Gap BUN Creatinine Estimated GFR Random Glucose Calcium Magnesium 1.9 B-Natriuretic Peptide Ur Collection Type Clean catch Urine Color Yellow Urine Clarity Cloudy H Urine pH 6.5 Ur Specific [place] 1.010 Urine Protein Trace Urine Glucose (UA) Negative Urine Ketones Negative Urine Occult Blood Trace Urine Nitrate Negative Urine Bilirubin Negative Urine Urobilinogen 0.2 Ur Leukocyte Esterase Large H Urine RBC 4-15 H Urine WBC Innumerable H Urine WBC Clumps Moderate H Ur Squamous Epith Cells 0-5 Amorphous Sediment Moderate H Urine Bacteria Few H Micro UA Comment Culture indicated Urine Culture Comments Culture indicated Urine Collection Time 1340 05/23/18 05/23/18 05/24/18 04:12 04:12 05:07 WBC 13.5 H RBC 4.99 Hgb 15.0 Hct 45.9 MCV 92.0 MCH 30.1 MCHC 32.7 RDW 15.6 Plt Count 320 MPV 9.3 Sodium 130 L Potassium 4.1 D Chloride 92 L Carbon Dioxide 26.9 Anion Gap 11 BUN 30 H Creatinine 1.10 Estimated GFR 70 L Random Glucose 97 Calcium 9.2 Magnesium B-Natriuretic Peptide Greater than 5000 H Ur Collection Type Urine Color Urine Clarity Urine pH Ur Specific [place] Urine Protein Urine Glucose (UA) Urine Ketones Urine Occult Blood Urine Nitrate Urine Bilirubin Urine Urobilinogen Ur Leukocyte Esterase Urine RBC Urine WBC Urine WBC Clumps Ur Squamous Epith Cells Amorphous Sediment Urine Bacteria Micro UA Comment Urine Culture Comments Urine Collection Time 05/24/18 05/24/18 05:20 05:20 WBC RBC Hgb Hct MCV MCH MCHC RDW Plt Count MPV Sodium 132 L Potassium 4.0 Chloride 93 L Carbon Dioxide 28.1 Anion Gap 11 BUN 31 H Creatinine 1.10 Estimated GFR 70 L Random Glucose 101 Calcium 9.0 Magnesium 2.1 B-Natriuretic Peptide Ur Collection Type Urine Color Urine Clarity Urine pH Ur Specific [place] Urine Protein Urine Glucose (UA) Urine Ketones Urine Occult Blood Urine Nitrate Urine Bilirubin Urine Urobilinogen Ur Leukocyte Esterase Urine RBC Urine WBC Urine WBC Clumps Ur Squamous Epith Cells Amorphous Sediment Urine Bacteria Micro UA Comment Urine Culture Comments Urine Collection Time Result Diagrams: 05/24/18 05:07 05/24/18 05:20 Microbiology: Microbiology 05/21/18 13:40 Urine Culture - Final Clean Catch Urine Enterococcus faecalis Imaging: ITS Impressions Chest X-Ray 05/21/18 08:51 CONCLUSION: 1. Blunting of both costophrenic angles which could indicate small effusions. 2. Cardiomegaly with no evidence of pulmonary edema. 3. Coarse opacity of both lung bases which may represent scarring. Assessment and Plan - Disease Oriented Problem List (1) NICM (nonischemic cardiomyopathy) Comment: EF 10% (2) Acute exacerbation of CHF (congestive heart failure) (3) NSVT (nonsustained ventricular tachycardia) Pertinent Non-Medical Issues: Psychosocial:Originally from [place]. never . No children. Only family are 2 brothers. Charles Hager in [facility], and Harshal Hager [place] Spiritual:none Legal:health care surrogate completed today. He is waiting to reach brother via [employer]. Ethical issues impacting care:no Important Contacts: [place] [facility] (no phone number as of yet). Bright Hager: borhter in [place], althernate surrogate( no phone number avialable today). Prognosis: Advance cardiomyopathy. EF is 10% Prognosis is poor. Code Status: Full Code Plan: == capacity- he has capacity to make medical decisions. == health care surrogate= form was filled out. == Code: Full == goals of care:Spoke with patient this morning. He is alert and oriented. He endorse he has more edema this morning. Cardiology came by, but he did not recall, he stated he likely was sleeping. I again spoke with him about his ES cardiac disease and convey to him that cardiology recommends hospice. Reviewed that current management is only a temporary "bandage" and that he will/ likely decompensate. Reviewed life support/ intubation..etc. Patient appears to be overwhelmed, he decline hospice "I am too young for it." He remains a full code. He still has not decided on AICD. He state he had follow up with cardiology but had insurance issue. He maintain he is working on his insurance. Overall pt is frustrated, anxious. He has declined hospice. Declined to complete living will. He has not been able to reach brother yet for which he made health care surrogate. Patient needs time. == symptom: dyspnea- per pt it has improved. anxieyt- more anxious today: xanax available. edema- that also has improved. diuretics == palliative care will follow up . and review goals of care as clinical condition evolves. Attestation Attestation: To help prompt me to consider important information that might be impacting today's encounter and assessment, information from prior notes written by myself or my colleagues may have been "brought forward" into today's note. My signature on this note, however, is an attestation that I personally performed the exam, history, and/or decision-making noted today, and, unless otherwise indicated, the interactions with patient, family, and staff as well as the review of records all occurred today. I also attest that the listed assessment and stated plan reflect my best clinical judgment today based on the combination of historical information, prior notes, and today's exam/ interactions. When time spent is documented, it refers only to time spent today by the signer, or if indicated, combined time spent today by collaborating physician/nurse practitioner.
[2018-05-25] MEDS: Lisinopril 5 MG Tablet PO SCH (11:48)
[2018-05-25] MEDS: Senna/Docusate Sodium 8.6/50 MG Tablet PO SCH ×2 (11:48→22:48)
[2018-05-25] MEDS: Enoxaparin Inj 40 MG/0.4 ML Syringe SQ SCH (15:29)
[2018-05-26 08:06] LABS: Potassium 3.9 meq/L (3.5-5.1)
[2018-05-26 08:10] LABS: Calcium 8.9 mg/dL (8.5-10.1)
[2018-05-26 08:11] LABS: Carbon Dioxide 26.2 meq/L (21.0-32.0)
[2018-05-26] MEDS: Ciprofloxacin 500 MG Tablet PO SCH (08:48)
[2018-05-26] MEDS: Lisinopril 5 MG Tablet PO SCH (08:49)
[2018-05-26] MEDS: Senna/Docusate Sodium 8.6/50 MG Tablet PO SCH (08:51)
--- NOTE | 2018-05-26 11:48 | P.DS ---
Date of admission: 05/21/18 14:36 Primary care physician: Jeronimo Nelson MD Brief History from admission: This patient is a 52-year-old male with history of CHF and alcoholism presents to the ER after experiencing increased and uncontrolled fluid in his lower extremities over the past 3 days. He was first diagnosed with CHF 1 year ago following what seems to be an acute viral infection that left him with an ejection fraction of 10%. Following his hospitalization he wore a LifeVest for 3 months, then managed his fluid balance with Lasix. He has been well managed for the last 6 months without any significant edema per his history. He states he suffered from alcoholism prior to 1 year ago but has remained off of alcohol since then. He used to drink a 6 pack per day. Starting 2 weeks ago he developed into his alcoholic habits again drinking regular margaritas and adding salt to his drinks. It is questionable whether the alcohol or the salt have more impact on his CHF exacerbation. DS: Diagnosis - Discharge Diagnosis (1) Acute exacerbation of CHF (congestive heart failure) Status: Acute (2) NICM (nonischemic cardiomyopathy) Status: Acute (3) NSVT (nonsustained ventricular tachycardia) Status: Acute (4) UTI (urinary tract infection) Status: Acute (5) Hypotension Status: Acute DS: Medications - Discharge Medications Prescriptions: ciprofloxacin HCl 500 mg PO Q12HR #7 tab DS: Summary Hospital Course: Patient was seen and treated for c acute exacerbation of diastolic and systolic congestive heart failure secondary to nonischemic cardiomyopathy. He required aggressive diuresis but improved. Patient did have a consultation with cardiology who recommended an implantable defibrillator which the patient declined. He did wear a LifeVest for a while and had no incidences. Patient has continued to drink alcohol and will need to be abstinent prior to pursuing further aggressive measures such as a cardiac transplant and will need to follow -up with a tertiary center for evaluation and or second opinion. He was seen by the palliative care team as well. He has several episodes of ventricular tachycardia and PVCs but this seemed to resolve. He is quite hypotensive but asymptomatic. Therefore his CHELI inhibitor was continued however a beta-gabby was unable to be prescribed due to his persistent hypotension. Multiple conversations were held with myself, the equipment worker and palliative care team regarding end-of-life discussions. Patient remains a full code at this time and would like to continue to consider his options. - Time Spent with Patient Total time spent providing and/or coordinating discharge services: Less than 30 minutes - Quality: VTE Deep Vein Thrombosis/Pulmonary Embolism Present on Admission: No Exam Vital signs: Vital Signs 05/25/18 12:00 05/25/18 12:08 05/25/18 14:00 Temperature 97.6 F 98.4 F Pulse Rate 106 H Respiratory Rate 9 L Blood Pressure Pulse Oximetry 05/25/18 15:00 05/25/18 16:17 05/25/18 20:00 Temperature 97.3 F L 96 F L Pulse Rate 104 H 104 H 118 H Respiratory Rate 22 22 20 Blood Pressure 102/81 108/90 Pulse Oximetry 96 05/26/18 00:00 05/26/18 04:00 05/26/18 08:00 Temperature 96 F L 96 F L 97.6 F Pulse Rate 105 H 104 H 104 H Respiratory Rate 20 20 20 Blood Pressure 94/82 L 90/74 L 102/64 Pulse Oximetry 96 96 Intake & Output 05/25/18 05/26/18 05/26/18 18:59 06:59 18:59 Intake Total 842 / 842 60 / 60 Output Total 1300 / 1300 475 / 475 Balance -458 / -458 -415 / -415 Weight 69.5 kg Intake: Oral 842 / 842 60 / 60 Output: Urine 1300 / 1300 475 / 475 Other: Date of Last Bowel Movement 05/23/18 Narrative: GENERAL: Patient calm resting and without complaints SKIN: Warm and dry. No rashes or ecchymotic injuries EYES: Pupils equal and round. No scleral icterus. No injection or drainage. ENT: External ear exam normal. No acute nasal bleeding or discharge. Mucous membranes pink and moist. CARDIOVASCULAR: Regular rate and rhythm. No murmurs gallops or rubs appreciated RESPIRATORY: Good air flow and effort without accessory muscle use. Clear to auscultation. Breath sounds equal bilaterally. GASTROINTESTINAL: Abdomen soft, non-tender, nondistended. Hepatic and splenic margins not palpable. MUSCULOSKELETAL: Extremities without clubbing, cyanosis, but there is +2 bilateral extremity edema. No obvious deformities. NEUROLOGICAL: Awake and alert. No obvious cranial nerve deficits. Motor grossly within normal limits. Five out of 5 muscle strength in the arms and legs. Normal speech. Results Procedures completed during hospitalization: None Labs on day of discharge: Labs from last 24 hours 05/26/18 07:40 Sodium 130 L Potassium 3.9 Chloride 91 L Carbon Dioxide 26.2 Anion Gap 13 BUN 28 H Creatinine 1.10 Estimated GFR 70 L Random Glucose 87 Calcium 8.9 - Impressions ITS Impressions Chest X-Ray 05/21/18 08:51 CONCLUSION: 1. Blunting of both costophrenic angles which could indicate small effusions. 2. Cardiomegaly with no evidence of pulmonary edema. 3. Coarse opacity of both lung bases which may represent scarring. Discharge Plan - Discharge Disposition Patient Disposition: 01 Discharge Home - Discharge Condition Condition: Serious - Discharge Order Discharge Orders: Discharge Order (Routine); Ordered 05/26/18 Ordered By: Elenita Renee - Discharge Details Anticipated Discharge Date: 05/26/18 - Physicians Team Primary Care Provider: Jeronimo Nelson Attending Provider: Elenita Renee Other Providers: Salvador Lee DO ; Chon Moss MD
== END 2018-05-26 14:17 | disposition home or self-care (01) ==
LOC: PHED 08:19 → PHEDA 12:46 → INTOOBSV 12:46 → PHEDA 14:18 → PHICU 14:18 → PH3 05-25 19:26
PROVIDERS: ADMIT Hospitalist; ATTEND Hospitalist

== ENCOUNTER 2018-06-26 12:01 | Inpatient (IN) ==
[2018-06-26] MEDS ORDERED: Thiamine Inj 100 MG in Sodium Chlor 0.9% Inj 100 ML IV.SIG ONE (12:14)
--- NOTE | 2018-06-26 12:50 | ED ---
HPI General Chief Complaint: Altered Mental Status Stated Complaint: Altered Mental Time Seen by Provider: 06/26/18 12:05 Source: patient and EMS Mode of arrival: EMS Limitations: altered mental status History of Present Illness HPI narrative: 53-year-old male the presents to the ED for evaluation of altered mental status. Patient came here by EVAC for evaluation of this. Patient apparently was found to be on a rash where he stays. Apparently he had a bucket where he urinates and he was full of feces. Apparently has been living there for almost a week now. Per friends at the scene he was becoming altered. Apparently patient was admitted to hospice recently and left AMA for unknown reasons. Patient was put on hospice from what appears to be a significant cardiomyopathy with an ejection fraction of 10%. Patient was admitted to [facility] secondary to severe CHF exacerbation. Patient also has a history of alcoholism. Originally patient was found to be hypotensive by EVAC and was given fluid with improvement of blood pressure and some mentation. Patient is able to answer some questions but does appear to be altered so his history is somewhat limited. He does smell of feces and is full of feces on his groin area. He does have lower leg edema. No really significant history can be obtained from him. He was noted on his previous hospitalization that the patient had been sober for about a year and then started drinking again 2 weeks before being admitted at that time. Related Data Home Medications Medication Instructions Recorded Confirmed furosemide [Lasix] 20 mg PO DAILY 05/21/18 05/21/18 lisinopril 2.5 mg PO DAILY 05/21/18 05/21/18 potassium chloride [Klor-Con 10] 10 meq PO DAILY 05/21/18 05/21/18 Previous Rx's Medication Instructions Recorded ciprofloxacin HCl 500 mg PO Q12HR #7 tab 05/26/18 Allergies Allergy/AdvReac Type Severity Reaction Status Date / Time No Known Allergies Allergy Unverified 06/26/18 14:17 Review of Systems ROS Unobtainable ROS Unobtainable: unobtainable due to mental status PMFSH History History Provided By: Patient, Medical Record and Sports Development Officer / EMT Medical History Medical History CHF (congestive heart failure) (Acute) Hypertension (Acute) Surgical History Surgical History Hx of cardiac catheterization (Acute) Family History Family History Other Family history of hypertension Social History Social History Substance History: Unable to Obtain Second Hand Smoke Exposure: No Smoking Status: Cognitive impairment Tobacco Type: Cigarettes How Often Do You Have a Drink Containing Alcohol: Unable to Obtain Recent Travel in [facility] within the Last 8 Weeks: No Recent Out of Country Travel within the Last 8 Weeks: No Exam Narrative Exam Narrative: GENERAL: Very disheveled SKIN: Focused skin assessment warm/dry. HEAD: Atraumatic. Normocephalic. EYES: Pupils equal and round 6 mms and reactive to light and accommodation.. No scleral icterus. No injection or drainage. ENT: No nasal bleeding or discharge. Mucous membranes pink and moist. Tongue is midline. No blood deviation. NECK: Trachea midline. No JVD. CARDIOVASCULAR: Regular rate and rhythm. No murmur appreciated. RESPIRATORY: No accessory muscle use. Clear to auscultation. Breath sounds equal bilaterally. GASTROINTESTINAL: Abdomen soft, non-tender, distended in the pelvic area. Hepatic and splenic margins not palpable. MUSCULOSKELETAL: No obvious deformities. No clubbing. No cyanosis. 2+ pitting edema in the lower extremities. Patient does have what appears to be ulcer- like lesions as well as blisters on the right leg appear to be slightly erythematous. Full range of motion of the upper and lower extremities bilaterally. NEUROLOGICAL: Awake and alert. No obvious cranial nerve deficits. Motor grossly within normal limits. Normal speech. PSYCHIATRIC: Appropriate mood and affect; insight and judgment normal. Course Initial Documented Vital Signs Temperature 97.2 F L 06/26/18 12:46 Pulse Rate 105 H 06/26/18 12:46 Respiratory Rate 17 06/26/18 12:46 Blood Pressure 77/58 L 06/26/18 12:46 Last Documented Vital Signs Temperature 97.2 F L 06/26/18 12:46 Pulse Rate 117 H 06/26/18 15:04 Respiratory Rate 19 06/26/18 15:04 Blood Pressure 85/59 L 06/26/18 15:04 Pulse Oximetry 98 06/26/18 15:04 Procedures Hemaprompt Stool Procedural Steps Taken: specimen placed in appropriate test area, developer placed on specimen and control areas and controls appropriately positive and negative Hemaprompt Stool Result: negative Critical Care Time Critical Care Time: Yes Total Critical Care Time: 35 Attestation: Aggregate critical care time was 35 minutes. Time to perform other separately billable procedures was not included in the critical care time. My time did not include minutes spent treating any other patients simultaneously or on activities that did not directly contribute to the patient's treatment. The services I provided to this patient were to treat and/or prevent clinically significant deterioration that could result in: Serious illness or I provided critical care services requiring my management, as noted below: Chart data review, documentation time, medication orders and management, vital sign assessments/reviewing monitor data, ordering and reviewing lab tests, ordering and interpreting/reviewing x-rays and diagnostic studies, care of the patient and discussion of the patient with the admitting physicians. Medical Decision Making JUAN JOSE Attestation JUAN JOSE supervised visit: Yes Attestation: I, Dr. Garcia, have reviewed the advance practice practitioner's documentation and am in agreement, met with the patient face to face, made the diagnosis, and the medical decision making was done by me. *My assessment and Findings: Patient is a 53 year old male who is brought in by EMS due to altered mental status. Patient is altered, saying nonsensical words. He has edema of his legs and scrotum. No crackles in the lungs. Patient found to be hypoglycemic. Given D50. He was hypotensive, however, due to EF of 10%, hydration given cautiously. Started on Levophed. Patient to be admitted. [facility] Narrative Medical decision making narrative: 53-year-old male the presents to the ED via EVAC for violation of altered mental status. Patient was properly examined and was found to have signs and symptoms consistent with altered mental status. Hard to asses history at this time. Patient does have a significant history of significant cardiomyopathy with 10% ejection fracture. He denies any chest pain but it is hard to assess him secondary to his altered mental status. He does appear to have distention of the bladder and pelvic area which could be related to urinary retention. He does take Lasix. He does appear to have lower leg edema. He does not appear to be short of breath. He was found to be hypotensive by EVAC. Labs and imaging order. My attending herself Dr. Garcia evaluated the patient and agrees with plan. Labs and imaging show what appears to be sepsis, acute kidney injury and hypoglycemia, hyperkalemia and possible UTI. patient given fluids and norepinephrine to help with BP as patient has a known less than 20% ejection fracture per our records. Patient started on vancomycin and zosyn. Case discussed with Dr Garcia who agrees to admission plan. Discussed case with Dr Joiner who agrees to admission. Medical Screen Exam Complete: Yes Emergency Medical Condition: Yes Differential Diagnosis Differential Diagnosis: Altered mental status versus CHF exacerbation versus electron normality versus substance abuse versus hypotension versus sepsis Medical Records Medical records reviewed: Yes I reviewed the patient's medical records. Lab Data Lab results reviewed: Yes I reviewed the patient's lab results. Lab results narrative: lactic acid 2.9 drug screen and alcohol negative Result diagrams: 06/26/18 13:13 06/26/18 13:15 Lab Results 06/26/18 06/26/18 06/26/18 Range/Units 13:09 13:09 13:13 WBC 19.8 H (4.0-11.0) th/mm3 RBC 4.78 (4.50-5.90) mil/mm3 Hgb 14.3 (13.0-17.0) gm/dL Hct 43.6 (39.0-51.0) % MCV 91.1 (80.0-100.0) fL MCH 30.0 (27.0-34.0) pg MCHC 32.9 (32.0-36.0) % RDW 20.0 H (11.6-17.2) % Plt Count 133 L (150-450) th/mm3 MPV 9.9 (7.0-11.0) fL Neut % (Auto) 97.7 H (16.0-70.0) % Lymph % (Auto) 0.8 L (9.0-44.0) % [place] % (Auto) 1.1 (0.0-8.0) % Eos % (Auto) 0.2 (0.0-4.0) % Baso % (Auto) 0.2 (0.0-2.0) % Neut # (Auto) 19.3 H (1.8-7.7) th/mm3 Lymph # (Auto) 0.2 L (1.0-4.8) th/mm3 [place] # (Auto) 0.2 (0.0-0.9) th/mm3 Eos # (Auto) 0.0 (0.0-0.4) th/mm3 Baso # (Auto) 0.0 (0.0-0.2) th/mm3 WBC Differential . Differential Comment Auto diff final PT (9.8-11.6) sec INR Ratio APTT (24.3-30.1) sec Puncture Site Patient Temperature O2 Saturation (90-100) % ABG pH (7.380-7.420) ABG pCO2 (38-42) mmHg ABG pO2 (61-120) mmHg ABG HCO3 (22-26) mmol/L ABG O2 Content (12.0-20.0) Vol % ABG Base Excess (-2-2) mmol/L ABG Methemoglobin (0-2) % Rajiv Test VBG pH (7.360-7.400) VBG pCO2 (44-48) mmHG VBG pO2 (35-40) mmHG VBG HCO3 (22-26) mmol/L VBG O2 Saturation (70-76) % VBG O2 Content (9.0-17.0) Vol % VBG Base Excess (-2-2) mmol/L VBG Carboxyhemoglobin (0-4) % VBG Methemoglobin (0-2) % Hemoglobin (12.0-16.0) G/DL Carboxyhemoglobin (0-4) % Inspired O2 % Critical Value Sodium (136-145) meq/L Potassium (3.5-5.1) meq/L Chloride (98-107) meq/L Carbon Dioxide (21.0-32.0) meq/L Anion Gap (5-15) meq/L BUN (7-18) mg/dL Creatinine (0.60-1.30) mg/dL Estimated GFR (>89) mL/min Random Glucose (74-106) mg/dL Lactic Acid (0.4-2.0) mmol/L Calcium (8.5-10.1) mg/dL Total Bilirubin (0.2-1.0) mg/dL AST (15-37) U/L ALT (12-78) U/L Alkaline Phosphatase (45-117) U/L Ammonia (11-32) mcmol/L Troponin I (0.02-0.05) ng/mL B-Natriuretic Peptide (0-100) pg/mL Total Protein (6.4-8.2) g/dL Albumin (3.4-5.0) g/dL TSH (0.358-3.740) uIU/mL Urine Color Yellow (Yellw/Straw) Urine Clarity Hazy H (Clear) Urine pH 5.0 (5.0-8.5) Ur Specific [place] 1.010 (1.002-1.035) Urine Protein Negative (Neg-Trace) mg/dL Urine Glucose (UA) Negative (Negative) mg/dL Urine Ketones Negative (Negative) mg/dL Urine Occult Blood Moderate H (Negative) Urine Nitrate Positive H (Negative) Urine Bilirubin Negative (Negative) Urine Urobilinogen Less than 2 (Less than 2) mg/dL Ur Leukocyte Esterase Small H (Negative) Urine RBC 4 H (0-3) /hpf Urine WBC 20 H (0-5) /hpf Urine Bacteria Occasional H (None) /hpf Hyaline Casts 26 (0-3) /lpf Urine Mucus Few H (Occasional) /lpf Micro UA Comment Culture indicated Ur Microscopic Review Not Reportable Urine Culture Comments Culture indicated Urine Opiates Screen Neg (Neg) Ur Barbiturates Screen Neg (Neg) Ur Amphetamines Screen Neg (Neg) U Benzodiazepines Scrn Neg (Neg) Urine Cocaine Screen Neg (Neg) U Cannabinoids Screen Neg (Neg) Serum Alcohol (0-5) mg/dL 06/26/18 06/26/18 06/26/18 Range/Units 13:13 13:15 13:15 WBC (4.0-11.0) th/mm3 RBC (4.50-5.90) mil/mm3 Hgb (13.0-17.0) gm/dL Hct (39.0-51.0) % MCV (80.0-100.0) fL MCH (27.0-34.0) pg MCHC (32.0-36.0) % RDW (11.6-17.2) % Plt Count (150-450) th/mm3 MPV (7.0-11.0) fL Neut % (Auto) (16.0-70.0) % Lymph % (Auto) (9.0-44.0) % [place] % (Auto) (0.0-8.0) % Eos % (Auto) (0.0-4.0) % Baso % (Auto) (0.0-2.0) % Neut # (Auto) (1.8-7.7) th/mm3 Lymph # (Auto) (1.0-4.8) th/mm3 [place] # (Auto) (0.0-0.9) th/mm3 Eos # (Auto) (0.0-0.4) th/mm3 Baso # (Auto) (0.0-0.2) th/mm3 WBC Differential Differential Comment PT (9.8-11.6) sec INR Ratio APTT (24.3-30.1) sec Puncture Site Patient Temperature O2 Saturation (90-100) % ABG pH (7.380-7.420) ABG pCO2 (38-42) mmHg ABG pO2 (61-120) mmHg ABG HCO3 (22-26) mmol/L ABG O2 Content (12.0-20.0) Vol % ABG Base Excess (-2-2) mmol/L ABG Methemoglobin (0-2) % Rajiv Test VBG pH (7.360-7.400) VBG pCO2 (44-48) mmHG VBG pO2 (35-40) mmHG VBG HCO3 (22-26) mmol/L VBG O2 Saturation (70-76) % VBG O2 Content (9.0-17.0) Vol % VBG Base Excess (-2-2) mmol/L VBG Carboxyhemoglobin (0-4) % VBG Methemoglobin (0-2) % Hemoglobin (12.0-16.0) G/DL Carboxyhemoglobin (0-4) % Inspired O2 % Critical Value Sodium 127 L (136-145) meq/L Potassium 5.6 H (3.5-5.1) meq/L Chloride 94 L (98-107) meq/L Carbon Dioxide 19.3 L (21.0-32.0) meq/L Anion Gap 14 (5-15) meq/L BUN 42 H (7-18) mg/dL Creatinine 1.52 H (0.60-1.30) mg/dL Estimated GFR 48 L (>89) mL/min Random Glucose 24 L* (74-106) mg/dL Lactic Acid 2.9 H (0.4-2.0) mmol/L Calcium 7.9 L (8.5-10.1) mg/dL Total Bilirubin 2.2 H (0.2-1.0) mg/dL AST 82 H (15-37) U/L ALT 39 (12-78) U/L Alkaline Phosphatase 116 (45-117) U/L Ammonia (11-32) mcmol/L Troponin I 0.03 (0.02-0.05) ng/mL B-Natriuretic Peptide Greater than 5000 H (0-100) pg/mL Total Protein 5.1 L (6.4-8.2) g/dL Albumin 2.2 L (3.4-5.0) g/dL TSH 2.040 (0.358-3.740) uIU/mL Urine Color (Yellw/Straw) Urine Clarity (Clear) Urine pH (5.0-8.5) Ur Specific [place] (1.002-1.035) Urine Protein (Neg-Trace) mg/dL Urine Glucose (UA) (Negative) mg/dL Urine Ketones (Negative) mg/dL Urine Occult Blood (Negative) Urine Nitrate (Negative) Urine Bilirubin (Negative) Urine Urobilinogen (Less than 2) mg/dL Ur Leukocyte Esterase (Negative) Urine RBC (0-3) /hpf Urine WBC (0-5) /hpf Urine Bacteria (None) /hpf Hyaline Casts (0-3) /lpf Urine Mucus (Occasional) /lpf Micro UA Comment Ur Microscopic Review Urine Culture Comments Urine Opiates Screen (Neg) Ur Barbiturates Screen (Neg) Ur Amphetamines Screen (Neg) U Benzodiazepines Scrn (Neg) Urine Cocaine Screen (Neg) U Cannabinoids Screen (Neg) Serum Alcohol Less than 3 (0-5) mg/dL 06/26/18 06/26/18 06/26/18 Range/Units 13:15 14:19 14:30 WBC (4.0-11.0) th/mm3 RBC (4.50-5.90) mil/mm3 Hgb (13.0-17.0) gm/dL Hct (39.0-51.0) % MCV (80.0-100.0) fL MCH (27.0-34.0) pg MCHC (32.0-36.0) % RDW (11.6-17.2) % Plt Count (150-450) th/mm3 MPV (7.0-11.0) fL Neut % (Auto) (16.0-70.0) % Lymph % (Auto) (9.0-44.0) % [place] % (Auto) (0.0-8.0) % Eos % (Auto) (0.0-4.0) % Baso % (Auto) (0.0-2.0) % Neut # (Auto) (1.8-7.7) th/mm3 Lymph # (Auto) (1.0-4.8) th/mm3 [place] # (Auto) (0.0-0.9) th/mm3 Eos # (Auto) (0.0-0.4) th/mm3 Baso # (Auto) (0.0-0.2) th/mm3 WBC Differential Differential Comment PT 17.6 H (9.8-11.6) sec INR 1.7 Ratio APTT 45.3 H (24.3-30.1) sec Puncture Site Right radial Patient Temperature 98.6 O2 Saturation 94 (90-100) % ABG pH 7.41 (7.380-7.420) ABG pCO2 26 L (38-42) mmHg ABG pO2 79 (61-120) mmHg ABG HCO3 16 L* (22-26) mmol/L ABG O2 Content 19.6 (12.0-20.0) Vol % ABG Base Excess -7.8 L (-2-2) mmol/L ABG Methemoglobin 0.5 (0-2) % Rajiv Test Present VBG pH (7.360-7.400) VBG pCO2 (44-48) mmHG VBG pO2 (35-40) mmHG VBG HCO3 (22-26) mmol/L VBG O2 Saturation (70-76) % VBG O2 Content (9.0-17.0) Vol % VBG Base Excess (-2-2) mmol/L VBG Carboxyhemoglobin (0-4) % VBG Methemoglobin (0-2) % Hemoglobin 14.8 (12.0-16.0) G/DL Carboxyhemoglobin 1.2 (0-4) % Inspired O2 21 % Critical Value Yes Sodium (136-145) meq/L Potassium (3.5-5.1) meq/L Chloride (98-107) meq/L Carbon Dioxide (21.0-32.0) meq/L Anion Gap (5-15) meq/L BUN (7-18) mg/dL Creatinine (0.60-1.30) mg/dL Estimated GFR (>89) mL/min Random Glucose (74-106) mg/dL Lactic Acid (0.4-2.0) mmol/L Calcium (8.5-10.1) mg/dL Total Bilirubin (0.2-1.0) mg/dL AST (15-37) U/L ALT (12-78) U/L Alkaline Phosphatase (45-117) U/L Ammonia 12 (11-32) mcmol/L Troponin I (0.02-0.05) ng/mL B-Natriuretic Peptide (0-100) pg/mL Total Protein (6.4-8.2) g/dL Albumin (3.4-5.0) g/dL TSH (0.358-3.740) uIU/mL Urine Color (Yellw/Straw) Urine Clarity (Clear) Urine pH (5.0-8.5) Ur Specific [place] (1.002-1.035) Urine Protein (Neg-Trace) mg/dL Urine Glucose (UA) (Negative) mg/dL Urine Ketones (Negative) mg/dL Urine Occult Blood (Negative) Urine Nitrate (Negative) Urine Bilirubin (Negative) Urine Urobilinogen (Less than 2) mg/dL Ur Leukocyte Esterase (Negative) Urine RBC (0-3) /hpf Urine WBC (0-5) /hpf Urine Bacteria (None) /hpf Hyaline Casts (0-3) /lpf Urine Mucus (Occasional) /lpf Micro UA Comment Ur Microscopic Review Urine Culture Comments Urine Opiates Screen (Neg) Ur Barbiturates Screen (Neg) Ur Amphetamines Screen (Neg) U Benzodiazepines Scrn (Neg) Urine Cocaine Screen (Neg) U Cannabinoids Screen (Neg) Serum Alcohol (0-5) mg/dL 06/26/18 Range/Units 15:20 WBC (4.0-11.0) th/mm3 RBC (4.50-5.90) mil/mm3 Hgb (13.0-17.0) gm/dL Hct (39.0-51.0) % MCV (80.0-100.0) fL MCH (27.0-34.0) pg MCHC (32.0-36.0) % RDW (11.6-17.2) % Plt Count (150-450) th/mm3 MPV (7.0-11.0) fL Neut % (Auto) (16.0-70.0) % Lymph % (Auto) (9.0-44.0) % [place] % (Auto) (0.0-8.0) % Eos % (Auto) (0.0-4.0) % Baso % (Auto) (0.0-2.0) % Neut # (Auto) (1.8-7.7) th/mm3 Lymph # (Auto) (1.0-4.8) th/mm3 [place] # (Auto) (0.0-0.9) th/mm3 Eos # (Auto) (0.0-0.4) th/mm3 Baso # (Auto) (0.0-0.2) th/mm3 WBC Differential Differential Comment PT (9.8-11.6) sec INR Ratio APTT (24.3-30.1) sec Puncture Site Peripheral line Patient Temperature 98.6 O2 Saturation (90-100) % ABG pH (7.380-7.420) ABG pCO2 (38-42) mmHg ABG pO2 (61-120) mmHg ABG HCO3 (22-26) mmol/L ABG O2 Content (12.0-20.0) Vol % ABG Base Excess (-2-2) mmol/L ABG Methemoglobin (0-2) % Rajiv Test VBG pH 7.29 L* (7.360-7.400) VBG pCO2 42 L (44-48) mmHG VBG pO2 12 L* (35-40) mmHG VBG HCO3 19 L (22-26) mmol/L VBG O2 Saturation 6 L (70-76) % VBG O2 Content 1.3 L (9.0-17.0) Vol % VBG Base Excess -6.0 L (-2-2) mmol/L VBG Carboxyhemoglobin 0.5 (0-4) % VBG Methemoglobin 0.6 (0-2) % Hemoglobin 14.8 (12.0-16.0) G/DL Carboxyhemoglobin (0-4) % Inspired O2 21 % Critical Value Yes Sodium (136-145) meq/L Potassium (3.5-5.1) meq/L Chloride (98-107) meq/L Carbon Dioxide (21.0-32.0) meq/L Anion Gap (5-15) meq/L BUN (7-18) mg/dL Creatinine (0.60-1.30) mg/dL Estimated GFR (>89) mL/min Random Glucose (74-106) mg/dL Lactic Acid (0.4-2.0) mmol/L Calcium (8.5-10.1) mg/dL Total Bilirubin (0.2-1.0) mg/dL AST (15-37) U/L ALT (12-78) U/L Alkaline Phosphatase (45-117) U/L Ammonia (11-32) mcmol/L Troponin I (0.02-0.05) ng/mL B-Natriuretic Peptide (0-100) pg/mL Total Protein (6.4-8.2) g/dL Albumin (3.4-5.0) g/dL TSH (0.358-3.740) uIU/mL Urine Color (Yellw/Straw) Urine Clarity (Clear) Urine pH (5.0-8.5) Ur Specific [place] (1.002-1.035) Urine Protein (Neg-Trace) mg/dL Urine Glucose (UA) (Negative) mg/dL Urine Ketones (Negative) mg/dL Urine Occult Blood (Negative) Urine Nitrate (Negative) Urine Bilirubin (Negative) Urine Urobilinogen (Less than 2) mg/dL Ur Leukocyte Esterase (Negative) Urine RBC (0-3) /hpf Urine WBC (0-5) /hpf Urine Bacteria (None) /hpf Hyaline Casts (0-3) /lpf Urine Mucus (Occasional) /lpf Micro UA Comment Ur Microscopic Review Urine Culture Comments Urine Opiates Screen (Neg) Ur Barbiturates Screen (Neg) Ur Amphetamines Screen (Neg) U Benzodiazepines Scrn (Neg) Urine Cocaine Screen (Neg) U Cannabinoids Screen (Neg) Serum Alcohol (0-5) mg/dL Imaging Data Attestation: I personally reviewed and interpreted this imaging study as follows : Radiologist's impression: Chest X-Ray 06/26/18 12:14 CONCLUSION: 1. Cardiomegaly with mild pulmonary vascular congestion. 2. Bilateral lower lobe airspace consolidation and likely small right-sided pleural effusion. ECG Data EKG Prior to Arrival: No Interpretation: EKG shows sinus rhythm with with no sign of ischemia. MT [address] elevation. Read by me and attending. Discharge Plan Discharge Disposition Patient Disposition: 30 Still Patient Discharge Details Diagnosis: Altered mental status, Edema, UTI (urinary tract infection), Hypotension, Acute exacerbation of CHF (congestive heart failure), Acute hyperkalemia, Hypoglycemia, Sepsis Physicians Team ED Provider: Jennifer Garcia ED Midlevel Provider: Clarke Coronel Primary Care Provider: Jeronimo Nelson Attending Provider: Katrin Antoine Other Providers: Iris Alexander Status ED Status: Admitted Patient
[2018-06-26] MEDS ORDERED: Piperacil/Tazo 4.5 GM Premix 4.5 GM/100 ML BAG IV.SIG ONE (12:56)
[2018-06-26] MEDS ORDERED: Sodium Chloride 0.9% Irr Bot 1,000 ML, Vancomycin Inj 1,000 MG IRRIGATION ONE ×2 (12:56)
[2018-06-26] MEDS ORDERED: Sodium Chlor 0.9% Inj 500 ML IV.SIG SCH (13:00)
[2018-06-26] MEDS ORDERED: Dextrose 50% in Water 50 ML Vial IV.PUSH ONE ×2 (13:02→13:06)
[2018-06-26] MEDS ORDERED: Dextrose 50% in Water Syringe 50 ML ONE (13:03)
[2018-06-26] MEDS ORDERED: Norepinephrine Inj 4 MG/4 ML Ampul ONE (13:30)
[2018-06-26 13:32] LABS: Baso % (Auto) 0.2 % (0.0-2.0); Eos % (Auto) 0.2 % (0.0-4.0); Hematocrit 43.6 % (39.0-51.0); Hemoglobin 14.3 gm/dL (13.0-17.0); Lymph # (Auto) 0.2 th/mm3 (1.0-4.8); Lymph % (Auto) 0.8 % (9.0-44.0); Mean Corpuscular HGB Conc 32.9 % (32.0-36.0); Mean Corpuscular Volume 91.1 fL (80.0-100.0); Mean Platelet Volume 9.9 fL (7.0-11.0); Mono # (Auto) 0.2 th/mm3 (0.0-0.9); Mono % (Auto) 1.1 % (0.0-8.0); Neut # (Auto) 19.3 th/mm3 (1.8-7.7); Neut % (Auto) 97.7 % (16.0-70.0); Platelet Count 133 th/mm3 (150-450); Red Blood Count 4.78 mil/mm3 (4.50-5.90); White Blood Count 19.8 th/mm3 (4.0-11.0)
[2018-06-26] MEDS ORDERED: Vancomycin Inj 1 GM/200 ML PIGGYBACK IV.SIG ONE (13:36)
[2018-06-26] MEDS ORDERED: VANCOMYCIN IV.SIG ONE (14:00)
[2018-06-26] MEDS ORDERED: SODIUM CHLOR 0.9% IV.SIG ONE (14:00)
--- NOTE | 2018-06-26 14:32 | XR ---
EXAM DATE: 06/26/2018 1:48 PM EDT AGE/SEX: 53 years / Male INDICATIONS: Shortness of breath. CLINICAL DATA: This is the patient's initial encounter. Patient reports that signs and symptoms have been present for 1 day and indicates a pain score of Nonresponsive. MEDICAL/SURGICAL HISTORY: Congestive heart failure. Hypertension. Cardiomyopathy . Cardiac ca th COMPARISON: [facility], CHEST 1V SINGLE AP, 05/21/2018. . FINDINGS: Cardiac silhouette is enlarged and central pulmonary vascularity is indistinct. Hazy opacity overlyin g the right lower lung zone with retrocardiac opacity. Bony thorax is intact. CONCLUSION: 1. Cardiomegaly with mild pulmonary vascular congestion. 2. Bilateral lower lobe airspace consolidation and likely small right-sided pleural effusion. Electronically signed by: Robin Langley MD 06/26/2018 2:31 PM EDT
[2018-06-26 14:34] LABS: Bacteria,Urine Occasional /hpf; Bilirubin,Urine Negative (Negative); Clarity,Urine Hazy (Clear); Color,Urine Yellow (Yellw/Straw); Glucose,Urine (UA) Negative (Negative); Hyaline Casts,Urine 26 /lpf (0-3); Leukocyte Esterase,Urine Small (Negative); Mucus,Urine Few /lpf (Occasional); Nitrite,Urine Positive (Negative)
[2018-06-26 14:37] LABS: Amphetamine Screen,Urine Neg (Neg); Barbiturate Screen,Urine Neg (Neg); Cannabinoid Screen,Urine Neg (Neg); Cocaine Screen,Urine Neg (Neg)
[2018-06-26 14:44] LABS: Albumin 2.2 g/dL (3.4-5.0); Anion Gap 14 meq/L (5-15); Aspartate Aminotransferase 82 U/L (15-37); Blood Urea Nitrogen 42 mg/dL (7-18); Calcium 7.9 mg/dL (8.5-10.1); Carbon Dioxide 19.3 meq/L (21.0-32.0); Chloride 94 meq/L (98-107); Glomerular Filtration Rate 48 mL/min (>89); Potassium 5.6 meq/L (3.5-5.1); Sodium 127 meq/L (136-145)
[2018-06-26 14:44] LABS: ABG Base Excess -7.8 mmol/L (-2-2); ABG PCO2 26 mmHg (38-42); ABG PO2 79 mmHg (61-120)
[2018-06-26 14:45] LABS: Opiate Screen,Urine Neg (Neg)
[2018-06-26 14:46] LABS: Glucose,Random 24 mg/dL (74-106)
[2018-06-26 14:59] LABS: Activated Partial Thrombo Time 45.3 sec (24.3-30.1); INR 1.7 Ratio
[2018-06-26 15:05] LABS: Alanine Aminotransferase 39 U/L (12-78); Alkaline Phosphatase 116 U/L (45-117); Total Protein 5.1 g/dL (6.4-8.2); Troponin I 0.03 ng/mL (0.02-0.05)
[2018-06-26] MEDS ORDERED: Bisacodyl 10 MG Supp RECTAL PRN (15:14)
[2018-06-26] MEDS ORDERED: Vancomycin Consult Pharmacy OTHER PRN (15:18)
[2018-06-26] MEDS ORDERED: Piperacil/Tazo 4.5 GM Premix 4.5 GM/100 ML BAG IV.SIG SCH (15:30)
[2018-06-26 15:33] LABS: VBG Blood Gas Oxygen Content 1.3 Vol % (9.0-17.0); VBG PCO2 42 mmHG (44-48); VBG PH 7.29 (7.360-7.400); VBG PO2 12 mmHG (35-40)
[2018-06-26 15:36] LABS: Prothrombin Time 17.6 sec (9.8-11.6)
[2018-06-26] MEDS: Dextrose 50% in Water 50 ML Vial IV.PUSH PRN ×2 (15:48→19:44)
[2018-06-26] MEDS: Dextrose 5%/NaCl 0.9% Inj 1,000 ML IV.CONT SCH (16:10)
[2018-06-26] MEDS ORDERED: Sodium Bicarbonate 8.4% Inj 50 MEQ/50 ML Syringe IV.PUSH ONE (17:00)
[2018-06-26] MEDS ORDERED: Sodium Polystyrene Sulfonate/Sorbitol Liq 15 GM/60 ML UDC PO ONE (17:00)
[2018-06-26] MEDS: Pantoprazole Inj 40 MG Vial IV.PUSH SCH (17:02)
[2018-06-26] MEDS: Hydrocortisone Sod Succinate 100 MG Vial IV.PUSH SCH ×2 (17:02→22:00)
[2018-06-26] MEDS ORDERED: Morphine Sulfate Inj 2 MG/ML Vial ONE (17:04)
[2018-06-26 18:26] LABS: ABG Base Excess -7.2 mmol/L (-2-2); ABG PCO2 25 mmHg (38-42); ABG PO2 87 mmHG (61-120)
[2018-06-26] MEDS ORDERED: Midazolam Inj 5 MG/ML 1 ML Vial ONE (18:30)
--- NOTE | 2018-06-26 18:56 | P.PCN ---
Date of procedure: 06/26/18 Pre-op diagnosis: Shock Post-op diagnosis: same Procedure: Right subclavian central line placement Central line checklist completed, timeout completed. I wore a surgical cap, mask with protective eyewear, full gown and sterile gloves throughout the procedure. Right shoulder region was prepped using chlorhexidine scrub and draped in sterile fashion. Anesthesia was achieved over the vein using 1% lidocaine. The introducer needle was inserted into the right subclavian vein. Venous blood was withdrawn. The syringe was removed and a guidewire was advanced into the introducer needle. A small incision was made at the skin surface with a scalpel and the introducer needle was exchanged for dilator over the guidewire. After appropriate dilation was obtained, the dilator was exchanged over the wire for a double lumen, 7F, 20 cm triple lumen catheter. The wire was removed and the catheter was sutured in place at 17 cm. A sterile central line dressing was placed over the catheter at the insertion site. The patient tolerated the procedure without any hemodynamic compromise. At time of procedure completion, all ports aspirated and flushed properly. Post-procedure chest x-ray is pending at this time. Anesthesia: local Surgeon: Lucie Calzada Estimated blood loss (mL): 1 Pathology: none sent Condition: critical Disposition: ICU
--- NOTE | 2018-06-26 19:32 | XR ---
EXAM DATE: 06/26/2018 7:18 PM EDT AGE/SEX: 53 years / Male INDICATIONS: Post central line placement. CLINICAL DATA: This is the patient's subsequent encounter. Patient reports that signs and symptoms h ave been present for 1 day and indicates a pain score of Nonresponsive. MEDICAL/SURGICAL HISTORY: . Congestive heart failure. Hypertension. Cardiomyopathy. . Cardiac cath. COMPARISON: . FINDINGS: A right subclavian central line has its tip in the superior vena cava. There is no pneumothorax. The heart is enlarged. Moderate pulmonary edema is noted bilaterally. CONCLUSION: 1. No pneumothorax status post placement of right subclavian central line which has its tip in super ior vena cava. 2. Moderate pulmonary edema. 3. Cardiomegaly. Electronically signed by: Nikita Arguelles MD 06/26/2018 7:31 PM EDT
[2018-06-26] MEDS: Insulin NovoLIN Regular Correctional Sugar Inj SQ SCH (19:36)
[2018-06-26] MEDS: Heparin - SQ 10,000 UNITS/ML Vial SQ SCH (19:40)
[2018-06-26 19:43] LABS: Calcium 7.3 mg/dL (8.5-10.1); Carbon Dioxide 20.3 meq/L (21.0-32.0); Potassium 3.9 meq/L (3.5-5.1)
[2018-06-26 19:56] LABS: Total Protein 4.6 g/dL (6.4-8.2)
[2018-06-26] MEDS: Piperacil/Tazo 4.5 GM Premix 4.5 GM/100 ML BAG IV.SIG SCH (20:00)
[2018-06-26] MEDS: Senna/Docusate Sodium 8.6/50 MG Tablet PO SCH (21:00)
[2018-06-27] MEDS: Piperacil/Tazo 4.5 GM Premix 4.5 GM/100 ML BAG IV.SIG SCH ×3 (01:32→14:33)
--- NOTE | 2018-06-27 02:29 | CT ---
EXAM DATE: 06/27/2018 2:10 AM EDT AGE/SEX: 53 years / Male INDICATIONS: Altered mental status. CLINICAL DATA: This is the patient's initial encounter. Patient reports that signs and symptoms have been present for 1 day and indicates a pain score of Nonresponsive. MEDICAL/SURGICAL HISTORY: Congestive heart failure. Hypertension. None. RADIATION DOSE: 66.37 CTDI (mGy) COMPARISON: No prior exams available for comparison. TECHNIQUE: CT of the head without contrast. Using automated exposure control and adjustment of the mA and/or kV according to patient size, radiation dose was kept as low as reasonably achievable to ob tain optimal diagnostic quality images. DICOM format image data is available electronically for revi ew and comparison. FINDINGS: I don't have any pertinent priors. 3.5 cm cortical and subcortical hypodensity seen in the right kristal etal lobe. There is faintly increased attenuation in the surrounding brain, especially anterior to th e hypodensity, suggesting small parenchymal hemorrhage. The rest of the brain parenchyma appears normal. No midline shift present. Bone window images show an intact skull. Visualized paranasal sinuses and mastoid air cells are clear . CONCLUSION: Focal heterogeneity of the right parietal lobe as described of concern for a possible int ra-axial mass and adjacent hemorrhage. A focal subacute infarct with mild jhon-infarct hemorrhage wou ld also be in the differential. There is no midline shift. MRI of the brain with and without contrast is recommended. . Electronically signed by: Zheng Russell MD 06/27/2018 2:28 AM EDT
[2018-06-27] MEDS ORDERED: Chlorhexidine Gluconate 2% 1 Pack (2 Cloths) TOPICAL PRN (04:00)
[2018-06-27] MEDS: Chlorhexidine Gluconate 2% 1 Pack (2 Cloths) TOPICAL SCH (06:34)
[2018-06-27] MEDS: Hydrocortisone Sod Succinate 100 MG Vial IV.PUSH SCH ×2 (06:35→14:33)
[2018-06-27] MEDS: Insulin NovoLIN Regular Correctional Sugar Inj SQ SCH ×6 (08:37→21:16)
[2018-06-27] MEDS: Heparin - SQ 10,000 UNITS/ML Vial SQ SCH (08:45)
[2018-06-27] MEDS: Senna/Docusate Sodium 8.6/50 MG Tablet PO SCH (08:48)
--- NOTE | 2018-06-27 09:02 | P.CONNEU ---
History of Present Illness Service: Neurology Primary Care Provider: Jeronimo Nelson MD Family Provider: No Primary Care Physician Chief Complaint: Abnormal CT scan History of Present Illness: 53-year-old male with a history of cardiomyopathy ejection fraction 10% was seen by palliative care a few weeks ago and declined hospice which was recommended by cardiology admitted for hypotension and altered mental status. History of ethanolism. Patient unable to give any reliable history of present chart reviewed. He had a CT brain scan which demonstrated a right posterior parietal region lesion. 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 - Medical History Medical History: Medical History (Last Reviewed 06/26/18 @ 12:46 by PALMA Walden) CHF (congestive heart failure) Hypertension - Surgical History Surgical History: Surgical History (Last Reviewed 06/26/18 @ 12:46 by PALMA Walden) Hx of cardiac catheterization - Family History Family History: Family History (Last Reviewed 06/26/18 @ 12:46 by PALMA Walden) Other Family history of hypertension - Tobacco History Second Hand Smoke Exposure: No Smoking Status: Unknown if ever smoked Tobacco Type: Cigarettes - Alcohol History How Often Do You Have a Drink Containing Alcohol: Unable to Obtain - Substance Use History Substance History: Unable to Obtain - Travel History Recent Travel in the [place] Within the Last 8 Weeks: No Recent Travel Out of the Country Within the Last 8 Weeks: No - Immunization History Tetanus Immunization: Unable to Assess Hx Influenza Vaccine This Season: Unable to Assess Medications and Allergies Active Medications: Active Medications Al Hydroxide/Mg Hydroxide (Milk Of Samuel Liq) 30 ml PO Q12H PRN PRN Reason: Mild Constipation Albuterol (Duoneb Neb (Emi)) 1 ampul NEB Q4HR NEB EMI Last Admin: 06/27/18 07:33 Dose: 1 ampul Albuterol (Duoneb Neb (Prn)) 1 ampul NEB Q2HR NEB PRN PRN Reason: WHEEZING Bisacodyl (Dulcolax Supp) 10 mg RECTAL DAILY PRN PRN Reason: SEVERE CONSITIPATION Chlorhexidine Gluconate (Chlorhexidine 2% Cloth) 3 pack TOPICAL DAILY@0400 [facility] Stop: 07/02/18 03:59 Last Admin: 06/27/18 06:34 Dose: 3 pack Chlorhexidine Gluconate (Chlorhexidine 2% Cloth) 3 pack TOPICAL DAILY@0400 PRN PRN Reason: Extra cloth needed Stop: 07/02/18 03:59 Dextrose (D50w Vial) 50 ml IV.PUSH UNSCH PRN PRN Reason: PER HYPOGLYCEMIA PROTOCOL Last Admin: 06/26/18 19:44 Dose: 50 ml Glucagon (Glucagon Inj) 1 mg OTHER PRN PRN PRN Reason: for Hypoglycemia Protocol Hydrocortisone Sodium Succinate (Solucortef Inj) 100 mg IV.PUSH Q8HR EMI Last Admin: 06/27/18 06:35 Dose: 100 mg Sodium Chloride (Ns Inj) 500 mls @ 0 mls/hr IV.SIG BOLUS [facility] Last Infusion: 06/26/18 14:07 Dose: Infused Dextrose/Sodium Chloride (D5w/Normal Saline Inj) 1,000 mls @ 50 mls/hr IV.CONT .Q20H [facility] Last Admin: 06/26/18 16:10 Dose: 50 mls/hr Piperacillin/Tazobactam/Dextrose (Zosyn 4.5 Gm Premix) 4.5 gm in 100 mls @ 200 mls/hr IV.SIG Q6H [facility] Last Admin: 06/27/18 08:47 Dose: 200 mls/hr Vancomycin HCl 1,100 mg/ (Sodium Chloride) 261 mls @ 250 mls/hr IV.SIG Q18H EMI Norepinephrine Bitartrate (Levophed-Dextrose 4 Mg/250 Ml Drip) 4 mg in 250 mls @ 7.5 mls/hr IV.SIG TITRATE PRN; Protocol PRN Reason: Per Protocol Insulin Human Regular (Novolin R Correctional Sugar Inj) 0 units SQ Q4HR EMI; Protocol Last Admin: 06/27/18 08:47 Dose: Not Given Lactulose (Lactulose Liq) 30 ml PO DAILY PRN PRN Reason: SEVERE CONSITIPATION Miscellaneous Information ([facility] [place] [facility] Ordered Lab Info) 0 each OTHER ONCE ONE Stop: 06/28/18 20:46 Pantoprazole Sodium (Protonix Inj) 40 mg IV.PUSH Q24H [facility] Last Admin: 06/26/18 17:02 Dose: 40 mg Pharmacy Profile Note (Vancomycin Consult Pharmacy) 1 each OTHER UNSCH PRN PRN Reason: Pharmacy to dose Senna/Docusate Sodium (Josette-Colace) 1 tab PO BID EMI Last Admin: 06/27/18 08:48 Dose: Not Given Sennosides (Senokot) 17.2 mg PO Q12H PRN PRN Reason: Moderate Constipation Terbutaline Sulfate (Brethine Inj) 1 mg SQ UNSCH PRN PRN Reason: For Extravasation Allergies Allergy/AdvReac Type Severity Reaction Status Date / Time No Known Allergies Allergy Unverified 06/26/18 14:17 Home Medications Medication Instructions Recorded Confirmed Type furosemide [Lasix] 20 mg PO DAILY 05/21/18 05/21/18 History lisinopril 2.5 mg PO DAILY 05/21/18 05/21/18 History potassium chloride [Klor-Con 10] 10 meq PO DAILY 05/21/18 05/21/18 History Exam Vital signs: Vital Signs 06/26/18 12:46 06/26/18 13:01 06/26/18 13:43 Temperature 97.2 F L Pulse Rate 105 H 97 H 116 H Respiratory Rate 17 25 H Blood Pressure 77/58 L 105/61 Pulse Oximetry 06/26/18 14:34 06/26/18 15:04 06/26/18 16:15 Temperature Pulse Rate 114 H 117 H 115 H Respiratory Rate 17 19 15 Blood Pressure 87/63 L 85/59 L 88/65 L Pulse Oximetry 99 98 100 06/26/18 17:00 06/26/18 18:00 06/26/18 19:00 Temperature 97.7 F Pulse Rate 119 H 119 H 104 H Respiratory Rate 20 21 13 Blood Pressure 83/61 L 110/74 74/57 L Pulse Oximetry 99 95 06/26/18 20:00 06/26/18 20:42 06/26/18 22:00 Temperature 97.8 F 97.7 F Pulse Rate 109 H 105 H 106 H Respiratory Rate 18 20 15 Blood Pressure 83/60 L 82/64 L Pulse Oximetry 96 93 L 96 06/26/18 22:30 06/26/18 23:00 06/26/18 23:04 Temperature 97.9 F 98.1 F 98.1 F Pulse Rate 108 H 108 H 108 H Respiratory Rate 13 15 16 Blood Pressure 87/63 L 89/64 L Pulse Oximetry 94 L 93 L 97 06/26/18 23:19 06/26/18 23:30 08/29/18 00:00 Temperature 98.1 F 98.1 F Pulse Rate 106 H 106 H 104 H Respiratory Rate 18 17 17 Blood Pressure 89/62 L 87/65 L Pulse Oximetry 96 95 06/27/18 00:38 06/27/18 01:00 06/27/18 01:01 Temperature 98.1 F 98.2 F 98.2 F Pulse Rate 106 H 110 H 110 H Respiratory Rate 23 16 23 Blood Pressure 104/64 93/57 L Pulse Oximetry 95 94 L 94 L 06/27/18 01:31 06/27/18 01:51 06/27/18 02:00 Temperature 98.6 F 98.6 F Pulse Rate 114 H 114 H 113 H Respiratory Rate 19 12 16 Blood Pressure 96/59 L 104/66 98/66 L Pulse Oximetry 93 L 95 06/27/18 02:30 06/27/18 03:00 06/27/18 03:30 Temperature 99.5 F 99.7 F H 99.9 F H Pulse Rate 109 H 109 H 109 H Respiratory Rate 22 12 12 Blood Pressure 90/63 L 88/61 L 98/64 L Pulse Oximetry 77 L 95 95 06/27/18 03:35 06/27/18 04:00 06/27/18 04:30 Temperature 99.7 F H 99.7 F H Pulse Rate 109 H 114 H 116 H Respiratory Rate 22 14 11 L Blood Pressure 98/62 L 87/59 L Pulse Oximetry 94 L 92 L 06/27/18 05:00 06/27/18 05:35 06/27/18 06:00 Temperature 99.5 F 99.5 F 99.5 F Pulse Rate 114 H 114 H 111 H Respiratory Rate 13 14 10 L Blood Pressure 90/61 L 92/59 L 84/63 L Pulse Oximetry 93 L 91 L 92 L 06/27/18 06:30 06/27/18 07:00 06/27/18 07:17 Temperature 99.5 F 99.5 F 99.5 F Pulse Rate 110 H 108 H 109 H Respiratory Rate 11 L 18 16 Blood Pressure 86/60 L 91/64 L 86/59 L Pulse Oximetry 94 L 94 L 94 L 06/27/18 07:30 06/27/18 07:35 06/27/18 07:45 Temperature 99.5 F 99.5 F Pulse Rate 108 H 109 H 110 H Respiratory Rate 16 12 13 Blood Pressure 88/61 L 101/71 Pulse Oximetry 93 L 95 92 L 06/27/18 08:00 Temperature 99.5 F Pulse Rate 115 H Respiratory Rate 18 Blood Pressure 97/69 L Pulse Oximetry 84 L Intake & Output 06/26/18 06/27/18 06/27/18 18:59 06:59 18:59 Intake Total 851 / 851 450 / 450 Balance 851 / 851 450 / 450 Weight 65.8 kg Intake: IV 851 / 851 450 / 450 D50W Syringe 50 ML @ 0 mls/hr . 50 / 50 ROUTE .STK-MED ONE Rx#:[id number] Levophed-Dextrose 4 mg/250 ml 250 / 250 Drip 4 mg In 250 ml @ 2 MCG/MIN 7.5 mls/hr IV.SIG TITRATE PRN Rx#:[id number] Zosyn 4.5 GM Premix 4.5 gm In 200 / 200 100 ml @ 200 mls/hr IV.SIG Q6H EMI Rx#:[id number] NS Inj 500 ML @ Wide Open IV. 500 / 500 SIG BOLUS [facility] Rx#:[id number] Other: Weight On Admission 65.8 kg Narrative: Thin somewhat cachectic looking disheveled male laying in bed mildly tachypneic confused nonverbal not following my left gaze preference, mild localization right greater than left left extensor plantar, sensory cerebellar gait testing not reliable unable to be performed due to current mental status, skin abrasions noted on his legs with lower extremity edema Results - Labs CBC & Chem 7: 06/26/18 13:13 06/26/18 19:03 Labs: Laboratory Results - last 24 hr 06/26/18 06/26/18 06/26/18 13:09 13:09 13:13 WBC 19.8 H RBC 4.78 Hgb 14.3 Hct 43.6 MCV 91.1 MCH 30.0 MCHC 32.9 RDW 20.0 H Plt Count 133 L MPV 9.9 Neut % (Auto) 97.7 H Lymph % (Auto) 0.8 L Nance % (Auto) 1.1 Eos % (Auto) 0.2 Baso % (Auto) 0.2 Neut # (Auto) 19.3 H Lymph # (Auto) 0.2 L Nance # (Auto) 0.2 Eos # (Auto) 0.0 Baso # (Auto) 0.0 WBC Differential . Differential Comment Auto diff final PT INR APTT Puncture Site Patient Temperature O2 Saturation ABG pH ABG pCO2 ABG pO2 ABG HCO3 ABG O2 Content ABG Base Excess ABG Methemoglobin Rajiv Test VBG pH VBG pCO2 VBG pO2 VBG HCO3 VBG O2 Saturation VBG O2 Content VBG Base Excess VBG Carboxyhemoglobin VBG Methemoglobin Hemoglobin Carboxyhemoglobin O2 Delivery Device Liter Flow Inspired O2 Critical Value Sodium Potassium Chloride Carbon Dioxide Anion Gap BUN Creatinine Estimated GFR POC Glucose Random Glucose Lactic Acid Calcium Prot Corrected Calcium Total Bilirubin AST ALT Alkaline Phosphatase Ammonia Troponin I B-Natriuretic Peptide Total Protein Albumin TSH Urine Color Yellow Urine Clarity Hazy H Urine pH 5.0 Ur Specific Fults 1.010 Urine Protein Negative Urine Glucose (UA) Negative Urine Ketones Negative Urine Occult Blood Moderate H Urine Nitrate Positive H Urine Bilirubin Negative Urine Urobilinogen Less than 2 Ur Leukocyte Esterase Small H Urine RBC 4 H Urine WBC 20 H Urine Bacteria Occasional H Hyaline Casts 26 Urine Mucus Few H Micro UA Comment Culture indicated Ur Microscopic Review Not Reportable Urine Culture Comments Culture indicated Nasal Screen MRSA (PCR) Urine Opiates Screen Neg Ur Barbiturates Screen Neg Ur Amphetamines Screen Neg U Benzodiazepines Scrn Neg Urine Cocaine Screen Neg U Cannabinoids Screen Neg Serum Alcohol 06/26/18 06/26/18 06/26/18 13:13 13:15 13:15 WBC RBC Hgb Hct MCV MCH MCHC RDW Plt Count MPV Neut % (Auto) Lymph % (Auto) Nance % (Auto) Eos % (Auto) Baso % (Auto) Neut # (Auto) Lymph # (Auto) Nance # (Auto) Eos # (Auto) Baso # (Auto) WBC Differential Differential Comment PT INR APTT Puncture Site Patient Temperature O2 Saturation ABG pH ABG pCO2 ABG pO2 ABG HCO3 ABG O2 Content ABG Base Excess ABG Methemoglobin Rajiv Test VBG pH VBG pCO2 VBG pO2 VBG HCO3 VBG O2 Saturation VBG O2 Content VBG Base Excess VBG Carboxyhemoglobin VBG Methemoglobin Hemoglobin Carboxyhemoglobin O2 Delivery Device Liter Flow Inspired O2 Critical Value Sodium 127 L Potassium 5.6 H Chloride 94 L Carbon Dioxide 19.3 L Anion Gap 14 BUN 42 H Creatinine 1.52 H Estimated GFR 48 L POC Glucose Random Glucose 24 L* Lactic Acid 2.9 H Calcium 7.9 L Prot Corrected Calcium Total Bilirubin 2.2 H AST 82 H ALT 39 Alkaline Phosphatase 116 Ammonia Troponin I 0.03 B-Natriuretic Peptide Greater than 5000 H Total Protein 5.1 L Albumin 2.2 L TSH 2.040 Urine Color Urine Clarity Urine pH Ur Specific Fults Urine Protein Urine Glucose (UA) Urine Ketones Urine Occult Blood Urine Nitrate Urine Bilirubin Urine Urobilinogen Ur Leukocyte Esterase Urine RBC Urine WBC Urine Bacteria Hyaline Casts Urine Mucus Micro UA Comment Ur Microscopic Review Urine Culture Comments Nasal Screen MRSA (PCR) Urine Opiates Screen Ur Barbiturates Screen Ur Amphetamines Screen U Benzodiazepines Scrn Urine Cocaine Screen U Cannabinoids Screen Serum Alcohol Less than 3 06/26/18 06/26/18 06/26/18 13:15 14:19 14:30 WBC RBC Hgb Hct MCV MCH MCHC RDW Plt Count MPV Neut % (Auto) Lymph % (Auto) Nance % (Auto) Eos % (Auto) Baso % (Auto) Neut # (Auto) Lymph # (Auto) Nance # (Auto) Eos # (Auto) Baso # (Auto) WBC Differential Differential Comment PT 17.6 H INR 1.7 APTT 45.3 H Puncture Site Right radial Patient Temperature 98.6 O2 Saturation 94 ABG pH 7.41 ABG pCO2 26 L ABG pO2 79 ABG HCO3 16 L* ABG O2 Content 19.6 ABG Base Excess -7.8 L ABG Methemoglobin 0.5 Rajiv Test Present VBG pH VBG pCO2 VBG pO2 VBG HCO3 VBG O2 Saturation VBG O2 Content VBG Base Excess VBG Carboxyhemoglobin VBG Methemoglobin Hemoglobin 14.8 Carboxyhemoglobin 1.2 O2 Delivery Device Liter Flow Inspired O2 21 Critical Value Yes Sodium Potassium Chloride Carbon Dioxide Anion Gap BUN Creatinine Estimated GFR POC Glucose Random Glucose Lactic Acid Calcium Prot Corrected Calcium Total Bilirubin AST ALT Alkaline Phosphatase Ammonia 12 Troponin I B-Natriuretic Peptide Total Protein Albumin TSH Urine Color Urine Clarity Urine pH Ur Specific Fults Urine Protein Urine Glucose (UA) Urine Ketones Urine Occult Blood Urine Nitrate Urine Bilirubin Urine Urobilinogen Ur Leukocyte Esterase Urine RBC Urine WBC Urine Bacteria Hyaline Casts Urine Mucus Micro UA Comment Ur Microscopic Review Urine Culture Comments Nasal Screen MRSA (PCR) Urine Opiates Screen Ur Barbiturates Screen Ur Amphetamines Screen U Benzodiazepines Scrn Urine Cocaine Screen U Cannabinoids Screen Serum Alcohol 06/26/18 06/26/18 06/26/18 15:20 16:36 17:30 WBC RBC Hgb Hct MCV MCH MCHC RDW Plt Count MPV Neut % (Auto) Lymph % (Auto) Nance % (Auto) Eos % (Auto) Baso % (Auto) Neut # (Auto) Lymph # (Auto) Nance # (Auto) Eos # (Auto) Baso # (Auto) WBC Differential Differential Comment PT INR APTT Puncture Site Peripheral line Patient Temperature 98.6 O2 Saturation ABG pH ABG pCO2 ABG pO2 ABG HCO3 ABG O2 Content ABG Base Excess ABG Methemoglobin Rajiv Test VBG pH 7.29 L* VBG pCO2 42 L VBG pO2 12 L* VBG HCO3 19 L VBG O2 Saturation 6 L VBG O2 Content 1.3 L VBG Base Excess -6.0 L VBG Carboxyhemoglobin 0.5 VBG Methemoglobin 0.6 Hemoglobin 14.8 Carboxyhemoglobin O2 Delivery Device Liter Flow Inspired O2 21 Critical Value Yes Sodium Potassium Chloride Carbon Dioxide Anion Gap BUN Creatinine Estimated GFR POC Glucose 83 Random Glucose Lactic Acid Calcium Prot Corrected Calcium Total Bilirubin AST ALT Alkaline Phosphatase Ammonia Troponin I B-Natriuretic Peptide Total Protein Albumin TSH Urine Color Urine Clarity Urine pH Ur Specific Fults Urine Protein Urine Glucose (UA) Urine Ketones Urine Occult Blood Urine Nitrate Urine Bilirubin Urine Urobilinogen Ur Leukocyte Esterase Urine RBC Urine WBC Urine Bacteria Hyaline Casts Urine Mucus Micro UA Comment Ur Microscopic Review Urine Culture Comments Nasal Screen MRSA (PCR) Not detected Urine Opiates Screen Ur Barbiturates Screen Ur Amphetamines Screen U Benzodiazepines Scrn Urine Cocaine Screen U Cannabinoids Screen Serum Alcohol 06/26/18 06/26/18 06/26/18 18:20 19:03 19:03 WBC RBC Hgb Hct MCV MCH MCHC RDW Plt Count MPV Neut % (Auto) Lymph % (Auto) Nance % (Auto) Eos % (Auto) Baso % (Auto) Neut # (Auto) Lymph # (Auto) Nance # (Auto) Eos # (Auto) Baso # (Auto) WBC Differential Differential Comment PT INR APTT Puncture Site Left radial Patient Temperature 98.6 O2 Saturation 94 ABG pH 7.43 H ABG pCO2 25 L ABG pO2 87 ABG HCO3 16 L* ABG O2 Content 20.6 H ABG Base Excess -7.2 L ABG Methemoglobin 1.3 Rajiv Test Present VBG pH VBG pCO2 VBG pO2 VBG HCO3 VBG O2 Saturation VBG O2 Content VBG Base Excess VBG Carboxyhemoglobin VBG Methemoglobin Hemoglobin 15.6 Carboxyhemoglobin 1.2 O2 Delivery Device Nasal cannula Liter Flow 2.00 Inspired O2 Critical Value Yes Sodium 133 L Potassium 3.9 D Chloride 98 Carbon Dioxide 20.3 L Anion Gap 15 BUN 38 H Creatinine 1.32 H Estimated GFR 57 L POC Glucose Random Glucose 68 L Lactic Acid 3.2 H Calcium 7.3 L* Prot Corrected Calcium 8.7 Total Bilirubin AST ALT Alkaline Phosphatase Ammonia Troponin I B-Natriuretic Peptide Total Protein 4.6 L Albumin TSH Urine Color Urine Clarity Urine pH Ur Specific Fults Urine Protein Urine Glucose (UA) Urine Ketones Urine Occult Blood Urine Nitrate Urine Bilirubin Urine Urobilinogen Ur Leukocyte Esterase Urine RBC Urine WBC Urine Bacteria Hyaline Casts Urine Mucus Micro UA Comment Ur Microscopic Review Urine Culture Comments Nasal Screen MRSA (PCR) Urine Opiates Screen Ur Barbiturates Screen Ur Amphetamines Screen U Benzodiazepines Scrn Urine Cocaine Screen U Cannabinoids Screen Serum Alcohol 06/26/18 06/26/18 06/27/18 19:10 19:49 01:37 WBC RBC Hgb Hct MCV MCH MCHC RDW Plt Count MPV Neut % (Auto) Lymph % (Auto) Nance % (Auto) Eos % (Auto) Baso % (Auto) Neut # (Auto) Lymph # (Auto) Nance # (Auto) Eos # (Auto) Baso # (Auto) WBC Differential Differential Comment PT INR APTT Puncture Site Patient Temperature O2 Saturation ABG pH ABG pCO2 ABG pO2 ABG HCO3 ABG O2 Content ABG Base Excess ABG Methemoglobin Raijv Test VBG pH VBG pCO2 VBG pO2 VBG HCO3 VBG O2 Saturation VBG O2 Content VBG Base Excess VBG Carboxyhemoglobin VBG Methemoglobin Hemoglobin Carboxyhemoglobin O2 Delivery Device Liter Flow Inspired O2 Critical Value Sodium Potassium Chloride Carbon Dioxide Anion Gap BUN Creatinine Estimated GFR POC Glucose 38 L* 108 107 Random Glucose Lactic Acid Calcium Prot Corrected Calcium Total Bilirubin AST ALT Alkaline Phosphatase Ammonia Troponin I B-Natriuretic Peptide Total Protein Albumin TSH Urine Color Urine Clarity Urine pH Ur Specific Fults Urine Protein Urine Glucose (UA) Urine Ketones Urine Occult Blood Urine Nitrate Urine Bilirubin Urine Urobilinogen Ur Leukocyte Esterase Urine RBC Urine WBC Urine Bacteria Hyaline Casts Urine Mucus Micro UA Comment Ur Microscopic Review Urine Culture Comments Nasal Screen MRSA (PCR) Urine Opiates Screen Ur Barbiturates Screen Ur Amphetamines Screen U Benzodiazepines Scrn Urine Cocaine Screen U Cannabinoids Screen Serum Alcohol 06/27/18 06/27/18 04:04 08:14 WBC RBC Hgb Hct MCV MCH MCHC RDW Plt Count MPV Neut % (Auto) Lymph % (Auto) Nance % (Auto) Eos % (Auto) Baso % (Auto) Neut # (Auto) Lymph # (Auto) Nance # (Auto) Eos # (Auto) Baso # (Auto) WBC Differential Differential Comment PT INR APTT Puncture Site Patient Temperature O2 Saturation ABG pH ABG pCO2 ABG pO2 ABG HCO3 ABG O2 Content ABG Base Excess ABG Methemoglobin Rajiv Test VBG pH VBG pCO2 VBG pO2 VBG HCO3 VBG O2 Saturation VBG O2 Content VBG Base Excess VBG Carboxyhemoglobin VBG Methemoglobin Hemoglobin Carboxyhemoglobin O2 Delivery Device Liter Flow Inspired O2 Critical Value Sodium Potassium Chloride Carbon Dioxide Anion Gap BUN Creatinine Estimated GFR POC Glucose 115 H 132 H Random Glucose Lactic Acid Calcium Prot Corrected Calcium Total Bilirubin AST ALT Alkaline Phosphatase Ammonia Troponin I B-Natriuretic Peptide Total Protein Albumin TSH Urine Color Urine Clarity Urine pH Ur Specific Fults Urine Protein Urine Glucose (UA) Urine Ketones Urine Occult Blood Urine Nitrate Urine Bilirubin Urine Urobilinogen Ur Leukocyte Esterase Urine RBC Urine WBC Urine Bacteria Hyaline Casts Urine Mucus Micro UA Comment Ur Microscopic Review Urine Culture Comments Nasal Screen MRSA (PCR) Urine Opiates Screen Ur Barbiturates Screen Ur Amphetamines Screen U Benzodiazepines Scrn Urine Cocaine Screen U Cannabinoids Screen Serum Alcohol - Imaging Impressions Chest X-Ray 06/26/18 12:14 CONCLUSION: 1. Cardiomegaly with mild pulmonary vascular congestion. 2. Bilateral lower lobe airspace consolidation and likely small right-sided pleural effusion. Chest X-Ray 06/26/18 18:39 CONCLUSION: 1. No pneumothorax status post placement of right subclavian central line which has its tip in superior vena cava. 2. Moderate pulmonary edema. 3. Cardiomegaly. Head CT 06/27/18 00:00 CONCLUSION: Focal heterogeneity of the right parietal lobe as described of concern for a possible intra-axial mass and adjacent hemorrhage. A focal subacute infarct with mild josette-infarct hemorrhage would also be in the differential. There is no midline shift. MRI of the brain with and without contrast is recommended. . Review/Management - Diagnosis (1) Brain lesion Code(s): G93.9 - Disorder of brain, unspecified Status: Acute Current Visit : Yes (2) Ethanolism Code(s): F10.20 - Alcohol dependence, uncomplicated Status: Acute Current Visit: Yes (3) Acute exacerbation of CHF (congestive heart failure) Code(s): I50.9 - Heart failure, unspecified Status: Acute Current Visit: Yes (4) NICM (nonischemic cardiomyopathy) Code(s): I42.8 - Other cardiomyopathies Status: Acute Current Visit: No (5) Cardiogenic shock Code(s): R57.0 - Cardiogenic shock Status: Acute Current Visit: Yes - Review/Management Plan: Severely ill patient, probable cardiogenic/septic shock, no new brain lesions which may be septic emboli versus ischemic infarction cardiac emboli versus mass lesion Recommendations MRI MRA brain EEG Follow exam Palliative care may need to be reconsulted
--- NOTE | 2018-06-27 09:22 | MH ---
cc: Katrin Antoine MD DATE OF ADMISSION: 06/26/2018 HISTORY OF PRESENT ILLNESS: The patient is a 53-year-old male with a past medical history of CHF and cardiomyopathy, with EF of less than 20%, who presented to [facility] ED for altered mental status. The patient was found incontinent of urine and feces. Apparently, the patient is homeless and has been living in a friend's garage, and he was last seen one week ago. On his last admission, he was seen by cardiology service and they recommended hospice. He also has history of ETOH abuse. The patient was found hypotensive by EVAC with a systolic blood pressure in the 80s, tachycardic with heart rate of 104. He was given 1 liter bolus of normal saline in the ED and placed on Levophed currently at 15 mcg. In addition, he was found hypoglycemic and had a blood sugar of 24 on a BMP, and was given half amp of D50. LABORATORY AND DIAGNOSTIC DATA: Significant for renal failure with a BUN of 42, creatinine 1.52, hyperkalemic with a potassium level 5.6, and hyponatremic with a sodium level of 127. In addition, the patient had mild lactic acidosis with a lactic acid level of 2.9 and a leukocytosis with a WBC of 19.8. His urinalysis was positive for nitrite, leukocyte esterase, and 20 WBCs. Chest x-ray in the ER showed cardiomegaly with mild pulmonary vascular congestion, bilateral lower lobe airspace consolidations. He received vancomycin and Zosyn. ABG on room air showed a pH of 7.41, CO2 of 26, PaO2 79, bicarbonate of 16, and a saturation of 94%. His urine drug screen was negative and his serum alcohol level was less than 3. Most of the history was obtained from reviewing medical records, as the patient is a poor historian. PAST MEDICAL HISTORY: Significant for CHF, hypertension, severe cardiomyopathy with EF of less than 20%. PAST SURGICAL HISTORY: Previous cardiac catheterization. SOCIAL HISTORY: Active smoker and drinks 2 to 3 times a week. ALLERGIES: NO KNOWN DRUG ALLERGIES. FAMILY HISTORY: Noncontributory to present illness. HOME MEDICATIONS: Include: 1. Lasix. 2. Lisinopril. 3. Ciprofloxacin. REVIEW OF SYSTEMS: As per HPI. Rest of review of systems is limited, as the patient is a poor historian. PHYSICAL EXAMINATION: GENERAL: A 53-year-old male lying in bed, in no acute respiratory distress. VITAL SIGNS: Temperature 97.2, pulse of 120, blood pressure 85/59 with a MAP of 67, saturation 98% on room air. HEENT: Atraumatic, normocephalic. Pupils are equal, round, reactive to light and accommodation. Extraocular muscles intact. Conjunctivae pink. Nonicteric sclerae. Oral mucosa within normal. NECK: Supple. No JVD, adenopathy, or thyromegaly. Trachea in the midline. CARDIOVASCULAR: Tachycardic. Normal S1, S2. No murmurs, rubs, or gallops. PULMONARY: Bilateral equal air entry. No crackles or wheezing. ABDOMEN: Soft, nontender. No distention. Positive bowel sounds. EXTREMITIES: No cyanosis or clubbing, 2+ edema. Ulcer-like lesions, as well as blisters noted on the right leg and appears to be slightly erythematous. NEUROLOGIC: No focal sensory deficits. LABORATORY DATA: WBC 19.8, hemoglobin 14, hematocrit 43, platelet count 133,000. Sodium 127, potassium 5.6, chloride 94, CO2 of 19, BUN 42, creatinine 1.52, glucose 24. Lactic acid 2.9, ammonia level 12. BNP greater than 5000. INR 1.7. PT 17.6, PTT 45.3. Urinalysis positive for leukocyte esterase, nitrite, and 20 WBCs. RADIOGRAPHIC STUDIES: A chest x-ray showed cardiomegaly with mild pulmonary vascular congestion, bilateral lower lobe airspace consolidations. IMPRESSION: 1. Septic shock. 2. Acute kidney injury. 3. Hypoglycemic episodes. 4. Electrolyte imbalance, which include hyponatremia and hyperkalemia. 5. Altered mental status. 6. Mild lactic acidemia. 7. Leukocytosis. 8. Urinary tract infection. 9. Bilateral consolidations. Rule out infectious process. 10. History of congestive heart failure. 11. Cardiomyopathy with ejection fraction of less than 20%. RECOMMENDATIONS: 1. Monitor neuro status closely and avoid any sedatives. Patient scheduled for a CT head without contrast, ordered by ED. 2. Oxygen p.r.n. to maintain sats above 92%. 3. Bronchodilators in the form of DuoNeb q.4 hours plus q.2 hours p.r.n. for shortness of breath. 4. Continue with Levophed, wean as tolerated. Maintain MAP greater than 65 mmHg. 5. Serial lactic acid monitoring was 2.9 in the ED[address] 6. Place on stress dose steroids, hydrocortisone 100 mg IV every 8 hours. 7. Echocardiogram from 04/2018 showed an EF of less than 20%. At that time, cardiology recommended hospice. 8. Monitor renal function, I's and O's, and avoid nephrotoxins. We will give 1 amp of sodium bicarbonate, Kayexalate 30 grams p.o. x1 and repeat BMP. 9. Gentle IV hydration, given severe cardiomyopathy. We will place on D5 NS at 50 mL an hour. 10. Place on Protonix 40 mg daily for gastrointestinal prophylaxis. 11. Continue with broad-spectrum antibiotics in the form of vancomycin and Zosyn. Monitor for signs and monitor for signs of infection, which include fever and WBC. 12. Follow up on blood cultures. In addition, we will obtain blood culture x2 sets, sputum culture with Gram stain, Strep pneumoniae, and legionella urinary antigen. 13. Monitor CBC and coags. 14. Sliding scale insulin with Accu-Cheks q.4 hours and IV steroids as stated above. 15. Gastrointestinal prophylaxis with Protonix 40 mg daily. 16. Deep venous thrombosis prophylaxis with sequential compression devices and heparin subcutaneous. 17. Consult wound care nurse. 18. We will consult palliative care to assist with goals of care, as the patient was recommended hospice on his previous admission. 19. Further recommendations will be based on hospital course. MD MIKE Brandt/aracely , 04:32 PM , 04:48 PM
--- NOTE | 2018-06-27 09:29 | P.PNCC ---
Subjective Subjective Remarks/Hospital Course: The patient is a 53-year-old male with a past medical history of CHF and cardiomyopathy, with EF of less than 20%, who presented to [facility] ED for altered mental status. The patient was found incontinent of urine and feces. Apparently, the patient is homeless and has been living in a friend's garage, and he was last seen one week ago. On his last admission, he was seen by cardiology service and they recommended hospice. He also has history of ETOH abuse. Thepatient was found hypotensive by EVAC with a systolic blood pressure in the 80s, tachycardic with heart rate of 104. He was given 1 liter bolus of normal saline in the ED and placed on Levophed currently at 15 mcg. In addition, he was found hypoglycemic and had a blood sugar of 24 on a BMP, and was given half amp of D50. His labs significant for renal failure with a BUN of 42, creatinine 1.52, hyperkalemic with a potassium level 5.6, and hyponatremic with a sodium level of 127. In addition, the patient had mild lactic acidosis with a lactic acid level of 2.9 and a leukocytosis with a WBC of 19.8. His urinalysis was positive for nitrite, leukocyte esterase, and 20 WBCs. Chest x-ray in the ER showed cardiomegaly with mild pulmonary vascular congestion, bilateral lower lobe airspace consolidations. He received vancomycin and Zosyn. ABG on room air showed a pH of 7.41, CO2 of 26, PaO2 79, bicarbonate of 16, and a saturation of 94%. His urine drug screen was negative and his serum alcohol level was less than 3. Most of the history was obtained from reviewing medical records, as the patient is a poor historian. 06/27 Patient remains on Levophed 15 mics, lethargic , CT brain last night showed focal heterogeneity of the right parietal lobe possible intra-axial mass and adjacent hemorrhage. A focal subacute infarct with mild john-infarct hemorrhage would also be in the differential. No midline shift. BC from yesterday gram negative rods. Objective Vital Signs / I&O: Vital Signs 06/26/18 12:46 06/26/18 13:01 06/26/18 13:43 Temperature 97.2 F L Pulse Rate 105 H 97 H 116 H Respiratory Rate 17 25 H Blood Pressure 77/58 L 105/61 Pulse Oximetry 06/26/18 14:34 06/26/18 15:04 06/26/18 16:15 Temperature Pulse Rate 114 H 117 H 115 H Respiratory Rate 17 19 15 Blood Pressure 87/63 L 85/59 L 88/65 L Pulse Oximetry 99 98 100 06/26/18 17:00 06/26/18 18:00 06/26/18 19:00 Temperature 97.7 F Pulse Rate 119 H 119 H 104 H Respiratory Rate 20 21 13 Blood Pressure 83/61 L 110/74 74/57 L Pulse Oximetry 99 95 06/26/18 20:00 06/26/18 20:42 06/26/18 22:00 Temperature 97.8 F 97.7 F Pulse Rate 109 H 105 H 106 H Respiratory Rate 18 20 15 Blood Pressure 83/60 L 82/64 L Pulse Oximetry 96 93 L 96 06/26/18 22:30 06/26/18 23:00 06/26/18 23:04 Temperature 97.9 F 98.1 F 98.1 F Pulse Rate 108 H 108 H 108 H Respiratory Rate 13 15 16 Blood Pressure 87/63 L 89/64 L Pulse Oximetry 94 L 93 L 97 06/26/18 23:19 06/26/18 23:30 06/27/18 00:00 Temperature 98.1 F 98.1 F Pulse Rate 106 H 106 H 104 H Respiratory Rate 18 17 17 Blood Pressure 89/62 L 87/65 L Pulse Oximetry 96 95 06/27/18 00:38 06/27/18 01:00 06/27/18 01:01 Temperature 98.1 F 98.2 F 98.2 F Pulse Rate 106 H 110 H 110 H Respiratory Rate 23 16 23 Blood Pressure 104/64 93/57 L Pulse Oximetry 95 94 L 94 L 06/27/18 01:31 06/27/18 01:51 06/27/18 02:00 Temperature 98.6 F 98.6 F Pulse Rate 114 H 114 H 113 H Respiratory Rate 19 12 16 Blood Pressure 96/59 L 104/66 98/66 L Pulse Oximetry 93 L 95 06/27/18 02:30 06/27/18 03:00 06/27/18 03:30 Temperature 99.5 F 99.7 F H 99.9 F H Pulse Rate 109 H 109 H 109 H Respiratory Rate 22 12 12 Blood Pressure 90/63 L 88/61 L 98/64 L Pulse Oximetry 77 L 95 95 06/27/18 03:35 06/27/18 04:00 06/27/18 04:30 Temperature 99.7 F H 99.7 F H Pulse Rate 109 H 114 H 116 H Respiratory Rate 22 14 11 L Blood Pressure 98/62 L 87/59 L Pulse Oximetry 94 L 92 L 06/27/18 05:00 06/27/18 05:35 06/27/18 06:00 Temperature 99.5 F 99.5 F 99.5 F Pulse Rate 114 H 114 H 111 H Respiratory Rate 13 14 10 L Blood Pressure 90/61 L 92/59 L 84/63 L Pulse Oximetry 93 L 91 L 92 L 06/27/18 06:30 06/27/18 07:00 06/27/18 07:17 Temperature 99.5 F 99.5 F 99.5 F Pulse Rate 110 H 108 H 109 H Respiratory Rate 11 L 18 16 Blood Pressure 86/60 L 91/64 L 86/59 L Pulse Oximetry 94 L 94 L 94 L 06/27/18 07:30 06/27/18 07:35 06/27/18 07:45 Temperature 99.5 F 99.5 F Pulse Rate 108 H 109 H 110 H Respiratory Rate 16 12 13 Blood Pressure 88/61 L 101/71 Pulse Oximetry 93 L 95 92 L 06/27/18 08:00 06/27/18 09:00 Temperature 99.5 F 99.5 F Pulse Rate 115 H 114 H Respiratory Rate 18 14 Blood Pressure 97/69 L 97/66 L Pulse Oximetry 84 L 84 L Intake & Output 06/26/18 06/27/18 06/27/18 18:59 06:59 18:59 Intake Total 851 / 851 450 / 450 250 / 250 Balance 851 / 851 450 / 450 250 / 250 Weight 65.8 kg Intake: IV 851 / 851 450 / 450 250 / 250 D50W Syringe 50 ML @ 0 mls/hr . 50 / 50 ROUTE .STK-MED ONE Rx#:[id number] Levophed-Dextrose 4 mg/250 ml 250 / 250 250 / 250 Drip 4 mg In 250 ml @ 2 MCG/MIN 7.5 mls/hr IV.SIG TITRATE PRN Rx#:[id number] Zosyn 4.5 GM Premix 4.5 gm In 200 / 200 100 ml @ 200 mls/hr IV.SIG Q6H MORENITA Rx#:[id number] NS Inj 500 ML @ Wide Open IV. 500 / 500 SIG BOLUS MORENITA Rx#:[id number] Other: Weight On Admission 65.8 kg Result Diagrams: 06/27/18 08:50 06/27/18 08:50 Other Results: Laboratory Results - last 12 hr 06/27/18 06/27/18 06/27/18 01:37 04:04 08:14 POC Glucose 107 115 H 132 H Imaging: Chest X-Ray 06/26/18 18:39 CONCLUSION: 1. No pneumothorax status post placement of right subclavian central line which has its tip in superior vena cava. 2. Moderate pulmonary edema. 3. Cardiomegaly. Head CT 06/27/18 00:00 CONCLUSION: Focal heterogeneity of the right parietal lobe as described of concern for a possible intra-axial mass and adjacent hemorrhage. A focal subacute infarct with mild jhon-infarct hemorrhage would also be in the differential. There is no midline shift. MRI of the brain with and without contrast is recommended. . Head MRI 06/27/18 00:00 CONCLUSION: Findings most characteristic of hemorrhagic infarct in the posterior right temporal lobe. No underlying mass is identified. Neck MRA 06/27/18 00:00 CONCLUSION: Negative MRA Carotids. Percent stenosis is calculated using the diameter of the stenotic region over the diameter of the normal distal internal carotid artery Head MRA 06/27/18 07:45 CONCLUSION: 1. Negative MRA [place] ([place]) non contrast. . Objective Remarks: GENERAL: Patient is 53 yo critically ill lethargic SKIN: Warm and dry. HEAD: Normocephalic. EYES: No scleral icterus. No injection or drainage. NECK: Supple, trachea midline. No JVD or lymphadenopathy. CARDIOVASCULAR: Regular rate and rhythm without murmurs, gallops, or rubs. RESPIRATORY: Breath sounds equal bilaterally. No accessory muscle use. GASTROINTESTINAL: Abdomen soft, non-tender, nondistended. MUSCULOSKELETAL: No cyanosis, or edema. Neuro: Lethargic Assessment and Plan - Assessment and Plan Plan: 1. Septic shock. 2. Acute kidney injury. 3. Hypoglycemic episodes. 4. Electrolyte imbalance, which include hyponatremia and hyperkalemia. 5. Altered mental status. 6. Gram negative bacteremia 7. Leukocytosis. 8. Urinary tract infection. 9. Bilateral consolidations. Rule out infectious process. 10. CHF. 11. Cardiomyopathy EF< 20%. Plan Neuro: Monitor neuro status closely and avoid any sedatives. CT brain: focal heterogeneity of the right parietal lobe possible intra -axial mass and adjacent hemorrhage. A focal subacute infarct with mild jhon-infarct hemorrhage would also be in the differential. No midline shift. Neuro is following- Dr. Casper, MRI brain: hemorrhagic infarct in the posterior right temporal lobe. No underlying mass is identified. NSG eval. Pulm: Continue with Oxygen maintain sats >e 92%. Bronchodilators, aspiration precautions CV: Continue with Levophed maintain MAP > 65 mmHg. Serial lactic acid monitoring till clear On hydrocortisone 100 mg IV every 8 hours. For limited echo today : Monitor renal function, I's and O's, and avoid nephrotoxins. Follow up on BMP today Gentle IV hydration, given severe cardiomyopathy on D5 NS at 50 mL an hour. GI: On Protonix 40 mg daily for GI prophylaxis. Keep NPO for now ID: Continue with abx(vancomycin and Zosyn)Monitor for signs and monitor for signs of infection(fever and WBC). Blood cultures 06/26: GNR Strep pneumonia and Legionella Ag negative. Check BC today, follow up on urine cx Wound care is following, consult ID Heme: Monitor CBC and coags. Check Fibrinogen level. Transfuse 2u FFP correct coagulopathy ( INR 1.8 today) given hemorrhagic infract on MRI brain Endo: SSI with Accu-Cheks q.4 hours GI prophylaxis- Protonix 40 mg daily. DVT prophylaxis with SCD, not on heparin SQ due to CT brain findings Palliative care to assest with goals of care Lines: Right subclavian CVP placed 06/26, peripheral IV's Patient is critically ill with septic shock, gram negative bacteremia, renal failure, UTI , AMS and with severe cardiomyopathy CCT 40 mins
[2018-06-27 09:30] LABS: INR 1.8 Ratio; Prothrombin Time 17.9 sec (9.8-11.6)
[2018-06-27 09:47] LABS: Baso % (Auto) 0.2 % (0.0-2.0); Eos % (Auto) 0.2 % (0.0-4.0); Hematocrit 43.6 % (39.0-51.0); Hemoglobin 14.6 gm/dL (13.0-17.0); Lymph # (Auto) 0.1 th/mm3 (1.0-4.8); Lymph % (Auto) 0.7 % (9.0-44.0); Mean Corpuscular HGB Conc 33.5 % (32.0-36.0); Mean Corpuscular Hemoglobin 29.5 pg (27.0-34.0); Mean Corpuscular Volume 88.3 fL (80.0-100.0); Mean Platelet Volume 10.3 fL (7.0-11.0); Mono # (Auto) 0.1 th/mm3 (0.0-0.9); Mono % (Auto) 0.4 % (0.0-8.0); Neut # (Auto) 17.5 th/mm3 (1.8-7.7); Neut % (Auto) 98.5 % (16.0-70.0); Platelet Count 76 th/mm3 (150-450); Red Blood Count 4.94 mil/mm3 (4.50-5.90); White Blood Count 17.7 th/mm3 (4.0-11.0)
[2018-06-27 10:07] LABS: Calcium 7.4 mg/dL (8.5-10.1); Carbon Dioxide 20.4 meq/L (21.0-32.0); Potassium 3.2 meq/L (3.5-5.1); Total Protein 4.5 g/dL (6.4-8.2)
[2018-06-27 10:19] LABS: Monocytes 1 % (0-8)
[2018-06-27 10:20] LABS: Burr Cells 1+; Platelet Morphology Normal (Normal)
--- NOTE | 2018-06-27 11:10 | P.CONID ---
History of Present Illness Service: Infectious disease Consult date: 06/27/18 Requesting Physician: Katrin Antoine Reason for Consult: Evaluation and Mment of Gram negative bacteremia Primary Care Provider: Jeronimo Nelson MD Family Provider: No Primary Care Physician Chief Complaint: Abnormal CT scan History of Present Illness: Mr. Hager is a 52 y/o CM with past medical history significant for alcoholic cardiomyopathy with ejection fraction of 10-15% as documented in prior records. Patient underwent a cardiac catheterization in the past and has been seen by cardiology services. Patient was on a LifeVest and was instructed to follow-up with cardiology but unfortunately patient has been noncompliant in the past. Patient checked himself out of hospice per records. Patient was seen in the ER at [facility] on May 21, 2018 with bilateral lower extremity swelling and was thought to be having a congestive heart failure exacerbation. His last echo showed EF of 20%, dilated cardiomyopathy and moderate mitral valve regurgitation. Reportedly patient has declined referral for AICD placement. 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 Per reports cardiology noted that long-term prognosis is poor due to very low ejection fraction and the lack of AICD. Patient was evaluated by palliative care services on his last admission. Patient was found hypotensive by EVAC outside his friend's home. Patient reportedly is homeless and lives outside the garage of his friend's home. EVAC evaluated the patient and he was found to have a systolic blood pressure in the 80s, tachycardic with a heart rate of 104. He was given a liter bolus in the ED placed on levo fed. Hypoglycemic with a blood sugar of 24 D50. His BUN was 42 his creatinine was 1.52 and he was hyperkalemic with a potassium of 5.6 and a sodium of 127. Patient was found to have an elevated lactic acid of 2.9 and a WBC of 19 point. His UA was positive. Chest x-ray showed mild pulmonary vascular congestion and bilateral lower lobe airspace consolidation. Patient underwent a sepsis workup and was started on empiric antibiotics. ABG on room air was done which showed pH of 7.41, CO2 of 26 PaO2 of 79, bicarb of 16 and a saturation of 94%. His urine drug screen was negative and serum alcohol was less than 3. 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 Patient has been evaluated by neurology services and has an abnormal CT scan. At the present time patient is in the ICU but is shortly going to be headed to radiology services for an MRI. At the time of my evaluation patient is in the ICU currently intubated sedated on Levophed 15 mics. Patient was undergoing an EEG. A CT of the brain showed focal heterogeneity of the right parietal lobe possible intra-axial mass and adjacent hemorrhage. A focal subacute infarct with mild josette-infarct hemorrhage was also in the differential there is no midline shift. Blood cultures drawn and admission are positive for gram-negative rods. Infectious disease is consulted for evaluation and management of septic shock and gram-negative bacteremia. Medical History: CHF (congestive heart failure) Hypertension Surgical History: Surgical History Hx of cardiac catheterization Review of Systems unobtainable due to endotracheal tube PMFSH - History History Provided By: Patient, Medical Record, Transition Mgr / EMT - Medical History Medical History: Medical History (Last Reviewed 06/26/18 @ 12:46 by PALMA Walden) CHF (congestive heart failure) Hypertension - Surgical History Surgical History: Surgical History (Last Reviewed 06/26/18 @ 12:46 by PALMA Walden) Hx of cardiac catheterization - Family History Family History: Family History (Last Reviewed 06/26/18 @ 12:46 by PALMA Walden) Other Family history of hypertension - Tobacco History Second Hand Smoke Exposure: No Smoking Status: Unknown if ever smoked Tobacco Type: Cigarettes - Alcohol History How Often Do You Have a Drink Containing Alcohol: Unable to Obtain - Substance Use History Substance History: Unable to Obtain - Travel History Recent Travel in the [place] Within the Last 8 Weeks: No Recent Travel Out of the Country Within the Last 8 Weeks: No - Immunization History Tetanus Immunization: Unable to Assess Hx Influenza Vaccine This Season: Unable to Assess Medications and Allergies Active Medications: Active Medications Al Hydroxide/Mg Hydroxide (Milk Of Samuel Liq) 30 ml PO Q12H PRN PRN Reason: Mild Constipation Albuterol (Duoneb Neb (Emi)) 1 ampul NEB Q4HR NEB EMI Last Admin: 06/27/18 07:33 Dose: 1 ampul Albuterol (Duoneb Neb (Prn)) 1 ampul NEB Q2HR NEB PRN PRN Reason: WHEEZING Bisacodyl (Dulcolax Supp) 10 mg RECTAL DAILY PRN PRN Reason: SEVERE CONSITIPATION Chlorhexidine Gluconate (Chlorhexidine 2% Cloth) 3 pack TOPICAL DAILY@0400 EMI Stop: 07/02/18 03:59 Last Admin: 06/27/18 06:34 Dose: 3 pack Chlorhexidine Gluconate (Chlorhexidine 2% Cloth) 3 pack TOPICAL DAILY@0400 PRN PRN Reason: Extra cloth needed Stop: 07/02/18 03:59 Dextrose (D50w Vial) 50 ml IV.PUSH UNSCH PRN PRN Reason: PER HYPOGLYCEMIA PROTOCOL Last Admin: 06/26/18 19:44 Dose: 50 ml Glucagon (Glucagon Inj) 1 mg OTHER PRN PRN PRN Reason: for Hypoglycemia Protocol Hydrocortisone Sodium Succinate (Solucortef Inj) 100 mg IV.PUSH Q8HR [facility] Last Admin: 06/27/18 06:35 Dose: 100 mg Sodium Chloride (Ns Inj) 500 mls @ 0 mls/hr IV.SIG BOLUS [facility] Last Infusion: 06/26/18 14:07 Dose: Infused Dextrose/Sodium Chloride (D5w/Normal Saline Inj) 1,000 mls @ 50 mls/hr IV.CONT .Q20H [facility] Last Admin: 06/26/18 16:10 Dose: 50 mls/hr Piperacillin/Tazobactam/Dextrose (Zosyn 4.5 Gm Premix) 4.5 gm in 100 mls @ 200 mls/hr IV.SIG Q6H [facility] Last Admin: 06/27/18 08:47 Dose: 200 mls/hr Vancomycin HCl 1,100 mg/ (Sodium Chloride) 261 mls @ 250 mls/hr IV.SIG Q18H [facility] Norepinephrine Bitartrate (Levophed-Dextrose 4 Mg/250 Ml Drip) 4 mg in 250 mls @ 7.5 mls/hr IV.SIG TITRATE PRN; Protocol PRN Reason: Per Protocol Insulin Human Regular (Novolin R Correctional Sugar Inj) 0 units SQ Q4HR [facility]; Protocol Last Admin: 06/27/18 08:47 Dose: Not Given Lactulose (Lactulose Liq) 30 ml PO DAILY PRN PRN Reason: SEVERE CONSITIPATION Miscellaneous Information ([facility] Ordered Lab Info) 0 each OTHER ONCE ONE Stop: 06/28/18 20:46 Pantoprazole Sodium (Protonix Inj) 40 mg IV.PUSH Q24H [facility] Last Admin: 06/26/18 17:02 Dose: 40 mg Pharmacy Profile Note (Vancomycin Consult Pharmacy) 1 each OTHER UNSCH PRN PRN Reason: Pharmacy to dose Senna/Docusate Sodium (Josette-Colace) 1 tab PO BID [facility] Last Admin: 06/27/18 08:48 Dose: Not Given Sennosides (Senokot) 17.2 mg PO Q12H PRN PRN Reason: Moderate Constipation Terbutaline Sulfate (Brethine Inj) 1 mg SQ UNSCH PRN PRN Reason: For Extravasation Allergies Allergy/AdvReac Type Severity Reaction Status Date / Time No Known Allergies Allergy Unverified 06/26/18 14:17 Home Medications Medication Instructions Recorded Confirmed Type furosemide [Lasix] 20 mg PO DAILY 05/21/18 05/21/18 History lisinopril 2.5 mg PO DAILY 05/21/18 05/21/18 History potassium chloride [Klor-Con 10] 10 meq PO DAILY 05/21/18 05/21/18 History Exam Vital signs: Vital Signs 06/26/18 12:46 06/26/18 13:01 06/26/18 13:43 Temperature 97.2 F L Pulse Rate 105 H 97 H 116 H Respiratory Rate 17 25 H Blood Pressure 77/58 L 105/61 Pulse Oximetry 06/26/18 14:34 06/26/18 15:04 06/26/18 16:15 Temperature Pulse Rate 114 H 117 H 115 H Respiratory Rate 17 19 15 Blood Pressure 87/63 L 85/59 L 88/65 L Pulse Oximetry 99 98 100 06/26/18 17:00 06/26/18 18:00 06/26/18 19:00 Temperature 97.7 F Pulse Rate 119 H 119 H 104 H Respiratory Rate 20 21 13 Blood Pressure 83/61 L 110/74 74/57 L Pulse Oximetry 99 95 06/26/18 20:00 06/26/18 20:42 06/26/18 22:00 Temperature 97.8 F 97.7 F Pulse Rate 109 H 105 H 106 H Respiratory Rate 18 20 15 Blood Pressure 83/60 L 82/64 L Pulse Oximetry 96 93 L 96 06/26/18 22:30 06/26/18 23:00 06/26/18 23:04 Temperature 97.9 F 98.1 F 98.1 F Pulse Rate 108 H 108 H 108 H Respiratory Rate 13 15 16 Blood Pressure 87/63 L 89/64 L Pulse Oximetry 94 L 93 L 97 06/26/18 23:19 06/26/18 23:30 06/27/18 00:00 Temperature 98.1 F 98.1 F Pulse Rate 106 H 106 H 104 H Respiratory Rate 18 17 17 Blood Pressure 89/62 L 87/65 L Pulse Oximetry 96 95 06/27/18 00:38 06/27/18 01:00 06/27/18 01:01 Temperature 98.1 F 98.2 F 98.2 F Pulse Rate 106 H 110 H 110 H Respiratory Rate 23 16 23 Blood Pressure 104/64 93/57 L Pulse Oximetry 95 94 L 94 L 06/27/18 01:31 06/27/18 01:51 06/27/18 02:00 Temperature 98.6 F 98.6 F Pulse Rate 114 H 114 H 113 H Respiratory Rate 19 12 16 Blood Pressure 96/59 L 104/66 98/66 L Pulse Oximetry 93 L 95 06/27/18 02:30 06/27/18 03:00 06/27/18 03:30 Temperature 99.5 F 99.7 F H 99.9 F H Pulse Rate 109 H 109 H 109 H Respiratory Rate 22 12 12 Blood Pressure 90/63 L 88/61 L 98/64 L Pulse Oximetry 77 L 95 95 06/27/18 03:35 06/27/18 04:00 06/27/18 04:30 Temperature 99.7 F H 99.7 F H Pulse Rate 109 H 114 H 116 H Respiratory Rate 22 14 11 L Blood Pressure 98/62 L 87/59 L Pulse Oximetry 94 L 92 L 06/27/18 05:00 06/27/18 05:35 06/27/18 06:00 Temperature 99.5 F 99.5 F 99.5 F Pulse Rate 114 H 114 H 111 H Respiratory Rate 13 14 10 L Blood Pressure 90/61 L 92/59 L 84/63 L Pulse Oximetry 93 L 91 L 92 L 06/27/18 06:30 06/27/18 07:00 06/27/18 07:17 Temperature 99.5 F 99.5 F 99.5 F Pulse Rate 110 H 108 H 109 H Respiratory Rate 11 L 18 16 Blood Pressure 86/60 L 91/64 L 86/59 L Pulse Oximetry 94 L 94 L 94 L 06/27/18 07:30 06/27/18 07:35 06/27/18 07:45 Temperature 99.5 F 99.5 F Pulse Rate 108 H 109 H 110 H Respiratory Rate 16 12 13 Blood Pressure 88/61 L 101/71 Pulse Oximetry 93 L 95 92 L 06/27/18 08:00 06/27/18 09:00 Temperature 99.5 F 99.5 F Pulse Rate 115 H 114 H Respiratory Rate 18 14 Blood Pressure 97/69 L 97/66 L Pulse Oximetry 84 L 84 L Intake & Output 06/26/18 06/27/18 06/27/18 18:59 06:59 18:59 Intake Total 851 / 851 450 / 450 250 / 250 Balance 851 / 851 450 / 450 250 / 250 Weight 65.8 kg Intake: IV 851 / 851 450 / 450 250 / 250 D50W Syringe 50 ML @ 0 mls/hr . 50 / 50 [address] .[facility] Rx#:[id number] Levophed-Dextrose 4 mg/250 ml 250 / 250 250 / 250 Drip 4 mg In 250 ml @ 2 MCG/MIN 7.5 mls/hr IV.SIG TITRATE PRN Rx#:[id number] Zosyn 4.5 GM Premix 4.5 gm In 200 / 200 100 ml @ 200 mls/hr IV.SIG Q6H [facility] Rx#:[id number] NS Inj 500 ML @ Wide Open IV. 500 / 500 SIG BOLUS [facility] Rx#:[id number] Other: Weight On Admission 65.8 kg Narrative: GENERAL: Sedated, on the vent, NAD SKIN: Cool and dry, no generalized rash HEAD: Atraumatic. Normocephalic. No temporal or scalp tenderness. EYES: Pupils equal round and reactive. Scleral icterus. No injection or drainage. No petechia ENT: NAD NECK: Trachea midline. Supple, nontender, no meningeal signs. CARDIOVASCULAR: HS audible. RESPIRATORY: Air entry equal bilaterally. Clear to auscultation bilaterally. GASTROINTESTINAL: Abdomen soft,NT MUSCULOSKELETAL: Extremities without clubbing, cyanosis. Genitourinary examination: Swollen penile shaft with edema and on especially with some purulent discharge noted. No other lesions on the penile shaft or any other genital organs. NEUROLOGICAL: Sedated Psych could not be assessed IV line sites ok. Results - Labs CBC & Chem 7: 06/28/18 04:53 06/28/18 04:53 Labs: Laboratory Results - last 24 hr 06/26/18 06/26/18 06/26/18 13:09 13:09 13:13 WBC 19.8 H RBC 4.78 Hgb 14.3 Hct 43.6 MCV 91.1 MCH 30.0 MCHC 32.9 RDW 20.0 H Plt Count 133 L MPV 9.9 Prelim Diff (Auto) Neut % (Auto) 97.7 H Lymph % (Auto) 0.8 L [place] % (Auto) 1.1 Eos % (Auto) 0.2 Baso % (Auto) 0.2 Neut # (Auto) 19.3 H Lymph # (Auto) 0.2 L [place] # (Auto) 0.2 Eos # (Auto) 0.0 Baso # (Auto) 0.0 WBC Differential . Seg Neuts % (Manual) Band Neuts % (Manual) Monocytes % (Manual) Abs Neuts (Manual) Differential Comment Auto diff final Platelet Estimate Platelet Morphology [place] Cells Keratocytes PT INR APTT Puncture Site Patient Temperature O2 Saturation ABG pH ABG pCO2 ABG pO2 ABG HCO3 ABG O2 Content ABG Base Excess ABG Methemoglobin Rajiv Test VBG pH VBG pCO2 VBG pO2 VBG HCO3 VBG O2 Saturation VBG O2 Content VBG Base Excess VBG Carboxyhemoglobin VBG Methemoglobin Hemoglobin Carboxyhemoglobin O2 Delivery Device Liter Flow Inspired O2 Critical Value Sodium Potassium Chloride Carbon Dioxide Anion Gap BUN Creatinine Estimated GFR POC Glucose Random Glucose Lactic Acid Calcium Prot Corrected Calcium Total Bilirubin AST ALT Alkaline Phosphatase Ammonia Troponin I B-Natriuretic Peptide Total Protein Albumin TSH Urine Color Yellow Urine Clarity Hazy H Urine pH 5.0 Ur Specific [place] 1.010 Urine Protein Negative Urine Glucose (UA) Negative Urine Ketones Negative Urine Occult Blood Moderate H Urine Nitrate Positive H Urine Bilirubin Negative Urine Urobilinogen Less than 2 Ur Leukocyte Esterase Small H Urine RBC 4 H Urine WBC 20 H Urine Bacteria Occasional H Hyaline Casts 26 Urine Mucus Few H Micro UA Comment Culture indicated Ur Microscopic Review Not Reportable Urine Culture Comments Culture indicated Nasal Screen MRSA (PCR) Urine Opiates Screen Neg Ur Barbiturates Screen Neg Ur Amphetamines Screen Neg U Benzodiazepines Scrn Neg Urine Cocaine Screen Neg U Cannabinoids Screen Neg Serum Alcohol 06/26/18 06/26/18 06/26/18 13:13 13:15 13:15 WBC RBC Hgb Hct MCV MCH MCHC RDW Plt Count MPV Prelim Diff (Auto) Neut % (Auto) Lymph % (Auto) [place] % (Auto) Eos % (Auto) Baso % (Auto) Neut # (Auto) Lymph # (Auto) [place] # (Auto) Eos # (Auto) Baso # (Auto) WBC Differential Seg Neuts % (Manual) Band Neuts % (Manual) Monocytes % (Manual) Abs Neuts (Manual) Differential Comment Platelet Estimate Platelet Morphology [place] Cells Keratocytes PT INR APTT Puncture Site Patient Temperature O2 Saturation ABG pH ABG pCO2 ABG pO2 ABG HCO3 ABG O2 Content ABG Base Excess ABG Methemoglobin Rajiv Test VBG pH VBG pCO2 VBG pO2 VBG HCO3 VBG O2 Saturation VBG O2 Content VBG Base Excess VBG Carboxyhemoglobin VBG Methemoglobin Hemoglobin Carboxyhemoglobin O2 Delivery Device Liter Flow Inspired O2 Critical Value Sodium 127 L Potassium 5.6 H Chloride 94 L Carbon Dioxide 19.3 L Anion Gap 14 BUN 42 H Creatinine 1.52 H Estimated GFR 48 L POC Glucose Random Glucose 24 L* Lactic Acid 2.9 H Calcium 7.9 L Prot Corrected Calcium Total Bilirubin 2.2 H AST 82 H ALT 39 Alkaline Phosphatase 116 Ammonia Troponin I 0.03 B-Natriuretic Peptide Greater than 5000 H Total Protein 5.1 L Albumin 2.2 L TSH 2.040 Urine Color Urine Clarity Urine pH Ur Specific [place] Urine Protein Urine Glucose (UA) Urine Ketones Urine Occult Blood Urine Nitrate Urine Bilirubin Urine Urobilinogen Ur Leukocyte Esterase Urine RBC Urine WBC Urine Bacteria Hyaline Casts Urine Mucus Micro UA Comment Ur Microscopic Review Urine Culture Comments Nasal Screen MRSA (PCR) Urine Opiates Screen Ur Barbiturates Screen Ur Amphetamines Screen U Benzodiazepines Scrn Urine Cocaine Screen U Cannabinoids Screen Serum Alcohol Less than 3 06/26/18 06/26/18 06/26/18 13:15 14:19 14:30 WBC RBC Hgb Hct MCV MCH MCHC RDW Plt Count MPV Prelim Diff (Auto) Neut % (Auto) Lymph % (Auto) [place] % (Auto) Eos % (Auto) Baso % (Auto) Neut # (Auto) Lymph # (Auto) [place] # (Auto) Eos # (Auto) Baso # (Auto) WBC Differential Seg Neuts % (Manual) Band Neuts % (Manual) Monocytes % (Manual) Abs Neuts (Manual) Differential Comment Platelet Estimate Platelet Morphology [place] Cells Keratocytes PT 17.6 H INR 1.7 APTT 45.3 H Puncture Site Right radial Patient Temperature 98.6 O2 Saturation 94 ABG pH 7.41 ABG pCO2 26 L ABG pO2 79 ABG HCO3 16 L* ABG O2 Content 19.6 ABG Base Excess -7.8 L ABG Methemoglobin 0.5 Rajiv Test Present VBG pH VBG pCO2 VBG pO2 VBG HCO3 VBG O2 Saturation VBG O2 Content VBG Base Excess VBG Carboxyhemoglobin VBG Methemoglobin Hemoglobin 14.8 Carboxyhemoglobin 1.2 O2 Delivery Device Liter Flow Inspired O2 21 Critical Value Yes Sodium Potassium Chloride Carbon Dioxide Anion Gap BUN Creatinine Estimated GFR POC Glucose Random Glucose Lactic Acid Calcium Prot Corrected Calcium Total Bilirubin AST ALT Alkaline Phosphatase Ammonia 12 Troponin I B-Natriuretic Peptide Total Protein Albumin TSH Urine Color Urine Clarity Urine pH Ur Specific [place] Urine Protein Urine Glucose (UA) Urine Ketones Urine Occult Blood Urine Nitrate Urine Bilirubin Urine Urobilinogen Ur Leukocyte Esterase Urine RBC Urine WBC Urine Bacteria Hyaline Casts Urine Mucus Micro UA Comment Ur Microscopic Review Urine Culture Comments Nasal Screen MRSA (PCR) Urine Opiates Screen Ur Barbiturates Screen Ur Amphetamines Screen U Benzodiazepines Scrn Urine Cocaine Screen U Cannabinoids Screen Serum Alcohol 06/26/18 06/26/18 06/26/18 15:20 16:36 17:30 WBC RBC Hgb Hct MCV MCH MCHC RDW Plt Count MPV Prelim Diff (Auto) Neut % (Auto) Lymph % (Auto) [place] % (Auto) Eos % (Auto) Baso % (Auto) Neut # (Auto) Lymph # (Auto) [place] # (Auto) Eos # (Auto) Baso # (Auto) WBC Differential Seg Neuts % (Manual) Band Neuts % (Manual) Monocytes % (Manual) Abs Neuts (Manual) Differential Comment Platelet Estimate Platelet Morphology [place] Cells Keratocytes PT INR APTT Puncture Site Peripheral line Patient Temperature 98.6 O2 Saturation ABG pH ABG pCO2 ABG pO2 ABG HCO3 ABG O2 Content ABG Base Excess ABG Methemoglobin Rajiv Test VBG pH 7.29 L* VBG pCO2 42 L VBG pO2 12 L* VBG HCO3 19 L VBG O2 Saturation 6 L VBG O2 Content 1.3 L VBG Base Excess -6.0 L VBG Carboxyhemoglobin 0.5 VBG Methemoglobin 0.6 Hemoglobin 14.8 Carboxyhemoglobin O2 Delivery Device Liter Flow Inspired O2 21 Critical Value Yes Sodium Potassium Chloride Carbon Dioxide Anion Gap BUN Creatinine Estimated GFR POC Glucose 83 Random Glucose Lactic Acid Calcium Prot Corrected Calcium Total Bilirubin AST ALT Alkaline Phosphatase Ammonia Troponin I B-Natriuretic Peptide Total Protein Albumin TSH Urine Color Urine Clarity Urine pH Ur Specific [place] Urine Protein Urine Glucose (UA) Urine Ketones Urine Occult Blood Urine Nitrate Urine Bilirubin Urine Urobilinogen Ur Leukocyte Esterase Urine RBC Urine WBC Urine Bacteria Hyaline Casts Urine Mucus Micro UA Comment Ur Microscopic Review Urine Culture Comments Nasal Screen MRSA (PCR) Not detected Urine Opiates Screen Ur Barbiturates Screen Ur Amphetamines Screen U Benzodiazepines Scrn Urine Cocaine Screen U Cannabinoids Screen Serum Alcohol 06/26/18 06/26/18 06/26/18 18:20 19:03 19:03 WBC RBC Hgb Hct MCV MCH MCHC RDW Plt Count MPV Prelim Diff (Auto) Neut % (Auto) Lymph % (Auto) [place] % (Auto) Eos % (Auto) Baso % (Auto) Neut # (Auto) Lymph # (Auto) [place] # (Auto) Eos # (Auto) Baso # (Auto) WBC Differential Seg Neuts % (Manual) Band Neuts % (Manual) Monocytes % (Manual) Abs Neuts (Manual) Differential Comment Platelet Estimate Platelet Morphology [place] Cells Keratocytes PT INR APTT Puncture Site Left radial Patient Temperature 98.6 O2 Saturation 94 ABG pH 7.43 H ABG pCO2 25 L ABG pO2 87 ABG HCO3 16 L* ABG O2 Content 20.6 H ABG Base Excess -7.2 L ABG Methemoglobin 1.3 Rajiv Test Present VBG pH VBG pCO2 VBG pO2 VBG HCO3 VBG O2 Saturation VBG O2 Content VBG Base Excess VBG Carboxyhemoglobin VBG Methemoglobin Hemoglobin 15.6 Carboxyhemoglobin 1.2 O2 Delivery Device Nasal cannula Liter Flow 2.00 Inspired O2 Critical Value Yes Sodium 133 L Potassium 3.9 D Chloride 98 Carbon Dioxide 20.3 L Anion Gap 15 BUN 38 H Creatinine 1.32 H Estimated GFR 57 L POC Glucose Random Glucose 68 L Lactic Acid 3.2 H Calcium 7.3 L* Prot Corrected Calcium 8.7 Total Bilirubin AST ALT Alkaline Phosphatase Ammonia Troponin I B-Natriuretic Peptide Total Protein 4.6 L Albumin TSH Urine Color Urine Clarity Urine pH Ur Specific [place] Urine Protein Urine Glucose (UA) Urine Ketones Urine Occult Blood Urine Nitrate Urine Bilirubin Urine Urobilinogen Ur Leukocyte Esterase Urine RBC Urine WBC Urine Bacteria Hyaline Casts Urine Mucus Micro UA Comment Ur Microscopic Review Urine Culture Comments Nasal Screen MRSA (PCR) Urine Opiates Screen Ur Barbiturates Screen Ur Amphetamines Screen U Benzodiazepines Scrn Urine Cocaine Screen U Cannabinoids Screen Serum Alcohol 06/26/18 06/26/18 06/27/18 19:10 19:49 01:37 WBC RBC Hgb Hct MCV MCH MCHC RDW Plt Count MPV Prelim Diff (Auto) Neut % (Auto) Lymph % (Auto) [place] % (Auto) Eos % (Auto) Baso % (Auto) Neut # (Auto) Lymph # (Auto) [place] # (Auto) Eos # (Auto) Baso # (Auto) WBC Differential Seg Neuts % (Manual) Band Neuts % (Manual) Monocytes % (Manual) Abs Neuts (Manual) Differential Comment Platelet Estimate Platelet Morphology [place] Cells Keratocytes PT INR APTT Puncture Site Patient Temperature O2 Saturation ABG pH ABG pCO2 ABG pO2 ABG HCO3 ABG O2 Content ABG Base Excess ABG Methemoglobin Rajiv Test VBG pH VBG pCO2 VBG pO2 VBG HCO3 VBG O2 Saturation VBG O2 Content VBG Base Excess VBG Carboxyhemoglobin VBG Methemoglobin Hemoglobin Carboxyhemoglobin O2 Delivery Device Liter Flow Inspired O2 Critical Value Sodium Potassium Chloride Carbon Dioxide Anion Gap BUN Creatinine Estimated GFR POC Glucose 38 L* 108 107 Random Glucose Lactic Acid Calcium Prot Corrected Calcium Total Bilirubin AST ALT Alkaline Phosphatase Ammonia Troponin I B-Natriuretic Peptide Total Protein Albumin TSH Urine Color Urine Clarity Urine pH Ur Specific [place] Urine Protein Urine Glucose (UA) Urine Ketones Urine Occult Blood Urine Nitrate Urine Bilirubin Urine Urobilinogen Ur Leukocyte Esterase Urine RBC Urine WBC Urine Bacteria Hyaline Casts Urine Mucus Micro UA Comment Ur Microscopic Review Urine Culture Comments Nasal Screen MRSA (PCR) Urine Opiates Screen Ur Barbiturates Screen Ur Amphetamines Screen U Benzodiazepines Scrn Urine Cocaine Screen U Cannabinoids Screen Serum Alcohol 06/27/18 06/27/18 06/27/18 04:04 08:14 08:50 WBC RBC Hgb Hct MCV MCH MCHC RDW Plt Count MPV Prelim Diff (Auto) Neut % (Auto) Lymph % (Auto) [place] % (Auto) Eos % (Auto) Baso % (Auto) Neut # (Auto) Lymph # (Auto) [place] # (Auto) Eos # (Auto) Baso # (Auto) WBC Differential Seg Neuts % (Manual) Band Neuts % (Manual) Monocytes % (Manual) Abs Neuts (Manual) Differential Comment Platelet Estimate Platelet Morphology [place] Cells Keratocytes PT 17.9 H INR 1.8 APTT Puncture Site Patient Temperature O2 Saturation ABG pH ABG pCO2 ABG pO2 ABG HCO3 ABG O2 Content ABG Base Excess ABG Methemoglobin Rajiv Test VBG pH VBG pCO2 VBG pO2 VBG HCO3 VBG O2 Saturation VBG O2 Content VBG Base Excess VBG Carboxyhemoglobin VBG Methemoglobin Hemoglobin Carboxyhemoglobin O2 Delivery Device Liter Flow Inspired O2 Critical Value Sodium Potassium Chloride Carbon Dioxide Anion Gap BUN Creatinine Estimated GFR POC Glucose 115 H 132 H Random Glucose Lactic Acid Calcium Prot Corrected Calcium Total Bilirubin AST ALT Alkaline Phosphatase Ammonia Troponin I B-Natriuretic Peptide Total Protein Albumin TSH Urine Color Urine Clarity Urine pH Ur Specific [place] Urine Protein Urine Glucose (UA) Urine Ketones Urine Occult Blood Urine Nitrate Urine Bilirubin Urine Urobilinogen Ur Leukocyte Esterase Urine RBC Urine WBC Urine Bacteria Hyaline Casts Urine Mucus Micro UA Comment Ur Microscopic Review Urine Culture Comments Nasal Screen MRSA (PCR) Urine Opiates Screen Ur Barbiturates Screen Ur Amphetamines Screen U Benzodiazepines Scrn Urine Cocaine Screen U Cannabinoids Screen Serum Alcohol 06/27/18 06/27/18 08:50 08:50 WBC 17.7 H RBC 4.94 Hgb 14.6 Hct 43.6 MCV 88.3 MCH 29.5 MCHC 33.5 RDW 20.0 H Plt Count 76 L D MPV 10.3 Prelim Diff (Auto) Slide review pending Neut % (Auto) 98.5 H Lymph % (Auto) 0.7 L [place] % (Auto) 0.4 Eos % (Auto) 0.2 Baso % (Auto) 0.2 Neut # (Auto) 17.5 H Lymph # (Auto) 0.1 L [place] # (Auto) 0.1 Eos # (Auto) 0.0 Baso # (Auto) 0.0 WBC Differential Manual diff final Seg Neuts % (Manual) 75 H Band Neuts % (Manual) 24 H Monocytes % (Manual) 1 Abs Neuts (Manual) 17.5 H Differential Comment . Platelet Estimate Low L Platelet Morphology Normal [place] Cells 1+ H Keratocytes Occ H PT INR APTT Puncture Site Patient Temperature O2 Saturation ABG pH ABG pCO2 ABG pO2 ABG HCO3 ABG O2 Content ABG Base Excess ABG Methemoglobin Rajiv Test VBG pH VBG pCO2 VBG pO2 VBG HCO3 VBG O2 Saturation VBG O2 Content VBG Base Excess VBG Carboxyhemoglobin VBG Methemoglobin Hemoglobin Carboxyhemoglobin O2 Delivery Device Liter Flow Inspired O2 Critical Value Sodium 134 L Potassium 3.2 L Chloride 101 Carbon Dioxide 20.4 L Anion Gap 13 BUN 37 H Creatinine 1.26 Estimated GFR 60 L POC Glucose Random Glucose 152 H Lactic Acid Calcium 7.4 L* Prot Corrected Calcium 8.9 Total Bilirubin 2.5 H AST 28 ALT 34 Alkaline Phosphatase 134 H Ammonia Troponin I B-Natriuretic Peptide Total Protein 4.5 L Albumin 2.0 L TSH Urine Color Urine Clarity Urine pH Ur Specific [place] Urine Protein Urine Glucose (UA) Urine Ketones Urine Occult Blood Urine Nitrate Urine Bilirubin Urine Urobilinogen Ur Leukocyte Esterase Urine RBC Urine WBC Urine Bacteria Hyaline Casts Urine Mucus Micro UA Comment Ur Microscopic Review Urine Culture Comments Nasal Screen MRSA (PCR) Urine Opiates Screen Ur Barbiturates Screen Ur Amphetamines Screen U Benzodiazepines Scrn Urine Cocaine Screen U Cannabinoids Screen Serum Alcohol - Imaging Impressions Chest X-Ray 06/26/18 12:14 CONCLUSION: 1. Cardiomegaly with mild pulmonary vascular congestion. 2. Bilateral lower lobe airspace consolidation and likely small right-sided pleural effusion. Chest X-Ray 06/26/18 18:39 CONCLUSION: 1. No pneumothorax status post placement of right subclavian central line which has its tip in superior vena cava. 2. Moderate pulmonary edema. 3. Cardiomegaly. Head CT 06/27/18 00:00 CONCLUSION: Focal heterogeneity of the right parietal lobe as described of concern for a possible intra-axial mass and adjacent hemorrhage. A focal subacute infarct with mild josette-infarct hemorrhage would also be in the differential. There is no midline shift. MRI of the brain with and without contrast is recommended. . Assessment and Plan - Plan Septic shock with multiorgan dysfunction syndrome the on pressors Gram-negative bacteremia likely source of rule out endocarditis Acute respiratory failure on ventilator Acute metabolic encephalopathy likely secondary to hepatic encephalopathy possible meningitis or encephalitis(infectious cerebritis), seizures. Rule out mycotic aneurysm Recommendations Continue Zosyn IV Continue vancomycin IV Follow MRI if concerning for mycotic aneurysm or infectious cerebritis would consider getting an lumbar puncture especially the goals of care remain aggressive. Upon discussion with Dr. Joinre it appears the patient was in hospice more recently and withdrew himself from the care of hospice facilities. Patient is also been noncompliant with cardiology services and has refused AICD considering all this it would be appropriate to consider palliative care to address goals of therapy. Patient reportedly has 2 brothers who he have his power of real estate associate attorney on prior visits in April when Dr. Moss of palliative care services has seen this patient. Repeat blood cultures 2 Follow cultures Check hepatitis profile check HIV screen ? cause for CMyopathy as it was non ischemic and one of the differentials was viral. Check CRP Check lactic acid Follow clinically
[2018-06-27] MEDS: Vancomycin Inj 1,100 MG in Sodium Chlor 0.9% Inj 250 ML IV.SIG SCH (11:28)
[2018-06-27 12:41] LABS: Hepatitits B Surface Antigen Nonreactive (Nonreactive)
[2018-06-27 13:01] LABS: Hepatitis A IgM Antibody Nonreactive (Nonreactive)
--- NOTE | 2018-06-27 14:01 | MR ---
EXAM DATE: 06/27/2018 1:57 PM EDT AGE/SEX: 53 years / Male INDICATIONS: Altered mental status. CLINICAL DATA: This is the patient's subsequent encounter. Patient reports that signs and symptoms h ave been present for 1 day and indicates a pain score of 0/10. MEDICAL/SURGICAL HISTORY: Hypertension. CHF None. COMPARISON: [facility] [place], CT HEAD W/O CONTRAST, 06/27/2018. [facility] [place], MR HEAD W & W/O CONTRAST, 06/27/2018. . TECHNIQUE: 3D [id number] MRA was performed. Source images, multiplanar STS MIP, and 3D volum e MIP reconstructions were reviewed. FINDINGS: There is excellent visualization of the major intracranial arteries out to the second-order branch ve ssels. There is no evidence for aneurysm, vessel truncation or stenosis, and no evidence for vascula r malformation. CONCLUSION: 1. Negative MRA [place] ([place]) non contrast. Electronically signed by: Kehinde Feliciano MD 06/27/2018 2:00 PM EDT
[2018-06-27] MEDS ORDERED: Potassium Chlor 40 mEq Premix 40 MEQ/100 ML PIGGYBACK IV.SIG PRN (14:13)
[2018-06-27] MEDS ORDERED: Potassium Phosphate 500 MG Soluble Tablet PO PRN ×2 (14:13)
[2018-06-27] MEDS ORDERED: Magnesium Oxide 400 MG Tablet PO PRN (14:13)
[2018-06-27] MEDS ORDERED: Magnesium Sulfate Inj 2 GM in Sodium Chlor 0.9% Inj 96 ML IV.SIG PRN (14:13)
[2018-06-27] MEDS ORDERED: Potassium Chlor 20 mEq Premix 20 MEQ/100 ML PIGGYBACK IV.SIG PRN ×2 (14:13)
[2018-06-27] MEDS ORDERED: Potassium Chloride 25 MEQ Effervescent Tablet PO PRN (14:13)
[2018-06-27] MEDS ORDERED: Potassium Phosphate Inj 30 MMOL in Sodium Chlor 0.9% Inj 250 ML IV.SIG PRN (14:13)
[2018-06-27] MEDS ORDERED: Magnesium Sulfate Inj 4 GM in Sodium Chlor 0.9% Inj 92 ML IV.SIG PRN (14:13)
[2018-06-27] MEDS ORDERED: Sodium Phosphate Inj 30 MMOL in Sodium Chlor 0.9% Inj 250 ML IV.SIG PRN (14:13)
--- NOTE | 2018-06-27 14:31 | P.PNPAL ---
Patient currently getting imaging. Pt is reported lethargic and with documented altered mental status. Pt is known to palliative care and has completed health care surrogate, designating his brothers: Charles Hager : [facility] as primary health care surrogate. Harshal Hager: [place] as alternate health care surrogate. He never was able to provide any contact phone numbers. I have called his friends listed in the computer and they do not have any of pt' s brother's phone number. I will consult case managment for assitance to search for pt's brothers. I will be back in the afternoon to see if pt return.
--- NOTE | 2018-06-27 14:38 | P.PNWCN ---
Wound Care Nurse Consult Description: Wound consult ordered by for wound management. Communicated with: Asuncion RN, Birdie RN Recommendation: 1. Cleanse bilateral lower extremities with warm soap and water rinse pat dry 2. Apply thin layer of Calazime cream to wound bases BID and leave open to air , If weeping occurs place lower extremities on UltraSorb moisture wicking underpad. 3. please ensure to reposition patient every 2 hours for off loading and comfort. 4. Contact wound nurse if treatment fails or wounds worsen. Additional information: Patient was seen today by insurance underwriter ,Asuncion RN, Birdie RN for wound management.Patient currently sedated .L[place] Blindstitch was able to visualize lower extremities.Patient has diffuse dry unroofed bulla to lower extremities with areas of abrasions.Bilateral knees healing bruises noted.Scant serous exudate noted from unroofed bulla located on right lateral gaiter area without odor.Wounds cleansed with normals susana pat dry Calazime applied in thin layer. Wound/Pressure Injury - Wound Left Foot Wound Type: Abrasion Is This a Chronic Wound: No Requested from Provider a Wound Care Consult: No (Nicol MOLINA,[facility] seen 06/27) Wound Bed Appearance: Red Topical: calazime Right Foot Wound Type: Abrasion Left Leg Wound Type: Blister Right Leg Wound Type: Blister
[2018-06-27] MEDS: Potassium Chlor 40 mEq Premix 40 MEQ/100 ML PIGGYBACK IV.SIG PRN ×2 (14:52→18:37)
[2018-06-27] MEDS: Dextrose 5%/NaCl 0.9% Inj 1,000 ML IV.CONT SCH (14:52)
[2018-06-27] MEDS ORDERED: Gadobutrol PF 10 MMOL/10 ML Vial (for RAD) IV.SIG ONE (14:54)
--- NOTE | 2018-06-27 15:51 | P.CONPAL ---
Consult Service: Palliative Care Requesting Physician: Katrin Antoine Reason for Consult: a. To assist with evaluation and management of symptoms including:confusion b. To assist medical decision maker(s) with: better understanding of current medical conditions; weighing benefits/burdens of medical treatment options; making medical treatment decisions. Primary Care Provider: Jeronimo Nelson MD History of Present Illness History of Present Illness: Patient is a 53-year-old with a past medical history significant for end-stage cardiomyopathy, CHF(ejection fraction of less than 20% echocardiogram done in May 2017. Catheterization done on 06/30/2017 shows an estimated EF of 10%), that I have seen in April 2018, approximately a month ago. He was able to designate a healthcare surrogate, however he was unable to provide any phone numbers. Clinical condition and goals of care were reviewed and at the time. I told him that his heart condition is end-stage. His goals have been aggressive and pt was discharge. Patient return to the ER on 06/26/2018. * Temperature is 97.2, pulse is 105, respirations 17, blood pressure 77/58 on room air * WBCs 19.8, hemoglobin is 14.3, hematocrit is 43.6, platelet 133 * Sodium is 127, potassium is 5.6, chloride 94, bicarb is 19.3, BUNs 42, creatinine is 1.52 * Glucose is 24. Lactic acid is 2.9 * AST is 82, ALT is 39 * BNP is 5000, albumin is 2.2 * Serum alcohol is less than 3 and all other urine tox screen were negative * UA shows small amount of leukocyte esterase positive for nitrate * Blood cultures are positive for gram-negative rods * Chest x-ray shows moderate amount of pulmonary edema, cardiomegaly * Head CT shows a 3.5 cm cortical and subcortical hypodensity seen in the right parietal lobe, suggesting a small parenchymal hemorrhage. * Head MRA, negative in the [place]. * MRI of the head is pending. . Patient admitted to the ICU and care was transferred to critical medicine. Was consulted, infectious disease was consulted. Patient was placed on pressors. Palliative care was consulted to review goals of care. Patient had gone back into the room from imaging studies. MRI is still pending. Patient is lethargic and obtunded. There is no grimacing. Unable to review goals of care patient. I have called patient's friends, Javier Olguin - who does not have any contact info for pt's brother/health care surrogate. I left a voicemail for Jluito Stacey. I will consult case managment for assistance to locate patient's brothers. Function/Cognitive Trajectory: Worsening of edema and swelling, with dyspnea and fatigue the past few months. Review of Systems unobtainable due to mental condition Constitutional: Reports fatigue Cardiovascular: Reports shortness of breath, Reports other (edema) PMFSH - History History Provided By: Patient, Medical Record, Telecommunicator Supervisor / EMT - Medical History Medical History: Medical History (Last Reviewed 06/26/18 @ 12:46 by PALMA Walden) CHF (congestive heart failure) Hypertension - Surgical History Surgical History: Surgical History (Last Reviewed 06/26/18 @ 12:46 by PALMA Walden) Hx of cardiac catheterization - Family History Family History: Family History (Last Reviewed 06/26/18 @ 12:46 by PALMA Walden) Other Family history of hypertension - Tobacco History Second Hand Smoke Exposure: No Smoking Status: Current every day smoker Tobacco Type: Cigarettes - Alcohol History How Often Do You Have a Drink Containing Alcohol: 2 to 3 times a week - Substance Use History Substance History: Active Abuse (hx of etoh abuse, from my past interaction from patient.), Unable to Obtain - Travel History Recent Travel in the [place] Within the Last 8 Weeks: No Recent Travel Out of the Country Within the Last 8 Weeks: No - Immunization History Tetanus Immunization: Unable to Assess Hx Influenza Vaccine This Season: Unable to Assess Medications and Allergies Active Medications: Active Medications Al Hydroxide/Mg Hydroxide (Milk Of Samuel Dubon) 30 ml PO Q12H PRN PRN Reason: Mild Constipation Albuterol (Duoneb Neb (Emi)) 1 ampul NEB Q4HR NEB EMI Last Admin: 06/27/18 12:29 Dose: 1 ampul Albuterol (Duoneb Neb (Prn)) 1 ampul NEB Q2HR NEB PRN PRN Reason: WHEEZING Bisacodyl (Dulcolax Supp) 10 mg RECTAL DAILY PRN PRN Reason: SEVERE CONSITIPATION Chlorhexidine Gluconate (Chlorhexidine 2% Cloth) 3 pack TOPICAL DAILY@0400 [facility] Stop: 07/02/18 03:59 Last Admin: 06/27/18 06:34 Dose: 3 pack Chlorhexidine Gluconate (Chlorhexidine 2% Cloth) 3 pack TOPICAL DAILY@0400 PRN PRN Reason: Extra cloth needed Stop: 07/02/18 03:59 Dextrose (D50w Vial) 50 ml IV.PUSH UNSCH PRN PRN Reason: PER HYPOGLYCEMIA PROTOCOL Last Admin: 06/26/18 19:44 Dose: 50 ml Glucagon (Glucagon Inj) 1 mg OTHER PRN PRN PRN Reason: for Hypoglycemia Protocol Hydrocortisone Sodium Succinate (Solucortef Inj) 100 mg IV.PUSH Q8HR [facility] Last Admin: 06/27/18 14:33 Dose: 100 mg Sodium Chloride (Ns Inj) 500 mls @ 0 mls/hr IV.SIG BOLUS [facility] Last Infusion: 06/26/18 14:07 Dose: Infused Dextrose/Sodium Chloride (D5w/Normal Saline Inj) 1,000 mls @ 50 mls/hr IV.CONT .Q20H [facility] Last Admin: 06/27/18 14:52 Dose: 50 mls/hr Piperacillin/Tazobactam/Dextrose (Zosyn 4.5 Gm Premix) 4.5 gm in 100 mls @ 200 mls/hr IV.SIG Q6H [facility] Last Admin: 06/27/18 14:33 Dose: 200 mls/hr Vancomycin HCl 1,100 mg/ (Sodium Chloride) 261 mls @ 250 mls/hr IV.SIG Q18H [facility] Last Infusion: 06/27/18 14:53 Dose: Infused Norepinephrine Bitartrate (Levophed-Dextrose 4 Mg/250 Ml Drip) 4 mg in 250 mls @ 7.5 mls/hr IV.SIG TITRATE PRN; Protocol PRN Reason: Per Protocol Last Admin: 06/27/18 13:04 Dose: 15 mcg/min, 56.25 mls/hr Magnesium Sulfate Inj 4 gm/ (Sodium Chloride) 100 mls @ 50 mls/hr IV.SIG UNSCH PRN PRN Reason: For Magnesium 0.9 - 1.1 mg/dL Magnesium Sulfate Inj 2 gm/ (Sodium Chloride) 100 mls @ 50 mls/hr IV.SIG UNSCH PRN PRN Reason: For Magnesium 1.2 - 1.6 mg/dL Potassium Chloride (Kcl 40 Meq Premix Inj) 40 meq in 100 mls @ 25 mls/hr IV.SIG Q2H PRN PRN Reason: For Potassium 2.8 - 3.2 mEq/L Last Admin: 06/27/18 14:52 Dose: 25 mls/hr Potassium Chloride (Kcl 20 Meq Premix Inj) 20 meq in 100 mls @ 50 mls/hr IV.SIG Q2H PRN PRN Reason: For Potassium 3.3 - 3.5 mEq/L Potassium Chloride (Kcl 40 Meq Premix Inj) 40 meq in 100 mls @ 25 mls/hr IV.SIG UNSCH PRN PRN Reason: For Potassium 3.3 - 3.5 mEq/L Potassium Phosphate 30 mmol/ (Sodium Chloride) 260 mls @ 42 mls/hr IV.SIG UNSCH PRN PRN Reason: SEE LABEL COMMENTS Sodium Phosphate 30 mmol/ (Sodium Chloride) 260 mls @ 42 mls/hr IV.SIG UNSCH PRN PRN Reason: For Phosphorus < 2.5 mg/dL Potassium Chloride (Kcl 20 Meq Premix Inj) 20 meq in 100 mls @ 50 mls/hr IV.SIG Q2H PRN PRN Reason: For Potassium 2.8 - 3.2 mEq/L Insulin Human Regular (Novolin R Correctional Sugar Inj) 0 units SQ Q4HR EMI; Protocol Last Admin: 06/27/18 13:05 Dose: Not Given Lactulose (Lactulose Liq) 30 ml PO DAILY PRN PRN Reason: SEVERE CONSITIPATION Magnesium Oxide (Mag-Ox) 800 mg PO UNSCH PRN PRN Reason: For Magnesium 1.2 - 1.6 mg/dL Miscellaneous Information ([facility] Ordered Lab Info) 0 each OTHER ONCE ONE Stop: 06/28/18 20:46 Pantoprazole Sodium (Protonix Inj) 40 mg IV.PUSH Q24H EMI Last Admin: 06/26/18 17:02 Dose: 40 mg Pharmacy Profile Note (Vancomycin Consult Pharmacy) 1 each OTHER UNSCH PRN PRN Reason: Pharmacy to dose Potassium Bicarb/Potassium Chloride (K-Lyte Cl Eff) 50 meq PO UNSCH PRN PRN Reason: For Potassium 3.3 - 3.5 mEq/L Potassium Phosphate (K-Phos Original) 2,000 mg PO Q4H PRN PRN Reason: Phosphorus Less Than 2.5 mg/dL Potassium Phosphate (K-Phos Original) 2,000 mg PO UNSCH PRN PRN Reason: SEE LABEL COMMENTS Senna/Docusate Sodium (Josette-Colace) 1 tab PO BID EMI Last Admin: 06/27/18 08:48 Dose: Not Given Sennosides (Senokot) 17.2 mg PO Q12H PRN PRN Reason: Moderate Constipation Terbutaline Sulfate (Brethine Inj) 1 mg SQ UNSCH PRN PRN Reason: For Extravasation Allergies Allergy/AdvReac Type Severity Reaction Status Date / Time No Known Allergies Allergy Unverified 06/26/18 14:17 Home Medications Medication Instructions Recorded Confirmed Type furosemide [Lasix] 20 mg PO DAILY 05/21/18 05/21/18 History lisinopril 2.5 mg PO DAILY 05/21/18 05/21/18 History potassium chloride [Klor-Con 10] 10 meq PO DAILY 05/21/18 05/21/18 History Advance Directives Healthcare Surrogate: Yes (although he has not ever been able contact phone numbers.) Physical Exam Vital Signs: Vital Signs - 24 hr 06/26/18 16:15 06/26/18 17:00 06/26/18 18:00 Temperature Pulse Rate 115 H 119 H 119 H Respiratory Rate 15 20 21 Blood Pressure 88/65 L 83/61 L 110/74 Pulse Oximetry 100 99 06/26/18 19:00 06/26/18 20:00 06/26/18 20:42 Temperature 97.7 F 97.8 F Pulse Rate 104 H 109 H 105 H Respiratory Rate 13 18 20 Blood Pressure 74/57 L 83/60 L Pulse Oximetry 95 96 93 L 06/26/18 22:00 06/26/18 22:30 06/26/18 23:00 Temperature 97.7 F 97.9 F 98.1 F Pulse Rate 106 H 108 H 108 H Respiratory Rate 15 13 15 Blood Pressure 82/64 L 87/63 L Pulse Oximetry 96 94 L 93 L 06/26/18 23:04 06/26/18 23:19 06/26/18 23:30 Temperature 98.1 F 98.1 F Pulse Rate 108 H 106 H 106 H Respiratory Rate 16 18 17 Blood Pressure 89/64 L 89/62 L Pulse Oximetry 97 96 06/27/18 00:00 06/27/18 00:38 06/27/18 01:00 Temperature 98.1 F 98.1 F 98.2 F Pulse Rate 104 H 106 H 110 H Respiratory Rate 17 23 16 Blood Pressure 87/65 L 104/64 Pulse Oximetry 95 95 94 L 06/27/18 01:01 06/27/18 01:31 06/27/18 01:51 Temperature 98.2 F 98.6 F 98.6 F Pulse Rate 110 H 114 H 114 H Respiratory Rate 23 19 12 Blood Pressure 93/57 L 96/59 L 104/66 Pulse Oximetry 94 L 93 L 95 06/27/18 02:00 06/27/18 02:30 06/27/18 03:00 Temperature 99.5 F 99.7 F H Pulse Rate 113 H 109 H 109 H Respiratory Rate 16 22 12 Blood Pressure 98/66 L 90/63 L 88/61 L Pulse Oximetry 77 L 95 06/27/18 03:30 06/27/18 03:35 06/27/18 04:00 Temperature 99.9 F H 99.7 F H Pulse Rate 109 H 109 H 114 H Respiratory Rate 12 22 14 Blood Pressure 98/64 L 98/62 L Pulse Oximetry 95 94 L 06/27/18 04:30 06/27/18 05:00 06/27/18 05:35 Temperature 99.7 F H 99.5 F 99.5 F Pulse Rate 116 H 114 H 114 H Respiratory Rate 11 L 13 14 Blood Pressure 87/59 L 90/61 L 92/59 L Pulse Oximetry 92 L 93 L 91 L 06/27/18 06:00 06/27/18 06:30 06/27/18 07:00 Temperature 99.5 F 99.5 F 99.5 F Pulse Rate 111 H 110 H 108 H Respiratory Rate 10 L 11 L 18 Blood Pressure 84/63 L 86/60 L 91/64 L Pulse Oximetry 92 L 94 L 94 L 06/27/18 07:17 06/27/18 07:30 06/27/18 07:35 Temperature 99.5 F 99.5 F Pulse Rate 109 H 108 H 109 H Respiratory Rate 16 16 12 Blood Pressure 86/59 L 88/61 L Pulse Oximetry 94 L 93 L 95 06/27/18 07:45 06/27/18 08:00 06/27/18 09:00 Temperature 99.5 F 99.5 F 99.5 F Pulse Rate 110 H 115 H 114 H Respiratory Rate 13 18 14 Blood Pressure 101/71 97/69 L 97/66 L Pulse Oximetry 92 L 84 L 84 L 06/27/18 12:31 Temperature Pulse Rate 109 H Respiratory Rate 18 Blood Pressure Pulse Oximetry I&O: Intake & Output 06/25/18 06/26/18 06/27/18 06/28/18 06:59 06:59 06:59 06:59 Intake Total 1301 / 1301 1611 / 1611 Balance 1301 / 1301 1611 / 1611 Weight 65.8 kg Physical Exam: CONSTITUTIONAL/GENERAL: This is a frail middle age man. Lethargic, minimally responsive TUBES/LINES/DRAINS:NC, folwy, piv, RIJ SKIN: No jaundice, rashes, or lesions. HEAD: Atraumatic. Normocephalic. EYES: Pupils equal and round and reactive. . No scleral icterus. No injection or drainage. Fundi not examined. ENT: Hearing grossly normal. Nose without bleeding or purulent drainage. Throat without visible erythema, exudates, masses, or lesions. NECK: Trachea midline. Supple, nontender. No palpable thyroid enlargement or nodularity. CARDIOVASCULAR: Regular rate and rhythm without murmurs, gallops, or rubs. No JVD. Peripheral pulses symmetric. RESPIRATORY/CHEST: Symmetric, unlabored respirations. Clear to auscultation. Breath sounds equal bilaterally. No wheezes, rales, or rhonchi. GASTROINTESTINAL: Abdomen soft, non-tender, nondistended. No hepato-splenomegaly , or palpable masses. No guarding. Bowel sounds present. GENITOURINARY: Without palpable bladder distension. Tavarez catheter in place. MUSCULOSKELETAL: Extremities without clubbing, cyanosis, or edema. No joint tenderness or effusion noted. No calf tenderness. No mottling or clubbing. LYMPHATICS: No palpable cervical or supraclavicular adenopathy. NEUROLOGICAL: lethargic PSYCHIATRIC: could not examine Diagnostic Tests Laboratory: Laboratory Results - last 72 hr 06/26/18 06/26/18 06/26/18 13:09 13:09 13:13 WBC 19.8 H RBC 4.78 Hgb 14.3 Hct 43.6 MCV 91.1 MCH 30.0 MCHC 32.9 RDW 20.0 H Plt Count 133 L MPV 9.9 Prelim Diff (Auto) Neut % (Auto) 97.7 H Lymph % (Auto) 0.8 L Rich % (Auto) 1.1 Eos % (Auto) 0.2 Baso % (Auto) 0.2 Neut # (Auto) 19.3 H Lymph # (Auto) 0.2 L Rich # (Auto) 0.2 Eos # (Auto) 0.0 Baso # (Auto) 0.0 WBC Differential . Seg Neuts % (Manual) Band Neuts % (Manual) Monocytes % (Manual) Abs Neuts (Manual) Differential Comment Auto diff final Platelet Estimate Platelet Morphology Mildred Cells Keratocytes PT INR APTT Fibrinogen Puncture Site Patient Temperature O2 Saturation ABG pH ABG pCO2 ABG pO2 ABG HCO3 ABG O2 Content ABG Base Excess ABG Methemoglobin Rajiv Test VBG pH VBG pCO2 VBG pO2 VBG HCO3 VBG O2 Saturation VBG O2 Content VBG Base Excess VBG Carboxyhemoglobin VBG Methemoglobin Hemoglobin Carboxyhemoglobin O2 Delivery Device Liter Flow Inspired O2 Critical Value Sodium Potassium Chloride Carbon Dioxide Anion Gap BUN Creatinine Estimated GFR POC Glucose Random Glucose Lactic Acid Calcium Prot Corrected Calcium Total Bilirubin AST ALT Alkaline Phosphatase Ammonia Troponin I C-Reactive Protein B-Natriuretic Peptide Total Protein Albumin TSH Urine Color Yellow Urine Clarity Hazy H Urine pH 5.0 Ur Specific [place] 1.010 Urine Protein Negative Urine Glucose (UA) Negative Urine Ketones Negative Urine Occult Blood Moderate H Urine Nitrate Positive H Urine Bilirubin Negative Urine Urobilinogen Less than 2 Ur Leukocyte Esterase Small H Urine RBC 4 H Urine WBC 20 H Urine Bacteria Occasional H Hyaline Casts 26 Urine Mucus Few H Micro UA Comment Culture indicated Ur Microscopic Review Not Reportable Urine Culture Comments Culture indicated Nasal Screen MRSA (PCR) Urine Opiates Screen Neg Ur Barbiturates Screen Neg Ur Amphetamines Screen Neg U Benzodiazepines Scrn Neg Urine Cocaine Screen Neg U Cannabinoids Screen Neg Serum Alcohol Hepatitis A IgM Ab Hep Bs Antigen Hep B Core IgM Ab Hep C IgG Ab HIV 1&2 Ab/P24 Ag 4thGn 06/26/18 06/26/18 06/26/18 13:13 13:15 13:15 WBC RBC Hgb Hct MCV MCH MCHC RDW Plt Count MPV Prelim Diff (Auto) Neut % (Auto) Lymph % (Auto) Rich % (Auto) Eos % (Auto) Baso % (Auto) Neut # (Auto) Lymph # (Auto) Rich # (Auto) Eos # (Auto) Baso # (Auto) WBC Differential Seg Neuts % (Manual) Band Neuts % (Manual) Monocytes % (Manual) Abs Neuts (Manual) Differential Comment Platelet Estimate Platelet Morphology [place] Cells Keratocytes PT INR APTT Fibrinogen Puncture Site Patient Temperature O2 Saturation ABG pH ABG pCO2 ABG pO2 ABG HCO3 ABG O2 Content ABG Base Excess ABG Methemoglobin Rajiv Test VBG pH VBG pCO2 VBG pO2 VBG HCO3 VBG O2 Saturation VBG O2 Content VBG Base Excess VBG Carboxyhemoglobin VBG Methemoglobin Hemoglobin Carboxyhemoglobin O2 Delivery Device Liter Flow Inspired O2 Critical Value Sodium 127 L Potassium 5.6 H Chloride 94 L Carbon Dioxide 19.3 L Anion Gap 14 BUN 42 H Creatinine 1.52 H Estimated GFR 48 L POC Glucose Random Glucose 24 L* Lactic Acid 2.9 H Calcium 7.9 L Prot Corrected Calcium Total Bilirubin 2.2 H AST 82 H ALT 39 Alkaline Phosphatase 116 Ammonia Troponin I 0.03 C-Reactive Protein B-Natriuretic Peptide Greater than 5000 H Total Protein 5.1 L Albumin 2.2 L TSH 2.040 Urine Color Urine Clarity Urine pH Ur Specific [place] Urine Protein Urine Glucose (UA) Urine Ketones Urine Occult Blood Urine Nitrate Urine Bilirubin Urine Urobilinogen Ur Leukocyte Esterase Urine RBC Urine WBC Urine Bacteria Hyaline Casts Urine Mucus Micro UA Comment Ur Microscopic Review Urine Culture Comments Nasal Screen MRSA (PCR) Urine Opiates Screen Ur Barbiturates Screen Ur Amphetamines Screen U Benzodiazepines Scrn Urine Cocaine Screen U Cannabinoids Screen Serum Alcohol Less than 3 Hepatitis A IgM Ab Hep Bs Antigen Hep B Core IgM Ab Hep C IgG Ab HIV 1&2 Ab/P24 Ag 4thGn 06/26/18 06/26/18 06/26/18 13:15 14:19 14:30 WBC RBC Hgb Hct MCV MCH MCHC RDW Plt Count MPV Prelim Diff (Auto) Neut % (Auto) Lymph % (Auto) Rich % (Auto) Eos % (Auto) Baso % (Auto) Neut # (Auto) Lymph # (Auto) Rich # (Auto) Eos # (Auto) Baso # (Auto) WBC Differential Seg Neuts % (Manual) Band Neuts % (Manual) Monocytes % (Manual) Abs Neuts (Manual) Differential Comment Platelet Estimate Platelet Morphology Mildred Cells Keratocytes PT 17.6 H INR 1.7 APTT 45.3 H Fibrinogen Puncture Site Right radial Patient Temperature 98.6 O2 Saturation 94 ABG pH 7.41 ABG pCO2 26 L ABG pO2 79 ABG HCO3 16 L* ABG O2 Content 19.6 ABG Base Excess -7.8 L ABG Methemoglobin 0.5 Rajiv Test Present VBG pH VBG pCO2 VBG pO2 VBG HCO3 VBG O2 Saturation VBG O2 Content VBG Base Excess VBG Carboxyhemoglobin VBG Methemoglobin Hemoglobin 14.8 Carboxyhemoglobin 1.2 O2 Delivery Device Liter Flow Inspired O2 21 Critical Value Yes Sodium Potassium Chloride Carbon Dioxide Anion Gap BUN Creatinine Estimated GFR POC Glucose Random Glucose Lactic Acid Calcium Prot Corrected Calcium Total Bilirubin AST ALT Alkaline Phosphatase Ammonia 12 Troponin I C-Reactive Protein B-Natriuretic Peptide Total Protein Albumin TSH Urine Color Urine Clarity Urine pH Ur Specific [place] Urine Protein Urine Glucose (UA) Urine Ketones Urine Occult Blood Urine Nitrate Urine Bilirubin Urine Urobilinogen Ur Leukocyte Esterase Urine RBC Urine WBC Urine Bacteria Hyaline Casts Urine Mucus Micro UA Comment Ur Microscopic Review Urine Culture Comments Nasal Screen MRSA (PCR) Urine Opiates Screen Ur Barbiturates Screen Ur Amphetamines Screen U Benzodiazepines Scrn Urine Cocaine Screen U Cannabinoids Screen Serum Alcohol Hepatitis A IgM Ab Hep Bs Antigen Hep B Core IgM Ab Hep C IgG Ab HIV 1&2 Ab/P24 Ag 4thGn 06/26/18 06/26/18 06/26/18 15:20 16:36 17:30 WBC RBC Hgb Hct MCV MCH MCHC RDW Plt Count MPV Prelim Diff (Auto) Neut % (Auto) Lymph % (Auto) Rich % (Auto) Eos % (Auto) Baso % (Auto) Neut # (Auto) Lymph # (Auto) Rich # (Auto) Eos # (Auto) Baso # (Auto) WBC Differential Seg Neuts % (Manual) Band Neuts % (Manual) Monocytes % (Manual) Abs Neuts (Manual) Differential Comment Platelet Estimate Platelet Morphology [place] Cells Keratocytes PT INR APTT Fibrinogen Puncture Site Peripheral line Patient Temperature 98.6 O2 Saturation ABG pH ABG pCO2 ABG pO2 ABG HCO3 ABG O2 Content ABG Base Excess ABG Methemoglobin Rajiv Test VBG pH 7.29 L* VBG pCO2 42 L VBG pO2 12 L* VBG HCO3 19 L VBG O2 Saturation 6 L VBG O2 Content 1.3 L VBG Base Excess -6.0 L VBG Carboxyhemoglobin 0.5 VBG Methemoglobin 0.6 Hemoglobin 14.8 Carboxyhemoglobin O2 Delivery Device Liter Flow Inspired O2 21 Critical Value Yes Sodium Potassium Chloride Carbon Dioxide Anion Gap BUN Creatinine Estimated GFR POC Glucose 83 Random Glucose Lactic Acid Calcium Prot Corrected Calcium Total Bilirubin AST ALT Alkaline Phosphatase Ammonia Troponin I C-Reactive Protein B-Natriuretic Peptide Total Protein Albumin TSH Urine Color Urine Clarity Urine pH Ur Specific [place] Urine Protein Urine Glucose (UA) Urine Ketones Urine Occult Blood Urine Nitrate Urine Bilirubin Urine Urobilinogen Ur Leukocyte Esterase Urine RBC Urine WBC Urine Bacteria Hyaline Casts Urine Mucus Micro UA Comment Ur Microscopic Review Urine Culture Comments Nasal Screen MRSA (PCR) Not detected Urine Opiates Screen Ur Barbiturates Screen Ur Amphetamines Screen U Benzodiazepines Scrn Urine Cocaine Screen U Cannabinoids Screen Serum Alcohol Hepatitis A IgM Ab Hep Bs Antigen Hep B Core IgM Ab Hep C IgG Ab HIV 1&2 Ab/P24 Ag 4thGn 06/26/18 06/26/18 06/26/18 18:20 19:03 19:03 WBC RBC Hgb Hct MCV MCH MCHC RDW Plt Count MPV Prelim Diff (Auto) Neut % (Auto) Lymph % (Auto) Rich % (Auto) Eos % (Auto) Baso % (Auto) Neut # (Auto) Lymph # (Auto) Rich # (Auto) Eos # (Auto) Baso # (Auto) WBC Differential Seg Neuts % (Manual) Band Neuts % (Manual) Monocytes % (Manual) Abs Neuts (Manual) Differential Comment Platelet Estimate Platelet Morphology Mildred Cells Keratocytes PT INR APTT Fibrinogen Puncture Site Left radial Patient Temperature 98.6 O2 Saturation 94 ABG pH 7.43 H ABG pCO2 25 L ABG pO2 87 ABG HCO3 16 L* ABG O2 Content 20.6 H ABG Base Excess -7.2 L ABG Methemoglobin 1.3 Rajiv Test Present VBG pH VBG pCO2 VBG pO2 VBG HCO3 VBG O2 Saturation VBG O2 Content VBG Base Excess VBG Carboxyhemoglobin VBG Methemoglobin Hemoglobin 15.6 Carboxyhemoglobin 1.2 O2 Delivery Device Nasal cannula Liter Flow 2.00 Inspired O2 Critical Value Yes Sodium 133 L Potassium 3.9 D Chloride 98 Carbon Dioxide 20.3 L Anion Gap 15 BUN 38 H Creatinine 1.32 H Estimated GFR 57 L POC Glucose Random Glucose 68 L Lactic Acid 3.2 H Calcium 7.3 L* Prot Corrected Calcium 8.7 Total Bilirubin AST ALT Alkaline Phosphatase Ammonia Troponin I C-Reactive Protein B-Natriuretic Peptide Total Protein 4.6 L Albumin TSH Urine Color Urine Clarity Urine pH Ur Specific [place] Urine Protein Urine Glucose (UA) Urine Ketones Urine Occult Blood Urine Nitrate Urine Bilirubin Urine Urobilinogen Ur Leukocyte Esterase Urine RBC Urine WBC Urine Bacteria Hyaline Casts Urine Mucus Micro UA Comment Ur Microscopic Review Urine Culture Comments Nasal Screen MRSA (PCR) Urine Opiates Screen Ur Barbiturates Screen Ur Amphetamines Screen U Benzodiazepines Scrn Urine Cocaine Screen U Cannabinoids Screen Serum Alcohol Hepatitis A IgM Ab Hep Bs Antigen Hep B Core IgM Ab Hep C IgG Ab HIV 1&2 Ab/P24 Ag 4thGn 06/26/18 06/26/18 06/27/18 19:10 19:49 01:37 WBC RBC Hgb Hct MCV MCH MCHC RDW Plt Count MPV Prelim Diff (Auto) Neut % (Auto) Lymph % (Auto) Rich % (Auto) Eos % (Auto) Baso % (Auto) Neut # (Auto) Lymph # (Auto) Rich # (Auto) Eos # (Auto) Baso # (Auto) WBC Differential Seg Neuts % (Manual) Band Neuts % (Manual) Monocytes % (Manual) Abs Neuts (Manual) Differential Comment Platelet Estimate Platelet Morphology Mildred Cells Keratocytes PT INR APTT Fibrinogen Puncture Site Patient Temperature O2 Saturation ABG pH ABG pCO2 ABG pO2 ABG HCO3 ABG O2 Content ABG Base Excess ABG Methemoglobin Rajiv Test VBG pH VBG pCO2 VBG pO2 VBG HCO3 VBG O2 Saturation VBG O2 Content VBG Base Excess VBG Carboxyhemoglobin VBG Methemoglobin Hemoglobin Carboxyhemoglobin O2 Delivery Device Liter Flow Inspired O2 Critical Value Sodium Potassium Chloride Carbon Dioxide Anion Gap BUN Creatinine Estimated GFR POC Glucose 38 L* 108 107 Random Glucose Lactic Acid Calcium Prot Corrected Calcium Total Bilirubin AST ALT Alkaline Phosphatase Ammonia Troponin I C-Reactive Protein B-Natriuretic Peptide Total Protein Albumin TSH Urine Color Urine Clarity Urine pH Ur Specific [place] Urine Protein Urine Glucose (UA) Urine Ketones Urine Occult Blood Urine Nitrate Urine Bilirubin Urine Urobilinogen Ur Leukocyte Esterase Urine RBC Urine WBC Urine Bacteria Hyaline Casts Urine Mucus Micro UA Comment Ur Microscopic Review Urine Culture Comments Nasal Screen MRSA (PCR) Urine Opiates Screen Ur Barbiturates Screen Ur Amphetamines Screen U Benzodiazepines Scrn Urine Cocaine Screen U Cannabinoids Screen Serum Alcohol Hepatitis A IgM Ab Hep Bs Antigen Hep B Core IgM Ab Hep C IgG Ab HIV 1&2 Ab/P24 Ag 4thGn 06/27/18 06/27/18 06/27/18 04:04 08:14 08:50 WBC RBC Hgb Hct MCV MCH MCHC RDW Plt Count MPV Prelim Diff (Auto) Neut % (Auto) Lymph % (Auto) Rich % (Auto) Eos % (Auto) Baso % (Auto) Neut # (Auto) Lymph # (Auto) Rich # (Auto) Eos # (Auto) Baso # (Auto) WBC Differential Seg Neuts % (Manual) Band Neuts % (Manual) Monocytes % (Manual) Abs Neuts (Manual) Differential Comment Platelet Estimate Platelet Morphology Mildred Cells Keratocytes PT 17.9 H INR 1.8 APTT Fibrinogen Puncture Site Patient Temperature O2 Saturation ABG pH ABG pCO2 ABG pO2 ABG HCO3 ABG O2 Content ABG Base Excess ABG Methemoglobin Rajiv Test VBG pH VBG pCO2 VBG pO2 VBG HCO3 VBG O2 Saturation VBG O2 Content VBG Base Excess VBG Carboxyhemoglobin VBG Methemoglobin Hemoglobin Carboxyhemoglobin O2 Delivery Device Liter Flow Inspired O2 Critical Value Sodium Potassium Chloride Carbon Dioxide Anion Gap BUN Creatinine Estimated GFR POC Glucose 115 H 132 H Random Glucose Lactic Acid Calcium Prot Corrected Calcium Total Bilirubin AST ALT Alkaline Phosphatase Ammonia Troponin I C-Reactive Protein B-Natriuretic Peptide Total Protein Albumin TSH Urine Color Urine Clarity Urine pH Ur Specific [place] Urine Protein Urine Glucose (UA) Urine Ketones Urine Occult Blood Urine Nitrate Urine Bilirubin Urine Urobilinogen Ur Leukocyte Esterase Urine RBC Urine WBC Urine Bacteria Hyaline Casts Urine Mucus Micro UA Comment Ur Microscopic Review Urine Culture Comments Nasal Screen MRSA (PCR) Urine Opiates Screen Ur Barbiturates Screen Ur Amphetamines Screen U Benzodiazepines Scrn Urine Cocaine Screen U Cannabinoids Screen Serum Alcohol Hepatitis A IgM Ab Hep Bs Antigen Hep B Core IgM Ab Hep C IgG Ab HIV 1&2 Ab/P24 Ag 4thGn 06/27/18 06/27/18 06/27/18 08:50 08:50 08:50 WBC 17.7 H RBC 4.94 Hgb 14.6 Hct 43.6 MCV 88.3 MCH 29.5 MCHC 33.5 RDW 20.0 H Plt Count 76 L D MPV 10.3 Prelim Diff (Auto) Slide review pending Neut % (Auto) 98.5 H Lymph % (Auto) 0.7 L Rich % (Auto) 0.4 Eos % (Auto) 0.2 Baso % (Auto) 0.2 Neut # (Auto) 17.5 H Lymph # (Auto) 0.1 L Rich # (Auto) 0.1 Eos # (Auto) 0.0 Baso # (Auto) 0.0 WBC Differential Manual diff final Seg Neuts % (Manual) 75 H Band Neuts % (Manual) 24 H Monocytes % (Manual) 1 Abs Neuts (Manual) 17.5 H Differential Comment . Platelet Estimate Low L Platelet Morphology Normal [place] Cells 1+ H Keratocytes Occ H PT INR APTT Fibrinogen 375 Puncture Site Patient Temperature O2 Saturation ABG pH ABG pCO2 ABG pO2 ABG HCO3 ABG O2 Content ABG Base Excess ABG Methemoglobin Rajiv Test VBG pH VBG pCO2 VBG pO2 VBG HCO3 VBG O2 Saturation VBG O2 Content VBG Base Excess VBG Carboxyhemoglobin VBG Methemoglobin Hemoglobin Carboxyhemoglobin O2 Delivery Device Liter Flow Inspired O2 Critical Value Sodium 134 L Potassium 3.2 L Chloride 101 Carbon Dioxide 20.4 L Anion Gap 13 BUN 37 H Creatinine 1.26 Estimated GFR 60 L POC Glucose Random Glucose 152 H Lactic Acid Calcium 7.4 L* Prot Corrected Calcium 8.9 Total Bilirubin 2.5 H AST 28 ALT 34 Alkaline Phosphatase 134 H Ammonia Troponin I C-Reactive Protein B-Natriuretic Peptide Total Protein 4.5 L Albumin 2.0 L TSH Urine Color Urine Clarity Urine pH Ur Specific [place] Urine Protein Urine Glucose (UA) Urine Ketones Urine Occult Blood Urine Nitrate Urine Bilirubin Urine Urobilinogen Ur Leukocyte Esterase Urine RBC Urine WBC Urine Bacteria Hyaline Casts Urine Mucus Micro UA Comment Ur Microscopic Review Urine Culture Comments Nasal Screen MRSA (PCR) Urine Opiates Screen Ur Barbiturates Screen Ur Amphetamines Screen U Benzodiazepines Scrn Urine Cocaine Screen U Cannabinoids Screen Serum Alcohol Hepatitis A IgM Ab Hep Bs Antigen Hep B Core IgM Ab Hep C IgG Ab HIV 1&2 Ab/P24 Ag 4thGn 06/27/18 06/27/18 06/27/18 11:23 11:23 11:23 WBC RBC Hgb Hct MCV MCH MCHC RDW Plt Count MPV Prelim Diff (Auto) Neut % (Auto) Lymph % (Auto) Rich % (Auto) Eos % (Auto) Baso % (Auto) Neut # (Auto) Lymph # (Auto) Rich # (Auto) Eos # (Auto) Baso # (Auto) WBC Differential Seg Neuts % (Manual) Band Neuts % (Manual) Monocytes % (Manual) Abs Neuts (Manual) Differential Comment Platelet Estimate Platelet Morphology Mildred Cells Keratocytes PT INR APTT Fibrinogen Puncture Site Patient Temperature O2 Saturation ABG pH ABG pCO2 ABG pO2 ABG HCO3 ABG O2 Content ABG Base Excess ABG Methemoglobin Rajiv Test VBG pH VBG pCO2 VBG pO2 VBG HCO3 VBG O2 Saturation VBG O2 Content VBG Base Excess VBG Carboxyhemoglobin VBG Methemoglobin Hemoglobin Carboxyhemoglobin O2 Delivery Device Liter Flow Inspired O2 Critical Value Sodium Potassium Chloride Carbon Dioxide Anion Gap BUN Creatinine Estimated GFR POC Glucose Random Glucose Lactic Acid 4.9 H* Calcium Prot Corrected Calcium Total Bilirubin AST ALT Alkaline Phosphatase Ammonia Troponin I C-Reactive Protein 23.40 H B-Natriuretic Peptide Total Protein Albumin TSH Urine Color Urine Clarity Urine pH Ur Specific [place] Urine Protein Urine Glucose (UA) Urine Ketones Urine Occult Blood Urine Nitrate Urine Bilirubin Urine Urobilinogen Ur Leukocyte Esterase Urine RBC Urine WBC Urine Bacteria Hyaline Casts Urine Mucus Micro UA Comment Ur Microscopic Review Urine Culture Comments Nasal Screen MRSA (PCR) Urine Opiates Screen Ur Barbiturates Screen Ur Amphetamines Screen U Benzodiazepines Scrn Urine Cocaine Screen U Cannabinoids Screen Serum Alcohol Hepatitis A IgM Ab Nonreactive Hep Bs Antigen Nonreactive Hep B Core IgM Ab Nonreactive Hep C IgG Ab Nonreactive HIV 1&2 Ab/P24 Ag 4thGn Nonreactive 06/27/18 11:51 WBC RBC Hgb Hct MCV MCH MCHC RDW Plt Count MPV Prelim Diff (Auto) Neut % (Auto) Lymph % (Auto) Rich % (Auto) Eos % (Auto) Baso % (Auto) Neut # (Auto) Lymph # (Auto) Rich # (Auto) Eos # (Auto) Baso # (Auto) WBC Differential Seg Neuts % (Manual) Band Neuts % (Manual) Monocytes % (Manual) Abs Neuts (Manual) Differential Comment Platelet Estimate Platelet Morphology [place] Cells Keratocytes PT INR APTT Fibrinogen Puncture Site Patient Temperature O2 Saturation ABG pH ABG pCO2 ABG pO2 ABG HCO3 ABG O2 Content ABG Base Excess ABG Methemoglobin Rajiv Test VBG pH VBG pCO2 VBG pO2 VBG HCO3 VBG O2 Saturation VBG O2 Content VBG Base Excess VBG Carboxyhemoglobin VBG Methemoglobin Hemoglobin Carboxyhemoglobin O2 Delivery Device Liter Flow Inspired O2 Critical Value Sodium Potassium Chloride Carbon Dioxide Anion Gap BUN Creatinine Estimated GFR POC Glucose 155 H Random Glucose Lactic Acid Calcium Prot Corrected Calcium Total Bilirubin AST ALT Alkaline Phosphatase Ammonia Troponin I C-Reactive Protein B-Natriuretic Peptide Total Protein Albumin TSH Urine Color Urine Clarity Urine pH Ur Specific [place] Urine Protein Urine Glucose (UA) Urine Ketones Urine Occult Blood Urine Nitrate Urine Bilirubin Urine Urobilinogen Ur Leukocyte Esterase Urine RBC Urine WBC Urine Bacteria Hyaline Casts Urine Mucus Micro UA Comment Ur Microscopic Review Urine Culture Comments Nasal Screen MRSA (PCR) Urine Opiates Screen Ur Barbiturates Screen Ur Amphetamines Screen U Benzodiazepines Scrn Urine Cocaine Screen U Cannabinoids Screen Serum Alcohol Hepatitis A IgM Ab Hep Bs Antigen Hep B Core IgM Ab Hep C IgG Ab HIV 1&2 Ab/P24 Ag 4thGn Result Diagrams: 06/27/18 08:50 06/27/18 08:50 Microbiology: Microbiology 06/26/18 13:09 Urine Culture - Preliminary Clean Catch Urine Immature growth - reincubate 06/26/18 16:00 Aerobic Blood Culture - Preliminary Blood - Peripheral gram negative rods Anaerobic Blood Culture - Preliminary No growth in 1 day 06/26/18 16:05 Aerobic Blood Culture - Preliminary Blood - Peripheral gram negative rods Anaerobic Blood Culture - Preliminary No growth in 1 day 06/26/18 18:00 Streptococcus pneumoniae Antigen (M - Final Urine - Catheterized Urine Presumptive negative for streptococcus pneumoniae antigen, suggesting no current or recent infection. Infection due to Streptococcus pneumoniae cannot be ruled out since the antigen present in the sample may be below the detection limit of the test. 06/26/18 18:00 Legionella Antigen - Final Urine - Catheterized Urine Presumptive negative for Legionella pneumophila serogroup 1 antigen in urine, suggesting no recent or recurrent infection. Infection due to Legionella cannot be ruled out since other serogroups and species may cause disease, antigen may not be present in urine in early infection, and the level of antigen present in the urine may be below the detection limit of the test. Imaging: Chest X-Ray 06/26/18 12:14 CONCLUSION: 1. Cardiomegaly with mild pulmonary vascular congestion. 2. Bilateral lower lobe airspace consolidation and likely small right-sided pleural effusion. Chest X-Ray 06/26/18 18:39 CONCLUSION: 1. No pneumothorax status post placement of right subclavian central line which has its tip in superior vena cava. 2. Moderate pulmonary edema. 3. Cardiomegaly. Head CT 06/27/18 00:00 CONCLUSION: Focal heterogeneity of the right parietal lobe as described of concern for a possible intra-axial mass and adjacent hemorrhage. A focal subacute infarct with mild josette-infarct hemorrhage would also be in the differential. There is no midline shift. MRI of the brain with and without contrast is recommended. . Head MRA 06/27/18 07:45 CONCLUSION: 1. Negative MRA [facility] ([facility] [place]) non contrast. Patient/Family Conference Issues Discussed: * Palliative care role, purpose, approach * Additional medical, psychosocial, and spiritual history * Patients general health, functional status, and cognitive changes in the months leading up to the current hospitalization * Patient/family understanding of the current medical problems * Patient/family understanding of prognosis * Patients goals of care as best understood from advance directives and/or conversations and/or values * Current medical treatment options and benefits/burdens of those options * Likely scenarios comparing ongoing aggressive care with a transition to comfort measures only * Questions answered to the best of my ability * Palliative care contact information provided Assessment and Plan - Disease Oriented Problem List (1) Acute exacerbation of CHF (congestive heart failure) (2) NICM (nonischemic cardiomyopathy) Comment: EF 10% (3) Sepsis (4) Encephalopathy (5) CVA (cerebral vascular accident) - Symptom Scale (1) Confusion 0-10 Scale: Unable to quantify (2) Anxiety 0-10 Scale: Unable to quantify Pertinent Non-Medical Issues: Psychosocial:Originally from [place]. never . No children. Only family are 2 brothers. Charles Hager in [facility], and Harshal Hager [place] Spiritual:none Legal:health care surrogate completed, but we have no phone numbers. Ethical issues impacting care:need to do our due diligence to find brothers Important Contacts[facility] (no phone number as of yet). Bright Hager: marquis in [place], althernate surrogate( no phone number avialable today) Prognosis: 53-year-old with end-stage cardiomyopathy, came in with altered mental status, possible CVA, sepsis, hypotensive. Patient likely will be intubated soon as patient is not able to protect, airway. Prognosis is poor. Code Status: Full Code Plan: == Capacity-at this current time patient does not have capacity to make medical decisions. Is unclear if patient will regain capacity to make medical decision == [id number] surrogate was completed during last hospitalization. Decision-maker were able to locate them will be Charles Hager (primary decision maker) and Bright Hager (alternate). == Code: Full code by default. == goals of care, Until we are able to find family to review goals of treatment , it will have to be aggressive. I will consult case managment for assitance. == Assessment/ plan symptom- anxiety; current clinical condition confusion- ativan prn available. confusion- 2nd to clincial condition/ sepsis, chf, possible cva. no med rec at this current time. == palliative care will continue to assist with symptom managmen and review goals of treatment as clinical condition evolves. Appreciation Thank you for the opportunity to participate in the care of Bruce Hager. Attestation Attestation: To help prompt me to consider important information that might be impacting today's encounter and assessment, information from prior notes written by myself or my colleagues may have been "brought forward" into today's note. My signature on this note, however, is an attestation that I personally performed the exam, history, and/or decision-making noted today, and, unless otherwise indicated, the interactions with patient, family, and staff as well as the review of records all occurred today. I also attest that the listed assessment and stated plan reflect my best clinical judgment today based on the combination of historical information, prior notes, and today's exam/ interactions. When time spent is documented, it refers only to time spent today by the signer, or if indicated, combined time spent today by collaborating physician/nurse practitioner.
--- NOTE | 2018-06-27 15:53 | MR ---
EXAM DATE: 06/27/2018 2:25 PM EDT AGE/SEX: 53 years / Male INDICATIONS: Altered mental status. CLINICAL DATA: This is the patient's subsequent encounter. Patient reports that signs and symptoms h ave been present for 1 day and indicates a pain score of 0/10. MEDICAL/SURGICAL HISTORY: Hypertension. CHF None. COMPARISON: No prior exams available for comparison. TECHNIQUE: 10 ml Gadavist (gadobutrol) contrast infused MRA (single exam dose) of the extracranial circulation was performed using a neurovascular coil. Postprocessing was performed, including rotati ng sub-volume maximum intensity projections of each carotid artery, rotating full-volume maximum inte nsity projections of both carotid arteries, sagittal and coronal sliding thin-slab reformations of ea ch carotid artery, and left oblique sliding thin-slab reformation through the aortic arch to include the origin of the arch branch vessels. FINDINGS: Aortic Arch : There is a three-vessel origin of the great vessels from the aorta. No evidence of o stial narrowing. Right Carotid : The common carotid artery is intact. The carotid bulb has a normal configuration wi thout ulceration or narrowing. The internal carotid artery lumen is smooth without stenosis. The ex ternal carotid artery is intact. Left Carotid : The common carotid artery is intact. The carotid bulb has a normal configuration wit hout ulceration or narrowing. The internal carotid artery lumen is smooth without stenosis. The ext ernal carotid artery is intact. Vertebrals : The vertebral arteries have a symmetric diameter. No stenotic lesions are seen. CONCLUSION: Negative MRA Carotids. Percent stenosis is calculated using the diameter of the stenotic region over the diameter of the nor mal distal internal carotid artery Electronically signed by: Zheng Damian MD 06/27/2018 3:52 PM EDT
--- NOTE | 2018-06-27 16:05 | MR ---
EXAM DATE: 06/27/2018 2:26 PM EDT AGE/SEX: 53 years / Male INDICATIONS: Altered mental status. CLINICAL DATA: This is the patient's subsequent encounter. Patient reports that signs and symptoms h ave been present for 2 days and indicates a pain score of 0/10. MEDICAL/SURGICAL HISTORY: Hypertension. CHF None. COMPARISON: No prior exams available for comparison. TECHNIQUE: Multiplanar, multisequence examination of the brain was performed without and with 6.5 ml Gadavist (gadobutrol) contrast as a single exam dose. FINDINGS: MRI of the brain is performed in sagittal, axial and coronal planes. The craniocervical junction and midline structures are unremarkable. Diffusion weighted minimal restricted diffusion involving the po sterior right temporal lobe where susceptibility weighted images demonstrate findings of hemorrhage c haracteristic of hemorrhagic infarct.. No mass effect is identified. Following the administration of contrast no abnormal enhancement is identified. Posterior fossa structures are unremarkable. CONCLUSION: Findings most characteristic of hemorrhagic infarct in the posterior right temporal lobe. No underlyi ng mass is identified. Electronically signed by: Michael Russell MD 06/27/2018 4:04 PM EDT
--- NOTE | 2018-06-27 16:06 | MG ---
cc: Carlos Nieves MD, PhD TEST NUMBER: [id number] TECHNIQUE: A 17-channel EEG. DESCRIPTION: Background rhythm shows generalized slowing in the delta frequency at about 3 Hz. Amplitude is relatively low, 5 microvolts or less, sometimes increasing to 10 microvolts. Fairly prominent muscle artifact identified. Later in the tracing there is a fast rhythm in the theta range. There are no lateralizing features seen, no epileptiform features, photic results in a poor driving response. INTERPRETATION: Abnormal study consistent with a severe encephalopathy. Carlos Nieves MD, PhD HAI/candis , 03:48 PM , 03:52 PM
[2018-06-27] MEDS: Pantoprazole Inj 40 MG Vial IV.PUSH SCH (16:29)
[2018-06-27 18:24] LABS: ABG Base Excess -6.2 mmol/L (-2-2); ABG PCO2 26 mmHg (38-42); ABG PO2 100 mmHG (61-120)
[2018-06-27 21:02] LABS: INR 1.6 Ratio; Prothrombin Time 16.3 sec (9.8-11.6)
--- NOTE | 2018-06-27 21:48 | ECG ---
Date Performed: 06/26/2018 Time Performed: 12:53:13 PTAGE: 53 years EKG: Sinus rhythm WITH OCCASIONAL VENTRICULAR PREMATURE COMPLEXES LEFT ATRIAL ENLARGEMENT INTRAVENTRICULAR CONDUCTION DELAY ANTEROLATERAL MYOCARDIAL INFARCTION ABNORMAL ECG INTERPRETATION BASED ON A DEFAULT AGE OF 40 YE ARS NO PREVIOUS TRACING DOCTOR: Rafi Castro Interpretating Date/Time 06/27/2018 21:46:49
[2018-06-28] MEDS ORDERED: Midazolam Inj 5 MG/ML 1 ML Vial ONE (00:35)
[2018-06-28] MEDS ORDERED: fentaNYL Citrate Inj 100 MCG/2 ML Ampul ONE (00:36)
--- NOTE | 2018-06-28 01:17 | P.PCN ---
Date of procedure: 06/28/18 Pre-op diagnosis: Encephalopathy Post-op diagnosis: same Procedure: Lumbar puncture A time-out was completed verifying correct patient, procedure, site, positioning , and special equipment if applicable. The patient was placed in the left lateral decubitus position in a semi- position with help from the nursing staff. The area was cleansed and draped in usual sterile fashion. 1% lidocaine was used anesthetize the surrounding skin area. A 20-gauge 3.5-inch spinal needle was placed in the L3-L4 interspace. Yellow cloudy cerebral spinal fluid was obtained and the opening pressure was noted to be 27. Four tubes were filled with 4 mL of CSF. These were sent for the usual tests, including 1 tube to be held for further analysis if needed. The closing pressure was noted to be 23. Estimated Blood Loss: 0 mL The patient tolerated the procedure well and there were no complications. Anesthesia: local Surgeon: Bijan Ellis Estimated blood loss (mL): 0 Condition: critical Disposition: ICU
[2018-06-28] MEDS: Hydrocortisone Sod Succinate 100 MG Vial IV.PUSH SCH ×4 (01:54→21:11)
[2018-06-28] MEDS: Senna/Docusate Sodium 8.6/50 MG Tablet PO SCH ×3 (01:54→21:11)
[2018-06-28] MEDS: fentaNYL 10 mcg/mL Premix Drip 2,500 MCG/250 ML BAG IV.SIG PRN (01:54)
[2018-06-28] MEDS: Piperacil/Tazo 4.5 GM Premix 4.5 GM/100 ML BAG IV.SIG SCH ×5 (02:03→20:10)
--- NOTE | 2018-06-28 02:06 | P.PCN ---
Date of procedure: 06/28/18 Pre-op diagnosis: Respiratory failure Post-op diagnosis: same Procedure: Endotracheal Intubation A time-out was completed verifying correct patient, procedure, site, positioning , and special equipment if applicable. The patient was placed in a flat position. Sedation was obtained using Etomidate 20mg. The patient was easily ventilated using an ambu bag. The [employer]/ MAC 4 BLADE was used and inserted into the oropharynx at which time there was a Grade 1 view of the vocal cords. A 8-citizen of [place] endotracheal tube was inserted and visualized going through the vocal cords. The stylette was removed. Colorimetric change was visualized on the CO2 meter. Breath sounds were heard in both lung rios equally. The endotracheal tube was placed at 23 cm, measured at the teeth. A chest x-ray was ordered to assess for pneumothorax and verify endotrachealtube placement. Estimated Blood Loss: 0 The patient tolerated the procedure well and there were no complications.
--- NOTE | 2018-06-28 02:07 | XR ---
EXAM DATE: 06/28/2018 1:58 AM EDT AGE/SEX: 53 years / Male INDICATIONS: E-T tube placement. CLINICAL DATA: This is the patient's subsequent encounter. Patient reports that signs and symptoms h ave been present for 3 days and indicates a pain score of Nonresponsive. MEDICAL/SURGICAL HISTORY: Hypertension. Congestive heart failure. None. COMPARISON: [facility] [place]ST 1V SINGLE AP, 06/26/2018. . FINDINGS: Bibasilar consolidation not significantly changed. Small bilateral pleural effusions have developed. No pneumothorax seen. Mild cardiomegaly again seen. Endotracheal tube tip is approximately 3.2 cm above the kelly. There is a nasogastric tube coursing into the stomach. Right subclavian central venous catheter with tip in the superior vena cava. CONCLUSION: 1. Interim intubation. Endotracheal tube tip is 3.2 cm above the kelly. 2. New nasogastric tube, courses into the stomach. 3. Persistent and not significantly changed pulmonary edema. 4. Bilateral small pleural effusions have developed. Electronically signed by: Zheng Russell MD 06/28/2018 2:06 AM EDT
[2018-06-28] MEDS: Insulin NovoLIN Regular Correctional Sugar Inj SQ SCH ×6 (02:09→20:12)
[2018-06-28] MEDS: Vancomycin Inj 1,100 MG in Sodium Chlor 0.9% Inj 250 ML IV.SIG SCH ×2 (02:40→21:12)
[2018-06-28 03:44] LABS: Lymphocytes, CSF 8 %; Monocytes,CSF 1 %; Neutrophils,CSF 91 %
[2018-06-28 04:09] LABS: RBC on Tube 4 1209 /mm3
[2018-06-28 04:27] LABS: ABG Base Excess -5.1 mmol/L (-2-2); ABG PCO2 35 mmHg (38-42); ABG PO2 162 mmHG (61-120)
[2018-06-28] MEDS: Chlorhexidine Gluconate 2% 1 Pack (2 Cloths) TOPICAL SCH (05:13)
[2018-06-28 05:20] LABS: Hematocrit 40.3 % (39.0-51.0); Hemoglobin 13.3 gm/dL (13.0-17.0); Mean Corpuscular HGB Conc 32.9 % (32.0-36.0); Mean Corpuscular Hemoglobin 29.3 pg (27.0-34.0); Mean Platelet Volume 10.7 fL (7.0-11.0); Platelet Count 38 th/mm3 (150-450); Red Blood Count 4.53 mil/mm3 (4.50-5.90); Red Cell Distribution Width 19.9 % (11.6-17.2); White Blood Count 20.7 th/mm3 (4.0-11.0)
[2018-06-28 05:31] LABS: Albumin 2.1 g/dL (3.4-5.0); Anion Gap 13 meq/L (5-15); Aspartate Aminotransferase 18 U/L (15-37); Blood Urea Nitrogen 36 mg/dL (7-18); Calcium 7.9 mg/dL (8.5-10.1); Chloride 104 meq/L (98-107); Glomerular Filtration Rate 66 mL/min (>89); Glucose,Random 140 mg/dL (74-106); Potassium 3.7 meq/L (3.5-5.1); Sodium 137 meq/L (136-145)
[2018-06-28 05:36] LABS: Alanine Aminotransferase 30 U/L (12-78); Alkaline Phosphatase 100 U/L (45-117); Total Protein 4.8 g/dL (6.4-8.2)
[2018-06-28 08:47] LABS: Lymphocytes 1 % (9-44); Monocytes 1 % (0-8); Platelet Morphology Normal (Normal)
[2018-06-28 08:48] LABS: Burr Cells 1+; Dohle Bodies Present
[2018-06-28 08:49] LABS: Toxic Granulation 1+
--- NOTE | 2018-06-28 10:11 | P.PNPAL ---
Palliative care continues to follow along with Mr. Hager. Awaiting accurint results to assist with locating patient's appointed health care surrogates, Charles and Bright Hager. Google search attempts made to locate Bright Hager, left message with possible match [phone]. Unable to leave messages/disconnected numbers /[phone]). Many matches for Charles Hager, unable to narrow down without further information. Potential matches located on social media. Private message sent requesting call to further discuss. Unable to proceed with goals of medical treatment discussion until health care surrogate(s) can be located. If accurint unable to locate HCS information, possible family match for Charles Hager (age 80) @ [address] [place] [address]. Although patient's friend is unsure of any family locally. Will wait for accurint before pursuing police wellness check to this person/address. 1130am--family identified. Palliative care MD to follow-up. Palliative care will continue to follow throughout hospitalization.
--- NOTE | 2018-06-28 10:44 | P.PNID ---
Subjective Remarks: Mr. Hager is a 52 y/o CM with past medical history significant for alcoholic cardiomyopathy with ejection fraction of 10-15% as documented in prior records. Patient underwent a cardiac catheterization in the past and has been seen by cardiology services. Patient was on a LifeVest and was instructed to follow-up with cardiology but unfortunately patient has been noncompliant in the past. Patient checked himself out of hospice per records. Patient was seen in the ER at [facility] on May 21, 2018 with bilateral lower extremity swelling and was thought to be having a congestive heart failure exacerbation. His last echo showed EF of 20%, dilated cardiomyopathy and moderate mitral valve regurgitation. Reportedly patient has declined referral for AICD placement. 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 Per reports cardiology noted that long-term prognosis is poor due to very low ejection fraction and the lack of AICD. Patient was evaluated by palliative care services on his last admission. Patient was found hypotensive by EVAC outside his friend's home. Patient reportedly is homeless and lives outside the garage of his friend's home. EVAC evaluated the patient and he was found to have a systolic blood pressure in the 80s, tachycardic with a heart rate of 104. He was given a liter bolus in the ED placed on levo fed. Hypoglycemic with a blood sugar of 24 D50. His BUN was 42 his creatinine was 1.52 and he was hyperkalemic with a potassium of 5.6 and a sodium of 127. Patient was found to have an elevated lactic acid of 2.9 and a WBC of 19 point. His UA was positive. Chest x-ray showed mild pulmonary vascular congestion and bilateral lower lobe airspace consolidation. Patient underwent a sepsis workup and was started on empiric antibiotics. ABG on room air was done which showed pH of 7.41, CO2 of 26 PaO2 of 79, bicarb of 16 and a saturation of 94%. His urine drug screen was negative and serum alcohol was less than 3. Patient was evaluated by patient scheduling manager services patient ultimately ended up getting intubated for airway protection. Patient has been evaluated by neurology services and has an abnormal CT scan. At the present time patient is in the ICU but is shortly going to be headed to radiology services for an MRI. At the time of my evaluation patient is in the ICU currently intubated sedated on Levophed 15 mics. Patient was undergoing an EEG. A CT of the brain showed focal heterogeneity of the right parietal lobe possible intra-axial mass and adjacent hemorrhage. A focal subacute infarct with mild jhon-infarct hemorrhage was also in the differential there is no midline shift. Blood cultures drawn and admission are positive for gram-negative rods. Infectious disease is consulted for evaluation and management of septic shock and gram-negative bacteremia. Medical History: CHF (congestive heart failure) Hypertension Surgical History: Surgical History Hx of cardiac catheterization Overnight events reviewed with RN. Reviewed chart. Intubated overnight, no FB or mucus plugs. Low temps overnight. No rash No diarrhea Remains on pressors down to 13 mics. UO ok Platelets low at 35. Recd 2 units of Platelets and FFP. No Bleed from any sites. Sedated. No seizures. EEG with severe encephalopathy. MRI report reviewed. Antibiotics: Zosyn IV Cefepime IV vanco IV Lines: Lines ok Past Medical History: reviewed Allergies/Adverse Reactions: Allergies No Known Allergies Allergy (Unverified 06/26/18 14:17) Objective Vital Signs 06/27/18 11:00 06/27/18 12:00 06/27/18 12:31 Temperature 99.5 F Pulse Rate 119 H 113 H 109 H Respiratory Rate 29 H 17 18 Blood Pressure 101/71 89/57 L Pulse Oximetry 94 L 95 06/27/18 13:00 06/27/18 13:01 06/27/18 13:15 Temperature Pulse Rate 113 H 113 H Respiratory Rate 15 14 Blood Pressure 95/60 L 95/60 L 95/62 L Pulse Oximetry 95 96 06/27/18 13:22 06/27/18 13:26 06/27/18 14:16 Temperature Pulse Rate 116 H 113 H Respiratory Rate 15 Blood Pressure 96/60 L Pulse Oximetry 94 L 06/27/18 14:22 06/27/18 14:30 06/27/18 14:45 Temperature Pulse Rate 110 H 111 H 109 H Respiratory Rate 17 13 19 Blood Pressure 91/69 L 96/63 L 100/70 Pulse Oximetry 94 L 94 L 94 L 06/27/18 15:00 06/27/18 15:15 06/27/18 15:30 Temperature Pulse Rate 106 H 108 H 109 H Respiratory Rate 21 20 18 Blood Pressure 97/71 L 89/67 L 93/65 L Pulse Oximetry 95 96 96 06/27/18 15:32 06/27/18 15:45 06/27/18 16:00 Temperature 97.9 F Pulse Rate 109 H 113 H 116 H Respiratory Rate 25 H 24 26 H Blood Pressure 99/71 L 99/72 L Pulse Oximetry 97 96 06/27/18 16:15 06/27/18 16:30 06/27/18 16:45 Temperature Pulse Rate 118 H 117 H 118 H Respiratory Rate 19 18 21 Blood Pressure 98/69 L 99/64 L 93/60 L Pulse Oximetry 97 97 97 06/27/18 17:00 06/27/18 17:15 06/27/18 17:30 Temperature Pulse Rate 117 H 116 H 117 H Respiratory Rate 24 24 23 Blood Pressure 92/65 L 96/67 L 93/66 L Pulse Oximetry 96 96 96 06/27/18 17:46 06/27/18 18:00 06/27/18 18:15 Temperature Pulse Rate 118 H 116 H 118 H Respiratory Rate 31 H 27 H 18 Blood Pressure 95/70 L 92/73 L 93/65 L Pulse Oximetry 97 97 98 06/27/18 18:32 06/27/18 18:45 06/27/18 19:00 Temperature Pulse Rate 119 H 119 H 117 H Respiratory Rate 22 21 17 Blood Pressure 92/70 L 91/68 L 96/73 L Pulse Oximetry 95 96 94 L 06/27/18 19:15 06/27/18 19:30 06/27/18 19:45 Temperature Pulse Rate 117 H 121 H 120 H Respiratory Rate 19 28 H 18 Blood Pressure 96/68 L 99/70 L 95/66 L Pulse Oximetry 95 98 96 06/27/18 20:00 06/27/18 20:15 06/27/18 20:30 Temperature 98.0 F Pulse Rate 130 H 123 H 128 H Respiratory Rate 15 16 24 Blood Pressure 97/68 L 96/72 L 93/68 L Pulse Oximetry 98 88 L 95 06/27/18 20:45 06/27/18 21:00 06/27/18 21:06 Temperature Pulse Rate 127 H 125 H 124 H Respiratory Rate 15 23 15 Blood Pressure 92/69 L 89/63 L Pulse Oximetry 95 81 L 88 L 06/27/18 21:08 06/27/18 21:15 06/27/18 21:30 Temperature 98.0 F Pulse Rate 122 H 122 H 119 H Respiratory Rate 15 17 16 Blood Pressure 89/63 L 96/68 L 88/62 L Pulse Oximetry 93 L 94 L 97 06/27/18 21:45 06/27/18 22:00 06/27/18 22:15 Temperature Pulse Rate 123 H 125 H 130 H Respiratory Rate 22 22 19 Blood Pressure 94/65 L 100/63 91/68 L Pulse Oximetry 90 L 79 L 91 L 06/27/18 22:30 06/27/18 22:45 06/27/18 23:00 Temperature Pulse Rate 137 H 131 H 130 H Respiratory Rate 22 22 22 Blood Pressure 89/68 L 101/71 102/75 Pulse Oximetry 85 L 93 L 96 06/27/18 23:07 06/27/18 23:15 06/27/18 23:30 Temperature 97.5 F L Pulse Rate 134 H 133 H 132 H Respiratory Rate 24 23 23 Blood Pressure 101/71 103/78 102/76 Pulse Oximetry 94 L 95 94 L 06/27/18 23:45 06/28/18 00:00 06/28/18 00:15 Temperature 97.9 F Pulse Rate 137 H 133 H 131 H Respiratory Rate 26 H 26 H 29 H Blood Pressure 92/67 L 93/70 L 91/70 L Pulse Oximetry 94 L 95 95 06/28/18 00:30 06/28/18 00:45 06/28/18 01:00 Temperature Pulse Rate 124 H 125 H 119 H Respiratory Rate 22 19 19 Blood Pressure 85/57 L 95/57 L Pulse Oximetry 94 L 87 L 91 L 06/28/18 01:09 06/28/18 01:10 06/28/18 01:15 Temperature Pulse Rate 123 H 125 H Respiratory Rate 17 20 24 Blood Pressure 83/58 L 82/60 L Pulse Oximetry 95 96 96 06/28/18 01:30 06/28/18 01:45 06/28/18 02:00 Temperature Pulse Rate 122 H 120 H 120 H Respiratory Rate 17 17 18 Blood Pressure 86/54 L 83/52 L 81/53 L Pulse Oximetry 98 98 96 06/28/18 02:14 06/28/18 02:15 06/28/18 02:30 Temperature Pulse Rate 118 H 119 H 115 H Respiratory Rate 18 18 16 Blood Pressure 83/53 L 83/55 L 82/50 L Pulse Oximetry 96 96 97 08/30/18 02:45 06/28/18 03:00 06/28/18 03:15 Temperature Pulse Rate 116 H 115 H 114 H Respiratory Rate 21 23 23 Blood Pressure 81/52 L 81/54 L 81/55 L Pulse Oximetry 97 97 97 06/28/18 03:33 06/28/18 03:45 06/28/18 04:00 Temperature 97.9 F Pulse Rate 109 H 107 H Respiratory Rate 21 19 16 Blood Pressure 85/58 L 90/60 L Pulse Oximetry 96 96 93 L 06/28/18 04:15 06/28/18 04:30 06/28/18 04:46 Temperature Pulse Rate 109 H 110 H 110 H Respiratory Rate 16 15 15 Blood Pressure 88/61 L 96/61 L 90/67 L Pulse Oximetry 92 L 92 L 93 L 06/28/18 05:00 06/28/18 05:15 06/28/18 05:30 Temperature Pulse Rate 109 H 111 H 109 H Respiratory Rate 16 16 15 Blood Pressure 99/70 L 98/71 L 95/71 L Pulse Oximetry 94 L 95 95 06/28/18 05:45 06/28/18 06:00 06/28/18 06:58 Temperature 98.1 F Pulse Rate 110 H 109 H 110 H Respiratory Rate 16 15 17 Blood Pressure 93/70 L 93/68 L 93/68 L Pulse Oximetry 95 96 06/28/18 07:00 06/28/18 08:00 06/28/18 08:07 Temperature 98.1 F 97.5 F L Pulse Rate 109 H 108 H Respiratory Rate 18 15 15 Blood Pressure 93/68 L 92/67 L Pulse Oximetry 96 96 06/28/18 08:16 06/28/18 08:30 06/28/18 09:00 Temperature 97.3 F L 97.4 F L Pulse Rate 108 H 105 H 108 H Respiratory Rate 17 18 15 Blood Pressure 84/58 L 89/64 L 88/61 L Pulse Oximetry 95 95 95 Intake & Output 06/27/18 06/28/18 06/28/18 18:59 06:59 18:59 Intake Total 2060 1042 / 1042 0 / 0 Output Total 975 / 975 700 / 700 Balance 1086 / 1086 342 / 342 0 / 0 Intake: IV 2061 / 2061 711 / 711 D5W/Normal Saline Inj 1,000 ML 1000 / 1000 @ 50 mls/hr IV.CONT .Q20H [facility] Rx#:[id number] Maxipime Inj 2,000 MG In NS Inj 0 / 0 100 ML @ 100 mls/hr IV.SIG Q12H [facility] Rx#:[id number] Levophed-Dextrose 4 mg/250 ml 500 / 500 250 / 250 Drip 4 mg In 250 ml @ 2 MCG/MIN 7.5 mls/hr IV.SIG TITRATE PRN Rx#:[id number] Zosyn 4.5 GM Premix 4.5 gm In 200 / 200 200 / 200 100 ml @ 200 mls/hr IV.SIG Q6H [facility] Rx#:[id number] KCl 40 mEq Premix Inj 40 meq In 100 / 100 100 ml @ 25 mls/hr IV.SIG Q2H PRN Rx#:[id number] Vancomycin Inj 1,100 MG In NS 261 / 261 261 / 261 Inj 250 ML @ 250 mls/hr IV.SIG Q18H [facility] Rx#:[id number] Intake (Blood Product) Amt 331 / 331 0 / 0 Plasma Thawed 5 Day Cp2d Unit 0 / 0 [id number] Plasma Thawed 5 Day Cp2d Unit 331 / 331 [id number] Plt Pheresis B Leukoreduced 0 / 0 0 / 0 Unit [id number] Plt Pheresis S Leukoreduced 0 / 0 Unit [id number] Output: Urine Amount (Catheter) 975 / 975 700 / 700 Indwelling Urethral Catheter 975 / 975 700 / 700 Other: # Bowel Movements 0 06/26/18 13:09 Clean Catch Urine Urine Culture - Final 06/26/18 16:05 Blood - Peripheral Aerobic Blood Culture - Preliminary gram negative rods 06/26/18 16:05 Blood - Peripheral Anaerobic Blood Culture - Preliminary No growth in 1 day 06/26/18 16:00 Blood - Peripheral Aerobic Blood Culture - Preliminary gram negative rods 06/26/18 16:00 Blood - Peripheral Anaerobic Blood Culture - Preliminary No growth in 1 day 06/27/18 11:45 Blood - Peripheral Aerobic Blood Culture - Preliminary gram negative rods 06/27/18 11:45 Blood - Peripheral Anaerobic Blood Culture - Pending 06/27/18 13:12 Blood - Peripheral Aerobic Blood Culture - Preliminary gram negative rods 06/27/18 13:12 Blood - Peripheral Anaerobic Blood Culture - Pending 06/28/18 01:22 Sputum - Endotracheal Gram Stain - Final 06/28/18 01:22 Sputum - Endotracheal Sputum Culture - Pending 06/27/18 10:40 Wound - Penis Gram Stain - Final 06/27/18 10:40 Wound - Penis Wound Culture - Pending 06/28/18 01:22 Lumbar Puncture Gram Stain - Final 06/28/18 01:22 Lumbar Puncture CSF Culture - Pending 06/26/18 18:00 Urine - Catheterized Urine Streptococcus pneumoniae Antigen ( M - Final Presumptive negative for streptococcus pneumoniae antigen, suggesting no current or recent infection. Infection due to Streptococcus pneumoniae cannot be ruled out since the antigen present in the sample may be below the detection limit of the test. 06/26/18 18:00 Urine - Catheterized Urine Legionella Antigen - Final Presumptive negative for Legionella pneumophila serogroup 1 antigen in urine, suggesting no recent or recurrent infection. Infection due to Legionella cannot be ruled out since other serogroups and species may cause disease, antigen may not be present in urine in early infection, and the level of antigen present in the urine may be below the detection limit of the test. Lab - Hematology Results 06/26/18 06/27/18 06/28/18 13:13 08:50 04:53 WBC 19.8 H 17.7 H 20.7 H RBC 4.78 4.94 4.53 Hgb 14.3 14.6 13.3 Hct 43.6 43.6 40.3 MCV 91.1 88.3 89.0 MCH 30.0 29.5 29.3 MCHC 32.9 33.5 32.9 RDW 20.0 H 20.0 H 19.9 H Plt Count 133 L 76 L D 38 L D MPV 9.9 10.3 10.7 Prelim Diff (Auto) Slide review pending Manual diff required Neut % (Auto) 97.7 H 98.5 H Lymph % (Auto) 0.8 L 0.7 L [place] % (Auto) 1.1 0.4 Eos % (Auto) 0.2 0.2 Baso % (Auto) 0.2 0.2 Neut # (Auto) 19.3 H 17.5 H Lymph # (Auto) 0.2 L 0.1 L [place] # (Auto) 0.2 0.1 Eos # (Auto) 0.0 0.0 Baso # (Auto) 0.0 0.0 WBC Differential . Manual diff final Manual diff final Seg Neuts % (Manual) 75 H 63 Band Neuts % (Manual) 24 H 35 H Lymphocytes % (Manual) 1 L Monocytes % (Manual) 1 1 Abs Neuts (Manual) 17.5 H 20.3 H Differential Comment Auto diff final . . Toxic Granulation 1+ H Dohle Bodies Present H Platelet Estimate Low L Low L Platelet Morphology Normal Normal Mildred Cells 1+ H 1+ H Keratocytes Occ H Lab - Chemistry Results 06/26/18 06/26/18 06/26/18 13:13 13:15 13:15 Sodium 127 L Potassium 5.6 H Chloride 94 L Carbon Dioxide 19.3 L Anion Gap 14 BUN 42 H Creatinine 1.52 H Estimated GFR 48 L POC Glucose Random Glucose 24 L* Lactic Acid 2.9 H Calcium 7.9 L Prot Corrected Calcium Total Bilirubin 2.2 H AST 82 H ALT 39 Alkaline Phosphatase 116 Ammonia Troponin I 0.03 C-Reactive Protein B-Natriuretic Peptide Greater than 5000 H Total Protein 5.1 L Albumin 2.2 L TSH 2.040 06/26/18 06/26/18 06/26/18 13:15 16:36 19:03 Sodium Potassium Chloride Carbon Dioxide Anion Gap BUN Creatinine Estimated GFR POC Glucose 83 Random Glucose Lactic Acid 3.2 H Calcium Prot Corrected Calcium Total Bilirubin AST ALT Alkaline Phosphatase Ammonia 12 Troponin I C-Reactive Protein B-Natriuretic Peptide Total Protein Albumin [facility] 06/26/18 06/26/18 06/26/18 19:03 19:10 19:49 Sodium 133 L Potassium 3.9 D Chloride 98 Carbon Dioxide 20.3 L Anion Gap 15 BUN 38 H Creatinine 1.32 H Estimated GFR 57 L POC Glucose 38 L* 108 Random Glucose 68 L Lactic Acid Calcium 7.3 L* Prot Corrected Calcium 8.7 Total Bilirubin AST ALT Alkaline Phosphatase Ammonia Troponin I C-Reactive Protein B-Natriuretic Peptide Total Protein 4.[address] [facility] 06/27/18 06/27/18 06/27/18 01:37 04:04 08:14 Sodium Potassium Chloride Carbon Dioxide Anion Gap BUN Creatinine Estimated GFR POC Glucose 107 115 H 132 H Random Glucose Lactic Acid Calcium Prot Corrected Calcium Total Bilirubin AST ALT Alkaline Phosphatase Ammonia Troponin I C-Reactive Protein B-Natriuretic Peptide Total Protein Albumin [facility] 06/27/18 06/27/18 06/27/18 08:50 11:23 11:23 Sodium 134 L Potassium 3.2 L Chloride 101 Carbon Dioxide 20.4 L Anion Gap 13 BUN 37 H Creatinine 1.26 Estimated GFR 60 L POC Glucose Random Glucose 152 H Lactic Acid 4.9 H* Calcium 7.4 L* Prot Corrected Calcium 8.9 Total Bilirubin 2.5 H AST 28 ALT 34 Alkaline Phosphatase 134 H Ammonia Troponin I C-Reactive Protein 23.40 H B-Natriuretic Peptide Total Protein 4.5 L Albumin 2.[address] [facility] 06/27/18 06/27/18 06/27/18 11:51 15:15 16:28 Sodium Potassium Chloride Carbon Dioxide Anion Gap BUN Creatinine Estimated GFR POC Glucose 155 H 132 H Random Glucose Lactic Acid 3.9 H Calcium Prot Corrected Calcium Total Bilirubin AST ALT Alkaline Phosphatase Ammonia Troponin I C-Reactive Protein B-Natriuretic Peptide Total Protein Albumin [facility] 06/27/18 06/27/18 06/28/18 19:53 20:30 02:08 Sodium Potassium Chloride Carbon Dioxide Anion Gap BUN Creatinine Estimated GFR POC Glucose 126 H 129 H Random Glucose Lactic Acid 3.4 H Calcium Prot Corrected Calcium Total Bilirubin AST ALT Alkaline Phosphatase Ammonia Troponin I C-Reactive Protein B-Natriuretic Peptide Total Protein Albumin [facility] 06/28/18 06/28/18 06/28/18 04:33 04:53 07:31 Sodium 137 Potassium 3.7 Chloride 104 Carbon Dioxide 20.0 L Anion Gap 13 BUN 36 H Creatinine 1.16 Estimated GFR 66 L POC Glucose 137 H 160 H Random Glucose 140 H Lactic Acid Calcium 7.9 L Prot Corrected Calcium Total Bilirubin 3.1 H AST 18 ALT 30 Alkaline Phosphatase 100 Ammonia Troponin I C-Reactive Protein B-Natriuretic Peptide Total Protein 4.8 L Albumin 2.1 L TSH Imaging: ITS Impressions Head CT 06/27/18 00:00 CONCLUSION: Focal heterogeneity of the right parietal lobe as described of concern for a possible intra-axial mass and adjacent hemorrhage. A focal subacute infarct with mild jhon-infarct hemorrhage would also be in the differential. There is no midline shift. MRI of the brain with and without contrast is recommended. . Head MRI 06/27/18 00:00 CONCLUSION: Findings most characteristic of hemorrhagic infarct in the posterior right temporal lobe. No underlying mass is identified. Neck MRA 06/27/18 00:00 CONCLUSION: Negative MRA Carotids. Percent stenosis is calculated using the diameter of the stenotic region over the diameter of the normal distal internal carotid artery Head MRA 06/27/18 07:45 CONCLUSION: 1. Negative MRA [place] ([place] [facility] [place]) non contrast. Chest X-Ray 06/28/18 00:00 CONCLUSION: 1. Interim intubation. Endotracheal tube tip is 3.2 cm above the kelly. 2. New nasogastric tube, courses into the stomach. 3. Persistent and not significantly changed pulmonary edema. 4. Bilateral small pleural effusions have developed. Physical Exam: GENERAL: Sedated, on the vent, NAD SKIN: Cool and dry, no generalized rash HEAD: Atraumatic. Normocephalic. No temporal or scalp tenderness. EYES: Pupils equal round and reactive. Scleral icterus. No injection or drainage. No petechia ENT: Orally intubated NECK: Trachea midline. Supple, nontender, no meningeal signs. CARDIOVASCULAR: HS audible. RESPIRATORY: Air entry equal bilaterally. Clear to auscultation bilaterally. GASTROINTESTINAL: Abdomen soft,NT MUSCULOSKELETAL: Extremities without clubbing, cyanosis. Bilateral LE abrasions noted. Genitourinary examination: Swollen penile shaft with edema and on especially with some purulent discharge noted. No other lesions on the penile shaft or any other genital organs. NEUROLOGICAL: Sedated Psych could not be assessed IV line sites ok. Assessment and Plan - Plan Septic shock with multiorgan dysfunction syndrome on pressors Acute bacterial meningitis(GNR in CSF gram stain), cerebritis, mycotic infection related bleeding. Gram-negative bacteremia likely source of rule out endocarditis Penile shaft swelling ? abscess. GNR in penile culture. Acute respiratory failure on ventilator Acute metabolic encephalopathy likely secondary to hepatic encephalopathy possible meningitis or encephalitis(infectious cerebritis), seizures. Rule out mycotic aneurysm Recommendations Continue Zosyn IV Continue Cefepime IV Continue vancomycin IV (target 15-20) continue for now as CSF and Blood cultures not finalized. Follow Urine output and Cr. Follow ID of GNR to deescalate. Repeat blood cultures 2 Follow cultures Hepatitis profile negative. HIV negative. Check GC and Chlamydia. Penile shaft abscess culture with GNR consult Urology to assess if drainage needed. LP s/o acute bacterial meningitis. CSF in glucose at 1 (very poor prognosis), total protein markedly elevated. Madhavi Peraza poor prognosis given severe cardiomyopathy and LP and MRI findings. Follow clinically dw RN madhavi CCM MD Time spent in excess of 40 mins, critical thinking and decision making, dw MDs and RN. I will be out of town 06/29/18 to 07/03/2018. Other ID MDs covering for me.
--- NOTE | 2018-06-28 11:59 | ECHRPT ---
Indication: Acute and subacute endocarditis, unspecified CONCLUSIONS The left ventricular systolic function is severely reduced with an estimated ejection fraction less than 20%. Wall thickness is measured at the upper limits of normal. Severely dilated left ventricle. The left atrial size is moderately dilated. [id number] mitral valve regurgitation. There is moderate to severe tricuspid valve regurgitation. The estimated pulmonary arterial pressure is 37.3 mmHg. A large left sided pleural effusion is noted. BP: / HR: 108 Rhythm: Sinus MEASUREMENTS (Male / Female) Normal Values Technical Quality:Good 2D ECHO LV Diastolic Diameter PLAX 7.3 cm 4.2 - 5.9 / 3.9 - 5.3 cm LV Systolic Diameter PLAX 6.7 cm IVS Diastolic Thickness 1.1 cm 0.6 - 1.0 / 0.6 - 0.9 cm LVPW Diastolic Thickness 1.1 cm 0.6 - 1.0 / 0.6 - 0.9 cm LV Relative Wall Thickness 0.3 LVOT Diameter 2.0 cm M-MODE Aortic Root Diameter MM 3.2 cm LA Systolic Diameter MM 4.6 cm LA Ao Ratio MM 1.4 AV Cusp Separation MM 1.8 cm DOPPLER AV Peak Velocity 68.4 cm/s AV Peak Gradient 1.9 mmHg LVOT Peak Velocity 43.9 cm/s LVOT Peak Gradient 0.8 mmHg AV Area Cont Eq pk 2.0 cm MR Peak Velocity 378.5 cm/s MR Peak Gradient 57.3 mmHg TR Peak Velocity 261.3 cm/s TR Peak Gradient 27.3 mmHg Right Atrial Pressure 10.0 mmHg Pulmonary Artery Systolic Pressu 37.3 mmHg Right Ventricular Systolic Press 37.3 mmHg PV Peak Velocity 70.6 cm/s PV Peak Gradient 2.0 mmHg FINDINGS LEFT VENTRICLE The left ventricular systolic function is severely reduced with an estimated ejection fraction less than 20%. Wall thickness is measured at the upper limits of normal. Severely dilated left ventricle. RIGHT VENTRICLE Normal right ventricular size and systolic function. LEFT ATRIUM The left atrial size is moderately dilated. RIGHT ATRIUM The right atrial size is normal. ATRIAL SEPTUM Normal atrial septal thickness without atrial level shunting by limited color doppler interrogation. AORTA The aortic root and proximal ascending aorta are normal in size on limited imaging. MITRAL VALVE [id number] mitral valve regurgitation. AORTIC VALVE Trileaflet aortic valve. No aortic valve stenosis or regurgitation. TRICUSPID VALVE There is moderate to severe tricuspid valve regurgitation. The estimated pulmonary arterial pressure is 37.3 mmHg. PULMONARY VALVE No pulmonary valve regurgitation or stenosis. VESSELS The inferior vena cava is normal in size. PERICARDIUM A large left sided pleural effusion is noted. Pedro Sims MD, FACC (Electronically Signed) Final Date:28 June 2018 11:58
--- NOTE | 2018-06-28 12:39 | P.PNCC ---
Subjective Subjective Remarks/Hospital Course: The patient is a 53-year-old male with a past medical history of CHF and cardiomyopathy, with EF of less than 20%, who presented to [facility] ED for altered mental status. The patient was found incontinent of urine and feces. Apparently, the patient is homeless and has been living in a friend's garage, and he was last seen one week ago. On his last admission, he was seen by cardiology service and they recommended hospice. He also has history of ETOH abuse. Thepatient was found hypotensive by EVAC with a systolic blood pressure in the 80s, tachycardic with heart rate of 104. He was given 1 liter bolus of normal saline in the ED and placed on Levophed currently at 15 mcg. In addition, he was found hypoglycemic and had a blood sugar of 24 on a BMP, and was given half amp of D50. His labs significant for renal failure with a BUN of 42, creatinine 1.52, hyperkalemic with a potassium level 5.6, and hyponatremic with a sodium level of 127. In addition, the patient had mild lactic acidosis with a lactic acid level of 2.9 and a leukocytosis with a WBC of 19.8. His urinalysis was positive for nitrite, leukocyte esterase, and 20 WBCs. Chest x-ray in the ER showed cardiomegaly with mild pulmonary vascular congestion, bilateral lower lobe airspace consolidations. He received vancomycin and Zosyn. ABG on room air showed a pH of 7.41, CO2 of 26, PaO2 79, bicarbonate of 16, and a saturation of 94%. His urine drug screen was negative and his serum alcohol level was less than 3. Most of the history was obtained from reviewing medical records, as the patient is a poor historian. 06/27 Patient remains on Levophed 15 mics, lethargic , CT brain last night showed focal heterogeneity of the right parietal lobe possible intra-axial mass and adjacent hemorrhage. A focal subacute infarct with mild jhon-infarct hemorrhage would also be in the differential. No midline shift. BC from yesterday gram negative rods. 06/28: Intubated overnight and placed on mechanical ventilation. Underwent lumbar puncture which suggest bacterial meningitis with glucose less than 1 protein 330s and white count 1400s. Currently sedated, orally intubated on mechanical ventilation. Palliative care attempting to contact family. Objective Vital Signs / I&O: Vital Signs 06/27/18 12:31 06/27/18 13:00 06/27/18 13:01 Temperature Pulse Rate 109 H 113 H Respiratory Rate 18 15 Blood Pressure 95/60 L 95/60 L Pulse Oximetry 95 06/27/18 13:15 06/27/18 13:22 06/27/18 13:26 Temperature Pulse Rate 113 H 116 H Respiratory Rate 14 15 Blood Pressure 95/62 L 96/60 L Pulse Oximetry 96 06/27/18 14:16 06/27/18 14:22 06/27/18 14:30 Temperature Pulse Rate 113 H 110 H 111 H Respiratory Rate 17 13 Blood Pressure 91/69 L 96/63 L Pulse Oximetry 94 L 94 L 94 L 06/27/18 14:45 06/27/18 15:00 06/27/18 15:15 Temperature Pulse Rate 109 H 106 H 108 H Respiratory Rate 19 21 20 Blood Pressure 100/70 97/71 L 89/67 L Pulse Oximetry 94 L 95 96 06/27/18 15:30 06/27/18 15:32 06/27/18 15:45 Temperature Pulse Rate 109 H 109 H 113 H Respiratory Rate 18 25 H 24 Blood Pressure 93/65 L 99/71 L Pulse Oximetry 96 97 06/27/18 16:00 06/27/18 16:15 06/27/18 16:30 Temperature 97.9 F Pulse Rate 116 H 118 H 117 H Respiratory Rate 26 H 19 18 Blood Pressure 99/72 L 98/69 L 99/64 L Pulse Oximetry 96 97 97 06/27/18 16:45 06/27/18 17:00 06/27/18 17:15 Temperature Pulse Rate 118 H 117 H 116 H Respiratory Rate 21 24 24 Blood Pressure 93/60 L 92/65 L 96/67 L Pulse Oximetry 97 96 96 06/27/18 17:30 06/27/18 17:46 06/27/18 18:00 Temperature Pulse Rate 117 H 118 H 116 H Respiratory Rate 23 31 H 27 H Blood Pressure 93/66 L 95/70 L 92/73 L Pulse Oximetry 96 97 97 06/27/18 18:15 06/27/18 18:32 06/27/18 18:45 Temperature Pulse Rate 118 H 119 H 119 H Respiratory Rate 18 22 21 Blood Pressure 93/65 L 92/70 L 91/68 L Pulse Oximetry 98 95 96 06/27/18 19:00 06/27/18 19:15 06/27/18 19:30 Temperature Pulse Rate 117 H 117 H 121 H Respiratory Rate 17 19 28 H Blood Pressure 96/73 L 96/68 L 99/70 L Pulse Oximetry 94 L 95 98 06/27/18 19:45 06/27/18 20:00 06/27/18 20:15 Temperature 98.0 F Pulse Rate 120 H 130 H 123 H Respiratory Rate 18 15 16 Blood Pressure 95/66 L 97/68 L 96/72 L Pulse Oximetry 96 98 88 L 06/27/18 20:30 06/27/18 20:45 06/27/18 21:00 Temperature Pulse Rate 128 H 127 H 125 H Respiratory Rate 24 15 23 Blood Pressure 93/68 L 92/69 L Pulse Oximetry 95 95 81 L 06/27/18 21:06 06/27/18 21:08 06/27/18 21:15 Temperature 98.0 F Pulse Rate 124 H 122 H 122 H Respiratory Rate 15 15 17 Blood Pressure 89/63 L 89/63 L 96/68 L Pulse Oximetry 88 L 93 L 94 L 06/27/18 21:30 06/27/18 21:45 06/27/18 22:00 Temperature Pulse Rate 119 H 123 H 125 H Respiratory Rate 16 22 22 Blood Pressure 88/62 L 94/65 L 100/63 Pulse Oximetry 97 90 L 79 L 06/27/18 22:15 06/27/18 22:30 06/27/18 22:45 Temperature Pulse Rate 130 H 137 H 131 H Respiratory Rate 19 22 22 Blood Pressure 91/68 L 89/68 L 101/71 Pulse Oximetry 91 L 85 L 93 L 06/27/18 23:00 06/27/18 23:07 06/27/18 23:15 Temperature 97.5 F L Pulse Rate 130 H 134 H 133 H Respiratory Rate 22 24 23 Blood Pressure 102/75 101/71 103/78 Pulse Oximetry 96 94 L 95 06/27/18 23:30 06/27/18 23:45 06/28/18 00:00 Temperature 97.9 F Pulse Rate 132 H 137 H 133 H Respiratory Rate 23 26 H 26 H Blood Pressure 102/76 92/67 L 93/70 L Pulse Oximetry 94 L 94 L 95 06/28/18 00:15 06/28/18 00:30 06/28/18 00:45 Temperature Pulse Rate 131 H 124 H 125 H Respiratory Rate 29 H 22 19 Blood Pressure 91/70 L 85/57 L 95/57 L Pulse Oximetry 95 94 L 87 L 06/28/18 01:00 06/28/18 01:09 06/28/18 01:10 Temperature Pulse Rate 119 H 123 H Respiratory Rate 19 17 20 Blood Pressure 83/58 L Pulse Oximetry 91 L 95 96 06/28/18 01:15 06/28/18 01:30 06/28/18 01:45 Temperature Pulse Rate 125 H 122 H 120 H Respiratory Rate 24 17 17 Blood Pressure 82/60 L 86/54 L 83/52 L Pulse Oximetry 96 98 98 06/28/18 02:00 06/28/18 02:14 06/28/18 02:15 Temperature Pulse Rate 120 H 118 H 119 H Respiratory Rate 18 18 18 Blood Pressure 81/53 L 83/53 L 83/55 L Pulse Oximetry 96 96 96 06/28/18 02:30 06/28/18 02:45 06/28/18 03:00 Temperature Pulse Rate 115 H 116 H 115 H Respiratory Rate 16 21 23 Blood Pressure 82/50 L 81/52 L 81/54 L Pulse Oximetry 97 97 97 06/28/18 03:15 06/28/18 03:33 06/28/18 03:45 Temperature Pulse Rate 114 H 109 H Respiratory Rate 23 21 19 Blood Pressure 81/55 L 85/58 L Pulse Oximetry 97 96 96 06/28/18 04:00 06/28/18 04:15 06/28/18 04:30 Temperature 97.9 F Pulse Rate 107 H 109 H 110 H Respiratory Rate 16 16 15 Blood Pressure 90/60 L 88/61 L 96/61 L Pulse Oximetry 93 L 92 L 92 L 06/28/18 04:46 06/28/18 05:00 06/28/18 05:15 Temperature Pulse Rate 110 H 109 H 111 H Respiratory Rate 15 16 16 Blood Pressure 90/67 L 99/70 L 98/71 L Pulse Oximetry 93 L 94 L 95 06/28/18 05:30 06/28/18 05:45 06/28/18 06:00 Temperature Pulse Rate 109 H 110 H 109 H Respiratory Rate 15 16 15 Blood Pressure 95/71 L 93/70 L 93/68 L Pulse Oximetry 95 95 96 06/28/18 06:58 06/28/18 07:00 06/28/18 08:00 Temperature 98.1 F 98.1 F 97.5 F L Pulse Rate 110 H 109 H 108 H Respiratory Rate 17 18 15 Blood Pressure 93/68 L 93/68 L 92/67 L Pulse Oximetry 96 96 06/28/18 08:07 06/28/18 08:16 06/28/18 08:30 Temperature 97.3 F L 97.4 F L Pulse Rate 108 H 105 H Respiratory Rate 15 17 18 Blood Pressure 84/58 L 89/64 L Pulse Oximetry 95 95 06/28/18 09:00 06/28/18 10:00 06/28/18 11:00 Temperature Pulse Rate 108 H 107 H 106 H Respiratory Rate 15 17 17 Blood Pressure 88/61 L 90/63 L 90/65 L Pulse Oximetry 95 94 L 95 06/28/18 11:51 Temperature Pulse Rate 103 H Respiratory Rate 16 Blood Pressure Pulse Oximetry Intake & Output 06/27/18 06/28/18 06/28/18 18:59 06:59 18:59 Intake Total 2060 1042 / 1042 0 / 0 Output Total 975 / 975 700 / 700 Balance 1086 / 1086 342 / 342 0 / 0 Intake: IV 2060 711 / 711 D5W/Normal Saline Inj 1,000 ML 1000 / 1000 @ 50 mls/hr IV.CONT .Q20H [facility] Rx#:[id number] Maxipime Inj 2,000 MG In NS Inj 0 / 0 100 ML @ 100 mls/hr IV.SIG Q12H [facility] Rx#:[id number] Levophed-Dextrose 4 mg/250 ml 500 / 500 250 / 250 Drip 4 mg In 250 ml @ 2 MCG/MIN 7.5 mls/hr IV.SIG TITRATE PRN Rx#:[id number] Zosyn 4.5 GM Premix 4.5 gm In 200 / 200 200 / 200 100 ml @ 200 mls/hr IV.SIG Q6H [facility] Rx#:[id number] KCl 40 mEq Premix Inj 40 meq In 100 / 100 100 ml @ 25 mls/hr IV.SIG Q2H PRN Rx#:[id number] Vancomycin Inj 1,100 MG In NS 261 / 261 261 / 261 Inj 250 ML @ 250 mls/hr IV.SIG Q18H [facility] Rx#:[id number] Intake (Blood Product) Amt 331 / 331 0 / 0 Plasma Thawed 5 Day Cp2d Unit 0 / 0 [id number] Plasma Thawed 5 Day Cp2d Unit 331 / 331 [id number] Plt Pheresis B Leukoreduced 0 / 0 0 / 0 Unit [id number] Plt Pheresis S Leukoreduced 0 / 0 Unit [id number] Output: Urine Amount (Catheter) 975 / 975 700 / 700 Indwelling Urethral Catheter 975 / 975 700 / 700 Other: # Bowel Movements 0 Result Diagrams: 06/28/18 04:53 06/28/18 04:53 Objective Remarks: GENERAL: Patient is 53 yo critically ill lethargic SKIN: Warm and dry. HEAD: Normocephalic. EYES: No scleral icterus. No injection or drainage. NECK: Supple, trachea midline. No JVD or lymphadenopathy. CARDIOVASCULAR: Regular rate and rhythm without murmurs, gallops, or rubs. RESPIRATORY: Orally intubated on mechanical ventilation, good air entry bilaterally, scattered rhonchi, no wheezing GASTROINTESTINAL: Abdomen soft, non-tender, nondistended. MUSCULOSKELETAL: No cyanosis, or edema. Neuro: Encephalopathic/sedated, orally intubated on mechanical ventilation. Assessment and Plan - Assessment and Plan Plan: 1. Septic shock. 2. Acute kidney injury. 3. Hypoglycemic episodes. 4. Electrolyte imbalance, which include hyponatremia and hyperkalemia. 5. Altered mental status. 6. Gram negative bacteremia 7. Leukocytosis. 8. Urinary tract infection. 9. Bilateral consolidations. Rule out infectious process. 10. CHF. 11. Cardiomyopathy EF< 20%. Plan Neuro: Monitor neuro status closely. Sedation as needed while intubated. CT brain: focal heterogeneity of the right parietal lobe possible intra -axial mass and adjacent hemorrhage. A focal subacute infarct with mild jhon-infarct hemorrhage would also be in the differential. No midline shift. Neuro is following- Dr. Terry, MRI brain: hemorrhagic infarct in the posterior right temporal lobe. No underlying mass is identified. NSG eval. Pulm: Continue mechanical ventilation, vent bundle Bronchodilators, aspiration precautions CV: Continue with Levophed maintain MAP > 65 mmHg. Serial lactic acid monitoring till clear On hydrocortisone 100 mg IV every 8 hours. Follow-up echo : Monitor renal function, I's and O's, and avoid nephrotoxins. Follow up on BMP today Gentle IV hydration, given severe cardiomyopathy on D5 NS at 50 mL an hour. GI: On Protonix 40 mg daily for GI prophylaxis. Start tube feeds and advance to goal as tolerated. ID: Continue with abx(vancomycin, cefepime, Zosyn)Monitor for signs and monitor for signs of infection(fever and WBC). Blood cultures 06/26: GNR Strep pneumonia and Legionella Ag negative. Lumbar puncture suggestive of bacterial meningitis. Antibiotics per ID Wound care is following Heme: Monitor CBC and coags. Check Fibrinogen level. Transfuse 2u FFP correct coagulopathy ( INR 1.8 today) given hemorrhagic infract on MRI brain Endo: SSI with Accu-Cheks q.4 hours GI prophylaxis- Protonix 40 mg daily. DVT prophylaxis with SCD, not on heparin SQ due to CT brain findings Palliative care to assest with goals of care Lines: Right subclavian CVP placed 06/26, peripheral IV's Patient is critically ill with septic shock, gram negative bacteremia, probable bacterial meningitis, renal failure, UTI , AMS and with severe cardiomyopathy Palliative care following. CCT 40 mins
[2018-06-28] MEDS: Dextrose 5%/NaCl 0.9% Inj 1,000 ML IV.CONT SCH (14:37)
[2018-06-28] MEDS: Pantoprazole Inj 40 MG Vial IV.PUSH SCH (16:59)
--- NOTE | 2018-06-28 18:08 | P.PNPAL ---
Reason for Visit Reason for visit: a. To assist with evaluation and management of symptoms including:confusion, dyspnea b. To assist medical decision maker(s) with: better understanding of current medical conditions; weighing benefits/burdens of medical treatment options; making medical treatment decisions. Subjective Subjective/Interval History: Pt intubated, on multiple pressors. Had LP. Case d/w with ID. Family/Friend Interactions: We were able to find Pt's brother, Laz Hager who now lives in [facility], moved here from [place]. Also in the meeting his pt's sister in law Lily Hager [phone]. We reviewed his hospitalization in the past and current hospitalization and clinical condition. Review his poor prognosis. Pt's brother and designated Health Care surrogate, endorse a DNR. They are comtempleting and like will transition to comfort measures in the following days. Advance Directives Health Care Surrogate: Copy in medical record Objective Vital Signs: Vital Signs 06/27/18 18:00 06/27/18 18:15 06/27/18 18:32 Temperature Pulse Rate 116 H 118 H 119 H Respiratory Rate 27 H 18 22 Blood Pressure 92/73 L 93/65 L 92/70 L Pulse Oximetry 97 98 95 06/27/18 18:45 06/27/18 19:00 06/27/18 19:15 Temperature Pulse Rate 119 H 117 H 117 H Respiratory Rate 21 17 19 Blood Pressure 91/68 L 96/73 L 96/68 L Pulse Oximetry 96 94 L 95 06/27/18 19:30 06/27/18 19:45 06/27/18 20:00 Temperature 98.0 F Pulse Rate 121 H 120 H 130 H Respiratory Rate 28 H 18 15 Blood Pressure 99/70 L 95/66 L 97/68 L Pulse Oximetry 98 96 98 06/27/18 20:15 06/27/18 20:30 06/27/18 20:45 Temperature Pulse Rate 123 H 128 H 127 H Respiratory Rate 16 24 15 Blood Pressure 96/72 L 93/68 L 92/69 L Pulse Oximetry 88 L 95 95 06/27/18 21:00 06/27/18 21:06 06/27/18 21:08 Temperature 98.0 F Pulse Rate 125 H 124 H 122 H Respiratory Rate 23 15 15 Blood Pressure 89/63 L 89/63 L Pulse Oximetry 81 L 88 L 93 L 06/27/18 21:15 06/27/18 21:30 06/27/18 21:45 Temperature Pulse Rate 122 H 119 H 123 H Respiratory Rate 17 16 22 Blood Pressure 96/68 L 88/62 L 94/65 L Pulse Oximetry 94 L 97 90 L 06/27/18 22:00 06/27/18 22:15 06/27/18 22:30 Temperature Pulse Rate 125 H 130 H 137 H Respiratory Rate 22 19 22 Blood Pressure 100/63 91/68 L 89/68 L Pulse Oximetry 79 L 91 L 85 L 06/27/18 22:45 06/27/18 23:00 06/27/18 23:07 Temperature 97.5 F L Pulse Rate 131 H 130 H 134 H Respiratory Rate 22 22 24 Blood Pressure 101/71 102/75 101/71 Pulse Oximetry 93 L 96 94 L 06/27/18 23:15 06/27/18 23:30 06/27/18 23:45 Temperature Pulse Rate 133 H 132 H 137 H Respiratory Rate 23 23 26 H Blood Pressure 103/78 102/76 92/67 L Pulse Oximetry 95 94 L 94 L 06/28/18 00:00 06/28/18 00:15 06/28/18 00:30 Temperature 97.9 F Pulse Rate 133 H 131 H 124 H Respiratory Rate 26 H 29 H 22 Blood Pressure 93/70 L 91/70 L 85/57 L Pulse Oximetry 95 95 94 L 06/28/18 00:45 06/28/18 01:00 06/28/18 01:09 Temperature Pulse Rate 125 H 119 H 123 H Respiratory Rate 19 19 17 Blood Pressure 95/57 L 83/58 L Pulse Oximetry 87 L 91 L 95 06/28/18 01:10 06/28/18 01:15 06/28/18 01:30 Temperature Pulse Rate 125 H 122 H Respiratory Rate 20 24 17 Blood Pressure 82/60 L 86/54 L Pulse Oximetry 96 96 98 06/28/18 01:45 06/28/18 02:00 06/28/18 02:14 Temperature Pulse Rate 120 H 120 H 118 H Respiratory Rate 17 18 18 Blood Pressure 83/52 L 81/53 L 83/53 L Pulse Oximetry 98 96 96 06/28/18 02:15 06/28/18 02:30 06/28/18 02:45 Temperature Pulse Rate 119 H 115 H 116 H Respiratory Rate 18 16 21 Blood Pressure 83/55 L 82/50 L 81/52 L Pulse Oximetry 96 97 97 06/28/18 03:00 06/28/18 03:15 06/28/18 03:33 Temperature Pulse Rate 115 H 114 H Respiratory Rate 23 23 21 Blood Pressure 81/54 L 81/55 L Pulse Oximetry 97 97 96 06/28/18 03:45 06/28/18 04:00 06/28/18 04:15 Temperature 97.9 F Pulse Rate 109 H 107 H 109 H Respiratory Rate 19 16 16 Blood Pressure 85/58 L 90/60 L 88/61 L Pulse Oximetry 96 93 L 92 L 06/28/18 04:30 06/28/18 04:46 06/28/18 05:00 Temperature Pulse Rate 110 H 110 H 109 H Respiratory Rate 15 15 16 Blood Pressure 96/61 L 90/67 L 99/70 L Pulse Oximetry 92 L 93 L 94 L 06/28/18 05:15 06/28/18 05:30 06/28/18 05:45 Temperature Pulse Rate 111 H 109 H 110 H Respiratory Rate 16 15 16 Blood Pressure 98/71 L 95/71 L 93/70 L Pulse Oximetry 95 95 95 06/28/18 06:00 06/28/18 06:58 06/28/18 07:00 Temperature 98.1 F 98.1 F Pulse Rate 109 H 110 H 109 H Respiratory Rate 15 17 18 Blood Pressure 93/68 L 93/68 L 93/68 L Pulse Oximetry 96 96 06/28/18 08:00 06/28/18 08:07 06/28/18 08:16 Temperature 97.5 F L 97.3 F L Pulse Rate 108 H 108 H Respiratory Rate 15 15 17 Blood Pressure 92/67 L 84/58 L Pulse Oximetry 96 95 06/28/18 08:30 06/28/18 09:00 06/28/18 10:00 Temperature 97.4 F L Pulse Rate 105 H 108 H 107 H Respiratory Rate 18 15 17 Blood Pressure 89/64 L 88/61 L 90/63 L Pulse Oximetry 95 95 94 L 06/28/18 11:00 06/28/18 11:51 06/28/18 12:00 Temperature 97 F L Pulse Rate 106 H 103 H 103 H Respiratory Rate 17 16 17 Blood Pressure 90/65 L 91/66 L Pulse Oximetry 95 95 06/28/18 12:32 06/28/18 13:00 06/28/18 14:00 Temperature Pulse Rate 103 H 103 H Respiratory Rate 17 17 17 Blood Pressure 91/66 L 93/59 L Pulse Oximetry 97 99 06/28/18 15:00 06/28/18 16:00 06/28/18 16:09 Temperature 97.5 F L Pulse Rate 102 H 101 H 107 H Respiratory Rate 17 17 15 Blood Pressure 91/64 L 92/65 L Pulse Oximetry 98 98 06/28/18 17:00 06/28/18 17:38 Temperature Pulse Rate 101 H Respiratory Rate 16 16 Blood Pressure 91/65 L Pulse Oximetry 98 98 Intake & Output 06/27/18 06/28/18 06/28/18 18:59 06:59 18:59 Intake Total 2060 / 2060 1042 / 1042 1714 / 1714 Output Total 975 / 975 700 / 700 Balance 1086 / 1086 342 / 342 1714 / 1714 Intake: IV 2060 711 / 711 1350 / 1350 D5W/Normal Saline Inj 1,000 ML 1000 / 1000 1000 / 1000 @ 50 mls/hr IV.CONT .Q20H M[facility] Rx#:[id number] Maxipime Inj 2,000 MG In NS Inj 0 / 0 100 ML @ 100 mls/hr IV.SIG Q12H [facility] Rx#:[id number] Levophed-Dextrose 4 mg/250 ml 500 / 500 250 / 250 250 / 250 Drip 4 mg In 250 ml @ 2 MCG/MIN 7.5 mls/hr IV.SIG TITRATE PRN Rx#:[id number] Zosyn 4.5 GM Premix 4.5 gm In 200 / 200 200 / 200 100 / 100 100 ml @ 200 mls/hr IV.SIG Q6H M[facility] Rx#:[id number] KCl 40 mEq Premix Inj 40 meq In 100 / 100 100 ml @ 25 mls/hr IV.SIG Q2H PRN Rx#:[id number] Vancomycin Inj 1,100 MG In NS 261 / 261 261 / 261 Inj 250 ML @ 250 mls/hr IV.SIG Q18H M[facility]ITA Rx#:[id number] Intake (Blood Product) Amt 331 / 331 364 / 364 Plasma Thawed 5 Day Cp2d Unit 0 / 0 [id number] Plasma Thawed 5 Day Cp2d Unit 331 / 331 [id number] Plt Pheresis B Leukoreduced 0 / 0 0 / 0 Unit [id number] Plt Pheresis S Leukoreduced 364 / 364 Unit [id number] Output: Urine Amount (Catheter) 975 / 975 700 / 700 Indwelling Urethral Catheter 975 975 700 / 700 Other: # Bowel Movements 0 Physical Exam: CONSTITUTIONAL/GENERAL: This is a frail middle age man. Lethargic, minimally responsive, now intubated TUBES/LINES/DRAINS:NC, folwy, piv, RIJ SKIN: lower ext cellulitis. Edema. HEAD: Atraumatic. Normocephalic. EYES: Pupils equal and round and reactive. . No scleral icterus. No injection or drainage. Fundi not examined. ENT: Hearing grossly normal. Nose without bleeding or purulent drainage. ET tube NECK: Trachea midline. Supple, nontender. No palpable thyroid enlargement or nodularity. CARDIOVASCULAR: Regular rate and rhythm without murmurs, gallops, or rubs. RESPIRATORY/CHEST: Coarse breath sound bilaterally. GASTROINTESTINAL: Abdomen soft, non-tender, nondistended. No hepato-splenomegaly , or palpable masses. No guarding. Bowel sounds present. GENITOURINARY: Without palpable bladder distension. Tavarez catheter in place. MUSCULOSKELETAL: Lower ext edemetious LYMPHATICS: No palpable cervical or supraclavicular adenopathy. NEUROLOGICAL: lethargic PSYCHIATRIC: could not examine Diagnostic Tests Laboratory: Laboratory Results - last 72 hr 06/26/18 06/26/18 06/26/18 13:09 13:09 13:13 WBC 19.8 H RBC 4.78 Hgb 14.3 Hct 43.6 MCV 91.1 MCH 30.0 MCHC 32.9 RDW 20.0 H Plt Count 133 L MPV 9.9 Prelim Diff (Auto) Neut % (Auto) 97.7 H Lymph % (Auto) 0.8 L Eagle % (Auto) 1.1 Eos % (Auto) 0.2 Baso % (Auto) 0.2 Neut # (Auto) 19.3 H Lymph # (Auto) 0.2 L [place] # (Auto) 0.2 Eos # (Auto) 0.0 Baso # (Auto) 0.0 WBC Differential . Seg Neuts % (Manual) Band Neuts % (Manual) Lymphocytes % (Manual) Monocytes % (Manual) Abs Neuts (Manual) Differential Comment Auto diff final Toxic Granulation Dohle Bodies Platelet Estimate Platelet Morphology [place] Cells Keratocytes PT INR APTT Fibrinogen Puncture Site Patient Temperature O2 Saturation ABG pH ABG pCO2 ABG pO2 ABG HCO3 ABG O2 Content ABG Base Excess ABG Methemoglobin Rajiv Test VBG pH VBG pCO2 VBG pO2 VBG HCO3 VBG O2 Saturation VBG O2 Content VBG Base Excess VBG Carboxyhemoglobin VBG Methemoglobin Hemoglobin Carboxyhemoglobin O2 Delivery Device Liter Flow Vent Setting Inspired O2 Critical Value Sodium Potassium Chloride Carbon Dioxide Anion Gap BUN Creatinine Estimated GFR POC Glucose Random Glucose Lactic Acid Calcium Prot Corrected Calcium Total Bilirubin AST ALT Alkaline Phosphatase Ammonia Troponin I C-Reactive Protein B-Natriuretic Peptide Total Protein Albumin TSH Urine Color Yellow Urine Clarity Hazy H Urine pH 5.0 Ur Specific Page 1.010 Urine Protein Negative Urine Glucose (UA) Negative Urine Ketones Negative Urine Occult Blood Moderate H Urine Nitrate Positive H Urine Bilirubin Negative Urine Urobilinogen Less than 2 Ur Leukocyte Esterase Small H Urine RBC 4 H Urine WBC 20 H Urine Bacteria Occasional H Hyaline Casts 26 Urine Mucus Few H Micro UA Comment Culture indicated Ur Microscopic Review Not Reportable Urine Culture Comments Culture indicated CSF Volume (1) CSF Supernat Color (1) CSF Gross Blood (1) CSF Volume (2) CSF Supernat Color (2) CSF Gross Blood (2) CSF Volume (3) CSF Supernat Color (3) CSF Gross Blood (3) CSF Volume (4) CSF Supernat Color (4) CSF Gross Blood (4) CSF WBC (4) CSF RBC (4) CSF Neutrophils % CSF Lymphocytes % CSF Monocytes % CSF Comment CSF Glucose CSF Lactic Acid CSF Total Protein Nasal Screen MRSA (PCR) Urine Opiates Screen Neg Ur Barbiturates Screen Neg Ur Amphetamines Screen Neg U Benzodiazepines Scrn Neg Urine Cocaine Screen Neg U Cannabinoids Screen Neg Serum Alcohol Chlam trachomat DNA PCR Hepatitis A IgM Ab Hep Bs Antigen Hep B Core IgM Ab Hep C IgG Ab HIV 1&2 Ab/P24 Ag 4thGn N.gonorrhoeae DNA (PCR) Blood Type Blood Type Recheck Blood Bank Comment Bld Prod Order Comment 08/28/18 08/28/18 08/28/18 13:13 13:15 13:15 WBC RBC Hgb Hct MCV MCH MCHC RDW Plt Count MPV Prelim Diff (Auto) Neut % (Auto) Lymph % (Auto) [place] % (Auto) Eos % (Auto) Baso % (Auto) Neut # (Auto) Lymph # (Auto) [place] # (Auto) Eos # (Auto) Baso # (Auto) WBC Differential Seg Neuts % (Manual) Band Neuts % (Manual) Lymphocytes % (Manual) Monocytes % (Manual) Abs Neuts (Manual) Differential Comment Toxic Granulation Dohle Bodies Platelet Estimate Platelet Morphology [place] Cells Keratocytes PT INR APTT Fibrinogen Puncture Site Patient Temperature O2 Saturation ABG pH ABG pCO2 ABG pO2 ABG HCO3 ABG O2 Content ABG Base Excess ABG Methemoglobin Rajiv Test VBG pH VBG pCO2 VBG pO2 VBG HCO3 VBG O2 Saturation VBG O2 Content VBG Base Excess VBG Carboxyhemoglobin VBG Methemoglobin Hemoglobin Carboxyhemoglobin O2 Delivery Device Liter Flow Vent Setting Inspired O2 Critical Value Sodium 127 L Potassium 5.6 H Chloride 94 L Carbon Dioxide 19.3 L Anion Gap 14 BUN 42 H Creatinine 1.52 H Estimated GFR 48 L POC Glucose Random Glucose 24 L* Lactic Acid 2.9 H Calcium 7.9 L Prot Corrected Calcium Total Bilirubin 2.2 H AST 82 H ALT 39 Alkaline Phosphatase 116 Ammonia Troponin I 0.03 C-Reactive Protein B-Natriuretic Peptide Greater than 5000 H Total Protein 5.1 L Albumin 2.2 L TSH 2.040 Urine Color Urine Clarity Urine pH Ur Specific Page Urine Protein Urine Glucose (UA) Urine Ketones Urine Occult Blood Urine Nitrate Urine Bilirubin Urine Urobilinogen Ur Leukocyte Esterase Urine RBC Urine WBC Urine Bacteria Hyaline Casts Urine Mucus Micro UA Comment Ur Microscopic Review Urine Culture Comments CSF Volume (1) CSF Supernat Color (1) CSF Gross Blood (1) CSF Volume (2) CSF Supernat Color (2) CSF Gross Blood (2) CSF Volume (3) CSF Supernat Color (3) CSF Gross Blood (3) CSF Volume (4) CSF Supernat Color (4) CSF Gross Blood (4) CSF WBC (4) CSF RBC (4) CSF Neutrophils % CSF Lymphocytes % CSF Monocytes % CSF Comment CSF Glucose CSF Lactic Acid CSF Total Protein Nasal Screen MRSA (PCR) Urine Opiates Screen Ur Barbiturates Screen Ur Amphetamines Screen U Benzodiazepines Scrn Urine Cocaine Screen U Cannabinoids Screen Serum Alcohol Less than 3 Chlam trachomat DNA PCR Hepatitis A IgM Ab Hep Bs Antigen Hep B Core IgM Ab Hep C IgG Ab HIV 1&2 Ab/P24 Ag 4thGn N.gonorrhoeae DNA (PCR) Blood Type Blood Type Recheck Blood Bank Comment Bld Prod Order Comment 06/26/18 06/26/18 06/26/18 13:15 14:19 14:30 WBC RBC Hgb Hct MCV MCH MCHC RDW Plt Count MPV Prelim Diff (Auto) Neut % (Auto) Lymph % (Auto) [place] % (Auto) Eos % (Auto) Baso % (Auto) Neut # (Auto) Lymph # (Auto) [place] # (Auto) Eos # (Auto) Baso # (Auto) WBC Differential Seg Neuts % (Manual) Band Neuts % (Manual) Lymphocytes % (Manual) Monocytes % (Manual) Abs Neuts (Manual) Differential Comment Toxic Granulation Dohle Bodies Platelet Estimate Platelet Morphology Mildred Cells Keratocytes PT 17.6 H INR 1.7 APTT 45.3 H Fibrinogen Puncture Site Right radial Patient Temperature 98.6 O2 Saturation 94 ABG pH 7.41 ABG pCO2 26 L ABG pO2 79 ABG HCO3 16 L* ABG O2 Content 19.6 ABG Base Excess -7.8 L ABG Methemoglobin 0.5 Rajiv Test Present VBG pH VBG pCO2 VBG pO2 VBG HCO3 VBG O2 Saturation VBG O2 Content VBG Base Excess VBG Carboxyhemoglobin VBG Methemoglobin Hemoglobin 14.8 Carboxyhemoglobin 1.2 O2 Delivery Device Liter Flow Vent Setting Inspired O2 21 Critical Value Yes Sodium Potassium Chloride Carbon Dioxide Anion Gap BUN Creatinine Estimated GFR POC Glucose Random Glucose Lactic Acid Calcium Prot Corrected Calcium Total Bilirubin AST ALT Alkaline Phosphatase Ammonia 12 Troponin I C-Reactive Protein B-Natriuretic Peptide Total Protein Albumin TSH Urine Color Urine Clarity Urine pH Ur Specific Page Urine Protein Urine Glucose (UA) Urine Ketones Urine Occult Blood Urine Nitrate Urine Bilirubin Urine Urobilinogen Ur Leukocyte Esterase Urine RBC Urine WBC Urine Bacteria Hyaline Casts Urine Mucus Micro UA Comment Ur Microscopic Review Urine Culture Comments CSF Volume (1) CSF Supernat Color (1) CSF Gross Blood (1) CSF Volume (2) CSF Supernat Color (2) CSF Gross Blood (2) CSF Volume (3) CSF Supernat Color (3) CSF Gross Blood (3) CSF Volume (4) CSF Supernat Color (4) CSF Gross Blood (4) CSF WBC (4) CSF RBC (4) CSF Neutrophils % CSF Lymphocytes % CSF Monocytes % CSF Comment CSF Glucose CSF Lactic Acid CSF Total Protein Nasal Screen MRSA (PCR) Urine Opiates Screen Ur Barbiturates Screen Ur Amphetamines Screen U Benzodiazepines Scrn Urine Cocaine Screen U Cannabinoids Screen Serum Alcohol Chlam trachomat DNA PCR Hepatitis A IgM Ab Hep Bs Antigen Hep B Core IgM Ab Hep C IgG Ab HIV 1&2 Ab/P24 Ag 4thGn N.gonorrhoeae DNA (PCR) Blood Type Blood Type Recheck Blood Bank Comment Bld Prod Order Comment 06/26/18 06/26/18 06/26/18 15:20 16:36 17:30 WBC RBC Hgb Hct MCV MCH MCHC RDW Plt Count MPV Prelim Diff (Auto) Neut % (Auto) Lymph % (Auto) [place] % (Auto) Eos % (Auto) Baso % (Auto) Neut # (Auto) Lymph # (Auto) [place] # (Auto) Eos # (Auto) Baso # (Auto) WBC Differential Seg Neuts % (Manual) Band Neuts % (Manual) Lymphocytes % (Manual) Monocytes % (Manual) Abs Neuts (Manual) Differential Comment Toxic Granulation Dohle Bodies Platelet Estimate Platelet Morphology [place]red Cells Keratocytes PT INR APTT Fibrinogen Puncture Site Peripheral line Patient Temperature 98.6 O2 Saturation ABG pH ABG pCO2 ABG pO2 ABG HCO3 ABG O2 Content ABG Base Excess ABG Methemoglobin Rajiv Test VBG pH 7.29 L* VBG pCO2 42 L VBG pO2 12 L* VBG HCO3 19 L VBG O2 Saturation 6 L VBG O2 Content 1.3 L VBG Base Excess -6.0 L VBG Carboxyhemoglobin 0.5 VBG Methemoglobin 0.6 Hemoglobin 14.8 Carboxyhemoglobin O2 Delivery Device Liter Flow Vent Setting Inspired O2 21 Critical Value Yes Sodium Potassium Chloride Carbon Dioxide Anion Gap BUN Creatinine Estimated GFR POC Glucose 83 Random Glucose Lactic Acid Calcium Prot Corrected Calcium Total Bilirubin AST ALT Alkaline Phosphatase Ammonia Troponin I C-Reactive Protein B-Natriuretic Peptide Total Protein Albumin TSH Urine Color Urine Clarity Urine pH Ur Specific Page Urine Protein Urine Glucose (UA) Urine Ketones Urine Occult Blood Urine Nitrate Urine Bilirubin Urine Urobilinogen Ur Leukocyte Esterase Urine RBC Urine WBC Urine Bacteria Hyaline Casts Urine Mucus Micro UA Comment Ur Microscopic Review Urine Culture Comments CSF Volume (1) CSF Supernat Color (1) CSF Gross Blood (1) CSF Volume (2) CSF Supernat Color (2) CSF Gross Blood (2) CSF Volume (3) CSF Supernat Color (3) CSF Gross Blood (3) CSF Volume (4) CSF Supernat Color (4) CSF Gross Blood (4) CSF WBC (4) CSF RBC (4) CSF Neutrophils % CSF Lymphocytes % CSF Monocytes % CSF Comment CSF Glucose CSF Lactic Acid CSF Total Protein Nasal Screen MRSA (PCR) Not detected Urine Opiates Screen Ur Barbiturates Screen Ur Amphetamines Screen U Benzodiazepines Scrn Urine Cocaine Screen U Cannabinoids Screen Serum Alcohol Chlam trachomat DNA PCR Hepatitis A IgM Ab Hep Bs Antigen Hep B Core IgM Ab Hep C IgG Ab HIV 1&2 Ab/P24 Ag 4thGn N.gonorrhoeae DNA (PCR) Blood Type Blood Type Recheck Blood Bank Comment Bld Prod Order Comment 06/26/18 06/26/18 06/26/18 18:20 19:03 19:03 WBC RBC Hgb Hct MCV MCH MCHC RDW Plt Count MPV Prelim Diff (Auto) Neut % (Auto) Lymph % (Auto) [place] % (Auto) Eos % (Auto) Baso % (Auto) Neut # (Auto) Lymph # (Auto) [place] # (Auto) Eos # (Auto) Baso # (Auto) WBC Differential Seg Neuts % (Manual) Band Neuts % (Manual) Lymphocytes % (Manual) Monocytes % (Manual) Abs Neuts (Manual) Differential Comment Toxic Granulation Dohle Bodies Platelet Estimate Platelet Morphology Mildred Cells Keratocytes PT INR APTT Fibrinogen Puncture Site Left radial Patient Temperature 98.6 O2 Saturation 94 ABG pH 7.43 H ABG pCO2 25 L ABG pO2 87 ABG HCO3 16 L* ABG O2 Content 20.6 H ABG Base Excess -7.2 L ABG Methemoglobin 1.3 Rajiv Test Present VBG pH VBG pCO2 VBG pO2 VBG HCO3 VBG O2 Saturation VBG O2 Content VBG Base Excess VBG Carboxyhemoglobin VBG Methemoglobin Hemoglobin 15.6 Carboxyhemoglobin 1.2 O2 Delivery Device Nasal cannula Liter Flow 2.00 Vent Setting Inspired O2 Critical Value Yes Sodium 133 L Potassium 3.9 D Chloride 98 Carbon Dioxide 20.3 L Anion Gap 15 BUN 38 H Creatinine 1.32 H Estimated GFR 57 L POC Glucose Random Glucose 68 L Lactic Acid 3.2 H Calcium 7.3 L* Prot Corrected Calcium 8.7 Total Bilirubin AST ALT Alkaline Phosphatase Ammonia Troponin I C-Reactive Protein B-Natriuretic Peptide Total Protein 4.6 L Albumin TSH Urine Color Urine Clarity Urine pH Ur Specific Page Urine Protein Urine Glucose (UA) Urine Ketones Urine Occult Blood Urine Nitrate Urine Bilirubin Urine Urobilinogen Ur Leukocyte Esterase Urine RBC Urine WBC Urine Bacteria Hyaline Casts Urine Mucus Micro UA Comment Ur Microscopic Review Urine Culture Comments CSF Volume (1) CSF Supernat Color (1) CSF Gross Blood (1) CSF Volume (2) CSF Supernat Color (2) CSF Gross Blood (2) CSF Volume (3) CSF Supernat Color (3) CSF Gross Blood (3) CSF Volume (4) CSF Supernat Color (4) CSF Gross Blood (4) CSF WBC (4) CSF RBC (4) CSF Neutrophils % CSF Lymphocytes % CSF Monocytes % CSF Comment CSF Glucose CSF Lactic Acid CSF Total Protein Nasal Screen MRSA (PCR) Urine Opiates Screen Ur Barbiturates Screen Ur Amphetamines Screen U Benzodiazepines Scrn Urine Cocaine Screen U Cannabinoids Screen Serum Alcohol Chlam trachomat DNA PCR Hepatitis A IgM Ab Hep Bs Antigen Hep B Core IgM Ab Hep C IgG Ab HIV 1&2 Ab/P24 Ag 4thGn N.gonorrhoeae DNA (PCR) Blood Type Blood Type Recheck Blood Bank Comment Bld Prod Order Comment 06/26/18 06/26/18 06/27/18 19:10 19:49 01:37 WBC RBC Hgb Hct MCV MCH MCHC RDW Plt Count MPV Prelim Diff (Auto) Neut % (Auto) Lymph % (Auto) [place] % (Auto) Eos % (Auto) Baso % (Auto) Neut # (Auto) Lymph # (Auto) [place] # (Auto) Eos # (Auto) Baso # (Auto) WBC Differential Seg Neuts % (Manual) Band Neuts % (Manual) Lymphocytes % (Manual) Monocytes % (Manual) Abs Neuts (Manual) Differential Comment Toxic Granulation Dohle Bodies Platelet Estimate Platelet Morphology [place] Cells Keratocytes PT INR APTT Fibrinogen Puncture Site Patient Temperature O2 Saturation ABG pH ABG pCO2 ABG pO2 ABG HCO3 ABG O2 Content ABG Base Excess ABG Methemoglobin Rajiv Test VBG pH VBG pCO2 VBG pO2 VBG HCO3 VBG O2 Saturation VBG O2 Content VBG Base Excess VBG Carboxyhemoglobin VBG Methemoglobin Hemoglobin Carboxyhemoglobin O2 Delivery Device Liter Flow Vent Setting Inspired O2 Critical Value Sodium Potassium Chloride Carbon Dioxide Anion Gap BUN Creatinine Estimated GFR POC Glucose 38 L* 108 107 Random Glucose Lactic Acid Calcium Prot Corrected Calcium Total Bilirubin AST ALT Alkaline Phosphatase Ammonia Troponin I C-Reactive Protein B-Natriuretic Peptide Total Protein Albumin TSH Urine Color Urine Clarity Urine pH Ur Specific Page Urine Protein Urine Glucose (UA) Urine Ketones Urine Occult Blood Urine Nitrate Urine Bilirubin Urine Urobilinogen Ur Leukocyte Esterase Urine RBC Urine WBC Urine Bacteria Hyaline Casts Urine Mucus Micro UA Comment Ur Microscopic Review Urine Culture Comments CSF Volume (1) CSF Supernat Color (1) CSF Gross Blood (1) CSF Volume (2) CSF Supernat Color (2) CSF Gross Blood (2) CSF Volume (3) CSF Supernat Color (3) CSF Gross Blood (3) CSF Volume (4) CSF Supernat Color (4) CSF Gross Blood (4) CSF WBC (4) CSF RBC (4) CSF Neutrophils % CSF Lymphocytes % CSF Monocytes % CSF Comment CSF Glucose CSF Lactic Acid CSF Total Protein Nasal Screen MRSA (PCR) Urine Opiates Screen Ur Barbiturates Screen Ur Amphetamines Screen U Benzodiazepines Scrn Urine Cocaine Screen U Cannabinoids Screen Serum Alcohol Chlam trachomat DNA PCR Hepatitis A IgM Ab Hep Bs Antigen Hep B Core IgM Ab Hep C IgG Ab HIV 1&2 Ab/P24 Ag 4thGn N.gonorrhoeae DNA (PCR) Blood Type Blood Type Recheck Blood Bank Comment Bld Prod Order Comment 06/27/18 06/27/18 06/27/18 04:04 08:14 08:50 WBC RBC Hgb Hct MCV MCH MCHC RDW Plt Count MPV Prelim Diff (Auto) Neut % (Auto) Lymph % (Auto) [place] % (Auto) Eos % (Auto) Baso % (Auto) Neut # (Auto) Lymph # (Auto) [place] # (Auto) Eos # (Auto) Baso # (Auto) WBC Differential Seg Neuts % (Manual) Band Neuts % (Manual) Lymphocytes % (Manual) Monocytes % (Manual) Abs Neuts (Manual) Differential Comment Toxic Granulation Dohle Bodies Platelet Estimate Platelet Morphology [place] Cells Keratocytes PT 17.9 H INR 1.8 APTT Fibrinogen Puncture Site Patient Temperature O2 Saturation ABG pH ABG pCO2 ABG pO2 ABG HCO3 ABG O2 Content ABG Base Excess ABG Methemoglobin Rajiv Test VBG pH VBG pCO2 VBG pO2 VBG HCO3 VBG O2 Saturation VBG O2 Content VBG Base Excess VBG Carboxyhemoglobin VBG Methemoglobin Hemoglobin Carboxyhemoglobin O2 Delivery Device Liter Flow Vent Setting Inspired O2 Critical Value Sodium Potassium Chloride Carbon Dioxide Anion Gap BUN Creatinine Estimated GFR POC Glucose 115 H 132 H Random Glucose Lactic Acid Calcium Prot Corrected Calcium Total Bilirubin AST ALT Alkaline Phosphatase Ammonia Troponin I C-Reactive Protein B-Natriuretic Peptide Total Protein Albumin TSH Urine Color Urine Clarity Urine pH Ur Specific Page Urine Protein Urine Glucose (UA) Urine Ketones Urine Occult Blood Urine Nitrate Urine Bilirubin Urine Urobilinogen Ur Leukocyte Esterase Urine RBC Urine WBC Urine Bacteria Hyaline Casts Urine Mucus Micro UA Comment Ur Microscopic Review Urine Culture Comments CSF Volume (1) CSF Supernat Color (1) CSF Gross Blood (1) CSF Volume (2) CSF Supernat Color (2) CSF Gross Blood (2) CSF Volume (3) CSF Supernat Color (3) CSF Gross Blood (3) CSF Volume (4) CSF Supernat Color (4) CSF Gross Blood (4) CSF WBC (4) CSF RBC (4) CSF Neutrophils % CSF Lymphocytes % CSF Monocytes % CSF Comment CSF Glucose CSF Lactic Acid CSF Total Protein Nasal Screen MRSA (PCR) Urine Opiates Screen Ur Barbiturates Screen Ur Amphetamines Screen U Benzodiazepines Scrn Urine Cocaine Screen U Cannabinoids Screen Serum Alcohol Chlam trachomat DNA PCR Hepatitis A IgM Ab Hep Bs Antigen Hep B Core IgM Ab Hep C IgG Ab HIV 1&2 Ab/P24 Ag 4thGn N.gonorrhoeae DNA (PCR) Blood Type Blood Type Recheck Blood Bank Comment Bld Prod Order Comment 06/27/18 06/27/18 06/27/18 08:50 08:50 08:50 WBC 17.7 H RBC 4.94 Hgb 14.6 Hct 43.6 MCV 88.3 MCH 29.5 MCHC 33.5 RDW 20.0 H Plt Count 76 L D MPV 10.3 Prelim Diff (Auto) Slide review pending Neut % (Auto) 98.5 H Lymph % (Auto) 0.7 L [place] % (Auto) 0.4 Eos % (Auto) 0.2 Baso % (Auto) 0.2 Neut # (Auto) 17.5 H Lymph # (Auto) 0.1 L [place] # (Auto) 0.1 Eos # (Auto) 0.0 Baso # (Auto) 0.0 WBC Differential Manual diff final Seg Neuts % (Manual) 75 H Band Neuts % (Manual) 24 H Lymphocytes % (Manual) Monocytes % (Manual) 1 Abs Neuts (Manual) 17.5 H Differential Comment . Toxic Granulation Dohle Bodies Platelet Estimate Low L Platelet Morphology Normal Mildred Cells 1+ H Keratocytes Occ H PT INR APTT Fibrinogen 375 Puncture Site Patient Temperature O2 Saturation ABG pH ABG pCO2 ABG pO2 ABG HCO3 ABG O2 Content ABG Base Excess ABG Methemoglobin Rajiv Test VBG pH VBG pCO2 VBG pO2 VBG HCO3 VBG O2 Saturation VBG O2 Content VBG Base Excess VBG Carboxyhemoglobin VBG Methemoglobin Hemoglobin Carboxyhemoglobin O2 Delivery Device Liter Flow Vent Setting Inspired O2 Critical Value Sodium 134 L Potassium 3.2 L Chloride 101 Carbon Dioxide 20.4 L Anion Gap 13 BUN 37 H Creatinine 1.26 Estimated GFR 60 L POC Glucose Random Glucose 152 H Lactic Acid Calcium 7.4 L* Prot Corrected Calcium 8.9 Total Bilirubin 2.5 H AST 28 ALT 34 Alkaline Phosphatase 134 H Ammonia Troponin I C-Reactive Protein B-Natriuretic Peptide Total Protein 4.5 L Albumin 2.0 L TSH Urine Color Urine Clarity Urine pH Ur Specific Page Urine Protein Urine Glucose (UA) Urine Ketones Urine Occult Blood Urine Nitrate Urine Bilirubin Urine Urobilinogen Ur Leukocyte Esterase Urine RBC Urine WBC Urine Bacteria Hyaline Casts Urine Mucus Micro UA Comment Ur Microscopic Review Urine Culture Comments CSF Volume (1) CSF Supernat Color (1) CSF Gross Blood (1) CSF Volume (2) CSF Supernat Color (2) CSF Gross Blood (2) CSF Volume (3) CSF Supernat Color (3) CSF Gross Blood (3) CSF Volume (4) CSF Supernat Color (4) CSF Gross Blood (4) CSF WBC (4) CSF RBC (4) CSF Neutrophils % CSF Lymphocytes % CSF Monocytes % CSF Comment CSF Glucose CSF Lactic Acid CSF Total Protein Nasal Screen MRSA (PCR) Urine Opiates Screen Ur Barbiturates Screen Ur Amphetamines Screen U Benzodiazepines Scrn Urine Cocaine Screen U Cannabinoids Screen Serum Alcohol Chlam trachomat DNA PCR Hepatitis A IgM Ab Hep Bs Antigen Hep B Core IgM Ab Hep C IgG Ab HIV 1&2 Ab/P24 Ag 4thGn N.gonorrhoeae DNA (PCR) Blood Type Blood Type Recheck Blood Bank Comment Bld Prod Order Comment 06/27/18 06/27/18 06/27/18 11:23 11:23 11:23 WBC RBC Hgb Hct MCV MCH MCHC RDW Plt Count MPV Prelim Diff (Auto) Neut % (Auto) Lymph % (Auto) [place] % (Auto) Eos % (Auto) Baso % (Auto) Neut # (Auto) Lymph # (Auto) [place] # (Auto) Eos # (Auto) Baso # (Auto) WBC Differential Seg Neuts % (Manual) Band Neuts % (Manual) Lymphocytes % (Manual) Monocytes % (Manual) Abs Neuts (Manual) Differential Comment Toxic Granulation Dohle Bodies Platelet Estimate Platelet Morphology [place] Cells Keratocytes PT INR APTT Fibrinogen Puncture Site Patient Temperature O2 Saturation ABG pH ABG pCO2 ABG pO2 ABG HCO3 ABG O2 Content ABG Base Excess ABG Methemoglobin Rajiv Test VBG pH VBG pCO2 VBG pO2 VBG HCO3 VBG O2 Saturation VBG O2 Content VBG Base Excess VBG Carboxyhemoglobin VBG Methemoglobin Hemoglobin Carboxyhemoglobin O2 Delivery Device Liter Flow Vent Setting Inspired O2 Critical Value Sodium Potassium Chloride Carbon Dioxide Anion Gap BUN Creatinine Estimated GFR POC Glucose Random Glucose Lactic Acid 4.9 H* Calcium Prot Corrected Calcium Total Bilirubin AST ALT Alkaline Phosphatase Ammonia Troponin I C-Reactive Protein 23.40 H B-Natriuretic Peptide Total Protein Albumin TSH Urine Color Urine Clarity Urine pH Ur Specific Page Urine Protein Urine Glucose (UA) Urine Ketones Urine Occult Blood Urine Nitrate Urine Bilirubin Urine Urobilinogen Ur Leukocyte Esterase Urine RBC Urine WBC Urine Bacteria Hyaline Casts Urine Mucus Micro UA Comment Ur Microscopic Review Urine Culture Comments CSF Volume (1) CSF Supernat Color (1) CSF Gross Blood (1) CSF Volume (2) CSF Supernat Color (2) CSF Gross Blood (2) CSF Volume (3) CSF Supernat Color (3) CSF Gross Blood (3) CSF Volume (4) CSF Supernat Color (4) CSF Gross Blood (4) CSF WBC (4) CSF RBC (4) CSF Neutrophils % CSF Lymphocytes % CSF Monocytes % CSF Comment CSF Glucose CSF Lactic Acid CSF Total Protein Nasal Screen MRSA (PCR) Urine Opiates Screen Ur Barbiturates Screen Ur Amphetamines Screen U Benzodiazepines Scrn Urine Cocaine Screen U Cannabinoids Screen Serum Alcohol Chlam trachomat DNA PCR Hepatitis A IgM Ab Nonreactive Hep Bs Antigen Nonreactive Hep B Core IgM Ab Nonreactive Hep C IgG Ab Nonreactive HIV 1&2 Ab/P24 Ag 4thGn Nonreactive N.gonorrhoeae DNA (PCR) Blood Type Blood Type Recheck Blood Bank Comment Bld Prod Order Comment 06/27/18 06/27/18 06/27/18 11:51 15:15 16:28 WBC RBC Hgb Hct MCV MCH MCHC RDW Plt Count MPV Prelim Diff (Auto) Neut % (Auto) Lymph % (Auto) [place] % (Auto) Eos % (Auto) Baso % (Auto) Neut # (Auto) Lymph # (Auto) [place] # (Auto) Eos # (Auto) Baso # (Auto) WBC Differential Seg Neuts % (Manual) Band Neuts % (Manual) Lymphocytes % (Manual) Monocytes % (Manual) Abs Neuts (Manual) Differential Comment Toxic Granulation Dohle Bodies Platelet Estimate Platelet Morphology [place] Cells Keratocytes PT INR APTT Fibrinogen Puncture Site Patient Temperature O2 Saturation ABG pH ABG pCO2 ABG pO2 ABG HCO3 ABG O2 Content ABG Base Excess ABG Methemoglobin Rajiv Test VBG pH VBG pCO2 VBG pO2 VBG HCO3 VBG O2 Saturation VBG O2 Content VBG Base Excess VBG Carboxyhemoglobin VBG Methemoglobin Hemoglobin Carboxyhemoglobin O2 Delivery Device Liter Flow Vent Setting Inspired O2 Critical Value Sodium Potassium Chloride Carbon Dioxide Anion Gap BUN Creatinine Estimated GFR POC Glucose 155 H 132 H Random Glucose Lactic Acid 3.9 H Calcium Prot Corrected Calcium Total Bilirubin AST ALT Alkaline Phosphatase Ammonia Troponin I C-Reactive Protein B-Natriuretic Peptide Total Protein Albumin TSH Urine Color Urine Clarity Urine pH Ur Specific Page Urine Protein Urine Glucose (UA) Urine Ketones Urine Occult Blood Urine Nitrate Urine Bilirubin Urine Urobilinogen Ur Leukocyte Esterase Urine RBC Urine WBC Urine Bacteria Hyaline Casts Urine Mucus Micro UA Comment Ur Microscopic Review Urine Culture Comments CSF Volume (1) CSF Supernat Color (1) CSF Gross Blood (1) CSF Volume (2) CSF Supernat Color (2) CSF Gross Blood (2) CSF Volume (3) CSF Supernat Color (3) CSF Gross Blood (3) CSF Volume (4) CSF Supernat Color (4) CSF Gross Blood (4) CSF WBC (4) CSF RBC (4) CSF Neutrophils % CSF Lymphocytes % CSF Monocytes % CSF Comment CSF Glucose CSF Lactic Acid CSF Total Protein Nasal Screen MRSA (PCR) Urine Opiates Screen Ur Barbiturates Screen Ur Amphetamines Screen U Benzodiazepines Scrn Urine Cocaine Screen U Cannabinoids Screen Serum Alcohol Chlam trachomat DNA PCR Hepatitis A IgM Ab Hep Bs Antigen Hep B Core IgM Ab Hep C IgG Ab HIV 1&2 Ab/P24 Ag 4thGn N.gonorrhoeae DNA (PCR) Blood Type Blood Type Recheck Blood Bank Comment Bld Prod Order Comment 06/27/18 06/27/18 06/27/18 17:10 18:02 19:53 WBC RBC Hgb Hct MCV MCH MCHC RDW Plt Count MPV Prelim Diff (Auto) Neut % (Auto) Lymph % (Auto) [place] % (Auto) Eos % (Auto) Baso % (Auto) Neut # (Auto) Lymph # (Auto) [place] # (Auto) Eos # (Auto) Baso # (Auto) WBC Differential Seg Neuts % (Manual) Band Neuts % (Manual) Lymphocytes % (Manual) Monocytes % (Manual) Abs Neuts (Manual) Differential Comment Toxic Granulation Dohle Bodies Platelet Estimate Platelet Morphology Mildred Cells Keratocytes PT INR APTT Fibrinogen Puncture Site Right radial Patient Temperature 98.6 O2 Saturation 95 ABG pH 7.44 H ABG pCO2 26 L ABG pO2 100 ABG HCO3 17 L ABG O2 Content 20.1 H ABG Base Excess -6.2 L ABG Methemoglobin 1.4 Rajiv Test Present VBG pH VBG pCO2 VBG pO2 VBG HCO3 VBG O2 Saturation VBG O2 Content VBG Base Excess VBG Carboxyhemoglobin VBG Methemoglobin Hemoglobin 14.9 Carboxyhemoglobin 1.2 O2 Delivery Device Nasal cannula Liter Flow 5.00 Vent Setting Inspired O2 40 Critical Value No Sodium Potassium Chloride Carbon Dioxide Anion Gap BUN Creatinine Estimated GFR POC Glucose 126 H Random Glucose Lactic Acid Calcium Prot Corrected Calcium Total Bilirubin AST ALT Alkaline Phosphatase Ammonia Troponin I C-Reactive Protein B-Natriuretic Peptide Total Protein Albumin TSH Urine Color Urine Clarity Urine pH Ur Specific Page Urine Protein Urine Glucose (UA) Urine Ketones Urine Occult Blood Urine Nitrate Urine Bilirubin Urine Urobilinogen Ur Leukocyte Esterase Urine RBC Urine WBC Urine Bacteria Hyaline Casts Urine Mucus Micro UA Comment Ur Microscopic Review Urine Culture Comments CSF Volume (1) CSF Supernat Color (1) CSF Gross Blood (1) CSF Volume (2) CSF Supernat Color (2) CSF Gross Blood (2) CSF Volume (3) CSF Supernat Color (3) CSF Gross Blood (3) CSF Volume (4) CSF Supernat Color (4) CSF Gross Blood (4) CSF WBC (4) CSF RBC (4) CSF Neutrophils % CSF Lymphocytes % CSF Monocytes % CSF Comment CSF Glucose CSF Lactic Acid CSF Total Protein Nasal Screen MRSA (PCR) Urine Opiates Screen Ur Barbiturates Screen Ur Amphetamines Screen U Benzodiazepines Scrn Urine Cocaine Screen U Cannabinoids Screen Serum Alcohol Chlam trachomat DNA PCR Hepatitis A IgM Ab Hep Bs Antigen Hep B Core IgM Ab Hep C IgG Ab HIV 1&2 Ab/P24 Ag 4thGn N.gonorrhoeae DNA (PCR) Blood Type A Positive Blood Type Recheck Required Blood Bank Comment Bld Prod Order Comment 06/27/18 06/27/18 06/28/18 20:30 20:30 01:22 WBC RBC Hgb Hct MCV MCH MCHC RDW Plt Count MPV Prelim Diff (Auto) Neut % (Auto) Lymph % (Auto) [place] % (Auto) Eos % (Auto) Baso % (Auto) Neut # (Auto) Lymph # (Auto) [place] # (Auto) Eos # (Auto) Baso # (Auto) WBC Differential Seg Neuts % (Manual) Band Neuts % (Manual) Lymphocytes % (Manual) Monocytes % (Manual) Abs Neuts (Manual) Differential Comment Toxic Granulation Dohle Bodies Platelet Estimate Platelet Morphology [place] Cells Keratocytes PT 16.3 H INR 1.6 APTT Fibrinogen Puncture Site Patient Temperature O2 Saturation ABG pH ABG pCO2 ABG pO2 ABG HCO3 ABG O2 Content ABG Base Excess ABG Methemoglobin Rajiv Test VBG pH VBG pCO2 VBG pO2 VBG HCO3 VBG O2 Saturation VBG O2 Content VBG Base Excess VBG Carboxyhemoglobin VBG Methemoglobin Hemoglobin Carboxyhemoglobin O2 Delivery Device Liter Flow Vent Setting Inspired O2 Critical Value Sodium Potassium Chloride Carbon Dioxide Anion Gap BUN Creatinine Estimated GFR POC Glucose Random Glucose Lactic Acid 3.4 H Calcium Prot Corrected Calcium Total Bilirubin AST ALT Alkaline Phosphatase Ammonia Troponin I C-Reactive Protein B-Natriuretic Peptide Total Protein Albumin TSH Urine Color Urine Clarity Urine pH Ur Specific Page Urine Protein Urine Glucose (UA) Urine Ketones Urine Occult Blood Urine Nitrate Urine Bilirubin Urine Urobilinogen Ur Leukocyte Esterase Urine RBC Urine WBC Urine Bacteria Hyaline Casts Urine Mucus Micro UA Comment Ur Microscopic Review Urine Culture Comments CSF Volume (1) 2.8 CSF Supernat Color (1) Xanthochromic A CSF Gross Blood (1) 1+ A CSF Volume (2) 2.5 CSF Supernat Color (2) Xanthochromic A CSF Gross Blood (2) 1+ A CSF Volume (3) 2.5 CSF Supernat Color (3) Xanthochromic A CSF Gross Blood (3) 1+ A CSF Volume (4) 1.5 CSF Supernat Color (4) Xanthochromic A CSF Gross Blood (4) 1+ A CSF WBC (4) 1488 H CSF RBC (4) 1209 H CSF Neutrophils % 91 CSF Lymphocytes % 8 CSF Monocytes % 1 CSF Comment CSF Glucose CSF Lactic Acid CSF Total Protein Nasal Screen MRSA (PCR) Urine Opiates Screen Ur Barbiturates Screen Ur Amphetamines Screen U Benzodiazepines Scrn Urine Cocaine Screen U Cannabinoids Screen Serum Alcohol Chlam trachomat DNA PCR Hepatitis A IgM Ab Hep Bs Antigen Hep B Core IgM Ab Hep C IgG Ab HIV 1&2 Ab/P24 Ag 4thGn N.gonorrhoeae DNA (PCR) Blood Type Blood Type Recheck Blood Bank Comment Bld Prod Order Comment 06/28/18 06/28/18 06/28/18 01:22 01:22 01:22 WBC RBC Hgb Hct MCV MCH MCHC RDW Plt Count MPV Prelim Diff (Auto) Neut % (Auto) Lymph % (Auto) [place] % (Auto) Eos % (Auto) Baso % (Auto) Neut # (Auto) Lymph # (Auto) [place] # (Auto) Eos # (Auto) Baso # (Auto) WBC Differential Seg Neuts % (Manual) Band Neuts % (Manual) Lymphocytes % (Manual) Monocytes % (Manual) Abs Neuts (Manual) Differential Comment Toxic Granulation Dohle Bodies Platelet Estimate Platelet Morphology [place] Cells Keratocytes PT INR APTT Fibrinogen Puncture Site Patient Temperature O2 Saturation ABG pH ABG pCO2 ABG pO2 ABG HCO3 ABG O2 Content ABG Base Excess ABG Methemoglobin Rajiv Test VBG pH VBG pCO2 VBG pO2 VBG HCO3 VBG O2 Saturation VBG O2 Content VBG Base Excess VBG Carboxyhemoglobin VBG Methemoglobin Hemoglobin Carboxyhemoglobin O2 Delivery Device Liter Flow Vent Setting Inspired O2 Critical Value Sodium Potassium Chloride Carbon Dioxide Anion Gap BUN Creatinine Estimated GFR POC Glucose Random Glucose Lactic Acid Calcium Prot Corrected Calcium Total Bilirubin AST ALT Alkaline Phosphatase Ammonia Troponin I C-Reactive Protein B-Natriuretic Peptide Total Protein Albumin TSH Urine Color Urine Clarity Urine pH Ur Specific Page Urine Protein Urine Glucose (UA) Urine Ketones Urine Occult Blood Urine Nitrate Urine Bilirubin Urine Urobilinogen Ur Leukocyte Esterase Urine RBC Urine WBC Urine Bacteria Hyaline Casts Urine Mucus Micro UA Comment Ur Microscopic Review Urine Culture Comments CSF Volume (1) CSF Supernat Color (1) CSF Gross Blood (1) CSF Volume (2) CSF Supernat Color (2) CSF Gross Blood (2) CSF Volume (3) CSF Supernat Color (3) CSF Gross Blood (3) CSF Volume (4) CSF Supernat Color (4) CSF Gross Blood (4) CSF WBC (4) CSF RBC (4) CSF Neutrophils % CSF Lymphocytes % CSF Monocytes % CSF Comment CSF Glucose Less than 1 L CSF Lactic Acid 16.8 H CSF Total Protein 366.2 H Nasal Screen MRSA (PCR) Urine Opiates Screen Ur Barbiturates Screen Ur Amphetamines Screen U Benzodiazepines Scrn Urine Cocaine Screen U Cannabinoids Screen Serum Alcohol Chlam trachomat DNA PCR Hepatitis A IgM Ab Hep Bs Antigen Hep B Core IgM Ab Hep C IgG Ab HIV 1&2 Ab/P24 Ag 4thGn N.gonorrhoeae DNA (PCR) Blood Type Blood Type Recheck Blood Bank Comment Bld Prod Order Comment 06/28/18 06/28/18 06/28/18 02:08 04:13 04:33 WBC RBC Hgb Hct MCV MCH MCHC RDW Plt Count MPV Prelim Diff (Auto) Neut % (Auto) Lymph % (Auto) [place] % (Auto) Eos % (Auto) Baso % (Auto) Neut # (Auto) Lymph # (Auto) [place] # (Auto) Eos # (Auto) Baso # (Auto) WBC Differential Seg Neuts % (Manual) Band Neuts % (Manual) Lymphocytes % (Manual) Monocytes % (Manual) Abs Neuts (Manual) Differential Comment Toxic Granulation Dohle Bodies Platelet Estimate Platelet Morphology [place] Cells Keratocytes PT INR APTT Fibrinogen Puncture Site Left brachial Patient Temperature 98.6 O2 Saturation 97 ABG pH 7.36 L ABG pCO2 35 L ABG pO2 162 H ABG HCO3 19 L ABG O2 Content 18.2 ABG Base Excess -5.1 L ABG Methemoglobin 1.4 Rajiv Test VBG pH VBG pCO2 VBG pO2 VBG HCO3 VBG O2 Saturation VBG O2 Content VBG Base Excess VBG Carboxyhemoglobin VBG Methemoglobin Hemoglobin 13.2 Carboxyhemoglobin 0.7 O2 Delivery Device Ventilator Liter Flow Vent Setting See comment Inspired O2 50 Critical Value No Sodium Potassium Chloride Carbon Dioxide Anion Gap BUN Creatinine Estimated GFR POC Glucose 129 H 137 H Random Glucose Lactic Acid Calcium Prot Corrected Calcium Total Bilirubin AST ALT Alkaline Phosphatase Ammonia Troponin I C-Reactive Protein B-Natriuretic Peptide Total Protein Albumin TSH Urine Color Urine Clarity Urine pH Ur Specific Page Urine Protein Urine Glucose (UA) Urine Ketones Urine Occult Blood Urine Nitrate Urine Bilirubin Urine Urobilinogen Ur Leukocyte Esterase Urine RBC Urine WBC Urine Bacteria Hyaline Casts Urine Mucus Micro UA Comment Ur Microscopic Review Urine Culture Comments CSF Volume (1) CSF Supernat Color (1) CSF Gross Blood (1) CSF Volume (2) CSF Supernat Color (2) CSF Gross Blood (2) CSF Volume (3) CSF Supernat Color (3) CSF Gross Blood (3) CSF Volume (4) CSF Supernat Color (4) CSF Gross Blood (4) CSF WBC (4) CSF RBC (4) CSF Neutrophils % CSF Lymphocytes % CSF Monocytes % CSF Comment CSF Glucose CSF Lactic Acid CSF Total Protein Nasal Screen MRSA (PCR) Urine Opiates Screen Ur Barbiturates Screen Ur Amphetamines Screen U Benzodiazepines Scrn Urine Cocaine Screen U Cannabinoids Screen Serum Alcohol Chlam trachomat DNA PCR Hepatitis A IgM Ab Hep Bs Antigen Hep B Core IgM Ab Hep C IgG Ab HIV 1&2 Ab/P24 Ag 4thGn N.gonorrhoeae DNA (PCR) Blood Type Blood Type Recheck Blood Bank Comment Bld Prod Order Comment 06/28/18 06/28/18 06/28/18 04:53 04:53 06:19 WBC 20.7 H RBC 4.53 Hgb 13.3 Hct 40.3 MCV 89.0 MCH 29.3 MCHC 32.9 RDW 19.9 H Plt Count 38 L D MPV 10.7 Prelim Diff (Auto) Manual diff required Neut % (Auto) Lymph % (Auto) [place] % (Auto) Eos % (Auto) Baso % (Auto) Neut # (Auto) Lymph # (Auto) [place] # (Auto) Eos # (Auto) Baso # (Auto) WBC Differential Manual diff final Seg Neuts % (Manual) 63 Band Neuts % (Manual) 35 H Lymphocytes % (Manual) 1 L Monocytes % (Manual) 1 Abs Neuts (Manual) 20.3 H Differential Comment . Toxic Granulation 1+ H Dohle Bodies Present H Platelet Estimate Low L Platelet Morphology Normal [place] Cells 1+ H Keratocytes PT INR APTT Fibrinogen Puncture Site Patient Temperature O2 Saturation ABG pH ABG pCO2 ABG pO2 ABG HCO3 ABG O2 Content ABG Base Excess ABG Methemoglobin Rajiv Test VBG pH VBG pCO2 VBG pO2 VBG HCO3 VBG O2 Saturation VBG O2 Content VBG Base Excess VBG Carboxyhemoglobin VBG Methemoglobin Hemoglobin Carboxyhemoglobin O2 Delivery Device Liter Flow Vent Setting Inspired O2 Critical Value Sodium 137 Potassium 3.7 Chloride 104 Carbon Dioxide 20.0 L Anion Gap 13 BUN 36 H Creatinine 1.16 Estimated GFR 66 L POC Glucose Random Glucose 140 H Lactic Acid Calcium 7.9 L Prot Corrected Calcium Total Bilirubin 3.1 H AST 18 ALT 30 Alkaline Phosphatase 100 Ammonia Troponin I C-Reactive Protein B-Natriuretic Peptide Total Protein 4.8 L Albumin 2.1 L TSH Urine Color Urine Clarity Urine pH Ur Specific Page Urine Protein Urine Glucose (UA) Urine Ketones Urine Occult Blood Urine Nitrate Urine Bilirubin Urine Urobilinogen Ur Leukocyte Esterase Urine RBC Urine WBC Urine Bacteria Hyaline Casts Urine Mucus Micro UA Comment Ur Microscopic Review Urine Culture Comments CSF Volume (1) CSF Supernat Color (1) CSF Gross Blood (1) CSF Volume (2) CSF Supernat Color (2) CSF Gross Blood (2) CSF Volume (3) CSF Supernat Color (3) CSF Gross Blood (3) CSF Volume (4) CSF Supernat Color (4) CSF Gross Blood (4) CSF WBC (4) CSF RBC (4) CSF Neutrophils % CSF Lymphocytes % CSF Monocytes % CSF Comment CSF Glucose CSF Lactic Acid CSF Total Protein Nasal Screen MRSA (PCR) Urine Opiates Screen Ur Barbiturates Screen Ur Amphetamines Screen U Benzodiazepines Scrn Urine Cocaine Screen U Cannabinoids Screen Serum Alcohol Chlam trachomat DNA PCR Hepatitis A IgM Ab Hep Bs Antigen Hep B Core IgM Ab Hep C IgG Ab HIV 1&2 Ab/P24 Ag 4thGn N.gonorrhoeae DNA (PCR) Blood Type Blood Type Recheck Blood Bank Comment Bld Prod Order Comment 06/28/18 06/28/18 06/28/18 07:31 11:30 12:16 WBC RBC Hgb Hct MCV MCH MCHC RDW Plt Count MPV Prelim Diff (Auto) Neut % (Auto) Lymph % (Auto) [place] % (Auto) Eos % (Auto) Baso % (Auto) Neut # (Auto) Lymph # (Auto) [place] # (Auto) Eos # (Auto) Baso # (Auto) WBC Differential Seg Neuts % (Manual) Band Neuts % (Manual) Lymphocytes % (Manual) Monocytes % (Manual) Abs Neuts (Manual) Differential Comment Toxic Granulation Dohle Bodies Platelet Estimate Platelet Morphology [place] Cells Keratocytes PT INR APTT Fibrinogen Puncture Site Patient Temperature O2 Saturation ABG pH ABG pCO2 ABG pO2 ABG HCO3 ABG O2 Content ABG Base Excess ABG Methemoglobin Rajiv Test VBG pH VBG pCO2 VBG pO2 VBG HCO3 VBG O2 Saturation VBG O2 Content VBG Base Excess VBG Carboxyhemoglobin VBG Methemoglobin Hemoglobin Carboxyhemoglobin O2 Delivery Device Liter Flow Vent Setting Inspired O2 Critical Value Sodium Potassium Chloride Carbon Dioxide Anion Gap BUN Creatinine Estimated GFR POC Glucose 160 H 153 H Random Glucose Lactic Acid Calcium Prot Corrected Calcium Total Bilirubin AST ALT Alkaline Phosphatase Ammonia Troponin I C-Reactive Protein B-Natriuretic Peptide Total Protein Albumin TSH Urine Color Urine Clarity Urine pH Ur Specific Page Urine Protein Urine Glucose (UA) Urine Ketones Urine Occult Blood Urine Nitrate Urine Bilirubin Urine Urobilinogen Ur Leukocyte Esterase Urine RBC Urine WBC Urine Bacteria Hyaline Casts Urine Mucus Micro UA Comment Ur Microscopic Review Urine Culture Comments CSF Volume (1) CSF Supernat Color (1) CSF Gross Blood (1) CSF Volume (2) CSF Supernat Color (2) CSF Gross Blood (2) CSF Volume (3) CSF Supernat Color (3) CSF Gross Blood (3) CSF Volume (4) CSF Supernat Color (4) CSF Gross Blood (4) CSF WBC (4) CSF RBC (4) CSF Neutrophils % CSF Lymphocytes % CSF Monocytes % CSF Comment CSF Glucose CSF Lactic Acid CSF Total Protein Nasal Screen MRSA (PCR) Urine Opiates Screen Ur Barbiturates Screen Ur Amphetamines Screen U Benzodiazepines Scrn Urine Cocaine Screen U Cannabinoids Screen Serum Alcohol Chlam trachomat DNA PCR Not detected Hepatitis A IgM Ab Hep Bs Antigen Hep B Core IgM Ab Hep C IgG Ab HIV 1&2 Ab/P24 Ag 4thGn N.gonorrhoeae DNA (PCR) Not detected Blood Type Blood Type Recheck Blood Bank Comment Bld Prod Order Comment 06/28/18 16:09 WBC RBC Hgb Hct MCV MCH MCHC RDW Plt Count MPV Prelim Diff (Auto) Neut % (Auto) Lymph % (Auto) [place] % (Auto) Eos % (Auto) Baso % (Auto) Neut # (Auto) Lymph # (Auto) [place] # (Auto) Eos # (Auto) Baso # (Auto) WBC Differential Seg Neuts % (Manual) Band Neuts % (Manual) Lymphocytes % (Manual) Monocytes % (Manual) Abs Neuts (Manual) Differential Comment Toxic Granulation Dohle Bodies Platelet Estimate Platelet Morphology [place] Cells Keratocytes PT INR APTT Fibrinogen Puncture Site Patient Temperature O2 Saturation ABG pH ABG pCO2 ABG pO2 ABG HCO3 ABG O2 Content ABG Base Excess ABG Methemoglobin Rajiv Test VBG pH VBG pCO2 VBG pO2 VBG HCO3 VBG O2 Saturation VBG O2 Content VBG Base Excess VBG Carboxyhemoglobin VBG Methemoglobin Hemoglobin Carboxyhemoglobin O2 Delivery Device Liter Flow Vent Setting Inspired O2 Critical Value Sodium Potassium Chloride Carbon Dioxide Anion Gap BUN Creatinine Estimated GFR POC Glucose 151 H Random Glucose Lactic Acid Calcium Prot Corrected Calcium Total Bilirubin AST ALT Alkaline Phosphatase Ammonia Troponin I C-Reactive Protein B-Natriuretic Peptide Total Protein Albumin TSH Urine Color Urine Clarity Urine pH Ur Specific Page Urine Protein Urine Glucose (UA) Urine Ketones Urine Occult Blood Urine Nitrate Urine Bilirubin Urine Urobilinogen Ur Leukocyte Esterase Urine RBC Urine WBC Urine Bacteria Hyaline Casts Urine Mucus Micro UA Comment Ur Microscopic Review Urine Culture Comments CSF Volume (1) CSF Supernat Color (1) CSF Gross Blood (1) CSF Volume (2) CSF Supernat Color (2) CSF Gross Blood (2) CSF Volume (3) CSF Supernat Color (3) CSF Gross Blood (3) CSF Volume (4) CSF Supernat Color (4) CSF Gross Blood (4) CSF WBC (4) CSF RBC (4) CSF Neutrophils % CSF Lymphocytes % CSF Monocytes % CSF Comment CSF Glucose CSF Lactic Acid CSF Total Protein Nasal Screen MRSA (PCR) Urine Opiates Screen Ur Barbiturates Screen Ur Amphetamines Screen U Benzodiazepines Scrn Urine Cocaine Screen U Cannabinoids Screen Serum Alcohol Chlam trachomat DNA PCR Hepatitis A IgM Ab Hep Bs Antigen Hep B Core IgM Ab Hep C IgG Ab HIV 1&2 Ab/P24 Ag 4thGn N.gonorrhoeae DNA (PCR) Blood Type Blood Type Recheck Blood Bank Comment Bld Prod Order Comment Result Diagrams: 06/28/18 04:53 06/28/18 04:53 Microbiology: Microbiology 06/27/18 10:40 Gram Stain - Final Wound - Penis Wound Culture - Preliminary gram negative rods 06/27/18 13:12 Aerobic Blood Culture - Preliminary Blood - Peripheral gram negative rods Anaerobic Blood Culture - Preliminary No growth in 1 day 06/27/18 11:45 Aerobic Blood Culture - Preliminary Blood - Peripheral gram negative rods Anaerobic Blood Culture - Preliminary No growth in 1 day 06/26/18 16:05 Aerobic Blood Culture - Preliminary Blood - Peripheral gram negative rods Anaerobic Blood Culture - Preliminary No growth in 2 days 06/26/18 16:00 Aerobic Blood Culture - Preliminary Blood - Peripheral gram negative rods Anaerobic Blood Culture - Preliminary No growth in 2 days 06/26/18 13:09 Urine Culture - Final Clean Catch Urine 06/28/18 01:22 Gram Stain - Final Sputum - Endotracheal 06/28/18 01:22 Gram Stain - Final Lumbar Puncture 06/26/18 18:00 Streptococcus pneumoniae Antigen (M - Final Urine - Catheterized Urine Presumptive negative for streptococcus pneumoniae antigen, suggesting no current or recent infection. Infection due to Streptococcus pneumoniae cannot be ruled out since the antigen present in the sample may be below the detection limit of the test. 06/26/18 18:00 Legionella Antigen - Final Urine - Catheterized Urine Presumptive negative for Legionella pneumophila serogroup 1 antigen in urine, suggesting no recent or recurrent infection. Infection due to Legionella cannot be ruled out since other serogroups and species may cause disease, antigen may not be present in urine in early infection, and the level of antigen present in the urine may be below the detection limit of the test. Imaging: ITS Impressions Head CT 06/27/18 00:00 CONCLUSION: Focal heterogeneity of the right parietal lobe as described of concern for a possible intra-axial mass and adjacent hemorrhage. A focal subacute infarct with mild jhon-infarct hemorrhage would also be in the differential. There is no midline shift. MRI of the brain with and without contrast is recommended. . Head MRI 06/27/18 00:00 CONCLUSION: Findings most characteristic of hemorrhagic infarct in the posterior right temporal lobe. No underlying mass is identified. Neck MRA 06/27/18 00:00 CONCLUSION: Negative MRA Carotids. Percent stenosis is calculated using the diameter of the stenotic region over the diameter of the normal distal internal carotid artery Head MRA 06/27/18 07:45 CONCLUSION: 1. Negative MRA [place] ([place]) non contrast. Chest X-Ray 06/28/18 00:00 CONCLUSION: 1. Interim intubation. Endotracheal tube tip is 3.2 cm above the kelly. 2. New nasogastric tube, courses into the stomach. 3. Persistent and not significantly changed pulmonary edema. 4. Bilateral small pleural effusions have developed. Assessment and Plan - Disease Oriented Problem List (1) Acute exacerbation of CHF (congestive heart failure) (2) NICM (nonischemic cardiomyopathy) Comment: EF 10% (3) Sepsis (4) Encephalopathy (5) CVA (cerebral vascular accident) - Symptom Scale (1) Confusion 0-10 Scale: Unable to quantify (2) Anxiety 0-10 Scale: Unable to quantify (3) Dyspnea 0-10 Scale: Unable to quantify Pertinent Non-Medical Issues: Psychosocial:Originally from [place]. never . No children. Only family are 2 brothers. Charles Hager [facility] and Harshal Hager [place] Spiritual:none Legal:health care surrogate completed, but we have no phone numbers. Ethical issues impacting care:need to do our due diligence to find brothers Important Contacts: Charles Penn Brother (primary health care surrogate) Lilystephen Wang (sister in law ) [phone] Bright Hager: borhter in [place], althernate surrogate( no phone number avialable Prognosis: 53-year-old with end-stage cardiomyopathy, came in with altered mental status, possible endocarditis, sepsis, hypotensive. Patient likely will be intubated soon as patient is not able to protect, airway. Prognosis is poor. Code Status: No Code DNR Plan: == Capacity-at this current time patient does not have capacity to make medical decisions. Is unclear if patient will regain capacity to make medical decision == [id number] surrogate Laz Charles Hager (brother) == Code: DNR == goals of care, DNR Family contemplating on trasitioning to comfort care. Hospice, extubation process reviewed with family. == Assessment/ plan symptom- anxiety; current clinical condition confusion- ativan prn available. confusion- 2nd to clincial condition/ sepsis, chf, possible cva. no med rec at this current time. dyspnea- on ventilator- defer to lay out drafter. == palliative care will continue to assist with symptom managment and review goals of treatment as clinical condition evolves. Attestation Attestation: To help prompt me to consider important information that might be impacting today's encounter and assessment, information from prior notes written by myself or my colleagues may have been "brought forward" into today's note. My signature on this note, however, is an attestation that I personally performed the exam, history, and/or decision-making noted today, and, unless otherwise indicated, the interactions with patient, family, and staff as well as the review of records all occurred today. I also attest that the listed assessment and stated plan reflect my best clinical judgment today based on the combination of historical information, prior notes, and today's exam/ interactions. When time spent is documented, it refers only to time spent today by the signer, or if indicated, combined time spent today by collaborating physician/nurse practitioner.
[2018-06-28] MEDS ORDERED: Pharmacy Ordered Lab Info OTHER ONE (20:45)
[2018-06-29] MEDS: Insulin NovoLIN Regular Correctional Sugar Inj SQ SCH ×6 (00:49→20:08)
[2018-06-29] MEDS: Dextrose 5%/NaCl 0.9% Inj 1,000 ML IV.CONT SCH (04:32)
[2018-06-29] MEDS: Piperacil/Tazo 4.5 GM Premix 4.5 GM/100 ML BAG IV.SIG SCH ×3 (04:32→13:44)
[2018-06-29] MEDS: Chlorhexidine Gluconate 2% 1 Pack (2 Cloths) TOPICAL SCH (04:33)
[2018-06-29 04:43] LABS: Hematocrit 37.8 % (39.0-51.0); Hemoglobin 12.4 gm/dL (13.0-17.0); Mean Corpuscular HGB Conc 32.8 % (32.0-36.0); Mean Corpuscular Hemoglobin 28.9 pg (27.0-34.0); Mean Corpuscular Volume 87.9 fL (80.0-100.0); Mean Platelet Volume 9.8 fL (7.0-11.0); Platelet Count 38 th/mm3 (150-450); Red Cell Distribution Width 20.2 % (11.6-17.2); White Blood Count 18.9 th/mm3 (4.0-11.0)
[2018-06-29 05:08] LABS: Alanine Aminotransferase 26 U/L (12-78); Anion Gap 12 meq/L (5-15); Aspartate Aminotransferase 16 U/L (15-37); Blood Urea Nitrogen 35 mg/dL (7-18); Calcium 8.6 mg/dL (8.5-10.1); Carbon Dioxide 22.8 meq/L (21.0-32.0); Chloride 106 meq/L (98-107); Glomerular Filtration Rate 79 mL/min (>89); Glucose,Random 128 mg/dL (74-106); Potassium 3.7 meq/L (3.5-5.1); Sodium 141 meq/L (136-145)
[2018-06-29 05:10] LABS: Alkaline Phosphatase 79 U/L (45-117); Total Protein 4.9 g/dL (6.4-8.2)
[2018-06-29] MEDS: Hydrocortisone Sod Succinate 100 MG Vial IV.PUSH SCH ×3 (05:36→21:07)
[2018-06-29 08:02] LABS: Monocytes 3 % (0-8)
[2018-06-29 08:03] LABS: Dohle Bodies Present; Platelet Morphology Normal (Normal)
[2018-06-29 08:04] LABS: Burr Cells 1+
--- NOTE | 2018-06-29 08:09 | P.PNNEU ---
Subjective Subjective Comments: No acute events Active Medications: Active Medications Al Hydroxide/Mg Hydroxide (Milk Of Magnfab Liq) 30 ml PO Q12H PRN PRN Reason: Mild Constipation Albuterol (Duoneb Neb (Emi)) 1 ampul NEB Q4HR NEB EMI Last Admin: 06/29/18 07:46 Dose: 1 ampul Albuterol (Duoneb Neb (Prn)) 1 ampul NEB Q2HR NEB PRN PRN Reason: WHEEZING Bisacodyl (Dulcolax Supp) 10 mg RECTAL DAILY PRN PRN Reason: SEVERE CONSITIPATION Chlorhexidine Gluconate (Chlorhexidine 2% Cloth) 3 pack TOPICAL DAILY@0400 EMI Stop: 07/02/18 03:59 Last Admin: 06/29/18 04:33 Dose: 3 pack Chlorhexidine Gluconate (Chlorhexidine 2% Cloth) 3 pack TOPICAL DAILY@0400 PRN PRN Reason: Extra cloth needed Stop: 07/02/18 03:59 Dextrose (D50w Vial) 50 ml IV.PUSH UNSCH PRN PRN Reason: PER HYPOGLYCEMIA PROTOCOL Last Admin: 06/26/18 19:44 Dose: 50 ml Glucagon (Glucagon Inj) 1 mg OTHER PRN PRN PRN Reason: for Hypoglycemia Protocol Hydrocortisone Sodium Succinate (Solucortef Inj) 100 mg IV.PUSH Q8HR [facility] Last Admin: 06/29/18 05:36 Dose: 100 mg Sodium Chloride (Ns Inj) 500 mls @ 0 mls/hr IV.SIG BOLUS [facility] Last Infusion: 06/26/18 14:07 Dose: Infused Dextrose/Sodium Chloride (D5w/Normal Saline Inj) 1,000 mls @ 50 mls/hr IV.CONT .Q20H [facility] Last Admin: 06/29/18 04:32 Dose: 50 mls/hr Piperacillin/Tazobactam/Dextrose (Zosyn 4.5 Gm Premix) 4.5 gm in 100 mls @ 200 mls/hr IV.SIG Q6H [facility] Last Infusion: 06/29/18 05:37 Dose: Infused Vancomycin HCl 1,100 mg/ (Sodium Chloride) 261 mls @ 250 mls/hr IV.SIG Q18H [facility] Last Infusion: 06/29/18 05:37 Dose: Infused Norepinephrine Bitartrate (Levophed-Dextrose 4 Mg/250 Ml Drip) 4 mg in 250 mls @ 7.5 mls/hr IV.SIG TITRATE PRN; Protocol PRN Reason: Per Protocol Last Titration: 06/28/18 23:30 Dose: 4 mcg/min, 15 mls/hr Magnesium Sulfate Inj 4 gm/ (Sodium Chloride) 100 mls @ 50 mls/hr IV.SIG UNSCH PRN PRN Reason: For Magnesium 0.9 - 1.1 mg/dL Magnesium Sulfate Inj 2 gm/ (Sodium Chloride) 100 mls @ 50 mls/hr IV.SIG UNSCH PRN PRN Reason: For Magnesium 1.2 - 1.6 mg/dL Potassium Chloride (Kcl 40 Meq Premix Inj) 40 meq in 100 mls @ 25 mls/hr IV.SIG Q2H PRN PRN Reason: For Potassium 2.8 - 3.2 mEq/L Last Infusion: 06/28/18 02:02 Dose: 25 mls/hr Potassium Chloride (Kcl 20 Meq Premix Inj) 20 meq in 100 mls @ 50 mls/hr IV.SIG Q2H PRN PRN Reason: For Potassium 3.3 - 3.5 mEq/L Potassium Chloride (Kcl 40 Meq Premix Inj) 40 meq in 100 mls @ 25 mls/hr IV.SIG UNSCH PRN PRN Reason: For Potassium 3.3 - 3.5 mEq/L Potassium Phosphate 30 mmol/ (Sodium Chloride) 260 mls @ 42 mls/hr IV.SIG UNSCH PRN PRN Reason: SEE LABEL COMMENTS Sodium Phosphate 30 mmol/ (Sodium Chloride) 260 mls @ 42 mls/hr IV.SIG UNSCH PRN PRN Reason: For Phosphorus < 2.5 mg/dL Potassium Chloride (Kcl 20 Meq Premix Inj) 20 meq in 100 mls @ 50 mls/hr IV.SIG Q2H PRN PRN Reason: For Potassium 2.8 - 3.2 mEq/L Fentanyl (Fentanyl 10 Mcg/Ml Premix Drip) 2,500 mcg in 250 mls @ 5 mls/hr IV.SIG TITRATE PRN; Protocol PRN Reason: Per Protocol Last Titration: 06/28/18 18:38 Dose: 50 mcg/hr, 5 mls/hr Cefepime HCl 2,000 mg/ Sodium (Chloride) 100 mls @ 100 mls/hr IV.SIG Q12H EMI Last Infusion: 06/29/18 06:40 Dose: Infused Insulin Human Regular (Novolin R Correctional Sugar Inj) 0 units SQ Q4HR [facility]; Protocol Last Admin: 06/29/18 05:37 Dose: Not Given Lactulose (Lactulose Liq) 30 ml PO DAILY PRN PRN Reason: SEVERE CONSITIPATION Magnesium Oxide (Mag-Ox) 800 mg PO UNSCH PRN PRN Reason: For Magnesium 1.2 - 1.6 mg/dL Pantoprazole Sodium (Protonix Inj) 40 mg IV.PUSH Q24H [facility] Last Admin: 06/28/18 16:59 Dose: 40 mg Pharmacy Profile Note (Vancomycin Consult Pharmacy) 1 each OTHER UNSCH PRN PRN Reason: Pharmacy to dose Potassium Bicarb/Potassium Chloride (K-Lyte Cl Eff) 50 meq PO UNSCH PRN PRN Reason: For Potassium 3.3 - 3.5 mEq/L Potassium Phosphate (K-Phos Original) 2,000 mg PO Q4H PRN PRN Reason: Phosphorus Less Than 2.5 mg/dL Potassium Phosphate (K-Phos Original) 2,000 mg PO UNSCH PRN PRN Reason: SEE LABEL COMMENTS Senna/Docusate Sodium (Josette-Colace) 1 tab PO BID [facility] Last Admin: 06/28/18 21:11 Dose: 1 tab Sennosides (Senokot) 17.2 mg PO Q12H PRN PRN Reason: Moderate Constipation Terbutaline Sulfate (Brethine Inj) 1 mg SQ UNSCH PRN PRN Reason: For Extravasation Allergies/Adverse Reactions: Allergies Allergy/AdvReac Type Severity Reaction Status Date / Time No Known Allergies Allergy Unverified 06/26/18 14:17 Review of Systems unobtainable due to mental status Physical Exam Vital signs: Vital Signs 06/28/18 08:07 06/28/18 08:16 06/28/18 08:30 Temperature 97.3 F L 97.4 F L Pulse Rate 108 H 105 H Respiratory Rate 15 17 18 Blood Pressure 84/58 L 89/64 L Pulse Oximetry 95 95 06/28/18 09:00 06/28/18 10:00 06/28/18 11:00 Temperature Pulse Rate 108 H 107 H 106 H Respiratory Rate 15 17 17 Blood Pressure 88/61 L 90/63 L 90/65 L Pulse Oximetry 95 94 L 95 06/28/18 11:51 06/28/18 12:00 06/28/18 12:32 Temperature 97 F L Pulse Rate 103 H 103 H Respiratory Rate 16 17 17 Blood Pressure 91/66 L Pulse Oximetry 95 06/28/18 13:00 06/28/18 14:00 06/28/18 15:00 Temperature Pulse Rate 103 H 103 H 102 H Respiratory Rate 17 17 17 Blood Pressure 91/66 L 93/59 L 91/64 L Pulse Oximetry 97 99 98 06/28/18 16:00 06/28/18 16:09 06/28/18 16:45 Temperature 97.5 F L Pulse Rate 101 H 107 H 104 H Respiratory Rate 17 15 18 Blood Pressure 92/65 L 93/70 L Pulse Oximetry 98 98 06/28/18 17:00 06/28/18 17:15 06/28/18 17:30 Temperature Pulse Rate 101 H 98 H 97 H Respiratory Rate 16 15 16 Blood Pressure 91/65 L 90/59 L 89/60 L Pulse Oximetry 98 97 98 06/28/18 17:38 06/28/18 17:45 06/28/18 18:00 Temperature Pulse Rate 97 H 97 H Respiratory Rate 16 15 16 Blood Pressure 87/60 L 90/66 L Pulse Oximetry 98 98 97 06/28/18 18:15 06/28/18 18:30 06/28/18 18:45 Temperature Pulse Rate 97 H 97 H 97 H Respiratory Rate 16 16 15 Blood Pressure 90/60 L 91/62 L 91/64 L Pulse Oximetry 97 97 97 06/28/18 19:00 06/28/18 19:15 06/28/18 19:24 Temperature Pulse Rate 97 H 97 H Respiratory Rate 15 15 16 Blood Pressure 92/64 L 89/62 L Pulse Oximetry 97 97 97 06/28/18 19:30 06/28/18 19:45 06/28/18 20:00 Temperature 98.8 F Pulse Rate 96 H 97 H 98 H Respiratory Rate 16 15 15 Blood Pressure 89/62 L 88/62 L 89/66 L Pulse Oximetry 97 97 97 06/28/18 20:15 18 20:30 06/28/18 20:45 Temperature Pulse Rate 97 H 95 H 92 H Respiratory Rate 15 15 15 Blood Pressure 92/61 L 90/61 L 88/58 L Pulse Oximetry 97 97 97 08/30/18 21:00 06/28/18 21:15 06/28/18 21:30 Temperature Pulse Rate 93 H 92 H 92 H Respiratory Rate 15 15 15 Blood Pressure 83/52 L 86/57 L 87/60 L Pulse Oximetry 97 97 97 06/28/18 21:45 06/28/18 22:00 06/28/18 22:15 Temperature Pulse Rate 91 H 91 H 90 Respiratory Rate 15 15 15 Blood Pressure 86/58 L 87/60 L 86/60 L Pulse Oximetry 97 97 97 06/28/18 22:30 06/28/18 22:45 06/28/18 23:00 Temperature Pulse Rate 91 H 90 89 Respiratory Rate 15 15 15 Blood Pressure 91/55 L 87/56 L 83/55 L Pulse Oximetry 97 97 97 06/28/18 23:15 06/28/18 23:28 06/28/18 23:30 Temperature Pulse Rate 88 90 Respiratory Rate 15 15 15 Blood Pressure 83/56 L 86/62 L Pulse Oximetry 97 97 97 06/28/18 23:45 06/29/18 00:00 06/29/18 00:15 Temperature Pulse Rate 89 89 91 H Respiratory Rate 15 17 16 Blood Pressure 79/55 L 79/55 L 80/56 L Pulse Oximetry 97 97 97 06/29/18 00:30 06/29/18 00:45 06/29/18 01:00 Temperature Pulse Rate 91 H 91 H 90 Respiratory Rate 16 16 16 Blood Pressure 80/56 L 82/56 L 81/56 L Pulse Oximetry 97 97 97 06/29/18 01:15 06/29/18 01:30 06/29/18 01:45 Temperature Pulse Rate 91 H 91 H 90 Respiratory Rate 17 17 17 Blood Pressure 82/57 L 80/56 L 81/55 L Pulse Oximetry 97 97 97 06/29/18 02:00 06/29/18 02:15 06/29/18 02:30 Temperature Pulse Rate 91 H 91 H 91 H Respiratory Rate 17 16 16 Blood Pressure 84/57 L 84/58 L 82/59 L Pulse Oximetry 97 97 97 06/29/18 02:45 06/29/18 03:00 06/29/18 03:08 Temperature Pulse Rate 91 H 94 H Respiratory Rate 16 16 15 Blood Pressure 83/58 L 83/62 L Pulse Oximetry 97 97 97 06/29/18 03:15 06/29/18 03:30 06/29/18 03:45 Temperature Pulse Rate 91 H 100 H 93 H Respiratory Rate 15 17 15 Blood Pressure 80/55 L 86/51 L 86/61 L Pulse Oximetry 97 99 97 06/29/18 04:00 06/29/18 04:01 06/29/18 04:15 Temperature 98.5 F Pulse Rate 96 H 104 H 93 H Respiratory Rate 19 16 17 Blood Pressure 86/65 L 88/65 L Pulse Oximetry 97 97 98 06/29/18 04:30 06/29/18 04:45 06/29/18 05:00 Temperature Pulse Rate 93 H 99 H 95 H Respiratory Rate 14 15 12 Blood Pressure 85/53 L 85/63 L 89/63 L Pulse Oximetry 97 97 98 06/29/18 05:15 06/29/18 05:30 06/29/18 05:45 Temperature Pulse Rate 101 H 92 H 96 H Respiratory Rate 15 16 14 Blood Pressure 85/61 L 84/62 L 85/60 L Pulse Oximetry 98 98 98 06/29/18 06:00 06/29/18 06:18 06/29/18 07:00 Temperature 98.9 F Pulse Rate 92 H 101 H 104 H Respiratory Rate 15 15 15 Blood Pressure 83/57 L 81/60 L 93/64 L Pulse Oximetry 98 97 98 06/29/18 07:46 Temperature Pulse Rate 91 H Respiratory Rate 18 Blood Pressure Pulse Oximetry 100 Intake & Output 06/28/18 06/29/18 06/29/18 18:59 06:59 18:59 Intake Total 1914 / 1914 1561 / 1561 Output Total 675 / 675 700 / 700 Balance 1239 / 1239 861 / 861 Weight 69.7 kg Intake: IV 1550 / 1550 1561 / 1561 D5W/Normal Saline Inj 1,000 ML 1000 / 1000 1000 / 1000 @ 50 mls/hr IV.CONT .Q20H EMI Rx#:[id number] Maxipime Inj 2,000 MG In NS Inj 100 / 100 100 / 100 100 ML @ 100 mls/hr IV.SIG Q12H EMI Rx#:[id number] Levophed-Dextrose 4 mg/250 ml 250 / 250 Drip 4 mg In 250 ml @ 2 MCG/MIN 7.5 mls/hr IV.SIG TITRATE PRN Rx#:[id number] Zosyn 4.5 GM Premix 4.5 gm In 200 / 200 200 / 200 100 ml @ 200 mls/hr IV.SIG Q6H EMI Rx#:[id number] Vancomycin Inj 1,100 MG In NS 261 / 261 Inj 250 ML @ 250 mls/hr IV.SIG Q18H EMI Rx#:[id number] Intake (Blood Product) Amt 364 / 364 Plt Pheresis B Leukoreduced 0 / 0 Unit [id number] Plt Pheresis S Leukoreduced 364 / 364 Unit [id number] Output: Urine Amount (Catheter) 675 / 675 700 / 700 Indwelling Urethral Catheter 675 / 675 700 / 700 Other: # Bowel Movements 0 Narrative: Thin, cachectic looking disheveled male laying in bed, mild localization right greater than left left extensor plantar, sensory cerebellar gait testing not reliable unable to be performed due to current mental status, skin abrasions noted on his legs with lower extremity edema - Urinary Catheter Management Indwelling Urethral Catheter Cath placed during this visit: yes Reason for continuing: Hourly intake/output Insertion date: 06/26/18 Insertion time: 12:50 Objective Laboratory Results - last 24 hr 06/28/18 06/28/18 06/28/18 04:53 06:19 11:30 WBC RBC Hgb Hct MCV MCH MCHC RDW Plt Count MPV Prelim Diff (Auto) WBC Differential Manual diff final Seg Neuts % (Manual) 63 Band Neuts % (Manual) 35 H Lymphocytes % (Manual) 1 L Monocytes % (Manual) 1 Abs Neuts (Manual) 20.3 H Differential Comment Toxic Granulation 1+ H Dohle Bodies Present H Platelet Estimate Low L Platelet Morphology Normal Mildred Cells 1+ H Sodium Potassium Chloride Carbon Dioxide Anion Gap BUN Creatinine Estimated GFR POC Glucose 153 H Random Glucose Calcium Total Bilirubin AST ALT Alkaline Phosphatase Total Protein Albumin Vancomycin Trough Chlam trachomat DNA PCR N.gonorrhoeae DNA (PCR) Bld Prod Order Comment 06/28/18 06/28/18 06/28/18 12:16 16:09 20:04 WBC RBC Hgb Hct MCV MCH MCHC RDW Plt Count MPV Prelim Diff (Auto) WBC Differential Seg Neuts % (Manual) Band Neuts % (Manual) Lymphocytes % (Manual) Monocytes % (Manual) Abs Neuts (Manual) Differential Comment Toxic Granulation Dohle Bodies Platelet Estimate Platelet Morphology [place] Cells Sodium Potassium Chloride Carbon Dioxide Anion Gap BUN Creatinine Estimated GFR POC Glucose 151 H 125 H Random Glucose Calcium Total Bilirubin AST ALT Alkaline Phosphatase Total Protein Albumin Vancomycin Trough Chlam trachomat DNA PCR Not detected N.gonorrhoeae DNA (PCR) Not detected Bld Prod Order Comment 06/28/18 06/29/18 06/29/18 21:00 00:48 04:20 WBC 18.9 H RBC 4.30 L Hgb 12.4 L Hct 37.8 L MCV 87.9 MCH 28.9 MCHC 32.8 RDW 20.2 H Plt Count 38 L MPV 9.8 Prelim Diff (Auto) Manual diff required WBC Differential Seg Neuts % (Manual) Band Neuts % (Manual) Lymphocytes % (Manual) Monocytes % (Manual) Abs Neuts (Manual) Differential Comment . Toxic Granulation Dohle Bodies Platelet Estimate Platelet Morphology Mildred Cells Sodium Potassium Chloride Carbon Dioxide Anion Gap BUN Creatinine Estimated GFR POC Glucose 133 H Random Glucose Calcium Total Bilirubin AST ALT Alkaline Phosphatase Total Protein Albumin Vancomycin Trough 3.8 L Chlam trachomat DNA PCR N.gonorrhoeae DNA (PCR) Bld Prod Order Comment 06/29/18 06/29/18 04:20 07:54 WBC RBC Hgb Hct MCV MCH MCHC RDW Plt Count MPV Prelim Diff (Auto) WBC Differential Seg Neuts % (Manual) Band Neuts % (Manual) Lymphocytes % (Manual) Monocytes % (Manual) Abs Neuts (Manual) Differential Comment Toxic Granulation Dohle Bodies Platelet Estimate Platelet Morphology [place] Cells Sodium 141 Potassium 3.7 Chloride 106 Carbon Dioxide 22.8 Anion Gap 12 BUN 35 H Creatinine 0.99 Estimated GFR 79 L POC Glucose 116 H Random Glucose 128 H Calcium 8.6 Total Bilirubin 3.0 H AST 16 ALT 26 Alkaline Phosphatase 79 Total Protein 4.9 L Albumin 2.0 L Vancomycin Trough Chlam trachomat DNA PCR N.gonorrhoeae DNA (PCR) Bld Prod Order Comment Microbiology 06/27/18 10:40 Gram Stain - Final Wound - Penis Wound Culture - Preliminary gram negative rods 06/27/18 13:12 Aerobic Blood Culture - Preliminary Blood - Peripheral gram negative rods Anaerobic Blood Culture - Preliminary No growth in 1 day 06/27/18 11:45 Aerobic Blood Culture - Preliminary Blood - Peripheral gram negative rods Anaerobic Blood Culture - Preliminary No growth in 1 day 06/26/18 16:05 Aerobic Blood Culture - Preliminary Blood - Peripheral gram negative rods Anaerobic Blood Culture - Preliminary No growth in 2 days 06/26/18 16:00 Aerobic Blood Culture - Preliminary Blood - Peripheral gram negative rods Anaerobic Blood Culture - Preliminary No growth in 2 days 06/26/18 13:09 Urine Culture - Final Clean Catch Urine 06/28/18 01:22 Gram Stain - Final Sputum - Endotracheal 06/28/18 01:22 Gram Stain - Final Lumbar Puncture Review/Management - Diagnosis (1) Bacterial meningitis Code(s): G00.9 - Bacterial meningitis, unspecified Status: Acute Current Visit: Yes (2) Brain lesion Code(s): G93.9 - Disorder of brain, unspecified Status: Acute Current Visit : Yes (3) Ethanolism Code(s): F10.20 - Alcohol dependence, uncomplicated Status: Acute Current Visit: Yes (4) Acute exacerbation of CHF (congestive heart failure) Code(s): I50.9 - Heart failure, unspecified Status: Acute Current Visit: Yes (5) NICM (nonischemic cardiomyopathy) Code(s): I42.8 - Other cardiomyopathies Status: Acute Current Visit: No (6) Cardiogenic shock Code(s): R57.0 - Cardiogenic shock Status: Acute Current Visit: Yes (7) Septic shock Code(s): A41.9 - Sepsis, unspecified organism; R65.21 - Severe sepsis with septic shock Status: Acute Current Visit: Yes - Review/Management Plan: Severely ill patient, probable cardiogenic/septic shock, no new brain lesions which may be septic emboli versus ischemic infarction cardiac emboli versus mass lesion Imaging reviewed; minimal diffusion restriction radiology suggesting a could be hemorrhagic infarct CSF reviewed elevated white blood cell count and protein low glucose with over 90% neutrophils suggestive of bacterial meningitis In addition blood cultures positive for gram-negative rods MRA brain and carotids did not show any vaso-occlusive disease or aneurysm Recommendations ID is following the patient May require a BARBARA will defer to critical care if that would change his management Patient critically ill, was considered for hospice care prior to this admission and with current multiple comorbidities including bacterial meningitis, sepsis, multiorgan dysfunction syndrome hospice would appear most appropriate We will follow peripherally
[2018-06-29] MEDS: Senna/Docusate Sodium 8.6/50 MG Tablet PO SCH ×2 (08:55→21:07)
[2018-06-29] MEDS ORDERED: Vancomycin Inj 1,500 MG in Sodium Chlor 0.9% Inj 500 ML IV.SIG SCH (10:00)
--- NOTE | 2018-06-29 10:30 | MB ---
cc: Red Leonardo DO DATE: 06/29/2018 HISTORY OF PRESENT ILLNESS: Mr. Hager is a 53-year-old male who has a history of cardiomyopathy and multiple medical problems who was found down outside his friend's house and brought to the emergency room. Urology was consulted because he has some penile edema with a Tavarez catheter in place and his penis required evaluation. The patient is currently intubated, sedated, and on pressors at the present time. This history and physical will be taken from the chart. PAST MEDICAL HISTORY: His medical care includes CHF and hypertension. PAST SURGICAL HISTORY: History of Cardiac catheterization. FAMILY HISTORY: Hypertension. SOCIAL HISTORY: Prior smoker is noted. Unknown if he has ever drank or used any substances in the past. MEDICATIONS: Please refer to the chart. REVIEW OF SYSTEMS: Unable to obtain review of systems. PHYSICAL EXAMINATION: VITAL SIGNS: Today 98.9, heart rate 106, respiratory rate 15, 85/61. GENERAL: A thin 53-year-old male in no acute distress. HEENT: Normocephalic, atraumatic. He is currently intubated and sedated. NECK: Trachea is midline. HEART: Tachycardic is noted. LUNGS: Breath sounds bilaterally. ABDOMEN: Soft, nontender, nondistended. GENITOURINARY: Paraphimosis. He is uncircumcised. The paraphimosis was reduced at the bedside. Tavarez catheter is draining clear urine. EXTREMITIES: Show 2+ edema. LABORATORY DATA: White count 18.9, hemoglobin 12.4, hematocrit 37.8, platelet count of 38,000. PT 16.3, INR 1.6, PTT 45.3. Sodium 141, potassium 3.7, chloride 106, CO2 of 22.8, BUN of 35, creatinine 0.9, glucose of 116. Urinalysis 4 red cells, 20 white cells. ASSESSMENT AND PLAN: A 53-year-old male with paraphimosis reduced at the bedside. Maintain foreskin over head of the phallus. Maintain Tavarez catheter now. Thank you for the consult and allowing me to participate in the care of this patient. DO BRITTNY Morrison/elia , 09:37 AM , 09:43 AM
--- NOTE | 2018-06-29 10:31 | P.PNCC ---
Subjective Subjective Remarks/Hospital Course: The patient is a 53-year-old male with a past medical history of CHF and cardiomyopathy, with EF of less than 20%, who presented to [facility] ED for altered mental status. The patient was found incontinent of urine and feces. Apparently, the patient is homeless and has been living in a friend's garage, and he was last seen one week ago. On his last admission, he was seen by cardiology service and they recommended hospice. He also has history of ETOH abuse. Thepatient was found hypotensive by EVAC with a systolic blood pressure in the 80s, tachycardic with heart rate of 104. He was given 1 liter bolus of normal saline in the ED and placed on Levophed currently at 15 mcg. In addition, he was found hypoglycemic and had a blood sugar of 24 on a BMP, and was given half amp of D50. His labs significant for renal failure with a BUN of 42, creatinine 1.52, hyperkalemic with a potassium level 5.6, and hyponatremic with a sodium level of 127. In addition, the patient had mild lactic acidosis with a lactic acid level of 2.9 and a leukocytosis with a WBC of 19.8. His urinalysis was positive for nitrite, leukocyte esterase, and 20 WBCs. Chest x-ray in the ER showed cardiomegaly with mild pulmonary vascular congestion, bilateral lower lobe airspace consolidations. He received vancomycin and Zosyn. ABG on room air showed a pH of 7.41, CO2 of 26, PaO2 79, bicarbonate of 16, and a saturation of 94%. His urine drug screen was negative and his serum alcohol level was less than 3. Most of the history was obtained from reviewing medical records, as the patient is a poor historian. 06/27 Patient remains on Levophed 15 mics, lethargic , CT brain last night showed focal heterogeneity of the right parietal lobe possible intra-axial mass and adjacent hemorrhage. A focal subacute infarct with mild jhon-infarct hemorrhage would also be in the differential. No midline shift. BC from yesterday gram negative rods. 06/28: Intubated overnight and placed on mechanical ventilation. Underwent lumbar puncture which suggest bacterial meningitis with glucose less than 1 protein 330s and white count 1400s. Currently sedated, orally intubated on mechanical ventilation. Palliative care attempting to contact family. 8/31 Patient is intubated and sedated with Fentanyl drip. Levophed down 2 mics Objective Vital Signs / I&O: Vital Signs 06/28/18 11:00 06/28/18 11:51 06/28/18 12:00 Temperature 97 F L Pulse Rate 106 H 103 H 103 H Respiratory Rate 17 16 17 Blood Pressure 90/65 L 91/66 L Pulse Oximetry 95 95 06/28/18 12:32 06/28/18 13:00 06/28/18 14:00 Temperature Pulse Rate 103 H 103 H Respiratory Rate 17 17 17 Blood Pressure 91/66 L 93/59 L Pulse Oximetry 97 99 06/28/18 15:00 06/28/18 16:00 06/28/18 16:09 Temperature 97.5 F L Pulse Rate 102 H 101 H 107 H Respiratory Rate 17 17 15 Blood Pressure 91/64 L 92/65 L Pulse Oximetry 98 98 06/28/18 16:45 06/28/18 17:00 06/28/18 17:15 Temperature Pulse Rate 104 H 101 H 98 H Respiratory Rate 18 16 15 Blood Pressure 93/70 L 91/65 L 90/59 L Pulse Oximetry 98 98 97 06/28/18 17:30 06/28/18 17:38 06/28/18 17:45 Temperature Pulse Rate 97 H 97 H Respiratory Rate 16 16 15 Blood Pressure 89/60 L 87/60 L Pulse Oximetry 98 98 98 06/28/18 18:00 06/28/18 18:15 06/28/18 18:30 Temperature Pulse Rate 97 H 97 H 97 H Respiratory Rate 16 16 16 Blood Pressure 90/66 L 90/60 L 91/62 L Pulse Oximetry 97 97 97 06/28/18 18:45 06/28/18 19:00 06/28/18 19:15 Temperature Pulse Rate 97 H 97 H 97 H Respiratory Rate 15 15 15 Blood Pressure 91/64 L 92/64 L 89/62 L Pulse Oximetry 97 97 97 06/28/18 19:24 06/28/18 19:30 06/28/18 19:45 Temperature Pulse Rate 96 H 97 H Respiratory Rate 16 16 15 Blood Pressure 89/62 L 88/62 L Pulse Oximetry 97 97 97 06/28/18 20:00 06/28/18 20:15 06/28/18 20:30 Temperature 98.8 F Pulse Rate 98 H 97 H 95 H Respiratory Rate 15 15 15 Blood Pressure 89/66 L 92/61 L 90/61 L Pulse Oximetry 97 97 97 06/28/18 20:45 06/28/18 21:00 06/28/18 21:15 Temperature Pulse Rate 92 H 93 H 92 H Respiratory Rate 15 15 15 Blood Pressure 88/58 L 83/52 L 86/57 L Pulse Oximetry 97 97 97 06/28/18 21:30 06/28/18 21:45 06/28/18 22:00 Temperature Pulse Rate 92 H 91 H 91 H Respiratory Rate 15 15 15 Blood Pressure 87/60 L 86/58 L 87/60 L Pulse Oximetry 97 97 97 06/28/18 22:15 06/28/18 22:30 06/28/18 22:45 Temperature Pulse Rate 90 91 H 90 Respiratory Rate 15 15 15 Blood Pressure 86/60 L 91/55 L 87/56 L Pulse Oximetry 97 97 97 06/28/18 23:00 06/28/18 23:15 06/28/18 23:28 Temperature Pulse Rate 89 88 Respiratory Rate 15 15 15 Blood Pressure 83/55 L 83/56 L Pulse Oximetry 97 97 97 06/28/18 23:30 06/28/18 23:45 06/29/18 00:00 Temperature Pulse Rate 90 89 89 Respiratory Rate 15 15 17 Blood Pressure 86/62 L 79/55 L 79/55 L Pulse Oximetry 97 97 97 06/29/18 00:15 06/29/18 00:30 06/29/18 00:45 Temperature Pulse Rate 91 H 91 H 91 H Respiratory Rate 16 16 16 Blood Pressure 80/56 L 80/56 L 82/56 L Pulse Oximetry 97 97 97 06/29/18 01:00 06/29/18 01:15 06/29/18 01:30 Temperature Pulse Rate 90 91 H 91 H Respiratory Rate 16 17 17 Blood Pressure 81/56 L 82/57 L 80/56 L Pulse Oximetry 97 97 97 06/29/18 01:45 06/29/18 02:00 06/29/18 02:15 Temperature Pulse Rate 90 91 H 91 H Respiratory Rate 17 17 16 Blood Pressure 81/55 L 84/57 L 84/58 L Pulse Oximetry 97 97 97 06/29/18 02:30 06/29/18 02:45 06/29/18 03:00 Temperature Pulse Rate 91 H 91 H 94 H Respiratory Rate 16 16 16 Blood Pressure 82/59 L 83/58 L 83/62 L Pulse Oximetry 97 97 97 06/29/18 03:08 06/29/18 03:15 06/29/18 03:30 Temperature Pulse Rate 91 H 100 H Respiratory Rate 15 15 17 Blood Pressure 80/55 L 86/51 L Pulse Oximetry 97 97 99 06/29/18 03:45 06/29/18 04:00 06/29/18 04:01 Temperature 98.5 F Pulse Rate 93 H 96 H 104 H Respiratory Rate 15 19 16 Blood Pressure 86/61 L 86/65 L Pulse Oximetry 97 97 97 06/29/18 04:15 06/29/18 04:30 06/29/18 04:45 Temperature Pulse Rate 93 H 93 H 99 H Respiratory Rate 17 14 15 Blood Pressure 88/65 L 85/53 L 85/63 L Pulse Oximetry 98 97 97 06/29/18 05:00 06/29/18 05:15 06/29/18 05:30 Temperature Pulse Rate 95 H 101 H 92 H Respiratory Rate 12 15 16 Blood Pressure 89/63 L 85/61 L 84/62 L Pulse Oximetry 98 98 98 06/29/18 05:45 06/29/18 06:00 06/29/18 06:18 Temperature Pulse Rate 96 H 92 H 101 H Respiratory Rate 14 15 15 Blood Pressure 85/60 L 83/57 L 81/60 L Pulse Oximetry 98 98 97 06/29/18 07:00 06/29/18 07:46 06/29/18 08:00 Temperature 98.9 F 98.9 F Pulse Rate 104 H 91 H 102 H Respiratory Rate 15 18 15 Blood Pressure 93/64 L 88/64 L Pulse Oximetry 98 100 99 06/29/18 09:00 06/29/18 10:00 Temperature 98.9 F Pulse Rate 106 H 107 H Respiratory Rate 15 15 Blood Pressure 85/61 L 86/64 L Pulse Oximetry 98 100 Intake & Output 06/28/18 06/29/18 06/29/18 18:59 06:59 18:59 Intake Total 1914 / 1914 1561 / 1561 Output Total 675 / 675 700 / 700 Balance 1239 / 1239 861 / 861 Weight 69.7 kg Intake: IV 1550 / 1550 1561 / 1561 D5W/Normal Saline Inj 1,000 ML 1000 / 1000 1000 / 1000 @ 50 mls/hr IV.CONT .Q20H [facility] Rx#:[id number] Maxipime Inj 2,000 MG In NS Inj 100 / 100 100 / 100 100 ML @ 100 mls/hr IV.SIG Q12H [facility] Rx#:[id number] Levophed-Dextrose 4 mg/250 ml 250 / 250 Drip 4 mg In 250 ml @ 2 MCG/MIN 7.5 mls/hr IV.SIG TITRATE PRN Rx#:[id number] Zosyn 4.5 GM Premix 4.5 gm In 200 / 200 200 / 200 100 ml @ 200 mls/hr IV.SIG Q6H [facility] Rx#:[id number] Vancomycin Inj 1,100 MG In NS 261 / 261 Inj 250 ML @ 250 mls/hr IV.SIG Q18H [facility] Rx#:[id number] Intake (Blood Product) Amt 364 / 364 Plt Pheresis B Leukoreduced 0 / 0 Unit [id number] Plt Pheresis S Leukoreduced 364 / 364 Unit [id number] Output: Urine Amount (Catheter) 675 / 675 700 / 700 Indwelling Urethral Catheter 675 / 675 700 / 700 Other: # Bowel Movements 0 Result Diagrams: 06/29/18 04:20 06/29/18 04:20 Other Results: Laboratory Results - last 12 hr 06/28/18 06/29/18 06/29/18 01:22 00:48 04:20 WBC 18.9 H RBC 4.30 L Hgb 12.4 L Hct 37.8 L MCV 87.9 MCH 28.9 MCHC 32.8 RDW 20.2 H Plt Count 38 L MPV 9.8 Prelim Diff (Auto) Manual diff required WBC Differential Manual diff final Seg Neuts % (Manual) 89 H Band Neuts % (Manual) 8 H Monocytes % (Manual) 3 Abs Neuts (Manual) 18.3 H Differential Comment . Dohle Bodies Present H Platelet Estimate Low L Platelet Morphology Normal Mildred Cells 1+ H Sodium Potassium Chloride Carbon Dioxide Anion Gap BUN Creatinine Estimated GFR POC Glucose 133 H Random Glucose Calcium Total Bilirubin AST ALT Alkaline Phosphatase Total Protein Albumin CSF Herpes I DNA (PCR) Negative CSF Herpes II DNA (PCR) Negative 06/29/18 06/29/18 04:20 07:54 WBC RBC Hgb Hct MCV MCH MCHC RDW Plt Count MPV Prelim Diff (Auto) WBC Differential Seg Neuts % (Manual) Band Neuts % (Manual) Monocytes % (Manual) Abs Neuts (Manual) Differential Comment Dohle Bodies Platelet Estimate Platelet Morphology [place] Cells Sodium 141 Potassium 3.7 Chloride 106 Carbon Dioxide 22.8 Anion Gap 12 BUN 35 H Creatinine 0.99 Estimated GFR 79 L POC Glucose 116 H Random Glucose 128 H Calcium 8.6 Total Bilirubin 3.0 H AST 16 ALT 26 Alkaline Phosphatase 79 Total Protein 4.9 L Albumin 2.0 L CSF Herpes I DNA (PCR) CSF Herpes II DNA (PCR) Imaging: Head CT 06/27/18 00:00 CONCLUSION: Focal heterogeneity of the right parietal lobe as described of concern for a possible intra-axial mass and adjacent hemorrhage. A focal subacute infarct with mild jhon-infarct hemorrhage would also be in the differential. There is no midline shift. MRI of the brain with and without contrast is recommended. . Head MRI 06/27/18 00:00 CONCLUSION: Findings most characteristic of hemorrhagic infarct in the posterior right temporal lobe. No underlying mass is identified. Neck MRA 06/27/18 00:00 CONCLUSION: Negative MRA Carotids. Percent stenosis is calculated using the diameter of the stenotic region over the diameter of the normal distal internal carotid artery Head MRA 06/27/18 07:45 CONCLUSION: 1. Negative MRA [place] ([place]) non contrast. Chest X-Ray 06/28/18 00:00 CONCLUSION: 1. Interim intubation. Endotracheal tube tip is 3.2 cm above the kelly. 2. New nasogastric tube, courses into the stomach. 3. Persistent and not significantly changed pulmonary edema. 4. Bilateral small pleural effusions have developed. Objective Remarks: GENERAL: Patient is 53 yo critically ill lethargic SKIN: Warm and dry. HEAD: Normocephalic. EYES: No scleral icterus. No injection or drainage. NECK: Supple, trachea midline. No JVD or lymphadenopathy. CARDIOVASCULAR: Regular rate and rhythm without murmurs, gallops, or rubs. RESPIRATORY: Orally intubated on mechanical ventilation, good air entry bilaterally, scattered rhonchi, no wheezing GASTROINTESTINAL: Abdomen soft, non-tender, nondistended. MUSCULOSKELETAL: No cyanosis, or edema. Neuro: Encephalopathic/sedated, orally intubated on mechanical ventilation. Assessment and Plan - Assessment and Plan Plan: 1. Septic shock. 2. Acute kidney injury. 3. Hypoglycemic episodes. 4. Electrolyte imbalance, which include hyponatremia and hyperkalemia. 5. Altered mental status. 6. Gram negative bacteremia 7. Leukocytosis. 8. Urinary tract infection. 9. Bilateral consolidations. Rule out infectious process. 10. CHF. 11. Cardiomyopathy EF< 20%. Plan Neuro: Monitor neuro status closely. On Fentanyl infusion for Sedation. Daily sedation vacation CT brain: focal heterogeneity of the right parietal lobe possible intra -axial mass and adjacent hemorrhage. A focal subacute infarct with mild jhon-infarct hemorrhage would also be in the differential. No midline shift. Neuro is following- Dr. Terry, MRI brain: hemorrhagic infarct in the posterior right temporal lobe. No underlying mass is identified. CSF : elevated white blood cell count and protein low glucose with over 90% neutrophils suggestive of bacterial meningitis Pulm: Continue vent support keep sats >92% Bronchodilators, ICU vent bundle. CV: Continue with Levophed maintain MAP > 65 mmHg. Lactic acid 3.4 on 06/27 On hydrocortisone 100 mg IV every 8 hours. EF < 20% : Monitor renal function, I's and O's, and avoid nephrotoxins. D5 NS at 50 mL an hour., diurese with Lasix 40mg x1 GI: On Protonix 40 mg daily for GI prophylaxis. Start tube feeds-Glucerna 1.5 with goal rate 45ml/hr ID: Continue with abx(vancomycin, cefepime, Zosyn)Monitor for signs and monitor for signs of infection(fever and WBC). Blood cultures 06/26: GNR Strep pneumonia and Legionella Ag negative. Lumbar puncture suggestive of bacterial meningitis. Antibiotics per ID Wound care is following Heme: Monitor CBC and coags. s/p Transfuse 2u FFP on 06/27 to correct coagulopathy given hemorrhagic infract on MRI brain s/p transfusion 2u PLT on 06/28 Endo: SSI with Accu-Cheks q.4 hours GI prophylaxis- Protonix 40 mg daily. DVT prophylaxis with SCD, not on heparin SQ due to CT brain findings Palliative care is following Lines: Right subclavian CVP placed 06/26, peripheral IV's Patient is critically ill with septic shock, gram negative bacteremia, probable bacterial meningitis, renal failure, UTI , AMS and with severe cardiomyopathy CCT 40 mins
--- NOTE | 2018-06-29 12:30 | P.DIET ---
Nutritional Evaluation Type of nutrition evaluation: initial Nutrition consult regarding: Tube Feeding Subjective Subjective Comments: Homeless Objective - Diagnosis Acute Sepsis, AMS, COPD exacerbation - Objective % IBW: 96 (IBW = 160#) Body Weight Used for Calculations: Actual (69.7 kg) Energy Needs - Lower Range (kCal/kg): 25 Energy Needs - Upper Range (kCal/kg): 30 Lower Limit kCal/kg (kCals): 1,743 Upper Limit kCal/kg (kCals): 2,091 Lower Limit Protein Factor (Grams per Kg): 1.0 Upper Limit Protein Factor (Grams per Kg): 1.5 Lower Protein Needs (Protein): 70 Upper Protein Needs (Protein): 105 Dietitian Reviewed in Medical Record: Curent medications, Intake & Output, Labs , Medical history, Tube feeding Diet Order: NPO Assessment Assessment: Pt is at high nutrition risk 2' to dx and need for TFing. Current order is for Glucerna 1.5 @ 45 mls/hr goal. To meet needs with Glucerna 1.5, recommend goal rate of 55 mls/hr to provide 1980 kcals, 109 gms protein and 1002 mls of free water. Recommendations: Glucerna 1.5 @ 55 mls/hr goal Dietitian to Monitor: Lab values, Intake & Output, Tube feeding tolerance, Weight change, Medical course
--- NOTE | 2018-06-29 15:19 | P.PNPAL ---
Reason for Visit Reason for visit: a. To assist with evaluation and management of symptoms including:dyspnea, pain b. To assist medical decision maker(s) with: better understanding of current medical conditions; weighing benefits/burdens of medical treatment options; making medical treatment decisions. Subjective Subjective/Interval History: Pt unresponsive. Previously was not on sedation, but still unresponsive. Continue to have hypotension, off pressors. Family/Friend Interactions: Spoke with family. They are ready to transition to comfort measures, and ask for hospice. They request patient pain and anxiety is controlled and prefer prn meds be restarted, such as fentanyl. Family is contemplating weather to transfer patient to hospice care center to withdraw or withdraw in the hospital. Advance Directives Health Care Surrogate: Copy in medical record Objective Vital Signs: Vital Signs 06/28/18 16:00 06/28/18 16:09 06/28/18 16:45 Temperature 97.5 F L Pulse Rate 101 H 107 H 104 H Respiratory Rate 17 15 18 Blood Pressure 92/65 L 93/70 L Pulse Oximetry 98 98 06/28/18 17:00 06/28/18 17:15 06/28/18 17:30 Temperature Pulse Rate 101 H 98 H 97 H Respiratory Rate 16 15 16 Blood Pressure 91/65 L 90/59 L 89/60 L Pulse Oximetry 98 97 98 06/28/18 17:38 06/28/18 17:45 06/28/18 18:00 Temperature Pulse Rate 97 H 97 H Respiratory Rate 16 15 16 Blood Pressure 87/60 L 90/66 L Pulse Oximetry 98 98 97 06/28/18 18:15 06/28/18 18:30 06/28/18 18:45 Temperature Pulse Rate 97 H 97 H 97 H Respiratory Rate 16 16 15 Blood Pressure 90/60 L 91/62 L 91/64 L Pulse Oximetry 97 97 97 06/28/18 19:00 06/28/18 19:15 06/28/18 19:24 Temperature Pulse Rate 97 H 97 H Respiratory Rate 15 15 16 Blood Pressure 92/64 L 89/62 L Pulse Oximetry 97 97 97 06/28/18 19:30 06/28/18 19:45 06/28/18 20:00 Temperature 98.8 F Pulse Rate 96 H 97 H 98 H Respiratory Rate 16 15 15 Blood Pressure 89/62 L 88/62 L 89/66 L Pulse Oximetry 97 97 97 08/30/18 20:15 06/28/18 20:30 06/28/18 20:45 Temperature Pulse Rate 97 H 95 H 92 H Respiratory Rate 15 15 15 Blood Pressure 92/61 L 90/61 L 88/58 L Pulse Oximetry 97 97 97 06/28/18 21:00 06/28/18 21:15 06/28/18 21:30 Temperature Pulse Rate 93 H 92 H 92 H Respiratory Rate 15 15 15 Blood Pressure 83/52 L 86/57 L 87/60 L Pulse Oximetry 97 97 97 06/28/18 21:45 06/28/18 22:00 06/28/18 22:15 Temperature Pulse Rate 91 H 91 H 90 Respiratory Rate 15 15 15 Blood Pressure 86/58 L 87/60 L 86/60 L Pulse Oximetry 97 97 97 06/28/18 22:30 06/28/18 22:45 06/28/18 23:00 Temperature Pulse Rate 91 H 90 89 Respiratory Rate 15 15 15 Blood Pressure 91/55 L 87/56 L 83/55 L Pulse Oximetry 97 97 97 06/28/18 23:15 06/28/18 23:28 06/28/18 23:30 Temperature Pulse Rate 88 90 Respiratory Rate 15 15 15 Blood Pressure 83/56 L 86/62 L Pulse Oximetry 97 97 97 06/28/18 23:45 06/29/18 00:00 06/29/18 00:15 Temperature Pulse Rate 89 89 91 H Respiratory Rate 15 17 16 Blood Pressure 79/55 L 79/55 L 80/56 L Pulse Oximetry 97 97 97 06/29/18 00:30 06/29/18 00:45 06/29/18 01:00 Temperature Pulse Rate 91 H 91 H 90 Respiratory Rate 16 16 16 Blood Pressure 80/56 L 82/56 L 81/56 L Pulse Oximetry 97 97 97 06/29/18 01:15 06/29/18 01:30 06/29/18 01:45 Temperature Pulse Rate 91 H 91 H 90 Respiratory Rate 17 17 17 Blood Pressure 82/57 L 80/56 L 81/55 L Pulse Oximetry 97 97 97 06/29/18 02:00 06/29/18 02:15 06/29/18 02:30 Temperature Pulse Rate 91 H 91 H 91 H Respiratory Rate 17 16 16 Blood Pressure 84/57 L 84/58 L 82/59 L Pulse Oximetry 97 97 97 06/29/18 02:45 06/29/18 03:00 06/29/18 03:08 Temperature Pulse Rate 91 H 94 H Respiratory Rate 16 16 15 Blood Pressure 83/58 L 83/62 L Pulse Oximetry 97 97 97 06/29/18 03:15 06/29/18 03:30 06/29/18 03:45 Temperature Pulse Rate 91 H 100 H 93 H Respiratory Rate 15 17 15 Blood Pressure 80/55 L 86/51 L 86/61 L Pulse Oximetry 97 99 97 06/29/18 04:00 06/29/18 04:01 06/29/18 04:15 Temperature 98.5 F Pulse Rate 96 H 104 H 93 H Respiratory Rate 19 16 17 Blood Pressure 86/65 L 88/65 L Pulse Oximetry 97 97 98 06/29/18 04:30 06/29/18 04:45 06/29/18 05:00 Temperature Pulse Rate 93 H 99 H 95 H Respiratory Rate 14 15 12 Blood Pressure 85/53 L 85/63 L 89/63 L Pulse Oximetry 97 97 98 06/29/18 05:15 06/29/18 05:30 06/29/18 05:45 Temperature Pulse Rate 101 H 92 H 96 H Respiratory Rate 15 16 14 Blood Pressure 85/61 L 84/62 L 85/60 L Pulse Oximetry 98 98 98 06/29/18 06:00 06/29/18 06:18 06/29/18 07:00 Temperature 98.9 F Pulse Rate 92 H 101 H 104 H Respiratory Rate 15 15 15 Blood Pressure 83/57 L 81/60 L 93/64 L Pulse Oximetry 98 97 98 06/29/18 07:46 06/29/18 08:00 06/29/18 09:00 Temperature 98.9 F 98.9 F Pulse Rate 91 H 102 H 106 H Respiratory Rate 18 15 15 Blood Pressure 88/64 L 85/61 L Pulse Oximetry 100 99 98 06/29/18 10:00 06/29/18 11:00 06/29/18 11:36 Temperature 98.7 F Pulse Rate 107 H 105 H 111 H Respiratory Rate 15 15 16 Blood Pressure 86/64 L 81/60 L Pulse Oximetry 100 100 100 06/29/18 12:00 06/29/18 13:00 06/29/18 14:00 Temperature 98.6 F Pulse Rate 112 H 113 H 118 H Respiratory Rate 15 15 15 Blood Pressure 89/61 L 89/69 L 87/68 L Pulse Oximetry 100 100 100 Intake & Output 06/28/18 06/29/18 06/29/18 18:59 06:59 18:59 Intake Total 1914 / 1914 1561 / 1561 715 / 715 Output Total 675 / 675 700 / 700 Balance 1239 / 1239 861 / 861 715 / 715 Weight 69.7 kg Intake: IV 1550 / 1550 1561 / 1561 715 / 715 D5W/Normal Saline Inj 1,000 ML 1000 / 1000 1000 / 1000 @ 50 mls/hr IV.CONT .Q20H M[facility] Rx#:[id number] Maxipime Inj 2,000 MG In NS Inj 100 / 100 100 / 100 100 ML @ 100 mls/hr IV.SIG Q12H [facility] Rx#:[id number] Levophed-Dextrose 4 mg/250 ml 250 / 250 Drip 4 mg In 250 ml @ 2 MCG/MIN 7.5 mls/hr IV.SIG TITRATE PRN Rx#:[id number] Zosyn 4.5 GM Premix 4.5 gm In 200 / 200 200 / 200 200 / 200 100 ml @ 200 mls/hr IV.SIG Q6H M[facility] Rx#:[id number] Vancomycin Inj 1,100 MG In NS 261 / 261 Inj 250 ML @ 250 mls/hr IV.SIG Q18H M[facility] Rx#:[id number] Vancomycin Inj 1,500 MG In NS 515 / 515 Inj 500 ML @ 250 mls/hr IV.SIG Q12H M[facility] Rx#:[id number] Intake (Blood Product) Amt 364 / 364 Plt Pheresis B Leukoreduced 0 / 0 Unit [id number] Plt Pheresis S Leukoreduced 364 / 364 Unit [id number] Output: Urine Amount (Catheter) 675 / 675 700 / 700 Indwelling Urethral Catheter 675 / 675 700 / 700 Other: # Bowel Movements 0 Physical Exam: CONSTITUTIONAL/GENERAL: This is a frail middle age man. Lethargic, minimally responsive, intubated TUBES/LINES/DRAINS:NC, folwy, piv, RIJ SKIN: lower ext cellulitis. Edema. HEAD: Atraumatic. Normocephalic. EYES: Pupils equal and round and reactive. . No scleral icterus. No injection or drainage. Fundi not examined. ENT: Hearing grossly normal. Nose without bleeding or purulent drainage. ET tube NECK: Trachea midline. Supple, nontender. No palpable thyroid enlargement or nodularity. CARDIOVASCULAR: Regular rate and rhythm without murmurs, gallops, or rubs. RESPIRATORY/CHEST: Coarse breath sound bilaterally. GASTROINTESTINAL: Abdomen soft, non-tender, nondistended. No hepato-splenomegaly , or palpable masses. No guarding. Bowel sounds present. GENITOURINARY: Without palpable bladder distension. Tavarez catheter in place. MUSCULOSKELETAL: Lower ext edemetious LYMPHATICS: No palpable cervical or supraclavicular adenopathy. NEUROLOGICAL: lethargic, unresponsive. PSYCHIATRIC: could not examine Diagnostic Tests Laboratory: Laboratory Results - last 72 hr 06/26/18 06/26/18 06/26/18 14:19 15:20 16:36 WBC RBC Hgb Hct MCV MCH MCHC RDW Plt Count MPV Prelim Diff (Auto) Neut % (Auto) Lymph % (Auto) [place] % (Auto) Eos % (Auto) Baso % (Auto) Neut # (Auto) Lymph # (Auto) [place] # (Auto) Eos # (Auto) Baso # (Auto) WBC Differential Seg Neuts % (Manual) Band Neuts % (Manual) Lymphocytes % (Manual) Monocytes % (Manual) Abs Neuts (Manual) Differential Comment Toxic Granulation Dohle Bodies Platelet Estimate Platelet Morphology Mildred Cells Keratocytes PT 17.6 H INR 1.7 APTT 45.3 H Fibrinogen Puncture Site Peripheral line Patient Temperature 98.6 O2 Saturation ABG pH ABG pCO2 ABG pO2 ABG HCO3 ABG O2 Content ABG Base Excess ABG Methemoglobin Rajiv Test VBG pH 7.29 L* VBG pCO2 42 L VBG pO2 12 L* VBG HCO3 19 L VBG O2 Saturation 6 L VBG O2 Content 1.3 L VBG Base Excess -6.0 L VBG Carboxyhemoglobin 0.5 VBG Methemoglobin 0.6 Hemoglobin 14.8 Carboxyhemoglobin O2 Delivery Device Liter Flow Vent Setting Inspired O2 21 Critical Value Yes Sodium Potassium Chloride Carbon Dioxide Anion Gap BUN Creatinine Estimated GFR POC Glucose 83 Random Glucose Lactic Acid Calcium Prot Corrected Calcium Total Bilirubin AST ALT Alkaline Phosphatase C-Reactive Protein Total Protein Albumin CSF Volume (1) CSF Supernat Color (1) CSF Gross Blood (1) CSF Volume (2) CSF Supernat Color (2) CSF Gross Blood (2) CSF Volume (3) CSF Supernat Color (3) CSF Gross Blood (3) CSF Volume (4) CSF Supernat Color (4) CSF Gross Blood (4) CSF WBC (4) CSF RBC (4) CSF Neutrophils % CSF Lymphocytes % CSF Monocytes % CSF Comment CSF Glucose CSF Lactic Acid CSF Total Protein CSF Herpes I DNA (PCR) CSF Herpes II DNA (PCR) Nasal Screen MRSA (PCR) Vancomycin Trough RPR Chlam trachomat DNA PCR Hepatitis A IgM Ab Hep Bs Antigen Hep B Core IgM Ab Hep C IgG Ab HIV 1&2 Ab/P24 Ag 4thGn N.gonorrhoeae DNA (PCR) Blood Type Blood Type Recheck Blood Bank Comment Bld Prod Order Comment 06/26/18 06/26/18 06/26/18 17:30 18:20 19:03 WBC RBC Hgb Hct MCV MCH MCHC RDW Plt Count MPV Prelim Diff (Auto) Neut % (Auto) Lymph % (Auto) [place] % (Auto) Eos % (Auto) Baso % (Auto) Neut # (Auto) Lymph # (Auto) [place] # (Auto) Eos # (Auto) Baso # (Auto) WBC Differential Seg Neuts % (Manual) Band Neuts % (Manual) Lymphocytes % (Manual) Monocytes % (Manual) Abs Neuts (Manual) Differential Comment Toxic Granulation Dohle Bodies Platelet Estimate Platelet Morphology Mildred Cells Keratocytes PT INR APTT Fibrinogen Puncture Site Left radial Patient Temperature 98.6 O2 Saturation 94 ABG pH 7.43 H ABG pCO2 25 L ABG pO2 87 ABG HCO3 16 L* ABG O2 Content 20.6 H ABG Base Excess -7.2 L ABG Methemoglobin 1.3 Rajiv Test Present VBG pH VBG pCO2 VBG pO2 VBG HCO3 VBG O2 Saturation VBG O2 Content VBG Base Excess VBG Carboxyhemoglobin VBG Methemoglobin Hemoglobin 15.6 Carboxyhemoglobin 1.2 O2 Delivery Device Nasal cannula Liter Flow 2.00 Vent Setting Inspired O2 Critical Value Yes Sodium Potassium Chloride Carbon Dioxide Anion Gap BUN Creatinine Estimated GFR POC Glucose Random Glucose Lactic Acid 3.2 H Calcium Prot Corrected Calcium Total Bilirubin AST ALT Alkaline Phosphatase C-Reactive Protein Total Protein Albumin CSF Volume (1) CSF Supernat Color (1) CSF Gross Blood (1) CSF Volume (2) CSF Supernat Color (2) CSF Gross Blood (2) CSF Volume (3) CSF Supernat Color (3) CSF Gross Blood (3) CSF Volume (4) CSF Supernat Color (4) CSF Gross Blood (4) CSF WBC (4) CSF RBC (4) CSF Neutrophils % CSF Lymphocytes % CSF Monocytes % CSF Comment CSF Glucose CSF Lactic Acid CSF Total Protein CSF Herpes I DNA (PCR) CSF Herpes II DNA (PCR) Nasal Screen MRSA (PCR) Not detected Vancomycin Trough RPR Chlam trachomat DNA PCR Hepatitis A IgM Ab Hep Bs Antigen Hep B Core IgM Ab Hep C IgG Ab HIV 1&2 Ab/P24 Ag 4thGn N.gonorrhoeae DNA (PCR) Blood Type Blood Type Recheck Blood Bank Comment Bld Prod Order Comment 06/26/18 06/26/18 06/26/18 19:03 19:10 19:49 WBC RBC Hgb Hct MCV MCH MCHC RDW Plt Count MPV Prelim Diff (Auto) Neut % (Auto) Lymph % (Auto) [place] % (Auto) Eos % (Auto) Baso % (Auto) Neut # (Auto) Lymph # (Auto) [place] # (Auto) Eos # (Auto) Baso # (Auto) WBC Differential Seg Neuts % (Manual) Band Neuts % (Manual) Lymphocytes % (Manual) Monocytes % (Manual) Abs Neuts (Manual) Differential Comment Toxic Granulation Dohle Bodies Platelet Estimate Platelet Morphology Mildred Cells Keratocytes PT INR APTT Fibrinogen Puncture Site Patient Temperature O2 Saturation ABG pH ABG pCO2 ABG pO2 ABG HCO3 ABG O2 Content ABG Base Excess ABG Methemoglobin Rajiv Test VBG pH VBG pCO2 VBG pO2 VBG HCO3 VBG O2 Saturation VBG O2 Content VBG Base Excess VBG Carboxyhemoglobin VBG Methemoglobin Hemoglobin Carboxyhemoglobin O2 Delivery Device Liter Flow Vent Setting Inspired O2 Critical Value Sodium 133 L Potassium 3.9 D Chloride 98 Carbon Dioxide 20.3 L Anion Gap 15 BUN 38 H Creatinine 1.32 H Estimated GFR 57 L POC Glucose 38 L* 108 Random Glucose 68 L Lactic Acid Calcium 7.3 L* Prot Corrected Calcium 8.7 Total Bilirubin AST ALT Alkaline Phosphatase C-Reactive Protein Total Protein 4.6 L Albumin CSF Volume (1) CSF Supernat Color (1) CSF Gross Blood (1) CSF Volume (2) CSF Supernat Color (2) CSF Gross Blood (2) CSF Volume (3) CSF Supernat Color (3) CSF Gross Blood (3) CSF Volume (4) CSF Supernat Color (4) CSF Gross Blood (4) CSF WBC (4) CSF RBC (4) CSF Neutrophils % CSF Lymphocytes % CSF Monocytes % CSF Comment CSF Glucose CSF Lactic Acid CSF Total Protein CSF Herpes I DNA (PCR) CSF Herpes II DNA (PCR) Nasal Screen MRSA (PCR) Vancomycin Trough RPR Chlam trachomat DNA PCR Hepatitis A IgM Ab Hep Bs Antigen Hep B Core IgM Ab Hep C IgG Ab HIV 1&2 Ab/P24 Ag 4thGn N.gonorrhoeae DNA (PCR) Blood Type Blood Type Recheck Blood Bank Comment Bld Prod Order Comment 06/27/18 06/27/18 06/27/18 01:37 04:04 08:14 WBC RBC Hgb Hct MCV MCH MCHC RDW Plt Count MPV Prelim Diff (Auto) Neut % (Auto) Lymph % (Auto) [place] % (Auto) Eos % (Auto) Baso % (Auto) Neut # (Auto) Lymph # (Auto) [place] # (Auto) Eos # (Auto) Baso # (Auto) WBC Differential Seg Neuts % (Manual) Band Neuts % (Manual) Lymphocytes % (Manual) Monocytes % (Manual) Abs Neuts (Manual) Differential Comment Toxic Granulation Dohle Bodies Platelet Estimate Platelet Morphology Mildred Cells Keratocytes PT INR APTT Fibrinogen Puncture Site Patient Temperature O2 Saturation ABG pH ABG pCO2 ABG pO2 ABG HCO3 ABG O2 Content ABG Base Excess ABG Methemoglobin Rajiv Test VBG pH VBG pCO2 VBG pO2 VBG HCO3 VBG O2 Saturation VBG O2 Content VBG Base Excess VBG Carboxyhemoglobin VBG Methemoglobin Hemoglobin Carboxyhemoglobin O2 Delivery Device Liter Flow Vent Setting Inspired O2 Critical Value Sodium Potassium Chloride Carbon Dioxide Anion Gap BUN Creatinine Estimated GFR POC Glucose 107 115 H 132 H Random Glucose Lactic Acid Calcium Prot Corrected Calcium Total Bilirubin AST ALT Alkaline Phosphatase C-Reactive Protein Total Protein Albumin CSF Volume (1) CSF Supernat Color (1) CSF Gross Blood (1) CSF Volume (2) CSF Supernat Color (2) CSF Gross Blood (2) CSF Volume (3) CSF Supernat Color (3) CSF Gross Blood (3) CSF Volume (4) CSF Supernat Color (4) CSF Gross Blood (4) CSF WBC (4) CSF RBC (4) CSF Neutrophils % CSF Lymphocytes % CSF Monocytes % CSF Comment CSF Glucose CSF Lactic Acid CSF Total Protein CSF Herpes I DNA (PCR) CSF Herpes II DNA (PCR) Nasal Screen MRSA (PCR) Vancomycin Trough RPR Chlam trachomat DNA PCR Hepatitis A IgM Ab Hep Bs Antigen Hep B Core IgM Ab Hep C IgG Ab HIV 1&2 Ab/P24 Ag 4thGn N.gonorrhoeae DNA (PCR) Blood Type Blood Type Recheck Blood Bank Comment Bld Prod Order Comment 06/27/18 06/27/18 06/27/18 08:50 08:50 08:50 WBC 17.7 H RBC 4.94 Hgb 14.6 Hct 43.6 MCV 88.3 MCH 29.5 MCHC 33.5 RDW 20.0 H Plt Count 76 L D MPV 10.3 Prelim Diff (Auto) Slide review pending Neut % (Auto) 98.5 H Lymph % (Auto) 0.7 L [place] % (Auto) 0.4 Eos % (Auto) 0.2 Baso % (Auto) 0.2 Neut # (Auto) 17.5 H Lymph # (Auto) 0.1 L [place] # (Auto) 0.1 Eos # (Auto) 0.0 Baso # (Auto) 0.0 WBC Differential Manual diff final Seg Neuts % (Manual) 75 H Band Neuts % (Manual) 24 H Lymphocytes % (Manual) Monocytes % (Manual) 1 Abs Neuts (Manual) 17.5 H Differential Comment . Toxic Granulation Dohle Bodies Platelet Estimate Low L Platelet Morphology Normal Luxor Cells 1+ H Keratocytes Occ H PT 17.9 H INR 1.8 APTT Fibrinogen Puncture Site Patient Temperature O2 Saturation ABG pH ABG pCO2 ABG pO2 ABG HCO3 ABG O2 Content ABG Base Excess ABG Methemoglobin Rajiv Test VBG pH VBG pCO2 VBG pO2 VBG HCO3 VBG O2 Saturation VBG O2 Content VBG Base Excess VBG Carboxyhemoglobin VBG Methemoglobin Hemoglobin Carboxyhemoglobin O2 Delivery Device Liter Flow Vent Setting Inspired O2 Critical Value Sodium 134 L Potassium 3.2 L Chloride 101 Carbon Dioxide 20.4 L Anion Gap 13 BUN 37 H Creatinine 1.26 Estimated GFR 60 L POC Glucose Random Glucose 152 H Lactic Acid Calcium 7.4 L* Prot Corrected Calcium 8.9 Total Bilirubin 2.5 H AST 28 ALT 34 Alkaline Phosphatase 134 H C-Reactive Protein Total Protein 4.5 L Albumin 2.0 L CSF Volume (1) CSF Supernat Color (1) CSF Gross Blood (1) CSF Volume (2) CSF Supernat Color (2) CSF Gross Blood (2) CSF Volume (3) CSF Supernat Color (3) CSF Gross Blood (3) CSF Volume (4) CSF Supernat Color (4) CSF Gross Blood (4) CSF WBC (4) CSF RBC (4) CSF Neutrophils % CSF Lymphocytes % CSF Monocytes % CSF Comment CSF Glucose CSF Lactic Acid CSF Total Protein CSF Herpes I DNA (PCR) CSF Herpes II DNA (PCR) Nasal Screen MRSA (PCR) Vancomycin Trough RPR Chlam trachomat DNA PCR Hepatitis A IgM Ab Hep Bs Antigen Hep B Core IgM Ab Hep C IgG Ab HIV 1&2 Ab/P24 Ag 4thGn N.gonorrhoeae DNA (PCR) Blood Type Blood Type Recheck Blood Bank Comment Bld Prod Order Comment 06/27/18 06/27/18 06/27/18 08:50 11:23 11:23 WBC RBC Hgb Hct MCV MCH MCHC RDW Plt Count MPV Prelim Diff (Auto) Neut % (Auto) Lymph % (Auto) [place] % (Auto) Eos % (Auto) Baso % (Auto) Neut # (Auto) Lymph # (Auto) [place] # (Auto) Eos # (Auto) Baso # (Auto) WBC Differential Seg Neuts % (Manual) Band Neuts % (Manual) Lymphocytes % (Manual) Monocytes % (Manual) Abs Neuts (Manual) Differential Comment Toxic Granulation Dohle Bodies Platelet Estimate Platelet Morphology Mildred Cells Keratocytes PT INR APTT Fibrinogen 375 Puncture Site Patient Temperature O2 Saturation ABG pH ABG pCO2 ABG pO2 ABG HCO3 ABG O2 Content ABG Base Excess ABG Methemoglobin Rajiv Test VBG pH VBG pCO2 VBG pO2 VBG HCO3 VBG O2 Saturation VBG O2 Content VBG Base Excess VBG Carboxyhemoglobin VBG Methemoglobin Hemoglobin Carboxyhemoglobin O2 Delivery Device Liter Flow Vent Setting Inspired O2 Critical Value Sodium Potassium Chloride Carbon Dioxide Anion Gap BUN Creatinine Estimated GFR POC Glucose Random Glucose Lactic Acid Calcium Prot Corrected Calcium Total Bilirubin AST ALT Alkaline Phosphatase C-Reactive Protein 23.40 H Total Protein Albumin CSF Volume (1) CSF Supernat Color (1) CSF Gross Blood (1) CSF Volume (2) CSF Supernat Color (2) CSF Gross Blood (2) CSF Volume (3) CSF Supernat Color (3) CSF Gross Blood (3) CSF Volume (4) CSF Supernat Color (4) CSF Gross Blood (4) CSF WBC (4) CSF RBC (4) CSF Neutrophils % CSF Lymphocytes % CSF Monocytes % CSF Comment CSF Glucose CSF Lactic Acid CSF Total Protein CSF Herpes I DNA (PCR) CSF Herpes II DNA (PCR) Nasal Screen MRSA (PCR) Vancomycin Trough RPR Chlam trachomat DNA PCR Hepatitis A IgM Ab Nonreactive Hep Bs Antigen Nonreactive Hep B Core IgM Ab Nonreactive Hep C IgG Ab Nonreactive HIV 1&2 Ab/P24 Ag 4thGn Nonreactive N.gonorrhoeae DNA (PCR) Blood Type Blood Type Recheck Blood Bank Comment Bld Prod Order Comment 06/27/18 06/27/18 06/27/18 11:23 11:51 15:15 WBC RBC Hgb Hct MCV MCH MCHC RDW Plt Count MPV Prelim Diff (Auto) Neut % (Auto) Lymph % (Auto) [place] % (Auto) Eos % (Auto) Baso % (Auto) Neut # (Auto) Lymph # (Auto) [place] # (Auto) Eos # (Auto) Baso # (Auto) WBC Differential Seg Neuts % (Manual) Band Neuts % (Manual) Lymphocytes % (Manual) Monocytes % (Manual) Abs Neuts (Manual) Differential Comment Toxic Granulation Dohle Bodies Platelet Estimate Platelet Morphology Luxor Cells Keratocytes PT INR APTT Fibrinogen Puncture Site Patient Temperature O2 Saturation ABG pH ABG pCO2 ABG pO2 ABG HCO3 ABG O2 Content ABG Base Excess ABG Methemoglobin Rajiv Test VBG pH VBG pCO2 VBG pO2 VBG HCO3 VBG O2 Saturation VBG O2 Content VBG Base Excess VBG Carboxyhemoglobin VBG Methemoglobin Hemoglobin Carboxyhemoglobin O2 Delivery Device Liter Flow Vent Setting Inspired O2 Critical Value Sodium Potassium Chloride Carbon Dioxide Anion Gap BUN Creatinine Estimated GFR POC Glucose 155 H Random Glucose Lactic Acid 4.9 H* 3.9 H Calcium Prot Corrected Calcium Total Bilirubin AST ALT Alkaline Phosphatase C-Reactive Protein Total Protein Albumin CSF Volume (1) CSF Supernat Color (1) CSF Gross Blood (1) CSF Volume (2) CSF Supernat Color (2) CSF Gross Blood (2) CSF Volume (3) CSF Supernat Color (3) CSF Gross Blood (3) CSF Volume (4) CSF Supernat Color (4) CSF Gross Blood (4) CSF WBC (4) CSF RBC (4) CSF Neutrophils % CSF Lymphocytes % CSF Monocytes % CSF Comment CSF Glucose CSF Lactic Acid CSF Total Protein CSF Herpes I DNA (PCR) CSF Herpes II DNA (PCR) Nasal Screen MRSA (PCR) Vancomycin Trough RPR Chlam trachomat DNA PCR Hepatitis A IgM Ab Hep Bs Antigen Hep B Core IgM Ab Hep C IgG Ab HIV 1&2 Ab/P24 Ag 4thGn N.gonorrhoeae DNA (PCR) Blood Type Blood Type Recheck Blood Bank Comment Bld Prod Order Comment 06/27/18 06/27/18 06/27/18 16:28 17:10 18:02 WBC RBC Hgb Hct MCV MCH MCHC RDW Plt Count MPV Prelim Diff (Auto) Neut % (Auto) Lymph % (Auto) [place] % (Auto) Eos % (Auto) Baso % (Auto) Neut # (Auto) Lymph # (Auto) [place] # (Auto) Eos # (Auto) Baso # (Auto) WBC Differential Seg Neuts % (Manual) Band Neuts % (Manual) Lymphocytes % (Manual) Monocytes % (Manual) Abs Neuts (Manual) Differential Comment Toxic Granulation Dohle Bodies Platelet Estimate Platelet Morphology Luxor Cells Keratocytes PT INR APTT Fibrinogen Puncture Site Right radial Patient Temperature 98.6 O2 Saturation 95 ABG pH 7.44 H ABG pCO2 26 L ABG pO2 100 ABG HCO3 17 L ABG O2 Content 20.1 H ABG Base Excess -6.2 L ABG Methemoglobin 1.4 Rajiv Test Present VBG pH VBG pCO2 VBG pO2 VBG HCO3 VBG O2 Saturation VBG O2 Content VBG Base Excess VBG Carboxyhemoglobin VBG Methemoglobin Hemoglobin 14.9 Carboxyhemoglobin 1.2 O2 Delivery Device Nasal cannula Liter Flow 5.00 Vent Setting Inspired O2 40 Critical Value No Sodium Potassium Chloride Carbon Dioxide Anion Gap BUN Creatinine Estimated GFR POC Glucose 132 H Random Glucose Lactic Acid Calcium Prot Corrected Calcium Total Bilirubin AST ALT Alkaline Phosphatase C-Reactive Protein Total Protein Albumin CSF Volume (1) CSF Supernat Color (1) CSF Gross Blood (1) CSF Volume (2) CSF Supernat Color (2) CSF Gross Blood (2) CSF Volume (3) CSF Supernat Color (3) CSF Gross Blood (3) CSF Volume (4) CSF Supernat Color (4) CSF Gross Blood (4) CSF WBC (4) CSF RBC (4) CSF Neutrophils % CSF Lymphocytes % CSF Monocytes % CSF Comment CSF Glucose CSF Lactic Acid CSF Total Protein CSF Herpes I DNA (PCR) CSF Herpes II DNA (PCR) Nasal Screen MRSA (PCR) Vancomycin Trough RPR Chlam trachomat DNA PCR Hepatitis A IgM Ab Hep Bs Antigen Hep B Core IgM Ab Hep C IgG Ab HIV 1&2 Ab/P24 Ag 4thGn N.gonorrhoeae DNA (PCR) Blood Type A Positive Blood Type Recheck Required Blood Bank Comment Bld Prod Order Comment 06/27/18 06/27/18 06/27/18 19:53 20:30 20:30 WBC RBC Hgb Hct MCV MCH MCHC RDW Plt Count MPV Prelim Diff (Auto) Neut % (Auto) Lymph % (Auto) [place] % (Auto) Eos % (Auto) Baso % (Auto) Neut # (Auto) Lymph # (Auto) [place] # (Auto) Eos # (Auto) Baso # (Auto) WBC Differential Seg Neuts % (Manual) Band Neuts % (Manual) Lymphocytes % (Manual) Monocytes % (Manual) Abs Neuts (Manual) Differential Comment Toxic Granulation Dohle Bodies Platelet Estimate Platelet Morphology Mildred Cells Keratocytes PT 16.3 H INR 1.6 APTT Fibrinogen Puncture Site Patient Temperature O2 Saturation ABG pH ABG pCO2 ABG pO2 ABG HCO3 ABG O2 Content ABG Base Excess ABG Methemoglobin Rajiv Test VBG pH VBG pCO2 VBG pO2 VBG HCO3 VBG O2 Saturation VBG O2 Content VBG Base Excess VBG Carboxyhemoglobin VBG Methemoglobin Hemoglobin Carboxyhemoglobin O2 Delivery Device Liter Flow Vent Setting Inspired O2 Critical Value Sodium Potassium Chloride Carbon Dioxide Anion Gap BUN Creatinine Estimated GFR POC Glucose 126 H Random Glucose Lactic Acid 3.4 H Calcium Prot Corrected Calcium Total Bilirubin AST ALT Alkaline Phosphatase C-Reactive Protein Total Protein Albumin CSF Volume (1) CSF Supernat Color (1) CSF Gross Blood (1) CSF Volume (2) CSF Supernat Color (2) CSF Gross Blood (2) CSF Volume (3) CSF Supernat Color (3) CSF Gross Blood (3) CSF Volume (4) CSF Supernat Color (4) CSF Gross Blood (4) CSF WBC (4) CSF RBC (4) CSF Neutrophils % CSF Lymphocytes % CSF Monocytes % CSF Comment CSF Glucose CSF Lactic Acid CSF Total Protein CSF Herpes I DNA (PCR) CSF Herpes II DNA (PCR) Nasal Screen MRSA (PCR) Vancomycin Trough RPR Chlam trachomat DNA PCR Hepatitis A IgM Ab Hep Bs Antigen Hep B Core IgM Ab Hep C IgG Ab HIV 1&2 Ab/P24 Ag 4thGn N.gonorrhoeae DNA (PCR) Blood Type Blood Type Recheck Blood Bank Comment Bld Prod Order Comment 06/28/18 06/28/18 06/28/18 01:22 01:22 01:22 WBC RBC Hgb Hct MCV MCH MCHC RDW Plt Count MPV Prelim Diff (Auto) Neut % (Auto) Lymph % (Auto) [place] % (Auto) Eos % (Auto) Baso % (Auto) Neut # (Auto) Lymph # (Auto) [place] # (Auto) Eos # (Auto) Baso # (Auto) WBC Differential Seg Neuts % (Manual) Band Neuts % (Manual) Lymphocytes % (Manual) Monocytes % (Manual) Abs Neuts (Manual) Differential Comment Toxic Granulation Dohle Bodies Platelet Estimate Platelet Morphology Luxor Cells Keratocytes PT INR APTT Fibrinogen Puncture Site Patient Temperature O2 Saturation ABG pH ABG pCO2 ABG pO2 ABG HCO3 ABG O2 Content ABG Base Excess ABG Methemoglobin Rajiv Test VBG pH VBG pCO2 VBG pO2 VBG HCO3 VBG O2 Saturation VBG O2 Content VBG Base Excess VBG Carboxyhemoglobin VBG Methemoglobin Hemoglobin Carboxyhemoglobin O2 Delivery Device Liter Flow Vent Setting Inspired O2 Critical Value Sodium Potassium Chloride Carbon Dioxide Anion Gap BUN Creatinine Estimated GFR POC Glucose Random Glucose Lactic Acid Calcium Prot Corrected Calcium Total Bilirubin AST ALT Alkaline Phosphatase C-Reactive Protein Total Protein Albumin CSF Volume (1) 2.8 CSF Supernat Color (1) Xanthochromic A CSF Gross Blood (1) 1+ A CSF Volume (2) 2.5 CSF Supernat Color (2) Xanthochromic A CSF Gross Blood (2) 1+ A CSF Volume (3) 2.5 CSF Supernat Color (3) Xanthochromic A CSF Gross Blood (3) 1+ A CSF Volume (4) 1.5 CSF Supernat Color (4) Xanthochromic A CSF Gross Blood (4) 1+ A CSF WBC (4) 1488 H CSF RBC (4) 1209 H CSF Neutrophils % 91 CSF Lymphocytes % 8 CSF Monocytes % 1 CSF Comment CSF Glucose Less than 1 L CSF Lactic Acid CSF Total Protein CSF Herpes I DNA (PCR) Negative CSF Herpes II DNA (PCR) Negative Nasal Screen MRSA (PCR) Vancomycin Trough RPR Chlam trachomat DNA PCR Hepatitis A IgM Ab Hep Bs Antigen Hep B Core IgM Ab Hep C IgG Ab HIV 1&2 Ab/P24 Ag 4thGn N.gonorrhoeae DNA (PCR) Blood Type Blood Type Recheck Blood Bank Comment Bld Prod Order Comment 06/28/18 06/28/18 06/28/18 01:22 01:22 02:08 WBC RBC Hgb Hct MCV MCH MCHC RDW Plt Count MPV Prelim Diff (Auto) Neut % (Auto) Lymph % (Auto) [place] % (Auto) Eos % (Auto) Baso % (Auto) Neut # (Auto) Lymph # (Auto) [place] # (Auto) Eos # (Auto) Baso # (Auto) WBC Differential Seg Neuts % (Manual) Band Neuts % (Manual) Lymphocytes % (Manual) Monocytes % (Manual) Abs Neuts (Manual) Differential Comment Toxic Granulation Dohle Bodies Platelet Estimate Platelet Morphology Luxor Cells Keratocytes PT INR APTT Fibrinogen Puncture Site Patient Temperature O2 Saturation ABG pH ABG pCO2 ABG pO2 ABG HCO3 ABG O2 Content ABG Base Excess ABG Methemoglobin Rajiv Test VBG pH VBG pCO2 VBG pO2 VBG HCO3 VBG O2 Saturation VBG O2 Content VBG Base Excess VBG Carboxyhemoglobin VBG Methemoglobin Hemoglobin Carboxyhemoglobin O2 Delivery Device Liter Flow Vent Setting Inspired O2 Critical Value Sodium Potassium Chloride Carbon Dioxide Anion Gap BUN Creatinine Estimated GFR POC Glucose 129 H Random Glucose Lactic Acid Calcium Prot Corrected Calcium Total Bilirubin AST ALT Alkaline Phosphatase C-Reactive Protein Total Protein Albumin CSF Volume (1) CSF Supernat Color (1) CSF Gross Blood (1) CSF Volume (2) CSF Supernat Color (2) CSF Gross Blood (2) CSF Volume (3) CSF Supernat Color (3) CSF Gross Blood (3) CSF Volume (4) CSF Supernat Color (4) CSF Gross Blood (4) CSF WBC (4) CSF RBC (4) CSF Neutrophils % CSF Lymphocytes % CSF Monocytes % CSF Comment CSF Glucose CSF Lactic Acid 16.8 H CSF Total Protein 366.2 H CSF Herpes I DNA (PCR) CSF Herpes II DNA (PCR) Nasal Screen MRSA (PCR) Vancomycin Trough RPR Chlam trachomat DNA PCR Hepatitis A IgM Ab Hep Bs Antigen Hep B Core IgM Ab Hep C IgG Ab HIV 1&2 Ab/P24 Ag 4thGn N.gonorrhoeae DNA (PCR) Blood Type Blood Type Recheck Blood Bank Comment Bld Prod Order Comment 06/28/18 06/28/18 06/28/18 04:13 04:33 04:53 WBC 20.7 H RBC 4.53 Hgb 13.3 Hct 40.3 MCV 89.0 MCH 29.3 MCHC 32.9 RDW 19.9 H Plt Count 38 L D MPV 10.7 Prelim Diff (Auto) Manual diff required Neut % (Auto) Lymph % (Auto) [place] % (Auto) Eos % (Auto) Baso % (Auto) Neut # (Auto) Lymph # (Auto) [place] # (Auto) Eos # (Auto) Baso # (Auto) WBC Differential Manual diff final Seg Neuts % (Manual) 63 Band Neuts % (Manual) 35 H Lymphocytes % (Manual) 1 L Monocytes % (Manual) 1 Abs Neuts (Manual) 20.3 H Differential Comment . Toxic Granulation 1+ H Dohle Bodies Present H Platelet Estimate Low L Platelet Morphology Normal Luxor Cells 1+ H Keratocytes PT INR APTT Fibrinogen Puncture Site Left brachial Patient Temperature 98.6 O2 Saturation 97 ABG pH 7.36 L ABG pCO2 35 L ABG pO2 162 H ABG HCO3 19 L ABG O2 Content 18.2 ABG Base Excess -5.1 L ABG Methemoglobin 1.4 Rajiv Test VBG pH VBG pCO2 VBG pO2 VBG HCO3 VBG O2 Saturation VBG O2 Content VBG Base Excess VBG Carboxyhemoglobin VBG Methemoglobin Hemoglobin 13.2 Carboxyhemoglobin 0.7 O2 Delivery Device Ventilator Liter Flow Vent Setting See comment Inspired O2 50 Critical Value No Sodium Potassium Chloride Carbon Dioxide Anion Gap BUN Creatinine Estimated GFR POC Glucose 137 H Random Glucose Lactic Acid Calcium Prot Corrected Calcium Total Bilirubin AST ALT Alkaline Phosphatase C-Reactive Protein Total Protein Albumin CSF Volume (1) CSF Supernat Color (1) CSF Gross Blood (1) CSF Volume (2) CSF Supernat Color (2) CSF Gross Blood (2) CSF Volume (3) CSF Supernat Color (3) CSF Gross Blood (3) CSF Volume (4) CSF Supernat Color (4) CSF Gross Blood (4) CSF WBC (4) CSF RBC (4) CSF Neutrophils % CSF Lymphocytes % CSF Monocytes % CSF Comment CSF Glucose CSF Lactic Acid CSF Total Protein CSF Herpes I DNA (PCR) CSF Herpes II DNA (PCR) Nasal Screen MRSA (PCR) Vancomycin Trough RPR Chlam trachomat DNA PCR Hepatitis A IgM Ab Hep Bs Antigen Hep B Core IgM Ab Hep C IgG Ab HIV 1&2 Ab/P24 Ag 4thGn N.gonorrhoeae DNA (PCR) Blood Type Blood Type Recheck Blood Bank Comment Bld Prod Order Comment 06/28/18 06/28/18 06/28/18 04:53 06:19 07:31 WBC RBC Hgb Hct MCV MCH MCHC RDW Plt Count MPV Prelim Diff (Auto) Neut % (Auto) Lymph % (Auto) [place] % (Auto) Eos % (Auto) Baso % (Auto) Neut # (Auto) Lymph # (Auto) [place] # (Auto) Eos # (Auto) Baso # (Auto) WBC Differential Seg Neuts % (Manual) Band Neuts % (Manual) Lymphocytes % (Manual) Monocytes % (Manual) Abs Neuts (Manual) Differential Comment Toxic Granulation Dohle Bodies Platelet Estimate Platelet Morphology Luxor Cells Keratocytes PT INR APTT Fibrinogen Puncture Site Patient Temperature O2 Saturation ABG pH ABG pCO2 ABG pO2 ABG HCO3 ABG O2 Content ABG Base Excess ABG Methemoglobin Rajiv Test VBG pH VBG pCO2 VBG pO2 VBG HCO3 VBG O2 Saturation VBG O2 Content VBG Base Excess VBG Carboxyhemoglobin VBG Methemoglobin Hemoglobin Carboxyhemoglobin O2 Delivery Device Liter Flow Vent Setting Inspired O2 Critical Value Sodium 137 Potassium 3.7 Chloride 104 Carbon Dioxide 20.0 L Anion Gap 13 BUN 36 H Creatinine 1.16 Estimated GFR 66 L POC Glucose 160 H Random Glucose 140 H Lactic Acid Calcium 7.9 L Prot Corrected Calcium Total Bilirubin 3.1 H AST 18 ALT 30 Alkaline Phosphatase 100 C-Reactive Protein Total Protein 4.8 L Albumin 2.1 L CSF Volume (1) CSF Supernat Color (1) CSF Gross Blood (1) CSF Volume (2) CSF Supernat Color (2) CSF Gross Blood (2) CSF Volume (3) CSF Supernat Color (3) CSF Gross Blood (3) CSF Volume (4) CSF Supernat Color (4) CSF Gross Blood (4) CSF WBC (4) CSF RBC (4) CSF Neutrophils % CSF Lymphocytes % CSF Monocytes % CSF Comment CSF Glucose CSF Lactic Acid CSF Total Protein CSF Herpes I DNA (PCR) CSF Herpes II DNA (PCR) Nasal Screen MRSA (PCR) Vancomycin Trough RPR Chlam trachomat DNA PCR Hepatitis A IgM Ab Hep Bs Antigen Hep B Core IgM Ab Hep C IgG Ab HIV 1&2 Ab/P24 Ag 4thGn N.gonorrhoeae DNA (PCR) Blood Type Blood Type Recheck Blood Bank Comment Bld Prod Order Comment 06/28/18 06/28/18 06/28/18 11:30 12:16 12:16 WBC RBC Hgb Hct MCV MCH MCHC RDW Plt Count MPV Prelim Diff (Auto) Neut % (Auto) Lymph % (Auto) [place] % (Auto) Eos % (Auto) Baso % (Auto) Neut # (Auto) Lymph # (Auto) [place] # (Auto) Eos # (Auto) Baso # (Auto) WBC Differential Seg Neuts % (Manual) Band Neuts % (Manual) Lymphocytes % (Manual) Monocytes % (Manual) Abs Neuts (Manual) Differential Comment Toxic Granulation Dohle Bodies Platelet Estimate Platelet Morphology Mildred Cells Keratocytes PT INR APTT Fibrinogen Puncture Site Patient Temperature O2 Saturation ABG pH ABG pCO2 ABG pO2 ABG HCO3 ABG O2 Content ABG Base Excess ABG Methemoglobin Rajiv Test VBG pH VBG pCO2 VBG pO2 VBG HCO3 VBG O2 Saturation VBG O2 Content VBG Base Excess VBG Carboxyhemoglobin VBG Methemoglobin Hemoglobin Carboxyhemoglobin O2 Delivery Device Liter Flow Vent Setting Inspired O2 Critical Value Sodium Potassium Chloride Carbon Dioxide Anion Gap BUN Creatinine Estimated GFR POC Glucose 153 H Random Glucose Lactic Acid Calcium Prot Corrected Calcium Total Bilirubin AST ALT Alkaline Phosphatase C-Reactive Protein Total Protein Albumin CSF Volume (1) CSF Supernat Color (1) CSF Gross Blood (1) CSF Volume (2) CSF Supernat Color (2) CSF Gross Blood (2) CSF Volume (3) CSF Supernat Color (3) CSF Gross Blood (3) CSF Volume (4) CSF Supernat Color (4) CSF Gross Blood (4) CSF WBC (4) CSF RBC (4) CSF Neutrophils % CSF Lymphocytes % CSF Monocytes % CSF Comment CSF Glucose CSF Lactic Acid CSF Total Protein CSF Herpes I DNA (PCR) CSF Herpes II DNA (PCR) Nasal Screen MRSA (PCR) Vancomycin Trough RPR Nonreactive Chlam trachomat DNA PCR Not detected Hepatitis A IgM Ab Hep Bs Antigen Hep B Core IgM Ab Hep C IgG Ab HIV 1&2 Ab/P24 Ag 4thGn N.gonorrhoeae DNA (PCR) Not detected Blood Type Blood Type Recheck Blood Bank Comment Bld Prod Order Comment 06/28/18 06/28/18 06/28/18 16:09 20:04 21:00 WBC RBC Hgb Hct MCV MCH MCHC RDW Plt Count MPV Prelim Diff (Auto) Neut % (Auto) Lymph % (Auto) [place] % (Auto) Eos % (Auto) Baso % (Auto) Neut # (Auto) Lymph # (Auto) [place] # (Auto) Eos # (Auto) Baso # (Auto) WBC Differential Seg Neuts % (Manual) Band Neuts % (Manual) Lymphocytes % (Manual) Monocytes % (Manual) Abs Neuts (Manual) Differential Comment Toxic Granulation Dohle Bodies Platelet Estimate Platelet Morphology Luxor Cells Keratocytes PT INR APTT Fibrinogen Puncture Site Patient Temperature O2 Saturation ABG pH ABG pCO2 ABG pO2 ABG HCO3 ABG O2 Content ABG Base Excess ABG Methemoglobin Rajiv Test VBG pH VBG pCO2 VBG pO2 VBG HCO3 VBG O2 Saturation VBG O2 Content VBG Base Excess VBG Carboxyhemoglobin VBG Methemoglobin Hemoglobin Carboxyhemoglobin O2 Delivery Device Liter Flow Vent Setting Inspired O2 Critical Value Sodium Potassium Chloride Carbon Dioxide Anion Gap BUN Creatinine Estimated GFR POC Glucose 151 H 125 H Random Glucose Lactic Acid Calcium Prot Corrected Calcium Total Bilirubin AST ALT Alkaline Phosphatase C-Reactive Protein Total Protein Albumin CSF Volume (1) CSF Supernat Color (1) CSF Gross Blood (1) CSF Volume (2) CSF Supernat Color (2) CSF Gross Blood (2) CSF Volume (3) CSF Supernat Color (3) CSF Gross Blood (3) CSF Volume (4) CSF Supernat Color (4) CSF Gross Blood (4) CSF WBC (4) CSF RBC (4) CSF Neutrophils % CSF Lymphocytes % CSF Monocytes % CSF Comment CSF Glucose CSF Lactic Acid CSF Total Protein CSF Herpes I DNA (PCR) CSF Herpes II DNA (PCR) Nasal Screen MRSA (PCR) Vancomycin Trough 3.8 L RPR Chlam trachomat DNA PCR Hepatitis A IgM Ab Hep Bs Antigen Hep B Core IgM Ab Hep C IgG Ab HIV 1&2 Ab/P24 Ag 4thGn N.gonorrhoeae DNA (PCR) Blood Type Blood Type Recheck Blood Bank Comment Bld Prod Order Comment 06/29/18 06/29/18 06/29/18 00:48 04:20 04:20 WBC 18.9 H RBC 4.30 L Hgb 12.4 L Hct 37.8 L MCV 87.9 MCH 28.9 MCHC 32.8 RDW 20.2 H Plt Count 38 L MPV 9.8 Prelim Diff (Auto) Manual diff required Neut % (Auto) Lymph % (Auto) [place] % (Auto) Eos % (Auto) Baso % (Auto) Neut # (Auto) Lymph # (Auto) [place] # (Auto) Eos # (Auto) Baso # (Auto) WBC Differential Manual diff final Seg Neuts % (Manual) 89 H Band Neuts % (Manual) 8 H Lymphocytes % (Manual) Monocytes % (Manual) 3 Abs Neuts (Manual) 18.3 H Differential Comment . Toxic Granulation Dohle Bodies Present H Platelet Estimate Low L Platelet Morphology Normal Luxor Cells 1+ H Keratocytes PT INR APTT Fibrinogen Puncture Site Patient Temperature O2 Saturation ABG pH ABG pCO2 ABG pO2 ABG HCO3 ABG O2 Content ABG Base Excess ABG Methemoglobin Rajiv Test VBG pH VBG pCO2 VBG pO2 VBG HCO3 VBG O2 Saturation VBG O2 Content VBG Base Excess VBG Carboxyhemoglobin VBG Methemoglobin Hemoglobin Carboxyhemoglobin O2 Delivery Device Liter Flow Vent Setting Inspired O2 Critical Value Sodium 141 Potassium 3.7 Chloride 106 Carbon Dioxide 22.8 Anion Gap 12 BUN 35 H Creatinine 0.99 Estimated GFR 79 L POC Glucose 133 H Random Glucose 128 H Lactic Acid Calcium 8.6 Prot Corrected Calcium Total Bilirubin 3.0 H AST 16 ALT 26 Alkaline Phosphatase 79 C-Reactive Protein Total Protein 4.9 L Albumin 2.0 L CSF Volume (1) CSF Supernat Color (1) CSF Gross Blood (1) CSF Volume (2) CSF Supernat Color (2) CSF Gross Blood (2) CSF Volume (3) CSF Supernat Color (3) CSF Gross Blood (3) CSF Volume (4) CSF Supernat Color (4) CSF Gross Blood (4) CSF WBC (4) CSF RBC (4) CSF Neutrophils % CSF Lymphocytes % CSF Monocytes % CSF Comment CSF Glucose CSF Lactic Acid CSF Total Protein CSF Herpes I DNA (PCR) CSF Herpes II DNA (PCR) Nasal Screen MRSA (PCR) Vancomycin Trough RPR Chlam trachomat DNA PCR Hepatitis A IgM Ab Hep Bs Antigen Hep B Core IgM Ab Hep C IgG Ab HIV 1&2 Ab/P24 Ag 4thGn N.gonorrhoeae DNA (PCR) Blood Type Blood Type Recheck Blood Bank Comment Bld Prod Order Comment 06/29/18 06/29/18 07:54 11:28 WBC RBC Hgb Hct MCV MCH MCHC RDW Plt Count MPV Prelim Diff (Auto) Neut % (Auto) Lymph % (Auto) [place] % (Auto) Eos % (Auto) Baso % (Auto) Neut # (Auto) Lymph # (Auto) [place] # (Auto) Eos # (Auto) Baso # (Auto) WBC Differential Seg Neuts % (Manual) Band Neuts % (Manual) Lymphocytes % (Manual) Monocytes % (Manual) Abs Neuts (Manual) Differential Comment Toxic Granulation Dohle Bodies Platelet Estimate Platelet Morphology Luxor Cells Keratocytes PT INR APTT Fibrinogen Puncture Site Patient Temperature O2 Saturation ABG pH ABG pCO2 ABG pO2 ABG HCO3 ABG O2 Content ABG Base Excess ABG Methemoglobin Rajiv Test VBG pH VBG pCO2 VBG pO2 VBG HCO3 VBG O2 Saturation VBG O2 Content VBG Base Excess VBG Carboxyhemoglobin VBG Methemoglobin Hemoglobin Carboxyhemoglobin O2 Delivery Device Liter Flow Vent Setting Inspired O2 Critical Value Sodium Potassium Chloride Carbon Dioxide Anion Gap BUN Creatinine Estimated GFR POC Glucose 116 H 115 H Random Glucose Lactic Acid Calcium Prot Corrected Calcium Total Bilirubin AST ALT Alkaline Phosphatase C-Reactive Protein Total Protein Albumin CSF Volume (1) CSF Supernat Color (1) CSF Gross Blood (1) CSF Volume (2) CSF Supernat Color (2) CSF Gross Blood (2) CSF Volume (3) CSF Supernat Color (3) CSF Gross Blood (3) CSF Volume (4) CSF Supernat Color (4) CSF Gross Blood (4) CSF WBC (4) CSF RBC (4) CSF Neutrophils % CSF Lymphocytes % CSF Monocytes % CSF Comment CSF Glucose CSF Lactic Acid CSF Total Protein CSF Herpes I DNA (PCR) CSF Herpes II DNA (PCR) Nasal Screen MRSA (PCR) Vancomycin Trough RPR Chlam trachomat DNA PCR Hepatitis A IgM Ab Hep Bs Antigen Hep B Core IgM Ab Hep C IgG Ab HIV 1&2 Ab/P24 Ag 4thGn N.gonorrhoeae DNA (PCR) Blood Type Blood Type Recheck Blood Bank Comment Bld Prod Order Comment Result Diagrams: 06/29/18 04:20 06/29/18 04:20 Microbiology: Microbiology 06/27/18 11:45 Aerobic Blood Culture - Preliminary Blood - Peripheral gram negative rods Anaerobic Blood Culture - Preliminary No growth in 2 days 06/27/18 13:12 Aerobic Blood Culture - Preliminary Blood - Peripheral gram negative rods Anaerobic Blood Culture - Preliminary No growth in 2 days 06/28/18 01:22 Gram Stain - Final Sputum - Endotracheal Sputum Culture - Preliminary Moderate growth normal respiratory becca at 24 hours 06/26/18 16:00 Aerobic Blood Culture - Preliminary Blood - Peripheral gram negative rods Anaerobic Blood Culture - Preliminary No growth in 3 days 06/28/18 01:22 Gram Stain - Final Lumbar Puncture CSF Culture - Preliminary gram negative rods 06/26/18 16:05 Aerobic Blood Culture - Preliminary Blood - Peripheral gram negative rods Anaerobic Blood Culture - Preliminary No growth in 3 days 06/27/18 10:40 Gram Stain - Final Wound - Penis Wound Culture - Final Klebsiella pneumoniae ESBL pos 06/26/18 13:09 Urine Culture - Final Clean Catch Urine 06/26/18 18:00 Streptococcus pneumoniae Antigen (M - Final Urine - Catheterized Urine Presumptive negative for streptococcus pneumoniae antigen, suggesting no current or recent infection. Infection due to Streptococcus pneumoniae cannot be ruled out since the antigen present in the sample may be below the detection limit of the test. 06/26/18 18:00 Legionella Antigen - Final Urine - Catheterized Urine Presumptive negative for Legionella pneumophila serogroup 1 antigen in urine, suggesting no recent or recurrent infection. Infection due to Legionella cannot be ruled out since other serogroups and species may cause disease, antigen may not be present in urine in early infection, and the level of antigen present in the urine may be below the detection limit of the test. Assessment and Plan - Disease Oriented Problem List (1) Acute exacerbation of CHF (congestive heart failure) (2) NICM (nonischemic cardiomyopathy) Comment: EF 10% (3) Sepsis (4) Encephalopathy (5) CVA (cerebral vascular accident) Pertinent Non-Medical Issues: Psychosocial:Originally from [place]. never . No children. Only family are 2 brothers. Charles Hager [facility] and Harshal Hager [place] Spiritual:none Legal:health care surrogate completed, but we have no phone numbers. Ethical issues impacting care:need to do our due diligence to find brothers Important Contacts: Laz Charles Dewittsteve Brother (primary health care surrogate) [phone] Lily Wang (sister in law ) [phone] Bright Hager: borhter in [place], althernate surrogate( no phone number avialable) Prognosis: 53-year-old with end-stage cardiomyopathy, came in with altered mental status, possible endocarditis, sepsis, hypotensive. Code Status: No Code DNR Plan: == Capacity-at this current time patient does not have capacity to make medical decisions. Is unclear if patient will regain capacity to make medical decision == [id number] surrogate Laz Hager (brother) == Code: DNR == goals of care Spoke with family. They are ready to transition to comfort measures, and ask for hospice. They request patient pain and anxiety is controlled and prefer prn meds be restarted, such as fentanyl. Family is contemplating weather to transfer patient to hospice care center to withdraw from life support or withdraw in the hospital. They will meet with me and hospice at 4:30 pm. == Assessment/ plan symptom- anxiety; current clinical condition confusion- ativan prn available. confusion- 2nd to clincial condition/ sepsis, chf, possible cva. no med rec at this current time. dyspnea- on ventilator- defer to aircraft electrician. == palliative care will continue to assist with symptom managment and review goals of treatment as clinical condition evolves. Attestation Attestation: To help prompt me to consider important information that might be impacting today's encounter and assessment, information from prior notes written by myself or my colleagues may have been "brought forward" into today's note. My signature on this note, however, is an attestation that I personally performed the exam, history, and/or decision-making noted today, and, unless otherwise indicated, the interactions with patient, family, and staff as well as the review of records all occurred today. I also attest that the listed assessment and stated plan reflect my best clinical judgment today based on the combination of historical information, prior notes, and today's exam/ interactions. When time spent is documented, it refers only to time spent today by the signer, or if indicated, combined time spent today by collaborating physician/nurse practitioner.
[2018-06-29] MEDS: Pantoprazole Inj 40 MG Vial IV.PUSH SCH (16:02)
[2018-06-29] MEDS ORDERED: Morphine Inj 4 MG/ML Vial IV.PUSH PRN (16:47)
--- NOTE | 2018-06-29 18:34 | P.PNID ---
Subjective Remarks: ID X cover for Chelsi Layton Mr. Hager is a 52 y/o CM with past medical history significant for alcoholic cardiomyopathy with ejection fraction of 10-15% as documented in prior records. Patient underwent a cardiac catheterization in the past and has been seen by cardiology services. Patient was on a LifeVest and was instructed to follow-up with cardiology but unfortunately patient has been noncompliant in the past. Patient checked himself out of hospice per records. Patient was seen in the ER at [facility] [place] on May 21, 2018 with bilateral lower extremity swelling and was thought to be having a congestive heart failure exacerbation. His last echo showed EF of 20%, dilated cardiomyopathy and moderate mitral valve regurgitation. Reportedly patient has declined referral for AICD placement. 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 Per reports cardiology noted that long-term prognosis is poor due to very low ejection fraction and the lack of AICD. Patient was evaluated by palliative care services on his last admission. Patient was found hypotensive by EVAC outside his friend's home. Patient reportedly is homeless and lives outside the garage of his friend's home. [facility] evaluated the patient and he was found to have a systolic blood pressure in the 80s, tachycardic with a heart rate of 104. He was given a liter bolus in the ED placed on levo fed. Hypoglycemic with a blood sugar of 24 D50. His BUN was 42 his creatinine was 1.52 and he was hyperkalemic with a potassium of 5.6 and a sodium of 127. Patient was found to have an elevated lactic acid of 2.9 and a WBC of 19 point. His UA was positive. Chest x-ray showed mild pulmonary vascular congestion and bilateral lower lobe airspace consolidation. Patient underwent a sepsis workup and was started on empiric antibiotics. ABG on room air was done which showed pH of 7.41, CO2 of 26 PaO2 of 79, bicarb of 16 and a saturation of 94%. His urine drug screen was negative and serum alcohol was less than 3. Patient was evaluated by clinical staff pharmacist services patient ultimately ended up getting intubated for airway protection. Patient has been evaluated by neurology services and has an abnormal CT scan. At the present time patient is in the ICU but is shortly going to be headed to radiology services for an MRI. At the time of my evaluation patient is in the ICU currently intubated sedated on Levophed 15 mics. Patient was undergoing an EEG. A CT of the brain showed focal heterogeneity of the right parietal lobe possible intra-axial mass and adjacent hemorrhage. A focal subacute infarct with mild jhon-infarct hemorrhage was also in the differential there is no midline shift. Blood cultures drawn and admission are positive for gram-negative rods. Infectious disease is consulted for evaluation and management of septic shock and gram-negative bacteremia. Medical History: CHF (congestive heart failure) Hypertension Surgical History: Surgical History Hx of cardiac catheterization Overnight events reviewed with RN. Reviewed chart. Intubated overnight, off pressors Pt not breathing over the vent + gag Growing GNBs 4/4 blood clx and from CSF, oxydase positive, not growing on Eda ESBL + Kleb from penis wound 2 D echo showed : left ventricular systolic function is severely reduced with an estimated ejection fraction less than 20%. Severely dilated left ventricle. [id number] mitral valve regurgitation. There is moderate to severe tricuspid valve regurgitation. A large left sided pleural effusion is noted. Antibiotics: Zosyn IV Cefepime IV vanco IV Lines: Lines ok Past Medical History: reviewed Allergies/Adverse Reactions: Allergies No Known Allergies Allergy (Unverified 06/26/18 14:17) Objective Vital Signs 06/28/18 18:30 06/28/18 18:45 06/28/18 19:00 Temperature Pulse Rate 97 H 97 H 97 H Respiratory Rate 16 15 15 Blood Pressure 91/62 L 91/64 L 92/64 L Pulse Oximetry 97 97 97 06/28/18 19:15 06/28/18 19:24 06/28/18 19:30 Temperature Pulse Rate 97 H 96 H Respiratory Rate 15 16 16 Blood Pressure 89/62 L 89/62 L Pulse Oximetry 97 97 97 06/28/18 19:45 06/28/18 20:00 06/28/18 20:15 Temperature 98.8 F Pulse Rate 97 H 98 H 97 H Respiratory Rate 15 15 15 Blood Pressure 88/62 L 89/66 L 92/61 L Pulse Oximetry 97 97 97 06/28/18 20:30 06/28/18 20:45 06/28/18 21:00 Temperature Pulse Rate 95 H 92 H 93 H Respiratory Rate 15 15 15 Blood Pressure 90/61 L 88/58 L 83/52 L Pulse Oximetry 97 97 97 06/28/18 21:15 06/28/18 21:30 06/28/18 21:45 Temperature Pulse Rate 92 H 92 H 91 H Respiratory Rate 15 15 15 Blood Pressure 86/57 L 87/60 L 86/58 L Pulse Oximetry 97 97 97 06/28/18 22:00 06/28/18 22:15 06/28/18 22:30 Temperature Pulse Rate 91 H 90 91 H Respiratory Rate 15 15 15 Blood Pressure 87/60 L 86/60 L 91/55 L Pulse Oximetry 97 97 97 06/28/18 22:45 06/28/18 23:00 06/28/18 23:15 Temperature Pulse Rate 90 89 88 Respiratory Rate 15 15 15 Blood Pressure 87/56 L 83/55 L 83/56 L Pulse Oximetry 97 97 97 06/28/18 23:28 06/28/18 23:30 06/28/18 23:45 Temperature Pulse Rate 90 89 Respiratory Rate 15 15 15 Blood Pressure 86/62 L 79/55 L Pulse Oximetry 97 97 97 06/29/18 00:00 06/29/18 00:15 06/29/18 00:30 Temperature Pulse Rate 89 91 H 91 H Respiratory Rate 17 16 16 Blood Pressure 79/55 L 80/56 L 80/56 L Pulse Oximetry 97 97 97 06/29/18 00:45 06/29/18 01:00 06/29/18 01:15 Temperature Pulse Rate 91 H 90 91 H Respiratory Rate 16 16 17 Blood Pressure 82/56 L 81/56 L 82/57 L Pulse Oximetry 97 97 97 06/29/18 01:30 06/29/18 01:45 06/29/18 02:00 Temperature Pulse Rate 91 H 90 91 H Respiratory Rate 17 17 17 Blood Pressure 80/56 L 81/55 L 84/57 L Pulse Oximetry 97 97 97 06/29/18 02:15 06/29/18 02:30 06/29/18 02:45 Temperature Pulse Rate 91 H 91 H 91 H Respiratory Rate 16 16 16 Blood Pressure 84/58 L 82/59 L 83/58 L Pulse Oximetry 97 97 97 06/29/18 03:00 06/29/18 03:08 06/29/18 03:15 Temperature Pulse Rate 94 H 91 H Respiratory Rate 16 15 15 Blood Pressure 83/62 L 80/55 L Pulse Oximetry 97 97 97 06/29/18 03:30 06/29/18 03:45 06/29/18 04:00 Temperature 98.5 F Pulse Rate 100 H 93 H 96 H Respiratory Rate 17 15 19 Blood Pressure 86/51 L 86/61 L Pulse Oximetry 99 97 97 06/29/18 04:01 06/29/18 04:15 06/29/18 04:30 Temperature Pulse Rate 104 H 93 H 93 H Respiratory Rate 16 17 14 Blood Pressure 86/65 L 88/65 L 85/53 L Pulse Oximetry 97 98 97 06/29/18 04:45 06/29/18 05:00 06/29/18 05:15 Temperature Pulse Rate 99 H 95 H 101 H Respiratory Rate 15 12 15 Blood Pressure 85/63 L 89/63 L 85/61 L Pulse Oximetry 97 98 98 06/29/18 05:30 06/29/18 05:45 06/29/18 06:00 Temperature Pulse Rate 92 H 96 H 92 H Respiratory Rate 16 14 15 Blood Pressure 84/62 L 85/60 L 83/57 L Pulse Oximetry 98 98 98 06/29/18 06:18 06/29/18 07:00 06/29/18 07:46 Temperature 98.9 F Pulse Rate 101 H 104 H 91 H Respiratory Rate 15 15 18 Blood Pressure 81/60 L 93/64 L Pulse Oximetry 97 98 100 06/29/18 08:00 06/29/18 09:00 06/29/18 10:00 Temperature 98.9 F 98.9 F Pulse Rate 102 H 106 H 107 H Respiratory Rate 15 15 15 Blood Pressure 88/64 L 85/61 L 86/64 L Pulse Oximetry 99 98 100 06/29/18 11:00 06/29/18 11:36 06/29/18 12:00 Temperature 98.7 F 98.6 F Pulse Rate 105 H 111 H 112 H Respiratory Rate 15 16 15 Blood Pressure 81/60 L 89/61 L Pulse Oximetry 100 100 100 06/29/18 13:00 06/29/18 14:00 06/29/18 15:00 Temperature Pulse Rate 113 H 118 H 108 H Respiratory Rate 15 15 15 Blood Pressure 89/69 L 87/68 L 82/60 L Pulse Oximetry 100 100 100 06/29/18 15:35 06/29/18 16:00 06/29/18 17:00 Temperature Pulse Rate 109 H 108 H 109 H Respiratory Rate 15 15 15 Blood Pressure 84/59 L 85/65 L Pulse Oximetry 96 100 100 Intake & Output 06/28/18 06/29/18 06/29/18 18:59 06:59 18:59 Intake Total 1914 / 1914 1561 / 1561 815 / 815 Output Total 675 / 675 700 / 700 Balance 1239 / 1239 861 / 861 815 / 815 Weight 69.7 kg Intake: IV 1550 / 1550 1561 / 1561 815 / 815 D5W/Normal Saline Inj 1,000 ML 1000 / 1000 1000 / 1000 @ 50 mls/hr IV.CONT .Q20H [facility] Rx#:[id number] Maxipime Inj 2,000 MG In NS Inj 100 / 100 100 / 100 100 ML @ 100 mls/hr IV.SIG Q12H [facility] Rx#:[id number] Merrem Inj 2,000 MG In NS Inj 100 / 100 100 ML @ 200 mls/hr IV.SIG Q8H [facility] Rx#:[id number] Levophed-Dextrose 4 mg/250 ml 250 / 250 Drip 4 mg In 250 ml @ 2 MCG/MIN 7.5 mls/hr IV.SIG TITRATE PRN Rx#:[id number] Zosyn 4.5 GM Premix 4.5 gm In 200 / 200 200 / 200 200 / 200 100 ml @ 200 mls/hr IV.SIG Q6H [facility] Rx#:[id number] Vancomycin Inj 1,100 MG In NS 261 / 261 Inj 250 ML @ 250 mls/hr IV.SIG Q18H [facility] Rx#:[id number] Vancomycin Inj 1,500 MG In NS 515 / 515 Inj 500 ML @ 250 mls/hr IV.SIG Q12H [facility] Rx#:[id number] Intake (Blood Product) Amt 364 / 364 Plt Pheresis B Leukoreduced 0 / 0 Unit [id number] Plt Pheresis S Leukoreduced 364 / 364 Unit [id number] Output: Urine Amount (Catheter) 675 / 675 700 / 700 Indwelling Urethral Catheter 675 / 675 700 / 700 Other: # Bowel Movements 0 06/27/18 11:45 Blood - Peripheral Aerobic Blood Culture - Preliminary gram negative rods 06/27/18 11:45 Blood - Peripheral Anaerobic Blood Culture - Preliminary No growth in 2 days 06/27/18 13:12 Blood - Peripheral Aerobic Blood Culture - Preliminary gram negative rods 06/27/18 13:12 Blood - Peripheral Anaerobic Blood Culture - Preliminary No growth in 2 days 06/28/18 01:22 Sputum - Endotracheal Gram Stain - Final 06/28/18 01:22 Sputum - Endotracheal Sputum Culture - Preliminary Moderate growth normal respiratory becca at 24 hours 06/26/18 16:00 Blood - Peripheral Aerobic Blood Culture - Preliminary gram negative rods 06/26/18 16:00 Blood - Peripheral Anaerobic Blood Culture - Preliminary No growth in 3 days 06/28/18 01:22 Lumbar Puncture Gram Stain - Final 06/28/18 01:22 Lumbar Puncture CSF Culture - Preliminary gram negative rods 06/26/18 16:05 Blood - Peripheral Aerobic Blood Culture - Preliminary gram negative rods 06/26/18 16:05 Blood - Peripheral Anaerobic Blood Culture - Preliminary No growth in 3 days 06/27/18 10:40 Wound - Penis Gram Stain - Final 06/27/18 10:40 Wound - Penis Wound Culture - Final Klebsiella pneumoniae ESBL pos 06/26/18 13:09 Clean Catch Urine Urine Culture - Final 06/26/18 18:00 Urine - Catheterized Urine Streptococcus pneumoniae Antigen ( M - Final Presumptive negative for streptococcus pneumoniae antigen, suggesting no current or recent infection. Infection due to Streptococcus pneumoniae cannot be ruled out since the antigen present in the sample may be below the detection limit of the test. 06/26/18 18:00 Urine - Catheterized Urine Legionella Antigen - Final Presumptive negative for Legionella pneumophila serogroup 1 antigen in urine, suggesting no recent or recurrent infection. Infection due to Legionella cannot be ruled out since other serogroups and species may cause disease, antigen may not be present in urine in early infection, and the level of antigen present in the urine may be below the detection limit of the test. Lab - Hematology Results 06/28/18 06/29/18 04:53 04:20 WBC 20.7 H 18.9 H RBC 4.53 4.30 L Hgb 13.3 12.4 L Hct 40.3 37.8 L MCV 89.0 87.9 MCH 29.3 28.9 MCHC 32.9 32.8 RDW 19.9 H 20.2 H Plt Count 38 L D 38 L MPV 10.7 9.8 Prelim Diff (Auto) Manual diff required Manual diff required WBC Differential Manual diff final Manual diff final Seg Neuts % (Manual) 63 89 H Band Neuts % (Manual) 35 H 8 H Lymphocytes % (Manual) 1 L Monocytes % (Manual) 1 3 Abs Neuts (Manual) 20.3 H 18.3 H Differential Comment . . Toxic Granulation 1+ H Dohle Bodies Present H Present H Platelet Estimate Low L Low L Platelet Morphology Normal Normal Mildred Cells 1+ H 1+ H Lab - Chemistry Results 06/27/18 06/27/18 06/28/18 19:53 20:30 02:08 Sodium Potassium Chloride Carbon Dioxide Anion Gap BUN Creatinine Estimated GFR POC Glucose 126 H 129 H Random Glucose Lactic Acid 3.4 H Calcium Total Bilirubin AST ALT Alkaline Phosphatase Total Protein Albumin 06/28/18 06/28/18 06/28/18 04:33 04:53 07:31 Sodium 137 Potassium 3.7 Chloride 104 Carbon Dioxide 20.0 L Anion Gap 13 BUN 36 H Creatinine 1.16 Estimated GFR 66 L POC Glucose 137 H 160 H Random Glucose 140 H Lactic Acid Calcium 7.9 L Total Bilirubin 3.1 H AST 18 ALT 30 Alkaline Phosphatase 100 Total Protein 4.8 L Albumin 2.1 L 06/28/18 06/28/18 06/28/18 11:30 16:09 20:04 Sodium Potassium Chloride Carbon Dioxide Anion Gap BUN Creatinine Estimated GFR POC Glucose 153 H 151 H 125 H Random Glucose Lactic Acid Calcium Total Bilirubin AST ALT Alkaline Phosphatase Total Protein Albumin 06/29/18 06/29/18 06/29/18 00:48 04:20 07:54 Sodium 141 Potassium 3.7 Chloride 106 Carbon Dioxide 22.8 Anion Gap 12 BUN 35 H Creatinine 0.99 Estimated GFR 79 L POC Glucose 133 H 116 H Random Glucose 128 H Lactic Acid Calcium 8.6 Total Bilirubin 3.0 H AST 16 ALT 26 Alkaline Phosphatase 79 Total Protein 4.9 L Albumin 2.0 L 06/29/18 06/29/18 11:28 16:11 Sodium Potassium Chloride Carbon Dioxide Anion Gap BUN Creatinine Estimated GFR POC Glucose 115 H 111 H Random Glucose Lactic Acid Calcium Total Bilirubin AST ALT Alkaline Phosphatase Total Protein Albumin Imaging: ITS Impressions Head CT 06/27/18 00:00 CONCLUSION: Focal heterogeneity of the right parietal lobe as described of concern for a possible intra-axial mass and adjacent hemorrhage. A focal subacute infarct with mild jhon-infarct hemorrhage would also be in the differential. There is no midline shift. MRI of the brain with and without contrast is recommended. . Head MRI 06/27/18 00:00 CONCLUSION: Findings most characteristic of hemorrhagic infarct in the posterior right temporal lobe. No underlying mass is identified. Neck MRA 06/27/18 00:00 CONCLUSION: Negative MRA Carotids. Percent stenosis is calculated using the diameter of the stenotic region over the diameter of the normal distal internal carotid artery Head MRA 06/27/18 07:45 CONCLUSION: 1. Negative MRA Cow ([place] [facility] [place]) non contrast. Chest X-Ray 06/28/18 00:00 CONCLUSION: 1. Interim intubation. Endotracheal tube tip is 3.2 cm above the kelly. 2. New nasogastric tube, courses into the stomach. 3. Persistent and not significantly changed pulmonary edema. 4. Bilateral small pleural effusions have developed. Physical Exam: GENERAL: Sedated, on the vent, NAD SKIN: Cool and dry, no generalized rash HEAD: Atraumatic. Normocephalic. No temporal or scalp tenderness. EYES: Pupils equal round and reactive. Scleral icterus. No injection or drainage. No petechia ENT: Orally intubated NECK: Trachea midline. Supple, nontender, no meningeal signs. CARDIOVASCULAR: HS audible. RESPIRATORY: Air entry equal bilaterally. Clear to auscultation bilaterally. GASTROINTESTINAL: Abdomen soft,NT MUSCULOSKELETAL: Extremities without clubbing, cyanosis. Bilateral LE abrasions noted. Genitourinary examination: Swollen penile shaft with edema and on especially with some purulent discharge noted. No other lesions on the penile shaft or any other genital organs. NEUROLOGICAL: Unresponsive. Eyes closed. No spontaneous movement s or to commands Psych could not be assessed IV line sites ok. Assessment and Plan - Plan Septic shock with multiorgan dysfunction syndrome on pressors Acute bacterial meningitis(GNR in CSF gram stain), cerebritis, mycotic infection related bleeding. - growing GNR Gram-negative bacteremia likely source of rule out endocarditis Penile shaft swelling ? abscess. GNR in penile culture. Acute respiratory failure on ventilator Acute metabolic encephalopathy likely secondary to hepatic encephalopathy possible meningitis or encephalitis(infectious cerebritis), seizures. Rule out mycotic aneurysm Large pleural effusion Pt family planning for w/d of care Recommendations dc Zosyn IV dc Cefepime IV dc vancomycin IV (target 15-20) continue for now as CSF and Blood cultures not finalized. Start Meropenem Follow Urine output and Cr. Follow ID of GNR
[2018-06-30] MEDS: Insulin NovoLIN Regular Correctional Sugar Inj SQ SCH ×3 (00:27→13:09)
[2018-06-30] MEDS: Dextrose 5%/NaCl 0.9% Inj 1,000 ML IV.CONT SCH (00:33)
[2018-06-30] MEDS: fentaNYL 10 mcg/mL Premix Drip 2,500 MCG/250 ML BAG IV.SIG PRN (02:13)
[2018-06-30] MEDS: Chlorhexidine Gluconate 2% 1 Pack (2 Cloths) TOPICAL SCH (03:36)
[2018-06-30] MEDS: Hydrocortisone Sod Succinate 100 MG Vial IV.PUSH SCH (06:10)
--- NOTE | 2018-06-30 08:10 | P.PNCC ---
Subjective Subjective Remarks/Hospital Course: The patient is a 53-year-old male with a past medical history of CHF and cardiomyopathy, with EF of less than 20%, who presented to [facility] ED for altered mental status. The patient was found incontinent of urine and feces. Apparently, the patient is homeless and has been living in a friend's garage, and he was last seen one week ago. On his last admission, he was seen by cardiology service and they recommended hospice. He also has history of ETOH abuse. Thepatient was found hypotensive by EVAC with a systolic blood pressure in the 80s, tachycardic with heart rate of 104. He was given 1 liter bolus of normal saline in the ED and placed on Levophed currently at 15 mcg. In addition, he was found hypoglycemic and had a blood sugar of 24 on a BMP, and was given half amp of D50. His labs significant for renal failure with a BUN of 42, creatinine 1.52, hyperkalemic with a potassium level 5.6, and hyponatremic with a sodium level of 127. In addition, the patient had mild lactic acidosis with a lactic acid level of 2.9 and a leukocytosis with a WBC of 19.8. His urinalysis was positive for nitrite, leukocyte esterase, and 20 WBCs. Chest x-ray in the ER showed cardiomegaly with mild pulmonary vascular congestion, bilateral lower lobe airspace consolidations. He received vancomycin and Zosyn. ABG on room air showed a pH of 7.41, CO2 of 26, PaO2 79, bicarbonate of 16, and a saturation of 94%. His urine drug screen was negative and his serum alcohol level was less than 3. Most of the history was obtained from reviewing medical records, as the patient is a poor historian. 06/27 Patient remains on Levophed 15 mics, lethargic , CT brain last night showed focal heterogeneity of the right parietal lobe possible intra-axial mass and adjacent hemorrhage. A focal subacute infarct with mild jhon-infarct hemorrhage would also be in the differential. No midline shift. BC from yesterday gram negative rods. 06/28: Intubated overnight and placed on mechanical ventilation. Underwent lumbar puncture which suggest bacterial meningitis with glucose less than 1 protein 330s and white count 1400s. Currently sedated, orally intubated on mechanical ventilation. Palliative care attempting to contact family. 06/29 Patient is intubated and sedated with Fentanyl drip. Levophed down 2 mics 06/30 Patient remains intubated and sedated, off Levophed. For transfer patient to [facility] to withdraw from life support today. Objective Vital Signs / I&O: Vital Signs 06/29/18 09:00 06/29/18 10:00 06/29/18 11:00 Temperature 98.9 F 98.7 F Pulse Rate 106 H 107 H 105 H Respiratory Rate 15 15 15 Blood Pressure 85/61 L 86/64 L 81/60 L Pulse Oximetry 98 100 100 06/29/18 11:36 06/29/18 12:00 06/29/18 13:00 Temperature 98.6 F Pulse Rate 111 H 112 H 113 H Respiratory Rate 16 15 15 Blood Pressure 89/61 L 89/69 L Pulse Oximetry 100 100 100 06/29/18 14:00 06/29/18 15:00 06/29/18 15:35 Temperature Pulse Rate 118 H 108 H 109 H Respiratory Rate 15 15 15 Blood Pressure 87/68 L 82/60 L Pulse Oximetry 100 100 96 06/29/18 16:00 06/29/18 17:00 06/29/18 18:00 Temperature Pulse Rate 108 H 109 H 112 H Respiratory Rate 15 15 15 Blood Pressure 84/59 L 85/65 L 91/64 L Pulse Oximetry 100 100 100 06/29/18 19:00 06/29/18 19:44 06/29/18 20:00 Temperature 97.6 F Pulse Rate 120 H 133 H Respiratory Rate 15 18 15 Blood Pressure 97/65 L 97/65 L Pulse Oximetry 95 96 95 06/29/18 21:00 06/29/18 22:19 06/29/18 23:00 Temperature Pulse Rate 127 H 119 H 116 H Respiratory Rate 15 15 15 Blood Pressure 94/71 L 96/68 L 88/67 L Pulse Oximetry 95 95 95 06/29/18 23:13 06/29/18 23:19 06/30/18 00:00 Temperature Pulse Rate 101 H 113 H Respiratory Rate 16 15 15 Blood Pressure 86/68 L Pulse Oximetry 96 96 06/30/18 01:00 06/30/18 02:00 06/30/18 03:00 Temperature Pulse Rate 115 H 115 H 120 H Respiratory Rate 15 15 15 Blood Pressure 94/65 L 96/71 L 95/70 L Pulse Oximetry 96 96 96 06/30/18 03:16 06/30/18 03:17 06/30/18 04:00 Temperature Pulse Rate 105 H 134 H Respiratory Rate 16 17 15 Blood Pressure 99/78 L Pulse Oximetry 97 96 06/30/18 05:00 06/30/18 06:00 Temperature Pulse Rate 119 H 111 H Respiratory Rate 15 15 Blood Pressure 94/74 L 92/67 L Pulse Oximetry 96 96 Intake & Output 06/29/18 06/30/18 06/30/18 18:59 06:59 18:59 Intake Total 815 / 815 1350 / 1350 100 / 100 Output Total 1100 / 1100 550 / 550 Balance -285 / -285 800 / 800 100 / 100 Weight 69 kg Intake: IV 815 / 815 1350 / 1350 100 / 100 D5W/Normal Saline Inj 1,000 ML 1000 / 1000 @ 50 mls/hr IV.CONT .Q20H [facility] Rx#:[id number] Merrem Inj 2,000 MG In NS Inj 100 / 100 100 / 100 100 / 100 100 ML @ 200 mls/hr IV.SIG Q8H [facility] Rx#:[id number] Zosyn 4.5 GM Premix 4.5 gm In 200 / 200 100 ml @ 200 mls/hr IV.SIG Q6H [facility] Rx#:[id number] Vancomycin Inj 1,500 MG In NS 515 / 515 Inj 500 ML @ 250 mls/hr IV.SIG Q12H [facility] Rx#:[id number] fentaNYL 10 mcg/mL Premix Drip 250 / 250 2,500 mcg In 250 ml @ 50 MCG/HR 5 mls/hr IV.SIG TITRATE PRN Rx #:[id number] Tube Feeding 0 / 0 Output: Urine Amount (Catheter) 1100 / 1100 550 / 550 Indwelling Urethral Catheter 1100 / 1100 550 / 550 Other: # Bowel Movements 0 Result Diagrams: 06/29/18 04:20 06/29/18 04:20 Other Results: Laboratory Results - last 12 hr 06/29/18 20:03 POC Glucose 122 H Imaging: Head CT 06/27/18 00:00 CONCLUSION: Focal heterogeneity of the right parietal lobe as described of concern for a possible intra-axial mass and adjacent hemorrhage. A focal subacute infarct with mild jhon-infarct hemorrhage would also be in the differential. There is no midline shift. MRI of the brain with and without contrast is recommended. . Head MRI 06/27/18 00:00 CONCLUSION: Findings most characteristic of hemorrhagic infarct in the posterior right temporal lobe. No underlying mass is identified. Neck MRA 06/27/18 00:00 CONCLUSION: Negative MRA Carotids. Percent stenosis is calculated using the diameter of the stenotic region over the diameter of the normal distal internal carotid artery Head MRA 06/27/18 07:45 CONCLUSION: 1. Negative MRA Cow ([facility] [place]) non contrast. Chest X-Ray 06/28/18 00:00 CONCLUSION: 1. Interim intubation. Endotracheal tube tip is 3.2 cm above the kelly. 2. New nasogastric tube, courses into the stomach. 3. Persistent and not significantly changed pulmonary edema. 4. Bilateral small pleural effusions have developed. Objective Remarks: GENERAL: Patient is 53 yo critically ill lethargic SKIN: Warm and dry. HEAD: Normocephalic. EYES: No scleral icterus. No injection or drainage. NECK: Supple, trachea midline. No JVD or lymphadenopathy. CARDIOVASCULAR: Regular rate and rhythm without murmurs, gallops, or rubs. RESPIRATORY: Orally intubated on mechanical ventilation, good air entry bilaterally, scattered rhonchi, no wheezing GASTROINTESTINAL: Abdomen soft, non-tender, nondistended. MUSCULOSKELETAL: No cyanosis, or edema. Neuro: Encephalopathic/sedated, orally intubated on mechanical ventilation. Assessment and Plan - Assessment and Plan Plan: 1. Septic shock. 2. Acute kidney injury. 3. Hypoglycemic episodes. 4. Electrolyte imbalance, which include hyponatremia and hyperkalemia. 5. Altered mental status. 6. Gram negative bacteremia 7. Leukocytosis. 8. Urinary tract infection. 9. Bilateral consolidations. Rule out infectious process. 10. CHF. 11. Cardiomyopathy EF< 20%. Plan Neuro: Monitor neuro status closely. On Fentanyl infusion for Sedation. CT brain: focal heterogeneity of the right parietal lobe possible intra -axial mass and adjacent hemorrhage. A focal subacute infarct with mild jhon-infarct hemorrhage would also be in the differential. No midline shift. Neuro is following- Dr. Terry, MRI brain: hemorrhagic infarct in the posterior right temporal lobe. No underlying mass is identified. CSF : elevated white blood cell count and protein low glucose with over 90% neutrophils suggestive of bacterial meningitis Pulm: Continue vent support keep sats >92% Bronchodilators, ICU vent bundle. CV: Continue with Levophed maintain MAP > 65 mmHg. Lactic acid 3.4 on 06/27 On hydrocortisone 100 mg IV every 8 hours. EF < 20% : Monitor renal function, I's and O's, and avoid nephrotoxins. D5 NS at 50 mL an hour GI: On Protonix 40 mg daily for GI prophylaxis. ID: Continue with abx(Merrem)Monitor for signs and monitor for signs of infection(fever and WBC). Blood cultures 06/26: GNR Strep pneumonia and Legionella Ag negative. Lumbar puncture suggestive of bacterial meningitis. CSF: GNR Wound care is following Heme: Monitor CBC and coags. s/p Transfuse 2u FFP on 06/27 to correct coagulopathy given hemorrhagic infract on MRI brain s/p transfusion 2u PLT on 06/28 Endo: SSI with Accu-Cheks q.4 hours GI prophylaxis- Protonix 40 mg daily. DVT prophylaxis with SCD, not on heparin SQ due to CT brain findings Palliative care is following Lines: Right subclavian CVP placed 06/26, peripheral IV's Patient is critically ill with septic shock, gram negative bacteremia, bacterial meningitis, renal failure, UTI , AMS and with severe cardiomyopathy Family elected to proceed with transitioning to comfort care. For transfer patient to hospice care center today to withdraw from life support Level 3
[2018-06-30 12:14] VITALS: BP 82/49; PULSE 140; RESP 20; TEMP 98; O2SAT 89
[2018-06-30] MEDS ORDERED: Morphine Inj 4 MG/ML Vial IV.PUSH ONE (12:30)
[2018-06-30] MEDS: Senna/Docusate Sodium 8.6/50 MG Tablet PO SCH (13:09)
[2018-07-01] MEDS ORDERED: Pharmacy Ordered Lab Info OTHER ONE (09:45)
--- NOTE | 2018-07-29 05:59 | MD ---
cc: Katrin Antoine MD DATE OF DISCHARGE: 06/30/2018 HOSPITAL COURSE: The patient is a 53-year-old male with a past medical history of CHF, cardiomyopathy with EF of less than 20%, who presented to [facility] ED with altered mental status. The patient is homeless and has been living in a friend's garage and he was last seen one week ago. On his last admission, he was seen by cardiology and they recommended hospice. He also has a history of ETOH abuse. The patient was found hypotensive by EVAC, tachycardic, and was given IV fluids and started on Levophed. Also, he was hypoglycemic with a blood sugar of 24. On arrival, his labs were significant for renal failure with a creatinine of 1.52, hyperkalemia with potassium 5.6 and hyponatremic with a sodium level of 127. He also had mild lactic acidosis with lactic acid level of 2.9 and leukocytosis with a WBC of 19.8. He was kept on full mechanical ventilation and bronchodilators was provided. The patient was on fentanyl infusion for sedation. He had a CT scan of the brain, which showed focal heterogeneity of the right parietal lobe, possible mass with adjacent hemorrhage. He subsequently underwent MRI of the brain, which showed hemorrhagic infarct in the posterior right temporal lobe, no underlying masses identified. The patient was seen by Dr. Terry and underwent a lumbar puncture and his CSF showed elevated WBC, protein with low glucose, and over 90% neutrophils suggestive of bacterial meningitis. He was kept on pressors to maintain MAP greater than 65 mmHg. In addition, he was on stress dose steroids, hydrocortisone 100 mg IV every 8. The patient was also on broad-spectrum antibiotics and his blood cultures showed gram-negative rods. During his ICU course, he received 2 units of fresh frozen plasma on 06/27/2018 to correct the coagulopathy given hemorrhagic infarct on MRI of the brain and had 2 units of platelet transfusion on 06/28/2018. He had a right subclavian central line, which was placed on 06/26/2018. The patient was critically ill with septic shock, gram-negative bacteremia, bacterial meningitis, renal failure, urinary tract infection, encephalopathy and severe cardiomyopathy. Palliative care was following and family elected to proceed with transitioning to comfort care and the patient was transferred to hospice care center for withdrawal of life support per family's request. MD Thad Brandt , 12:19 PM , 12:27 PM
== END 2018-06-30 13:25 | disposition hospice, inpatient (51) ==
LOC: NEPC 12:01 → NEDA 15:10 → HIMC 16:22
PROVIDERS: ADMIT Internal Medicine Critical Care Medicine; ATTEND Internal Medicine Critical Care Medicine